=== PATIENT | female | born 1980 | race Caucasian/White ===

== ENCOUNTER 2019-05-26 06:42 | Outpatient (CLI) | payer OTHER, SELFPAY ==
--- NOTE | ~2019-05-26 | CT_ITS ---
EXAMINATION: CT sinus wo con DATE: 05/26/2019 07:20 INDICATION: Chronic sinusitis TECHNIQUE: Computed tomography (CT) of the paranasal sinuses was performed without intravenous contra st. The dose-length product (DLP) was 302.19 mGy-cm. Iterative reconstruction was used. COMPARISON: 02/06/2017 FINDINGS: There is normal development and pneumatization of the paranasal sinuses. The frontal, sphen oid, ethmoid, and maxillary sinuses are clear. The bilateral ostiomeatal complexes are patent. Visual ized soft tissues are unremarkable. Catherine bullosa the left middle turbinate is noted. There are 6 mm of rightward deviation of the nasal septum. IMPRESSION: 1. 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 Reviewed, dictated and finalized at location A. PERSON
== END 2019-05-26 06:43 | disposition home or self-care (01) ==
PROVIDERS: PCP Family Medicine; Visit Provider Otolaryngology
DX: J32.9 Chronic sinusitis, unspecified (principal); J34.2 Deviated nasal septum
CPT/HCPCS: 70486

== ENCOUNTER 2019-10-08 16:51 | Emergency (ER) | payer OTHER, SELFPAY ==
[2019-10-08 17:11] VITALS: BP 115/65; PULSE 62; RESP 18; TEMP 36.5; O2SAT 100
--- NOTE | 2019-10-08 17:20 | ED.URI ---
HPI - URI/Sore Throat General Chief Complaint: Ear Stated Complaint: upper respiratory infection Time Seen by Provider: 10/08/19 17:20 Source: patient Mode of arrival: ambulatory Limitations: no limitations History of Present Illness HPI Narrative: Peggy Serrano is a 39 yo female woth PMH of [facility] who comes with bilateral ear pain and headache. Bilateral ear pain started 3-4 days ago, same with headache. History of recurrent problems with sinuses and has an ENT. Multiple care and was treated with steroids and antibiotics Related Data Home Medications Medication Instructions Recorded Confirmed alprazolam [Xanax] 1 mg PO BID PRN 02/14/19 02/14/19 omeprazole 40 mg PO DAILY 02/14/19 02/14/19 sertraline 50 mg PO DAILY 02/14/19 02/14/19 estradiol mg 03/29/19 Allergies Allergy/AdvReac Type Severity Reaction Status Date / Time hydrocodone Allergy Intermediate SWELLING Verified 03/29/19 11:50 AND VOMITING. cephalexin Allergy Hives Verified 03/29/19 11:50 Review of Systems Review of Systems: Narrative: CONSTITUTIONAL: Denies fever, chills, sweats. EYES: Denies visual changes, redness, discharge. ENT: Denies rhinorrhea, congestion, sore throat, bilateral otalgia. Has frontal headache CARDIOVASCULAR: Denies chest pain, palpitations, edema. RESPIRATORY: Denies dyspnea, wheezing, cough GASTROINTESTINAL: Denies abdominal pain, nausea, vomiting, diarrhea. GENITOURINARY: Denies dysuria, hematuria, abnormal discharge SKIN: Denies rash or itching. NEUROLOGIC: Denies numbness, or focal weakness. PSYCHIATRIC: Denies anxiety or depression. [facility] Past Medical History Medical History Anemia Anxiety Back pain Depression Endometriosis GERD (gastroesophageal reflux disease) IBS (irritable bowel syndrome) Sinus problem Sleep apnea UTI (urinary tract infection) Wears glasses Surgical History Surgical History History of appendectomy History of cholecystectomy History of hysterectomy Hx of breast reduction, elective Hx of laparoscopy x2 Family History Family History Other Alcoholism Dementia Diabetes mellitus Social History Social History Smoking packs per day: 0.5 Smoking cigarettes per day: 10.0 Gender identity (if verbalized by the patient): Female Comments At time of signature, I agree with nursing past medical, surgical, social and family history. There is no relevant family history pertinent to the presenting complaint. Exam Narrative: Exam Narrative: GENERAL: This is a well-nourished, well-developed patient, in mild distress. HEAD: normocephalic, atraumatic. EYES: Sclera clear/white. Vision is grossly intact. EARS: External ears normal,. Hearing grossly intact. Bilateral ears-no erythema, minimal fluid behind TMs, pain is below ears and eustachian tube- frontal sinus tenderness NOSE: External nose normal without nasal discharge, nares with redness, with rhinorrhea. THROAT: Mucous membranes moist, posterior pharynx no erythema NECK: Neck supple, non-tender CARDIOVASCULAR: Regular rate and rhythm without murmurs, gallops, or rubs. RESPIRATORY: Clear to auscultation. Breath sounds equal bilaterally. No wheezes, rales, or rhonchi. GASTROINTESTINAL: Abdomen soft, non-tender, SKIN: warm, intact with no suspicious lesions or rash, good texture and turgor. NEURO: awake, alert, and oriented to person, place and time. There were no obvious focal neurologic abnormalities. Steady gait EXTREMITIES: Normal range of motion. BACK: Nontender without deformity Course Course Emergency Course: Started on prednisone and Zithromax-states she has recurrent sinus issues and her ENT gives her antibiotics; has been using and Sudafed for the last 3 to 4 days with no improvement Ashlyo
== END 2019-10-08 17:33 | disposition home or self-care (01) ==
PROVIDERS: Emergency Provider Nurse Practitioner; PCP Family Medicine
DX: J01.11 Acute recurrent frontal sinusitis (principal); F41.9 Anxiety disorder, unspecified; F32.9 Major depressive disorder, single episode, unspecified; N80.9 Endometriosis, unspecified; K21.9 Gastro-esophageal reflux disease without esophagitis; G47.30 Sleep apnea, unspecified
CPT/HCPCS: 99213; G0463

== ENCOUNTER 2019-11-13 19:20 | Emergency (ER) | payer OTHER, SELFPAY ==
--- NOTE | ~2019-11-13 | CT_ITS ---
EXAMINATION: CT lumbar spine wo con DATE: 11/13/2019 22:40 INDICATION: Low back pain. TECHNIQUE: Computed tomography (CT) of the lumbar spine was performed without intravenous contrast. A utomated exposure control and iterative reconstruction technique were employed. The dose-length produ ct was 880.80 mGy-cm. COMPARISON: Lumbar spine radiographs 02/14/2019 FINDINGS: Bone alignment is normal. Vertebral body heights and intervertebral disc heights are normal . The following disc levels are specifically discussed: L1-L2: The disc does not extend beyond the endplate margin. There is mild bilateral facet joint osteo arthritis. There is no neural foraminal stenosis. There is no central canal stenosis. L2-L3: The disc does not extend beyond the endplate margin. There is mild bilateral facet joint osteo arthritis. There is no neural foraminal stenosis. There is no central canal stenosis. L3-L4: The disc does not extend beyond the endplate margin. There is mild bilateral facet joint osteo arthritis. There is no neural foraminal stenosis. There is no central canal stenosis. L4-L5: The disc is mildly bulging. There is mild bilateral facet joint osteoarthritis. There is mild bilateral neural foraminal stenosis. There is mild central canal stenosis. L5-S1: The disc is mildly bulging. There is mild bilateral facet joint osteoarthritis. There is no ne ural foraminal stenosis. There is no central canal stenosis. IMPRESSION: 1. Mild lumbar spondylosis. Reviewed, dictated and finalized at location A. IMPRESSION: 1. Mild lumbar spondylosis.
[2019-11-13 19:22] VITALS: BP 116/85; PULSE 89; RESP 20; TEMP 36.5; O2SAT 100
[2019-11-13] MEDS: ONDANSETRON INJ 4 MG/2 ML VIAL IV PUSH (21:32)
[2019-11-13] MEDS: MORPHINE SULFATE 4 MG/ML INJ IV PUSH (21:32)
[2019-11-13] MEDS: KETOROLAC 30 MG/ML VIAL (*BKC) IV PUSH (21:32)
[2019-11-13 21:37] VITALS: BP 132/77; PULSE 95; RESP 20; O2SAT 100
--- NOTE | 2019-11-13 21:59 | ED.GENADULT ---
HPI - General Adult General Chief complaint: Back Pain/Injury Stated complaint: lower back pain Time Seen by Provider: 11/13/19 20:54 Source: patient and family History of Present Illness HPI narrative: Nontraumatic lower back pain for the last 2 days worse with certain movement, better with certain position. Radiating to right lower leg. Patient denies any numbness, tingling or weakness. Patient is also denies any fever, chills, nausea, vomiting, urinary symptoms, abdominal pain, chest pain, headache. Related Data Home Medications Medication Instructions Recorded Confirmed alprazolam [Xanax] 1 mg PO BID PRN 02/14/19 02/14/19 omeprazole 40 mg PO DAILY 02/14/19 02/14/19 sertraline 50 mg PO DAILY 02/14/19 02/14/19 estradiol mg 03/29/19 Allergies Allergy/AdvReac Type Severity Reaction Status Date / Time hydrocodone Allergy Intermediate SWELLING Verified 11/13/19 20:10 AND VOMITING. cephalexin Allergy Hives Verified 11/13/19 20:10 Review of Systems Review of Systems: Narrative: CONSTITUTIONAL: Denies fever, chills, or sweats. EYES: Denies visual changes, redness, or discharge. ENT: Denies rhinorrhea, congestion, sore throat, or otalgia. CARDIOVASCULAR: Denies chest pain, palpitations, or edema. RESPIRATORY: Denies cough or dyspnea. GASTROINTESTINAL: Denies abdominal pain, nausea, vomiting, or diarrhea. GENITOURINARY: Denies dysuria or hematuria. SKIN: Denies rash or itching. MUSCULOSKELETAL: Lower back pain NEUROLOGIC: Denies headache, numbness, or weakness. PSYCHIATRIC: Denies anxiety or depression. [facility] Past Medical History Medical History Anemia Anxiety Back pain Depression Endometriosis GERD (gastroesophageal reflux disease) IBS (irritable bowel syndrome) Sinus problem Sleep apnea UTI (urinary tract infection) Wears glasses Surgical History Surgical History History of appendectomy History of cholecystectomy History of hysterectomy Hx of breast reduction, elective Hx of laparoscopy x2 Family History Family History Other Alcoholism Dementia Diabetes mellitus Social History Social History Smoking packs per day: 0.5 Smoking cigarettes per day: 10.0 Gender identity (if verbalized by the patient): Female Exam Narrative: Exam Narrative: General appearance: Well-developed, well-nourished Skin: Normal color Head: Normocephalic, nontraumatic Eyes: Clear conjunctiva ENT: Oropharynx normal, ears normal, nose normal Neck: Supple, nontender Chest and respiratory: Airway patent, no respiratory distress, no accessory muscle use Heart: Regular rate/rhythm Abdomen: Soft, nontender, no organomegaly, quiet bowel sounds Vascular: Normal peripheral pulses, normal capillary refill. Musculoskeletal: Lower back exam showed severe tenderness with light palpation of the lumbar area midline and right buttock. No bruises, no swelling, no rash. Positive straight leg raising test Neurologic: Alert and oriented ?3, [employer] is normal as tested, no gross motor deficit Course Course Emergency Course: Improving Reevaluation(s) Reevaluation #1: Feeling much better compared to on arrival to the emergency room Date: 11/13/19 Time: 23:25 Vital Signs Vital signs: Vital Signs Temperature 36.5 C 11/13/19 19:22 Pulse Rate 89 11/13/19 19:22 Respiratory Rate 20 11/13/19 19:22 Blood Pressure 116/85 11/13/19 19:22 Pulse Oximetry 100 11/13/19 19:22 Temperature 36.5 C 11/13/19 19:22 Pulse Rate 66 0
[2019-11-13 22:08] LABS: Basophils Percent Auto 0.2 % (0.2-1.2); Eosinophils Absolute Auto 0.1 K/mm3 (0-0.3); Eosinophils Percent Auto 1.4 % (0-4.4); Hematocrit 42.2 % (37.0-47.0); Hemoglobin 13.5 g/dL (12.0-15.0); Immature Granulocyte Absolute 0.03 K/mm3 (0.00-0.031); Immature Granulocyte Percent A 0.3 % (0-0.5); Immature Platelet Fraction Pct 39.3 % (0.9-11.2); Lymphocytes Percent Auto 35.3 % (18.3-44.2); Mean Corpuscular Hemoglobin 26.9 pg (26-34); Mean Corpuscular Volume 84.1 fl (80-100); Monocytes Absolute Auto 0.6 K/mm3 (0.1-0.6); Monocytes Percent Auto 6.9 % (2.6-8.5); Neutrophils Absolute Auto 4.9 K/mm3 (1.3-6.7); Neutrophils Percent Auto 55.9 % (45.5-73.1); Platelet Count Result 69 k/mm3 (150-375); Red Blood Count 5.02 M/mm3 (4.2-5.4); Red Cell Distribution Width 13.2 % (11.5-14.5); White Blood Count 8.8 K/mm3 (4.5-10.0)
[2019-11-13 22:10] VITALS: BP 119/72; PULSE 64; RESP 20; O2SAT 97
[2019-11-13 22:44] LABS: Erythrocyte Sedimentation Rate 11 mm/hr (0-20)
[2019-11-13 23:14] VITALS: BP 112/69; PULSE 66; RESP 20; O2SAT 99
[2019-11-13 23:33] VITALS: BP 112/69; PULSE 60; RESP 20; O2SAT 100
== END 2019-11-13 23:35 | disposition home or self-care (01) ==
PROVIDERS: Emergency Provider Emergency Medicine; PCP Family Medicine
DX: M54.41 Lumbago with sciatica, right side (principal); M54.16 Radiculopathy, lumbar region; S39.012A Strain of muscle, fascia and tendon of lower back, initial encounter; F41.9 Anxiety disorder, unspecified; F32.9 Major depressive disorder, single episode, unspecified; K21.9 Gastro-esophageal reflux disease without esophagitis; K58.9 Irritable bowel syndrome, unspecified; G47.30 Sleep apnea, unspecified; Z87.440 Personal history of urinary (tract) infections; F17.210 Nicotine dependence, cigarettes, uncomplicated; X58.XXXA Exposure to other specified factors, initial encounter; Z86.2 Personal history of diseases of the blood and blood-forming organs and certain disorders involving the immune mechanism
CPT/HCPCS: 36415; 72131; 85025; 85055; 85652; 86140; 96374; 96375; 99284; J1100; J1885; J2270; J2405

== ENCOUNTER 2020-01-19 03:39 | Outpatient (CLI) | payer OTHER, SELFPAY ==
[2020-01-19 19:05] LABS: SARS-CoV-2 RNA PCR Negative
== END 2020-01-19 03:40 | disposition home or self-care (01) ==
LOC: ANHCOVIDDT 03:39
PROVIDERS: PCP Family Medicine; Visit Provider Obstetrics & Gynecology
DX: Z01.812 Encounter for preprocedural laboratory examination (principal); Z20.828 Contact with and (suspected) exposure to other viral communicable diseases
CPT/HCPCS: 87635; C9803; U0003

== ENCOUNTER 2020-01-19 08:28 | Outpatient (CLI) | payer OTHER, SELFPAY | END 2020-01-19 08:29 | disposition home or self-care (01) | LOC: ANHSURGERY 08:31 | PROVIDERS: PCP Family Medicine; Visit Provider Obstetrics & Gynecology | DX: R10.2 Pelvic and perineal pain (principal) | CPT/HCPCS: 36415; 86850; 86900; 86901; 87635; C9803; U0003 ==

== ENCOUNTER 2020-01-21 01:02 | Day surgery (SDC) | payer OTHER, SELFPAY ==
[2020-01-14 11:23] VITALS: BMI 34.7
--- NOTE | 2020-01-19 07:37 | PM.IMHP ---
H&P: HPI History of Present Illness Date/Time: 01/19/20 07:37 Chief complaint: pelvic pain Narrative: Peggy Serrano is a 39 year old female 2 para 2 status post hysterectomy who is admitted for diagnostic laparoscopy. She has a history of pelvic adhesions and had a benign cystic lesion removed before in the past. She has had dyspareunia and severe pelvic pain requiring pain medication. Ultrasound the office and showed no abnormalities. Risks and benefits of this procedure reviewed including but not exclusive of , aspiration pneumonia, bleeding, transfusion, perforation injury to bowel, bladder, ureters, or other internal organs with need for open laparotomy. She voiced good understanding. She received the [facility] handout entitled laparoscopy. She asked to proceed Review of Systems Review of Systems: All systems reviewed & are unremarkable except as noted in HPI and below PMFSH Past Medical History Medical History Anemia Anxiety Back pain Depression Endometriosis GERD (gastroesophageal reflux disease) IBS (irritable bowel syndrome) Sinus problem Sleep apnea UTI (urinary tract infection) Wears glasses Surgical History Surgical History History of appendectomy History of cholecystectomy History of hysterectomy Hx of breast reduction, elective Hx of laparoscopy x2 Family History Family History Other Alcoholism Dementia Diabetes mellitus Social History Social History Smoking packs per day: 0.5 Smoking cigarettes per day: 10.0 Smoking status: Never smoker Substance use: current Substance use type: marijuana Last use: 01/10/20 Gender identity (if verbalized by the patient): Female Spiritual care concerns: No Meds Home Medications and Allergies Home Medications Medication Instructions Recorded Confirmed Type alprazolam [Xanax] 1 mg PO BID PRN 02/14/19 01/14/20 History omeprazole 40 mg PO DAILY 02/14/19 01/14/20 History sertraline 50 mg PO QPM 02/14/19 01/14/20 History estradiol 1 mg PO DAILY 03/29/19 01/14/20 History ibuprofen 800 mg PO Q6H PRN 01/14/20 01/14/20 History Allergies Allergy/AdvReac Type Severity Reaction Status Date / Time hydrocodone Allergy Intermediate SWELLING Verified 01/14/20 11:24 AND VOMITING. cephalexin Allergy Hives Verified 01/14/20 11:24 codeine Allergy ITCHING, Verified 01/14/20 11:24 RASH Exam Const: General: no acute distress Eyes: General: appearance normal, both eyes and all related structures Neck: Neck: supple and no JVD Thyroid: thyroid normal Resp: Effort & Inspection: normal respiratory effort Auscultation: clear to auscultation bilaterally Cardio: Rate: regular rate Rhythm: regular rhythm GI: Inspection: non-distended GI Palp: Yes Soft to palpation, No Tenderness to palpation present (GI) and No Guarding due to palpation present (GI) Auscultation: normal bowel sounds : General: Yes bladder normal to inspection External Female Exam: normal external appearance Speculum Exam - Vagina: normal appearance of the vagina Speculum Exam - Cervix: Cervix absent Bimanual exam- vagina & uterus: uterus absent Bimanual Exam- Adnexa, other: tender bilaterally Skin: General skin exam: no rashes or lesions noted Extrem: General: normal to inspection and no edema Psych: Mental Status: mental status grossly normal Affect: normal affect Assessment and Plan Additional Plan impression: Pelvic pain and dyspareunia Plan: Diagnostic laparoscopy
[2020-01-21] VITALS (15 sets, daily range): BP systolic 112–134; BP diastolic 57–84; PULSE 59–78; RESP 10–18; TEMP 36; O2SAT 93–100
--- NOTE | 2020-01-21 06:40 | WPDHPUPDATE1 ---
History and Physical Update Update Date/Time: 01/21/20 06:40 History and Physical has been reviewed, including an updated exam of the patient. There are NO changes in the patient's condition. Risks, benefits, and alternatives have been discussed and questions answered. Patient agrees to proceed with procedure.
[2020-01-21] MEDS: LACTATED RINGERS 1,000 ML 30 ML IV CONT ×2 (09:08→11:02)
[2020-01-21] MEDS: ACETAMINOPHEN 500 MG TABLET 1000 MG PO ×2 (09:09→14:10)
[2020-01-21] MEDS: KETOROLAC 15 MG/ML VIAL (*BKC) IV PUSH ×2 (09:10→14:08)
--- NOTE | 2020-01-21 09:45 | WPDANESEPPF ---
Anes - Initial Pre Proc Eval Procedure: Operation Date: 01/21/20 10:30 Proposed Procedures p Diagnostic Laparoscopy - New Kurtz MD Date/Time: 01/21/20 09:45 Surgeon: New Kurtz MD Pre Op Diagnosis: pelvic pain Patient Data Age: 39 Gender: F Height: 5 ft 1 in Weight: 81.25 kg Last Vital Signs Temp 36.0 C L 01/21/20 09:00 Pulse 66 01/21/20 09:00 Resp 18 01/21/20 09:00 BP 130/70 01/21/20 09:00 Pulse Ox 100 01/21/20 09:00 Allergies Allergy/AdvReac Type Severity Reaction Status Date / Time hydrocodone Allergy Intermediate SWELLING Verified 01/21/20 09:34 AND VOMITING. cephalexin Allergy Hives Verified 01/21/20 09:34 codeine Allergy ITCHING, Verified 01/21/20 09:34 RASH Home Medications Medication Instructions Recorded Confirmed Type alprazolam [Xanax] 1 mg PO BID PRN 02/14/19 01/21/20 History omeprazole 40 mg PO DAILY 02/14/19 01/21/20 History sertraline 50 mg PO QPM 02/14/19 01/21/20 History estradiol 1 mg PO DAILY 03/29/19 01/21/20 History ibuprofen 800 mg PO Q6H PRN 01/14/20 01/21/20 History Patient hx anesthesia problems: none Family hx anesthesia problems: none PMFSH Past Medical History Medical History Anemia Anxiety Back pain Depression Endometriosis GERD (gastroesophageal reflux disease) IBS (irritable bowel syndrome) Sinus problem Sleep apnea UTI (urinary tract infection) Wears glasses Surgical History Surgical History History of appendectomy History of cholecystectomy History of hysterectomy Hx of breast reduction, elective Hx of laparoscopy x2 Family History Family History Other Alcoholism Dementia Diabetes mellitus Social History Social History Smoking packs per day: 0.5 Smoking cigarettes per day: 10.0 Smoking status: Never smoker Substance use: current Substance use type: marijuana Last use: 01/10/20 Gender identity (if verbalized by the patient): Female Spiritual care concerns: No Anes - Eval Final PreProcedure Day of Procedure 01/21/20 09:45 Patient weight: obese Heart: regular rate and rhythm Lungs: clear to auscultation Airway: Mallampati scale class II Neurological: alert and oriented Last oral intake: >/= 8 hours ASA classification: III Emergent: no Anesthetic plan: proceed Anesthesia type and monitoring: general ETT and standard monitoring Informed Consent: The patient's anesthetic plan and its attendant risks and benefits were discussed with the patient/family/POA. Questions were solicited and answers provided to the satisfaction of the patient/family/POA.
[2020-01-21] MEDS: SCOPOLAMINE 1.5 MG PATCH TRANSDERM (09:59)
[2020-01-21] MEDS: FAMOTIDINE 20 MG/2 ML VIAL IV PUSH (09:59)
[2020-01-21] MEDS: ONDANSETRON INJ 4 MG/2 ML VIAL IV PUSH ×2 (10:01→12:38)
[2020-01-21] MEDS: fentaNYL CITRATE INJ (*CRX) 100 MCG/2 ML VIAL 50 MCG IV PUSH (10:02)
--- NOTE | 2020-01-21 10:55 | PM.PROC ---
Procedure Note - Detailed Date of procedure: 01/21/20 Pre-op diagnosis: pelvic pain Surgeon: New Kurtz MD Postop diagnosis: Pelvic pain /adhesions Procedure: Laparoscopy with extensive lysis of adhesions Anesthesia: General endotracheal EBL: 5Cc Complications:none Findings: Absent uterus ovaries and tubes: Bowel attached to the vaginal cuff and left lateral sidewall Description of procedure the patient was prepped draped in the normal sterile fashion placed in the dorsal lithotomy position. Under excellent general endotracheal anesthesia weighted speculum placed posterior fornix vagina. A sponge stick was placed in the vagina the remainder the instruments removed. The bladder was emptied of about 25cc of clear urine. The gloves were changed. An infraumbilical incision made and the Veress needle passed in the abdomen. The abdomen was filled with CO2 gas [id number]. The 5mm trocar advanced under direct visualization assuring no injury the patient placed in Trendelenburg and a suprapubic incision made. The 5mm trocar advanced into the abdomen under direct visualization assuring no injury. Right lower quadrant incision made and the 5mm trocar advanced under direct visualization again assuring no injury. The above findings were seen using sharp dissection the colon was sharply dissected away from the vaginal cuff. The sponge stick was removed back in 4 and a to resemble intercourse she had had painful intercourse. There was freedom of movement. Irrigation was undertaken to clear. Blood loss was estimated at5cc. The instruments removed. The gas removed from the abdomen. The incisions closed with 4 O Monocryl and glue. The patient was awakened. She went to recovery in satisfactory condition. All sponge, needle, instrument counts were correct. There were no complications
[2020-01-21] MEDS: fentaNYL CITRATE INJ (*CRX) 100 MCG/2 ML VIAL 25 MCG IV PUSH ×4 (12:06→12:24)
== END 2020-01-21 15:01 | disposition home or self-care (01) ==
PROVIDERS: PCP Family Medicine; Visit Provider Obstetrics & Gynecology
PROC: (CPT 49320; principal; 2020-01-21 10:30)
DX: R10.2 Pelvic and perineal pain (principal); N73.6 Female pelvic peritoneal adhesions (postinfective); F41.8 Other specified anxiety disorders; K21.9 Gastro-esophageal reflux disease without esophagitis; F12.90 Cannabis use, unspecified, uncomplicated; E66.9 Obesity, unspecified; Z68.33 Body mass index [BMI] 33.0-33.9, adult
CPT/HCPCS: 58660; A9270; J0330; J1100; J1885; J2250; J2405; J2704; J3010; J7030; J7120

== ENCOUNTER 2020-02-07 12:39 | Emergency (ER) | payer OTHER, SELFPAY ==
[2020-02-07 12:52] VITALS: BP 131/72; PULSE 94; RESP 20; TEMP 36.3; O2SAT 100
[2020-02-07] MEDS: LORazepam (*CRX) 1 MG TABLET PO (13:13)
[2020-02-07] MEDS: IBUPROFEN 600 MG TABLET PO (13:13)
--- NOTE | 2020-02-07 13:35 | ED.GENADULT ---
HPI - General Adult General Chief complaint: Skin/Abscess/Foreign Body Stated complaint: Just went to urgent care for a red spot on her Time Seen by Provider: 02/07/20 12:49 Source: patient Mode of arrival: ambulatory Limitations: no limitations History of Present Illness HPI narrative: Patient is a 39-year-old female who presents with 1 week duration of red tender swollen fluctuant lesion to the left abdomen patient was started on Bactrim last week by her drill sharpener operator Dr. Korey Ross has had no improvement continues to have redness and swelling with increasing pain denies fever chills nausea vomiting Related Data Home Medications Medication Instructions Recorded Confirmed alprazolam [Xanax] 1 mg PO BID PRN 02/14/19 01/21/20 omeprazole 40 mg PO DAILY 02/14/19 01/21/20 sertraline 50 mg PO QPM 02/14/19 01/21/20 estradiol 1 mg PO DAILY 03/29/19 01/21/20 ibuprofen 800 mg PO Q6H PRN 01/14/20 01/21/20 Allergies Allergy/AdvReac Type Severity Reaction Status Date / Time hydrocodone Allergy Intermediate SWELLING Verified 02/07/20 12:56 AND VOMITING. cephalexin Allergy Hives Verified 02/07/20 12:56 codeine Allergy ITCHING, Verified 02/07/20 12:56 RASH Review of Systems Review of Systems: All systems reviewed & are unremarkable except as noted in HPI and below PMFSH Past Medical History Medical History (Updated 02/07/20 @ 15:04 by Bernardo Meyers PA-C) Anemia Anxiety Back pain Depression Endometriosis GERD (gastroesophageal reflux disease) IBS (irritable bowel syndrome) Sinus problem Sleep apnea UTI (urinary tract infection) Wears glasses Surgical History Surgical History History of appendectomy History of cholecystectomy History of hysterectomy Hx of breast reduction, elective Hx of laparoscopy x2 Family History Family History Other Alcoholism Dementia Diabetes mellitus Social History Social History Smoking packs per day: 0.5 Smoking cigarettes per day: 10.0 Smoking status: Never smoker Substance use: current Substance use type: marijuana Last use: 01/10/20 Gender identity (if verbalized by the patient): Female Spiritual care concerns: No Exam Narrative: Exam Narrative: GENERAL: Well-appearing, well-nourished, and in no acute distress. HEAD: Normocephalic, atraumatic. EYES: PERRLA and EOMI. ENT: Nares clear, no rhinorrhea or epistaxis. Mucous membranes moist. CHEST: Clear to auscultation. No respiratory distress. No wheezes rales or rhonchi HEART: Regular rate and rhythm. No murmur heard. Normal peripheral pulses. ABDOMEN: Soft, nontender except for abscess, nondistended EXTREMITIES: Normal range of motion. No edema. SKIN: Warm, dry, no rash. 2-1/2 cm tender erythematous lesion left lower abdomen with surrounding erythema no drainage NEURO: No focal deficits. Alert and oriented x3. PSYCH: Normal mood and affect. Course Course Emergency Course: Patient in the room at this time had I&D of the abscess with cultures taken will be discharged with follow-up with her drill sharpener operator in the next 2 days who will manage the wound per patient patient will be switched to doxycycline Vital Signs Vital signs: Vital Signs Temperature 97.4 F L 02/07/20 12:52 Pulse Rate 94 02/07/20 12:52 Respiratory Rate 20 02/07/20 12:52 Blood Pressure 131/72 02/07/20 12:52 Pulse Oximetry 100 02/07/20 12:52 Temperature 97.4 F L 02/07/20 12:52 Pulse Rate 94 02/07/20 12:52 Respiratory Rate 20 02/07/20 12:52 Blood Pressure 131/72 02/07/20 12:52 Pulse Oximetry 100 02/07/20 12:52 Procedures Abscess I/D abdomen: Date of Incision: 02/07/20 Time of Incision: 15:02 Side (if applicable): left Local Anesthetic: lidocaine 1% Technique: needle aspiration and
== END 2020-02-07 15:19 | disposition home or self-care (01) ==
PROVIDERS: Emergency Provider Emergency Medicine; PCP Family Medicine
DX: L02.211 Cutaneous abscess of abdominal wall (principal); F41.9 Anxiety disorder, unspecified; F32.9 Major depressive disorder, single episode, unspecified; N80.9 Endometriosis, unspecified; K21.9 Gastro-esophageal reflux disease without esophagitis; K58.9 Irritable bowel syndrome, unspecified; Z87.440 Personal history of urinary (tract) infections
CPT/HCPCS: 10061; 87070; 87075; 87147; 87186; 87205; 99283; A9270

== ENCOUNTER 2020-04-27 12:37 | Emergency (ER) | payer OTHER, SELFPAY ==
[2020-04-27 12:57] VITALS: BP 126/85; PULSE 67; RESP 20; TEMP 36.5; O2SAT 99
--- NOTE | 2020-04-27 13:58 | ED.HA ---
HPI - Headache General Chief Complaint: Headache Stated Complaint: headache Time Seen by Provider: 04/27/20 13:58 History of Present Illness HPI Narrative: 39 yo female w/ h/o migraines presnets to [facility] ED for a headache. SHe has had a severe continuos headache for the pas three days. The headahce is pounding. bifrontal. Associated with photophobia, nausea, vomiting. This is the same as previous migraines, but worse. Related Data Home Medications Medication Instructions Recorded Confirmed alprazolam [Xanax] 1 mg PO BID PRN 02/14/19 01/21/20 omeprazole 40 mg PO DAILY 02/14/19 01/21/20 sertraline 50 mg PO QPM 02/14/19 01/21/20 estradiol 1 mg PO DAILY 03/29/19 01/21/20 ibuprofen 800 mg PO Q6H PRN 01/14/20 01/21/20 Allergies Allergy/AdvReac Type Severity Reaction Status Date / Time hydrocodone Allergy Intermediate SWELLING Verified 02/07/20 12:56 AND VOMITING. cephalexin Allergy Hives Verified 02/07/20 12:56 codeine Allergy ITCHING, Verified 02/07/20 12:56 RASH Review of Systems Review of Systems: All systems reviewed & are unremarkable except as noted in HPI and below Constitutional: Constitutional: Denies fever(s) and Denies weakness Eyes: Eyes: Reports photophobia ENT: Denies nasal congestion and Denies sore throat Cardiovascular: Cardiovascular: Denies chest pain Respiratory: Respiratory: Denies dyspnea Gastrointestinal: Gastrointestinal: Denies abdominal pain, Reports nausea and Reports vomiting Musculoskeletal: Musculoskeletal: Denies back pain Neurologic: Denies dizziness, Reports headache(s) and Denies weakness PMFSH Past Medical History Medical History Anemia Anxiety Back pain Depression Endometriosis GERD (gastroesophageal reflux disease) IBS (irritable bowel syndrome) Sinus problem Sleep apnea UTI (urinary tract infection) Wears glasses Surgical History Surgical History History of appendectomy History of cholecystectomy History of hysterectomy Hx of breast reduction, elective Hx of laparoscopy x2 Family History Family History Other Alcoholism Dementia Diabetes mellitus Social History Social History Smoking packs per day: 0.5 Smoking cigarettes per day: 10.0 Smoking status: Never smoker Substance use: current Substance use type: marijuana Last use: 01/10/20 Gender identity (if verbalized by the patient): Female Spiritual care concerns: No Exam Const: General: healthy appearing, no acute distress and alert Orientation/consciousness: patient oriented x3 HENMT: Head: normal to inspection Eyes: Pupils: Equal, round and reactive pupils present EOM: EOMs intact bilaterally Neck: Neck: normal visual inspection and no lymphadenopathy Resp: Effort & Inspection: normal respiratory effort Auscultation: clear to auscultation bilaterally, no rales, no rhonchi and no wheezes Cardio: Jugular venous distension: no JVD Rate: regular rate Rhythm: regular rhythm Heart sounds: no murmurs Skin: General skin exam: normal color Neuro: General: patient oriented x3, moves all extremities, no focal motor deficits and CN's II-XI intact bilaterally Cranial nerves: Yes Nystagmus not present Speech: normal speech Gait exam (Neuro): Normal gait present Extrem: General: no edema Psych: Appearance: well kempt Affect: normal affect Course Vital Signs Vital signs: Vital Signs Temperature 36.5 C 04/27/20 12:57 Pulse Rate 67 04/27/20 12:57 Respiratory Rate 04/27/20 12:57 Blood Pressure 126/85 04/27/20 12:57 Pulse Oximetry 99 04/27/20 12:57 Temperature 36.5 C 04/27/20 12:57 Pulse Rate 67 04/27/20 12:57 Respiratory Rate 04/27/20 12:57 Blood Pressure 126/85 04/27/20 12:57 Pulse Oxime
[2020-04-27] MEDS: METOCLOPRAMIDE HCL INJ 10 MG/2 ML VIAL IV PUSH (14:20)
[2020-04-27] MEDS: SODIUM CHLORIDE 0.9% IV 1,000 ML 999 ML IV CONT (14:51)
[2020-04-27] MEDS: diphenhydrAMINE HCl INJ 50 MG/ML VIAL IV PUSH (14:52)
[2020-04-27] MEDS: KETOROLAC 30 MG/ML VIAL (*BKC) IV PUSH (14:53)
== END 2020-04-27 16:40 | disposition home or self-care (01) ==
PROVIDERS: Emergency Provider Emergency Medicine; PCP Family Medicine
DX: G43.909 Migraine, unspecified, not intractable, without status migrainosus (principal); F41.9 Anxiety disorder, unspecified; F32.9 Major depressive disorder, single episode, unspecified; N80.9 Endometriosis, unspecified; K21.9 Gastro-esophageal reflux disease without esophagitis; K58.9 Irritable bowel syndrome, unspecified; G47.30 Sleep apnea, unspecified; Z87.440 Personal history of urinary (tract) infections; F17.210 Nicotine dependence, cigarettes, uncomplicated
CPT/HCPCS: 96365; 96366; 96375; 99284; J0131; J1200; J1885; J2765; J7030

== ENCOUNTER 2020-07-05 10:30 | Outpatient (CLI) | payer OTHER, SELFPAY ==
--- NOTE | ~2020-07-05 | MM_ITS ---
EXAMINATION: MM screening [facility] BI w machelle HISTORY: Screening mammogram TECHNIQUE: Craniocaudal and mediolateral oblique 3-D tomosynthesis images were obtained and synthetic 2-D images were generated. CAD analysis was submitted and interpreted. COMPARISON: No prior mammogram is available for comparison at this institution. BREAST PARENCHYMAL COMPOSITION: There are scattered areas of fibroglandular density. FINDINGS: There are asymmetries on the left. Diagnostic left mammogram and left breast ultrasound exa mination are recommended. There is no evidence of suspicious mass, calcification, or architectural distortion to suggest malign melo in the right breast. IMPRESSION: 1. Left breast mammographic asymmetries 2. Diagnostic left mammogram and left breast ultrasound examination are recommended BI-RADS Category 0: Incomplete: Needs additional imaging evaluation. Reviewed, dictated and finalized at location [facility]. IMPRESSION: 1. Left breast mammographic asymmetries 2. Diagnostic left mammogram and left breast ultrasound examination are recomme nded BI-RADS Category 0: Incomplete: Needs additional imaging evaluation.
== END 2020-07-05 10:31 | disposition home or self-care (01) ==
LOC: ANHIMG 10:33
PROVIDERS: PCP Family Medicine; Visit Provider Student in an Organized Health Care Education/Training Program
DX: Z12.31 Encounter for screening mammogram for malignant neoplasm of breast (principal); R92.8 Other abnormal and inconclusive findings on diagnostic imaging of breast
CPT/HCPCS: 77063; 77067

== ENCOUNTER 2020-08-04 11:38 | Outpatient (CLI) | payer OTHER, SELFPAY ==
--- NOTE | ~2020-08-04 | MMUS_ITS ---
EXAMINATION: MM diagnostic mammo unilat LT, US breast LT limited HISTORY: Follow-up left breast asymmetries TECHNIQUE: Additional 3-D tomosynthesis images of the left breast were performed and synthetic 2-D im ages were generated. CAD analysis was submitted and interpreted. High resolution Limited left breast ultrasound was performed. COMPARISON: 07/05/2020 BREAST PARENCHYMAL COMPOSITION: Breast composed of scattered areas of fibroglandular density. FINDINGS: MAMMOGRAPHIC FINDINGS: There are no suspicious masses, calcifications or architectural distortion with spot compression or m ediolateral views of the left breast. ULTRASOUND: Limited left breast ultrasound: Normal heterogeneous echotexture without focal mass. IMPRESSION: 1. No evidence for malignancy in the left breast. 2. Routine yearly screening mammogram and regular clinical breast examination are recommended. BI-RADS Category 1: Negative Reviewed, dictated and finalized at location [facility]. IMPRESSION: 1. No evidence for malignancy in the left breast. 2. Routine yearly screening mammogram and regular clinical breast examination a re recommended. BI-RADS Category 1: Negative
== END 2020-08-04 11:39 | disposition home or self-care (01) ==
PROVIDERS: PCP Family Medicine; Visit Provider Family Medicine
DX: R92.2 Inconclusive mammogram (principal)
CPT/HCPCS: 76642; 77065

== ENCOUNTER 2020-09-05 10:58 | Outpatient (CLI) | payer OTHER, SELFPAY | END 2020-09-05 10:59 | disposition home or self-care (01) | LOC: ANHAUDIO 11:00 | PROVIDERS: PCP Family Medicine | DX: H69.92 Unspecified Eustachian tube disorder, left ear (principal) | CPT/HCPCS: 92552; 92556; 92567 ==

== ENCOUNTER 2020-10-26 09:00 | Outpatient (CLI) | payer OTHER, SELFPAY ==
--- NOTE | ~2020-10-26 | US_ITS ---
US abdomen complete EXAMINATION: US Abdomen Complete INDICATION: Secondary thrombocytopenia PROCEDURE: Realtime High Resolution abdomen ultrasound. COMPARISON: Ultrasound dated 10/07/2018 FINDINGS: Gallbladder is surgically absent. Common bile duct measures 4 mm. Liver echotexture is increased, consistent with fatty infiltration. Pancreas within normal limits. Pancreatic tail is obscured by bowel gas. Spleen is unremarkeable. Renal echotexture is within harsha l limits bilaterally without hydronephrosis, contour deforming mass or renal stone. Right kidney zoe ures 9.7 cm. Left kidney measures 10 cm. Visualized aspects of the aorta and IVC are within normal limits. Portal vein is patent. No sonograph ic Garrett's sign indicated by the technologist. IMPRESSION: 1: Fatty infiltration of the liver. Reviewed, dictated and finalized at location A.
== END 2020-10-26 09:01 | disposition home or self-care (01) ==
LOC: ANHIMG 09:04
PROVIDERS: PCP Family Medicine; Visit Provider Internal Medicine Hematology & Oncology
DX: D69.59 Other secondary thrombocytopenia (principal); K76.0 Fatty (change of) liver, not elsewhere classified
CPT/HCPCS: 76700

== ENCOUNTER 2020-12-05 09:09 | Emergency (ER) | payer OTHER, SELFPAY ==
[2020-12-05 09:25] VITALS: BP 107/51; PULSE 75; RESP 18; TEMP 36.4; O2SAT 99
--- NOTE | 2020-12-05 10:17 | ED.URI ---
HPI - URI/Sore Throat General Chief Complaint: Upper Respiratory Infection Stated Complaint: chills /sore throat/negro Time Seen by Provider: 12/05/20 10:17 Source: patient and RN notes reviewed Mode of arrival: ambulatory Limitations: no limitations History of Present Illness HPI Narrative: 40-year-old female presents with concern for sore throat, ear pain, headache, chills, diarrhea, nausea, urinary frequency. She has a history of depression, GERD, IBS, history of UTIs. She reports symptoms started 2 days ago. Reports her sister had similar symptoms last week and was negative for Covid. She denies other known sick contacts. Reports she has been taking [id number] cold medicine with little relief. Reports trouble sleeping last night. Denies shortness of breath. MD elicited complaint: sore throat Related Data Home Medications Medication Instructions Recorded Confirmed alprazolam [Xanax] 1 mg PO BID PRN 02/14/19 01/21/20 omeprazole 40 mg PO DAILY 02/14/19 12/05/20 estradiol 1 mg PO DAILY 03/29/19 01/21/20 duloxetine [Cymbalta] 30 mg PO DAILY 12/05/20 12/05/20 Allergies Allergy/AdvReac Type Severity Reaction Status Date / Time hydrocodone Allergy Intermediate SWELLING Verified 12/05/20 09:36 AND VOMITING. cephalexin Allergy Hives Verified 12/05/20 09:36 codeine Allergy ITCHING, Verified 12/05/20 09:36 RASH Review of Systems Review of Systems: CONSTITUTIONAL: Denies malaise, chills, sweats, or fever. EYES: Denies visual changes, redness, or discharge. ENT: Reports rhinorrhea, congestion, otalgia and scratchy throat, sore throat. CARDIOVASCULAR: Denies chest pain, palpitations, or edema. RESPIRATORY: Reports occasional cough. Denies dyspnea. GASTROINTESTINAL: Denies abdominal pain. Reports nausea, vomiting, diarrhea : Reports urine frequency SKIN: Denies rash or itching. MUSCULOSKELETAL: Reports myalgia. NEUROLOGIC: Reports headache. All systems reviewed & are unremarkable except as noted in HPI and below PMFSH Past Medical History Medical History (Updated 12/05/20 @ 10:29 by Argenis Mazariegos NP) Anemia Anxiety Back pain Depression Endometriosis GERD (gastroesophageal reflux disease) IBS (irritable bowel syndrome) Sinus problem Sleep apnea UTI (urinary tract infection) Wears glasses Surgical History Surgical History History of appendectomy History of cholecystectomy History of hysterectomy Hx of breast reduction, elective Hx of laparoscopy x2 Family History Family History Other Alcoholism Dementia Diabetes mellitus Social History Social History Smoking packs per day: 0.5 Smoking cigarettes per day: 10.0 Smoking status: Never smoker Substance use: current Substance use type: marijuana Last use: 01/10/20 Gender identity (if verbalized by the patient): Female Spiritual care concerns: No Comments At time of signature, agree with nursing past medical, surgical, social and family history. There is no relevant family history pertinent to the presenting complaint Exam Narrative: GENERAL: Well-appearing, well-nourished, and in no acute distress. HEAD: Normocephalic EYES: PERRLA, conjunctivae clear ENT: Nares clear, turbinates edematous and erythematous, clear discharge. Mucous membranes moist. TM pearly guardado with sharp light reflex bilaterally; no tragal tenderness. Oropharynx not erythematous without lesions. Tonsils not enlarged and without exudate, no drooling, no hoarseness, no trismus, uvula midline. NECK: Supple. No lymphadenopathy CHEST: Clear to auscultation, breath sounds equal. No wheezing, rhonchi, rales, or stridor. No respiratory distress, speaks in full sentences. HEART: Regular rate and rhythm. No murmur heard. SKIN: Warm, dry, no rash. NEURO: Alert and oriented x3. PSYCH:
[2020-12-06 20:25] LABS: SARS-CoV-2 RNA PCR Negative
== END 2020-12-05 10:57 | disposition home or self-care (01) ==
PROVIDERS: Emergency Provider Nurse Practitioner; PCP Family Medicine
DX: B34.9 Viral infection, unspecified (principal); Z20.822 Contact with and (suspected) exposure to COVID-19; F41.9 Anxiety disorder, unspecified; F32.9 Major depressive disorder, single episode, unspecified; N80.9 Endometriosis, unspecified; K21.9 Gastro-esophageal reflux disease without esophagitis; G47.30 Sleep apnea, unspecified
CPT/HCPCS: 87081; 87426; 87880; 99213; C9803; G0463; U0003; U0005

== ENCOUNTER 2021-01-10 22:06 | Emergency (ER) | payer OTHER, SELFPAY ==
--- NOTE | ~2021-01-10 | XR_ITS ---
EXAMINATION: XR foot RT min 3V DATE: 01/10/2021 22:34 INDICATION: Right foot injury and swelling. TECHNIQUE: 4 views of right foot were obtained. COMPARISON: Right ankle radiographs 03/29/2019 FINDINGS: Bone alignment is normal. No fracture. Joint spaces are normal. There is soft tissue swelli ng of the forefoot. There are numerous punctate densities overlying the soft tissues of the foot. IMPRESSION: 1. No fracture. 2. Numerous punctate densities overlying the soft tissues of the foot that may be embedded foreign ale dies or skin contaminants. Reviewed, dictated and finalized at location A. IMPRESSION: 1. No fracture. 2. Numerous punctate densities overlying the soft tissues of the foot that may be embedded foreign bodies or skin contaminants.
[2021-01-10 22:21] VITALS: BP 117/69; PULSE 78; RESP 16; TEMP 36.7; O2SAT 100
[2021-01-11 01:09] VITALS: BP 126/63; PULSE 71; RESP 16; TEMP 36.8; O2SAT 100
--- NOTE | 2021-01-11 01:21 | ED.LOWEXIN ---
HPI - Extremity Injury (Lower) General Chief Complaint: Extremity Injury, Lower Stated Complaint: R. foot injury Time Seen by Provider: 01/11/21 01:21 Source: patient Mode of arrival: ambulatory Limitations: no limitations History of Present Illness HPI Narrative: Patient is a 40-year-old presenting for evaluation of right foot pain. Patient was changing out an insert in her closet when a wooden piece fell injuring her foot. Patient has been ambulatory, but reports pain. She states that she bruises easily. She reports bruising and swelling. Pain is moderate in nature, worse with movement. She denies ankle or knee pain. No bleeding. Related Data Home Medications Medication Instructions Recorded Confirmed alprazolam [Xanax] 1 mg PO BID PRN 02/14/19 01/21/20 omeprazole 40 mg PO DAILY 02/14/19 12/05/20 estradiol 1 mg PO DAILY 03/29/19 01/21/20 duloxetine [Cymbalta] 30 mg PO DAILY 12/05/20 12/05/20 Allergies Allergy/AdvReac Type Severity Reaction Status Date / Time hydrocodone Allergy Intermediate SWELLING Verified 12/05/20 09:36 AND VOMITING. cephalexin Allergy Hives Verified 12/05/20 09:36 codeine Allergy ITCHING, Verified 12/05/20 09:36 RASH Review of Systems Review of Systems: CONSTITUTIONAL: Denies fever CARDIOVASCULAR: Denies chest pain RESPIRATORY: Denies cough or dyspnea. GASTROINTESTINAL: Denies abdominal pain SKIN: Denies rash, reports bruising, swelling right foot MUSCULOSKELETAL: Denies back pain NEUROLOGIC: Denies headache [facility] Past Medical History Medical History (Updated 01/11/21 @ 01:24 by Areli Saul MD) Anemia Anxiety Back pain Depression Endometriosis GERD (gastroesophageal reflux disease) IBS (irritable bowel syndrome) Sinus problem Sleep apnea UTI (urinary tract infection) Wears glasses Surgical History Surgical History History of appendectomy History of cholecystectomy History of hysterectomy Hx of breast reduction, elective Hx of laparoscopy x2 Family History Family History Other Alcoholism Dementia Diabetes mellitus Social History Social History Smoking packs per day: 0.5 Smoking cigarettes per day: 10.0 Smoking status: Never smoker Substance use: current Substance use type: marijuana Last use: 01/10/20 Gender identity (if verbalized by the patient): Female Spiritual care concerns: No Exam Narrative: GENERAL: Awake, alert, conversant HEAD: Normocephalic, atraumatic. EYES: PERRLA and EOMI. ENT: Nares clear, no rhinorrhea or epistaxis. Mucous membranes moist. NECK: Supple. CHEST: No respiratory distress, breathing even and non labored HEART: Regular rate, sinus rhythm ABDOMEN:Non distended, non tender EXTREMITIES: Normal range of motion. Ecchymoses, mild edema to right foot. DP pulse 2+. No significant deformity. SKIN: Warm, dry, no rash. NEURO:No focal deficits. Alert and oriented x3 Course Vital Signs Vital signs: Vital Signs Temperature 36.7 C 01/10/21 22:21 Pulse Rate 78 01/10/21 22:21 Respiratory Rate 16 01/10/21 22:21 Blood Pressure 117/69 01/10/21 22:21 Pulse Oximetry 100 01/10/21 22:21 Temperature 36.8 C 01/11/21 01:09 Pulse Rate 71 01/11/21 01:09 Respiratory Rate 16 01/11/21 01:09 Blood Pressure 126/63 01/11/21 01:09 Pulse Oximetry 100 01/11/21 01:09 MDM - Extremity Injury (Lower) MDM Narrative Medical decision making narrative: Patient with injury to right foot, x-rays negative. She has a hematoma to the dorsal aspect of the foot which is tender. Capillary refill is normal. Intact distal sensation. Foot compartment is soft. She is neurovascularly intact. Patient advised rest, ice, ambulation. Advised to take anti-inflammatories to help with pain. Advised to have repeat x-rays in 10 to 14 days o
[2021-01-11] MEDS: IBUPROFEN 400 MG TABLET PO (01:46)
[2021-01-11] MEDS: oxyCODONE/ACETAMINOPHEN (*CRX) 5-325 MG TABLET 1 TABLET PO (01:47)
== END 2021-01-11 01:49 | disposition home or self-care (01) ==
LOC: ANHED 01-11 01:38
PROVIDERS: Emergency Provider Emergency Medicine; PCP Family Medicine
DX: S90.31XA Contusion of right foot, initial encounter (principal); K21.9 Gastro-esophageal reflux disease without esophagitis; N80.9 Endometriosis, unspecified; K58.9 Irritable bowel syndrome, unspecified; G47.30 Sleep apnea, unspecified; F41.9 Anxiety disorder, unspecified; F32.A Depression, unspecified; Z87.440 Personal history of urinary (tract) infections; W20.8XXA Other cause of strike by thrown, projected or falling object, initial encounter
CPT/HCPCS: 73630; 99283; A9270

== ENCOUNTER 2021-01-29 16:41 | Emergency (ER) | payer OTHER, SELFPAY ==
[2021-01-29 17:03] VITALS: BP 122/67; PULSE 71; RESP 18; TEMP 36.6; O2SAT 99
--- NOTE | 2021-01-29 18:07 | ED.URI ---
HPI - URI/Sore Throat General Chief Complaint: Upper Respiratory Infection Stated Complaint: Ear Pain,cough History of Present Illness HPI Narrative: This is a 40-year-old female that presents to the urgent care complaining of a cough with a earache patient states that she was positive for Covid approximately 3 weeks ago patient states she was feeling better for 1 day and then her symptoms returned. Related Data Home Medications Medication Instructions Recorded Confirmed alprazolam [Xanax] 1 mg PO BID PRN 02/14/19 01/29/21 omeprazole 40 mg PO DAILY 02/14/19 01/29/21 estradiol 1 mg PO DAILY 03/29/19 01/29/21 duloxetine [Cymbalta] 30 mg PO DAILY 12/05/20 01/29/21 Allergies Allergy/AdvReac Type Severity Reaction Status Date / Time acetaminophen [From Vicodin] Allergy Severe Anaphylactic Verified 01/29/21 17:21 Shock cephalexin Allergy Intermediate Hives Verified 01/29/21 17:21 codeine Allergy Intermediate ITCHING, Verified 01/29/21 17:21 RASH hydrocodone Allergy Intermediate SWELLING Verified 01/29/21 17:21 AND VOMITING. Review of Systems Review of Systems: Cough congestion and earache All systems reviewed & are unremarkable except as noted in HPI and below PMFSH Past Medical History Medical History (Updated 01/29/21 @ 18:09 by Massimo Medellin NP) Anemia Anxiety Back pain Depression Endometriosis GERD (gastroesophageal reflux disease) IBS (irritable bowel syndrome) Sinus problem Sleep apnea UTI (urinary tract infection) Wears glasses Surgical History Surgical History History of appendectomy History of cholecystectomy History of hysterectomy Hx of breast reduction, elective Hx of laparoscopy x2 Family History Family History Other Alcoholism Dementia Diabetes mellitus Social History Social History Smoking packs per day: 0.5 Smoking cigarettes per day: 10.0 Smoking status: Never smoker Substance use: current Substance use type: marijuana Last use: 01/10/20 Gender identity (if verbalized by the patient): Female Spiritual care concerns: No Comments At time as signature, I have reviewed and agree with nursing past medical, social, surgical and family history. Please see nursing chart for further information. There is no relevant family history pertinent to the presenting complaint. Exam Narrative: GENERAL:Well-appearing, well-nourished, and in no acute distress. HEAD:Normocephalic EYES: PERRLA and EOMI. ENT: Nares clear, no rhinorrhea. Mucous membranes moist. CHEST: Clear to auscultation. No respiratory distress. HEART: Regular rate and rhythm. Normal peripheral pulses. ABDOMEN: Soft, nontender, nondistended, normal active bowel sounds. EXTREMITIES: Normal range of motion. No edema. SKIN: Warm, dry, no rash. NEURO: No focal deficits. Alert and oriented x3. Course Vital Signs Vital signs: Vital Signs Temperature 97.8 F 01/29/21 17:03 Pulse Rate 71 01/29/21 17:03 Respiratory Rate 18 01/29/21 17:03 Blood Pressure 122/67 01/29/21 17:03 Pulse Oximetry 99 01/29/21 17:03 Temperature 97.8 F 01/29/21 17:03 Pulse Rate 71 01/29/21 17:03 Respiratory Rate 18 01/29/21 17:03 Blood Pressure 122/67 01/29/21 17:03 Pulse Oximetry 99 01/29/21 17:03 MDM - URI/Sore Throat Differential Diagnosis Differential diagnosis: Likely upper respiratory infection, otitis media, sinusitis, viral infection, bronchitis, influenza and pharyngitis Discharge Plan Discharge Clinical Impression: Upper respiratory infection Qualifiers: URI type: unspecified viral URI Qualified Code(s): J06.9 - Acute upper respiratory infection, unspecified Patient Disposition: Home, Self-Care Condition: Stable Instructions: Antibiotic Form, Upper Respiratory Infection (ED), Cold Symp
== END 2021-01-29 18:15 | disposition home or self-care (01) ==
PROVIDERS: Emergency Provider Nurse Practitioner Family
DX: J06.9 Acute upper respiratory infection, unspecified (principal); N80.9 Endometriosis, unspecified; G47.30 Sleep apnea, unspecified; F41.9 Anxiety disorder, unspecified; F32.A Depression, unspecified; D64.9 Anemia, unspecified; Z86.16 Personal history of COVID-19
CPT/HCPCS: 99213; G0463

== ENCOUNTER 2021-02-01 09:37 | Outpatient (CLI) | payer OTHER, SELFPAY ==
[2021-02-01 09:54] LABS: Hematocrit 40.3 % (37.0-47.0); Hemoglobin 12.8 g/dL (12.0-15.0); Mean Corpuscular HGB Conc 31.8 g/dl (32-36); Mean Corpuscular Hemoglobin 26.9 pg (26-34); Mean Corpuscular Volume 84.8 fl (80-100); Mean Platelet Volume 12.1 fl (7.4-10.4); Platelet Count Result 131 k/mm3 (150-375); Red Blood Count 4.75 M/mm3 (4.2-5.4); Red Cell Distribution Width 13.2 % (11.5-14.5); White Blood Count 5.7 K/mm3 (4.5-10.0)
[2021-02-01 11:03] LABS: Iron 88 ug/dL (37-170)
[2021-02-01 11:15] LABS: Percent Iron Saturation 24 % (20-50)
[2021-02-01 12:12] LABS: Folic Acid 13.6 ng/mL (2.76->20)
== END 2021-02-01 09:38 | disposition home or self-care (01) ==
LOC: ANHLAB 09:39
PROVIDERS: Visit Provider Internal Medicine Hematology & Oncology
DX: D69.59 Other secondary thrombocytopenia (principal)
CPT/HCPCS: 36415; 82607; 82728; 82746; 83540; 83550; 85027

== ENCOUNTER 2021-05-01 09:21 | Outpatient (CLI) | payer OTHER, SELFPAY ==
[2021-05-01 11:14] LABS: Iron 74 ug/dL (37-170)
[2021-05-01 11:28] LABS: Percent Iron Saturation 20 % (20-50)
== END 2021-05-01 09:22 | disposition home or self-care (01) ==
LOC: ANHLAB 09:24
PROVIDERS: PCP Internal Medicine; Visit Provider Internal Medicine Hematology & Oncology
DX: D69.59 Other secondary thrombocytopenia (principal)
CPT/HCPCS: 36415; 82607; 82728; 83540; 83550; 84443

== ENCOUNTER 2021-08-06 15:21 | Outpatient (CLI) | payer OTHER, SELFPAY ==
--- NOTE | ~2021-08-06 | CT_ITS ---
EXAMINATION: CT sinus wo con DATE: 08/06/2021 15:46 INDICATION: Chronic sinusitis for one year TECHNIQUE: Computed tomography (CT) of the paranasal sinuses was performed without contrast. Iterativ e reconstruction technique was employed. Exam dose: 196.55 mGy-cm total exam DLP. COMPARISON: May 26, 2019 CT sinuses FINDINGS: There is rightward bowing of the nasal septum. Intralamellar cell and joe bullosa of left middle nasal turbinate The ostiomeatal units are patent. The paranasal sinuses are normally developed. There is mild mucoperiosteal thickening of the anterola teral aspect of the right sphenoid sinus and mild mucoperiosteal thickening particularly in the poste rior aspect of the ethmoid air cells. Otherwise the paranasal sinuses and included portions of the ma stoid air cells are normally developed and aerated. IMPRESSION: Rightward bowing of nasal septum Intralamellar cell and joe bullosa of left middle nasal turbinate Mild mucoperiosteal thickening of the anterolateral right sphenoid sinus (new since May 26, 2019 ) Mild patchy mucoperiosteal soft tissue thickening of the ethmoid air cells Reviewed, dictated and finalized at [facility]. Reviewed, dictated and finalized at location [facility]. IMPRESSION: Rightward bowing of nasal septum Intralamellar cell and joe bullosa of left middle nasal turbinate Mild mucoperiosteal thickening of the anterolateral right sphenoid sinus (new s ayaka May 26, 2019) Mild patchy mucoperiosteal soft tissue thickening of the ethmoid air cells
== END 2021-08-06 15:22 | disposition home or self-care (01) ==
PROVIDERS: PCP Internal Medicine; Visit Provider Otolaryngology
DX: J32.9 Chronic sinusitis, unspecified (principal); J34.2 Deviated nasal septum
CPT/HCPCS: 70486

== ENCOUNTER 2021-08-08 15:35 | Emergency (ER) | payer OTHER, SELFPAY ==
[2021-08-08 16:21] VITALS: BP 130/67; PULSE 88; RESP 18; TEMP 36.8; O2SAT 100
--- NOTE | 2021-08-08 18:08 | PC.NURSE ---
PT LEFT PRIOR TO SEEING PHYSICIAN.
== END 2021-08-08 18:39 | disposition left against medical advice (07) ==
LOC: ANHED 18:23
PROVIDERS: PCP Internal Medicine
DX: K08.89 Other specified disorders of teeth and supporting structures (principal)
CPT/HCPCS: 99199

== ENCOUNTER 2021-09-18 14:53 | Outpatient (CLI) | payer OTHER, SELFPAY ==
[2021-09-18 15:18] LABS: Basophils Percent Auto 0.3 % (0.2-1.2); Eosinophils Absolute Auto 0.1 K/mm3 (0-0.3); Eosinophils Percent Auto 1.3 % (0-4.4); Hematocrit 38.9 % (37.0-47.0); Hemoglobin 12.3 g/dL (12.0-15.0); Immature Granulocyte Absolute 0.03 K/mm3 (0.00-0.031); Immature Granulocyte Percent A 0.3 % (0-0.5); Immature Platelet Fraction Pct 43.7 % (0.9-11.2); Lymphocytes Absolute Auto 3.56 K/mm3 (0.9-3.2); Lymphocytes Percent Auto 38.8 % (18.3-44.2); Mean Corpuscular HGB Conc 31.6 g/dl (32-36); Mean Corpuscular Hemoglobin 27.2 pg (26-34); Mean Corpuscular Volume 86.1 fl (80-100); Monocytes Absolute Auto 0.5 K/mm3 (0.1-0.6); Monocytes Percent Auto 5.8 % (2.6-8.5); Neutrophils Absolute Auto 4.9 K/mm3 (1.3-6.7); Neutrophils Percent Auto 53.5 % (45.5-73.1); Platelet Count Result 61 k/mm3 (150-375); Red Blood Count 4.52 M/mm3 (4.2-5.4); Red Cell Distribution Width 13.2 % (11.5-14.5); White Blood Count 9.2 K/mm3 (4.5-10.0)
[2021-09-18 16:28] LABS: Iron 76 ug/dL (37-170)
[2021-09-18 16:38] LABS: Percent Iron Saturation 21 % (20-50)
[2021-09-18 17:35] LABS: Folic Acid 15.1 ng/mL (2.76->20)
== END 2021-09-18 14:54 | disposition home or self-care (01) ==
LOC: ANHLAB 14:55
PROVIDERS: PCP Internal Medicine; Visit Provider Internal Medicine Hematology & Oncology
DX: D64.9 Anemia, unspecified (principal)
CPT/HCPCS: 36415; 82607; 82728; 82746; 83540; 83550; 84443; 85025; 85055

== ENCOUNTER 2021-10-12 09:01 | Outpatient (CLI) | payer OTHER, SELFPAY ==
[2021-10-12 09:20] LABS: Hematocrit 40.5 % (37.0-47.0); Immature Platelet Fraction Pct 39.6 % (0.9-11.2); Mean Corpuscular HGB Conc 32.1 g/dl (32-36); Mean Corpuscular Hemoglobin 27.7 pg (26-34); Mean Corpuscular Volume 86.2 fl (80-100); Platelet Count Result 49 k/mm3 (150-375); Red Cell Distribution Width 13.4 % (11.5-14.5); White Blood Count 7.5 K/mm3 (4.5-10.0)
== END 2021-10-12 09:02 | disposition home or self-care (01) ==
PROVIDERS: PCP Internal Medicine; Visit Provider Internal Medicine Hematology & Oncology
DX: D69.59 Other secondary thrombocytopenia (principal)
CPT/HCPCS: 36415; 85027; 85055

== ENCOUNTER 2021-10-26 17:06 | Outpatient (CLI) | payer OTHER, SELFPAY ==
--- NOTE | ~2021-10-26 | XR_ITS ---
XR abdomen/kub 1V 10/26/2021 17:21 INDICATION: Left lower quadrant pain TECHNIQUE: KUB COMPARISON: None FINDINGS: Bowel gas pattern is normal. There are cholecystectomy clips. There is no evidence of free air, mass, organomegaly, ascites or obstruction. No abnormal calculi are seen. The bones appear int act. IMPRESSION: 1: No acute abdominal abnormality identified. Reviewed, dictated and finalized at location A.
== END 2021-10-26 17:07 | disposition home or self-care (01) ==
LOC: ANHIMG 17:08
PROVIDERS: PCP Internal Medicine; Visit Provider Nurse Practitioner
DX: R10.32 Left lower quadrant pain (principal)
CPT/HCPCS: 74018

== ENCOUNTER 2021-11-15 10:28 | Outpatient (CLI) | payer OTHER, SELFPAY | END 2021-11-15 10:29 | disposition home or self-care (01) | LOC: ANHSURGERY 10:32 | PROVIDERS: PCP Internal Medicine; Visit Provider Obstetrics & Gynecology | DX: Z01.812 Encounter for preprocedural laboratory examination (principal); R10.2 Pelvic and perineal pain | CPT/HCPCS: 36415; 86850; 86900; 86901 ==

== ENCOUNTER 2021-11-16 00:38 | Day surgery (SDC) | payer OTHER, SELFPAY ==
--- NOTE | 2021-11-13 07:30 | PM.IMHP ---
H&P: HPI History of Present Illness Date/Time: 11/13/21 07:30 Chief Complaint: pelvic pain Narrative: / 41-year-old female status post hysterectomy and bilateral salpingo-oophorectomy admitted for diagnostic laparoscopy secondary to severe pelvic pain. She has had dyspareunia and has chronic discomfort. She has no bowel or bladder complaints. Ultrasound was but not helpful risks and benefits reviewed [facility], [facility] Past Medical History Medical History Abdominal pain Allergies Anemia Anxiety Arthritis Back pain Chronic headaches Crush injury of right foot Depression Diarrhea Dizziness Ear pain Endometriosis Gallbladder anomaly GERD (gastroesophageal reflux disease) History of anesthesia problem History of dental problems IBS (irritable bowel syndrome) Migraine Numbness SIERRA (obstructive sleep apnea) Painful joint Sinus problem Sleep apnea Snoring Urinary frequency UTI (urinary tract infection) UTI (urinary tract infection) due to Enterococcus Vision changes Wears glasses Weight gain Surgical History Surgical History History of cholecystectomy History of hysterectomy Hx of breast reduction, elective Hx of laparoscopy x2 Family History Family History Father Alcoholism Cancer Diabetes mellitus Mother Depression Sibling Cancer Other Dementia Social History Social History Smoking packs per day: 0.50 Smoking cigarettes per day: 10.0 Years smoked: 5 Smoking pack-years: 2.50 Smoking status: Former smoker Tobacco type: cigarettes Second hand tobacco smoke exposure: Yes Additional smoking assessment comments: patient smokes Marijuana Alcohol intake: current Alcohol use details: rarely Substance use: current Substance use type: marijuana Additional occupation/education comments: employed Gender identity (if verbalized by the patient): Female Spiritual care concerns: No Meds Home Medications and Allergies Home Medications Medication Instructions Recorded Confirmed Type alprazolam 1 mg tablet (Xanax) 1 mg PO BID PRN Anxiety 02/14/19 10/31/21 History valacyclovir 500 mg tablet 500 mg PO DAILY PRN 03/14/21 10/31/21 History (Valtrex) estradiol 1 mg tablet 2 mg PO DAILY 04/24/21 10/31/21 History multivitamin (Daily Multi-Vitamin 1 tablet PO DAILY 04/24/21 10/31/21 History tablet) omeprazole 40 mg capsule,delayed 40 mg PO BID 04/24/21 10/31/21 History release oxymetazoline 0.05 % nasal spray 2 spray intranasal Q12H PRN 04/24/21 10/31/21 History (12 Hour Nasal Relief [place]) eltrombopag 50 mg tablet (Promacta) 50 mg PO DAILY 10/22/21 10/31/21 History sertraline 50 mg tablet (Zoloft) 50 mg PO DAILY 10/22/21 10/31/21 History mirabegron 50 mg tablet,extended 50 mg PO DAILY 10/31/21 10/31/21 History release 24 hr (Myrbetriq) Allergies Allergy/AdvReac Type Severity Reaction Status Date / Time acetaminophen [From Vicodin] Allergy Severe Anaphylactic Verified 10/31/21 11:15 Shock clarithromycin Allergy Severe Flushing Verified 10/31/21 11:15 cephalexin Allergy Intermediate Hives Verified 10/31/21 11:15 codeine Allergy Intermediate ITCHING, Verified 10/31/21 11:15 RASH hydrocodone Allergy Intermediate SWELLING Verified 10/31/21 11:15 AND VOMITING. Exam Const: General: cooperative and healthy appearing Nutritional Appearance: average body habitus Orientation/consciousness: oriented to person, oriented to place and oriented to time Chest: Chest palpation & inspection: normal inspection of the chest Resp: Effort & Inspection: normal respiratory effort Auscultation: clear to auscultation bilaterally Cardio: Rate: regular rate Rhythm: regular rhythm GI: Inspection: normal to inspection
[2021-11-14 13:57] VITALS: BMI 34.7
--- NOTE | 2021-11-14 14:12 | PC.NURSE ---
Report to the Outpatient Waiting Room, entrance under the green pavilion located off [facility], at time 1200 on date 11/16/2021. OR Time: 1400. - You and your visitor will be asked to self-screen and do not enter if you have any COVID symptoms. - Only one visitor and NO children visitors are allowed at this time. - The patient visitor is requested to leave or wait in car when not with patient due to restrictions. - A mask is required within the hospital. Patients may have clear liquids (water, carbonated beverages, clear teas, apple juice) until 3 hours prior to surgery with a maximum of 20 ounces. - No food from midnight until time of surgery. Take the following medications with a SIP of water the morning of surgery: Sertraline and Xanax (if needed). Medications to discontinue per physician: multivitamin Date to take last dose 11/14/21 Please no make-up, nail german, hairspray, perfume, deodorant, or body powder the day of surgery. No jewelry (including any body piercings) or valuables the day of surgery, leave them at home. Please take a shower or bath the night before, or the morning of, surgery with an antibacterial soap. Wear comfortable, loose fitting clothing. - Jewelry must be removed prior to entering the operating room. Rings and piercings that are not removed may be cut off. - The hospital will not accept responsibility for valuables. - Please leave all valuables, including medications, at home the day of surgery. If you are going home after surgery, a licensed xm1 tank driver must drive you home. - NO public transportation without another adult. - We recommend that an adult stay with you for 24 hours following discharge. - We also recommend that you do not drive, make important decision, drink alcoholic beverages, or take any drugs that were not prescribed by your health care provider for at least 24 hours after your discharge time. Follow any additional instructions given to you from your surgeon. If you or anyone in your household have experienced Covid symptoms in the past week, please notify your surgeon or the nurse liaison at the phone number below for possible testing. Telephone instructions given to patient and asked if any additional questions and then verbalized understanding. Patient advised to call surgeon office or pre surgery nurse liaison [phone] if any additional questions.
[2021-11-16] VITALS (10 sets, daily range): BP systolic 125–136; BP diastolic 64–89; PULSE 71–101; RESP 10–18; TEMP 36.3; O2SAT 94–100
--- NOTE | 2021-11-16 06:20 | WPDHPUPDATE1 ---
History and Physical Update Update Date/Time: 11/16/21 06:20 History and Physical has been reviewed, including an updated exam of the patient. There are NO changes in the patient's condition. Risks, benefits, and alternatives have been discussed and questions answered. Patient agrees to proceed with procedure.
[2021-11-16] MEDS: ACETAMINOPHEN 500 MG TABLET 1000 MG PO (12:40)
[2021-11-16] MEDS: KETOROLAC 15 MG/ML VIAL (*BKC) IV PUSH (12:40)
[2021-11-16] MEDS: LACTATED RINGERS 1,000 ML 30 ML IV CONT (12:40)
--- NOTE | 2021-11-16 12:51 | WPDANESEPPF ---
Anes - Initial Pre Proc Eval Procedure: Operation Date: 11/16/21 14:00 Proposed Procedures p Diagnostic Laparoscopy - New Ross MD Date/Time: 11/16/21 12:51 Surgeon: New Ross MD Pre Op Diagnosis: pelvic pain Patient Data Age: 41 Gender: F Height: 1.57 m Weight: 85.9 kg Last Vital Signs Temp 36.3 C L 11/16/21 12:26 Pulse 72 11/16/21 12:26 Resp 18 11/16/21 12:26 BP 133/64 11/16/21 12:26 Pulse Ox 100 11/16/21 12:26 O2 Del Method Room Air 11/16/21 12:26 Allergies Allergy/AdvReac Type Severity Reaction Status Date / Time cephalexin Allergy Severe Hives Verified 11/16/21 12:24 clarithromycin Allergy Severe Swelling Verified 11/16/21 12:24 of face/nausea hydrocodone Allergy Severe Throat Verified 11/16/21 12:24 swelling/facial swelling/vomiting Home Medications Medication Instructions Recorded Confirmed Type alprazolam 1 mg tablet (Xanax) 1 mg PO BID PRN Anxiety 02/14/19 11/16/21 History valacyclovir 500 mg tablet 500 mg PO DAILY PRN shingles 03/14/21 11/16/21 History (Valtrex) estradiol 1 mg tablet 2 mg PO DAILY 04/24/21 11/16/21 History multivitamin (Daily Multi-Vitamin 1 tablet PO DAILY 04/24/21 11/16/21 History tablet) omeprazole 40 mg capsule,delayed 40 mg PO BID 04/24/21 11/16/21 History release oxymetazoline 0.05 % nasal spray 2 spray intranasal Q12H PRN sinus 04/24/21 11/16/21 History (12 Hour Nasal Relief [place]) congestion eltrombopag 50 mg tablet (Promacta) 50 mg PO DAILY 10/22/21 11/16/21 History sertraline 50 mg tablet (Zoloft) 50 mg PO DAILY 10/22/21 11/16/21 History Patient hx anesthesia problems: none Family hx anesthesia problems: none Results Review: All pre-operative results and documents have been reviewed as part of the pre-operative evaluation. [facility] Past Medical History Medical History Abdominal pain Allergies Anemia Anxiety Arthritis Back pain Chronic headaches Crush injury of right foot Depression Diarrhea Dizziness Ear pain Endometriosis Gallbladder anomaly GERD (gastroesophageal reflux disease) History of anesthesia problem History of dental problems IBS (irritable bowel syndrome) Migraine Numbness SIERRA (obstructive sleep apnea) Painful joint Sinus problem Sleep apnea Snoring Urinary frequency UTI (urinary tract infection) UTI (urinary tract infection) due to Enterococcus Vision changes Wears glasses Weight gain Surgical History Surgical History History of cholecystectomy History of hysterectomy Hx of breast reduction, elective Hx of laparoscopy x2 Family History Family History Father Alcoholism Cancer Diabetes mellitus Mother Depression Sibling Cancer Other Dementia Social History Social History Smoking packs per day: 0.50 Smoking cigarettes per day: 10.0 Years smoked: 5 Smoking pack-years: 2.50 Smoking status: Former smoker Tobacco type: cigarettes Second hand tobacco smoke exposure: No Additional smoking assessment comments: social as teenager-not since then Alcohol intake: current Alcohol use details: couple drinks per month Substance use: former Substance use type: marijuana Living arrangements: with family Additional occupation/education comments: employed Gender identity (if verbalized by the patient): Female Spiritual care concerns: No Anes - Eval Final PreProcedure Day of Procedure 11/16/21 12:51 Patient weight: obese Heart: regular rate and rhythm Lungs: clear to auscultation Airway: Mallampati scale class II Neurological: alert and oriented Last oral intake: >/= 8 hours ASA classification: III Emergent: no Anesthetic plan: proceed Anesthesia type and monitoring: general ETT
[2021-11-16] MEDS: MIDAZOLAM HCL (*CRX) 2 MG/2 ML VIAL IV PUSH (13:05)
--- NOTE | 2021-11-16 13:53 | W.PM.PROC2 ---
Procedure Note - Detailed Date of Procedure 11/16/21 Pre-op Diagnosis pelvic pain Post-op Diagnosis Other (adhesions) Procedure Performed Laparoscopic lysis of adhesions Surgeon New Ross MD Anesthesia General Indications this is a 41-year-old status post hysterectomy bilateral salpingo-oophorectomy with severe pelvic pain and negative imaging findings Findings absent uterus ovaries tubes. The colon was stuck to the vagina. The cul-de-sac was scarred in was opened. Description of Procedure Patient was prepped draped in normal sterile fashion placed in dorsal lithotomy position. Under excellent general trach anesthesia weighted speculum placed post worse vagina. Sponge stick was placed. The bladder was drained of clear urine. The weighted speculum removed and the gloves were changed. An infraumbilical incision made the Veress needle passed in the abdomen. Abdomen filled with CO2 gas 15mmmmofmercury. The 5mm trocar advanced under direct visualization with the scope assuring no injury. Patient placed and drilled Trendelenburg and a suprapubic incision made. The 5mm trocar advanced under direct visualization assuring no injury. The uterus ovaries and tubes were surgically absent. Multiple adhesions were seen from the colon to the vaginal cuff using blunt dissection with occasional sharp this was loosened and this freed the cul-de-sac. Irrigation undertaken to clear. No other abnormalities were seen. The lower site removed. The gas removed from the abdomen. The upper site removed and the incisions closed with 4 Monocryl and glue. Patient went recovery in satisfactory condition. All sponge, needle, instrument counts were correct. There were no immediate complications Estimated Blood Loss 5 Drains No Packing No Pathology None sent Complications No immediate complications Condition Stable Disposition PACU
[2021-11-16] MEDS: fentaNYL CITRATE INJ (*CRX) 100 MCG/2 ML VIAL 25 MCG IV PUSH ×4 (14:40→15:11)
[2021-11-16] MEDS: ONDANSETRON INJ 4 MG/2 ML VIAL IV PUSH (14:49)
[2021-11-16] MEDS: oxyCODONE HCL (*CRX) 5 MG TAB IR PO (15:57)
== END 2021-11-16 16:23 | disposition home or self-care (01) ==
PROVIDERS: PCP Internal Medicine; Visit Provider Obstetrics & Gynecology
PROC: (CPT 49320; principal; 2021-11-16 14:00)
DX: K66.0 Peritoneal adhesions (postprocedural) (postinfection) (principal); Z90.710 Acquired absence of both cervix and uterus; N94.10 Unspecified dyspareunia; F41.9 Anxiety disorder, unspecified; F32.A Depression, unspecified; K21.9 Gastro-esophageal reflux disease without esophagitis; G47.33 Obstructive sleep apnea (adult) (pediatric); Z90.49 Acquired absence of other specified parts of digestive tract; Z87.891 Personal history of nicotine dependence; F12.90 Cannabis use, unspecified, uncomplicated; E66.9 Obesity, unspecified; Z68.34 Body mass index [BMI] 34.0-34.9, adult
CPT/HCPCS: 44180; A9270; J0330; J1100; J1885; J2250; J2405; J2704; J3010; J7120

== ENCOUNTER 2022-03-08 10:03 | Emergency (ER) | payer OTHER, SELFPAY ==
--- NOTE | 2022-03-08 10:23 | ED.URI ---
HPI - URI/Sore Throat General Chief Complaint: Upper Respiratory Infection Stated Complaint: sorethroat,cough,congestion Time Seen by Provider: 03/08/22 10:23 Source: patient, RN notes reviewed and old records reviewed Mode of arrival: ambulatory Limitations: no limitations History of Present Illness HPI Narrative: 41-year-old presents to the [facility] with of sore throat, cough and congestion that was sudden onset on Friday. Has felt fevers. Has been taking NyQuil. Reports body aches. Eating and drinking without issue. Related Data Home Medications Medication Instructions Recorded Confirmed alprazolam 1 mg tablet (Xanax) 1 mg PO BID PRN Anxiety 02/14/19 03/08/22 estradiol 1 mg tablet 2 mg PO DAILY 04/24/21 03/08/22 multivitamin (Daily Multi-Vitamin 1 tablet PO DAILY 04/24/21 03/08/22 tablet) omeprazole 40 mg capsule,delayed 40 mg PO BID 04/24/21 03/08/22 release oxymetazoline 0.05 % nasal spray 2 spray intranasal Q12H PRN sinus 04/24/21 03/08/22 (12 Hour Nasal Relief [place]) congestion Allergies Allergy/AdvReac Type Severity Reaction Status Date / Time cephalexin Allergy Severe Hives Verified 03/08/22 10:24 clarithromycin Allergy Severe Swelling Verified 03/08/22 10:24 of face/nausea hydrocodone Allergy Severe Throat Verified 03/08/22 10:24 swelling/facial swelling/vomiting Review of Systems Review of Systems: All systems reviewed & are unremarkable except as noted in HPI and below Constitutional: Constitutional: Reports as per HPI, Reports body ache(s), Reports chills, Reports fatigue and Reports fever(s) Eyes: Eyes: Reports no additional eye complaints ENT: Reports as per HPI, Reports otalgia and Reports sore throat Cardiovascular: Cardiovascular: Reports no additional cardiovascular complaints, Denies chest pain and Denies dyspnea Respiratory: Respiratory: Reports as per HPI, Denies chest congestion, Reports cough and Denies dyspnea Gastrointestinal: Gastrointestinal: Reports no additional gastrointestinal complaints, Denies abdominal pain, Denies nausea and Denies vomiting Musculoskeletal: Musculoskeletal: Reports no additional musculoskeletal complaints Integumentary/Breasts: Skin/Breast: Reports system reviewed and no additional complaints, except as docu Neurologic: Reports system reviewed and no additional complaints, except as documented Psychiatric: Psychiatric: Reports no additional psychiatric complaints Allergic/Immunologic: Allergic/Immunologic: Reports no additional allergic/immunologic complaints PMFSH Past Medical History Medical History Abdominal pain Allergies Anemia Anxiety Arthritis Back pain Chronic headaches Crush injury of right foot Depression Diarrhea Dizziness Ear pain Endometriosis Gallbladder anomaly GERD (gastroesophageal reflux disease) History of anesthesia problem History of dental problems IBS (irritable bowel syndrome) Migraine Numbness SIERRA (obstructive sleep apnea) Painful joint Sinus problem Sleep apnea Snoring Urinary frequency UTI (urinary tract infection) UTI (urinary tract infection) due to Enterococcus Vision changes Wears glasses Weight gain Surgical History Surgical History History of cholecystectomy History of hysterectomy Hx of breast reduction, elective Hx of laparoscopy x2 Family History Family History Father Alcoholism Cancer Diabetes mellitus Mother Depression Sibling Cancer Other Dementia Social History Social History Smoking packs per day: 0.50 Smoking cigarettes per day: 10.0 Years smoked: 5 Smoking pack-years: 2.50 Smoking status: Former smoker Tobacco type: cigarettes Second hand tobacco smoke exposure: No Additional smoking ass
[2022-03-08 10:30] VITALS: BP 122/78; PULSE 80; RESP 18; TEMP 36.9; O2SAT 100
== END 2022-03-08 10:51 | disposition home or self-care (01) ==
PROVIDERS: Emergency Provider Nurse Practitioner; PCP Internal Medicine
DX: J02.9 Acute pharyngitis, unspecified (principal); R05.9 Cough, unspecified; R09.81 Nasal congestion; Z87.891 Personal history of nicotine dependence
CPT/HCPCS: 99211; G0463

== ENCOUNTER 2022-05-16 17:38 | Emergency (ER) | payer OTHER, SELFPAY ==
[2022-05-16 17:45] VITALS: BP 111/57; PULSE 83; RESP 18; TEMP 36.2; O2SAT 98
--- NOTE | 2022-05-16 18:27 | ED.URI ---
HPI - URI/Sore Throat General Chief Complaint: Upper Respiratory Infection Stated Complaint: Sore Throat,Headache,Lt Ear Irritation Time Seen by Provider: 05/16/22 18:27 Source: patient and RN notes reviewed Mode of arrival: ambulatory Limitations: no limitations History of Present Illness HPI Narrative: 42-year-old with c/o sore throat, painful swallow, nasal drainage, myalgias, and sinus tenderness. Symptoms started 0200 today. Recently was around sister who tested positive for strep. She tried to take tylenol on an empty stomach and had a bout of emsis not precipitated by nausea. Has not tried taking anything else. She sees ENT for chronic sinus infections and has a follow up appointment 05/20; was recently prescribed Cefdinir 04/16 and Doxycycline 04/22. She says neither of these helped symptoms. Denies ear pain, fever, abdominal pain, diarrhea, shortness of breath, or wheezing. MD elicited complaint: cough Related Data Home Medications Medication Instructions Recorded Confirmed alprazolam 1 mg tablet (Xanax) 1 mg PO BID PRN Anxiety 02/14/19 05/16/22 estradiol 1 mg tablet 2 mg PO DAILY 04/24/21 05/16/22 multivitamin (Daily Multi-Vitamin 1 tablet PO DAILY 04/24/21 05/16/22 tablet) omeprazole 40 mg capsule,delayed 40 mg PO BID 04/24/21 05/16/22 release oxymetazoline 0.05 % nasal spray 2 spray intranasal Q12H PRN sinus 04/24/21 05/16/22 (12 Hour Nasal Relief [place]) congestion oxybutynin chloride 10 mg 10 mg PO DAILY 05/16/22 05/16/22 tablet,extended release 24 hr Allergies Allergy/AdvReac Type Severity Reaction Status Date / Time clarithromycin AdvReac Severe Swelling Verified 05/16/22 18:00 of face/nausea hydrocodone AdvReac Severe Throat Verified 05/16/22 18:00 swelling/facial swelling/vomiting cephalexin AdvReac Mild Hives Verified 05/16/22 18:00 Review of Systems Review of Systems: CONSTITUTIONAL: Endorses malaise, chills, sweats. Denies fever EYES: Denies visual changes, redness, or discharge ENT: Reports rhinorrhea, congestion, sinus pain, sore throat. Denies otalgia CARDIOVASCULAR: Denies chest pain, palpitations, edema RESPIRATORY: Reports post nasal drainage. Denies dyspnea or cough GASTROINTESTINAL: Denies abdominal pain, nausea, diarrhea. Endorses vomiting SKIN: Denies rash or itching MUSCULOSKELETAL: Endorses myalgia NEUROLOGIC: Denies headache PMFSH Past Medical History Medical History Abdominal pain Allergies Anemia Anxiety Arthritis Back pain Chronic headaches Crush injury of right foot Depression Diarrhea Dizziness Ear pain Endometriosis Gallbladder anomaly GERD (gastroesophageal reflux disease) History of anesthesia problem History of dental problems IBS (irritable bowel syndrome) Migraine Numbness SIERRA (obstructive sleep apnea) Painful joint Sinus problem Sleep apnea Snoring Urinary frequency UTI (urinary tract infection) UTI (urinary tract infection) due to Enterococcus Vision changes Wears glasses Weight gain Surgical History Surgical History History of cholecystectomy History of hysterectomy Hx of breast reduction, elective Hx of laparoscopy x2 Family History Family History Father Alcoholism Cancer Diabetes mellitus Mother Depression Sibling Cancer Other Dementia Social History Social History Smoking packs per day: 0.50 Smoking cigarettes per day: 10.0 Years smoked: 5 Smoking pack-years: 2.50 Smoking status: Former smoker Tobacco type: cigarettes Second hand tobacco smoke exposure: No Additional smoking assessment comments: social as teenager-not since then Alcohol intake: current Alcohol use details: couple drinks per month Substance use: current Substance use type: m
== END 2022-05-16 18:36 | disposition home or self-care (01) ==
PROVIDERS: Emergency Provider Nurse Practitioner Family; PCP Internal Medicine
DX: J02.0 Streptococcal pharyngitis (principal); Z87.891 Personal history of nicotine dependence; F12.90 Cannabis use, unspecified, uncomplicated; M19.90 Unspecified osteoarthritis, unspecified site; N80.9 Endometriosis, unspecified; K21.9 Gastro-esophageal reflux disease without esophagitis; F41.9 Anxiety disorder, unspecified
CPT/HCPCS: 99213; G0463

== ENCOUNTER 2022-06-12 14:16 | Outpatient (CLI) | payer OTHER, SELFPAY ==
--- NOTE | ~2022-06-12 | MM_ITS ---
EXAMINATION: MM screening [place] BI w machelle HISTORY: Screening mammogram TECHNIQUE: Craniocaudal and mediolateral oblique 3-D tomosynthesis images were obtained and synthetic 2-D images were generated. CAD analysis was submitted and interpreted. COMPARISON: 08/04/2020 diagnostic left mammogram and limited left breast ultrasound BREAST PARENCHYMAL COMPOSITION: There are scattered areas of fibroglandular density. FINDINGS: There is no evidence of suspicious mass, calcification, or architectural distortion to sugg est malignancy in either breast. There has been no suspicious interval change. IMPRESSION: 1. No mammographic evidence of malignancy. 2. Recommend routine screening mammography in one year. BI-RADS Category 1: Negative Reviewed, dictated and finalized at location A.
== END 2022-06-12 14:17 | disposition home or self-care (01) ==
LOC: ANHIMG 14:18
PROVIDERS: PCP Internal Medicine; Visit Provider Obstetrics & Gynecology
DX: Z12.31 Encounter for screening mammogram for malignant neoplasm of breast (principal)
CPT/HCPCS: 77063; 77067

== ENCOUNTER 2022-08-12 09:57 | Outpatient (CLI) | payer OTHER, SELFPAY ==
[2022-08-12 12:13] LABS: Hematocrit 39.7 % (37.0-47.0); Hemoglobin 12.7 g/dL (12.0-15.0)
== END 2022-08-12 09:58 | disposition home or self-care (01) ==
PROVIDERS: Anesthesiology; PCP Family Medicine; Visit Provider Obstetrics & Gynecology
DX: D64.9 Anemia, unspecified (principal); R10.2 Pelvic and perineal pain
CPT/HCPCS: 36415; 85014; 85018; 86850; 86900; 86901

== ENCOUNTER 2022-08-16 01:50 | Day surgery (SDC) | payer OTHER, SELFPAY ==
[2022-08-08 11:10] VITALS: BMI 34.9
--- NOTE | 2022-08-08 11:17 | PC.NURSE ---
Report to the Outpatient Waiting Room, entrance under the green pavilion located off [facility], at time 8:15 on date 08/16/22. Planned Procedure Time: 10:15. Time changes happen often and if your time is changed the preop area will call you the afternoon before. - You and your visitor will be asked to self-screen and do not enter if you have any COVID symptoms. - A mask is optional within the hospital at this time. Patients may have clear liquids (water, carbonated beverages, clear teas, apple juice) until 3 hours prior to surgery (7:15) with a maximum of 20 ounces. - No food from midnight until time of surgery Take the following medications with a SIP of water the morning of surgery: SERTRALINE, XANAX IF NEEDED DO NOT STOP ANY OF YOUR OTHER PRESCRIPTION MEDICATIONS PRIOR TO SURGERY?EXCEPT THE FOLLOWING Medications to discontinue per physician: VITAMINS/SUPPLEMENTS Date to take last dose: 08/12/22 Please no make-up, nail upper sorbian, hairspray, perfume, deodorant, or body powder the day of surgery. No jewelry (including any body piercings) or valuables the day of surgery, leave them at home. Please take a shower or bath the night before, or the morning of, surgery with an antibacterial soap. Wear comfortable, loose fitting clothing. - Jewelry must be removed prior to entering the operating room. Rings and piercings that are not removed may be cut off. - The hospital will not accept responsibility for valuables. - Please leave all valuables, including medications, at home the day of surgery. If you are going home after surgery, a licensed stock car driver must drive you home. - NO public transportation without another adult if you receive anesthesia. - We recommend that an adult stay with you for 24 hours following discharge. - We also recommend that you do not drive, make important decision, drink alcoholic beverages, or take any drugs that were not prescribed by your health care provider for at least 24 hours after your discharge time. Follow any additional instructions given to you from your surgeon. If you or anyone in your household have experienced Covid symptoms in the past week, please notify your surgeon or the nurse liaison at the phone number below for possible testing. Telephone instructions given to PT - JONNY CARTER and asked if any additional questions and then verbalized understanding. Patient advised to call surgeon office or pre surgery nurse liaison [phone] if any additional questions.
--- NOTE | 2022-08-14 16:33 | PM.IMHP ---
H&P: HPI History of Present Illness Date/Time: 08/14/22 16:33 Chief Complaint: Pelvic pain Narrative: Is a 42-year-old female status post hysterectomy admitted for laparoscopy with suspected adhesions. Patient has had a long history of severe pelvic pain and dyspareunia. She is status post hysterectomy. Ultrasound was unhelpful she cannot live with this discomfort risks and benefits reviewed in full. She received the [employer] handout entitled laparoscopy. She had all questions answered. She asked to proceed. [facility] Past Medical History Medical History Abdominal pain Allergies Anemia Anxiety Arthritis Back pain Chronic headaches Crush injury of right foot Depression Diarrhea Dizziness Ear pain Endometriosis Gallbladder anomaly GERD (gastroesophageal reflux disease) History of anesthesia problem History of dental problems IBS (irritable bowel syndrome) Migraine Numbness SIERRA (obstructive sleep apnea) Painful joint Sinus problem Sleep apnea Snoring Urinary frequency UTI (urinary tract infection) UTI (urinary tract infection) due to Enterococcus Vision changes Wears glasses Weight gain Surgical History Surgical History History of cholecystectomy History of hysterectomy Hx of breast reduction, elective Hx of laparoscopy x2 Family History Family History Father Alcoholism Cancer Diabetes mellitus Mother Depression Sibling Cancer Other Dementia Social History Social History Smoking packs per day: 0.5 Smoking cigarettes per day: 10.0 Years smoked: 2 Smoking pack-years: 1.00 Smoking status: Former smoker Tobacco type: cigarettes Second hand tobacco smoke exposure: No Smoking end date: 03/31/00 Additional smoking assessment comments: social as teenager-not since then Alcohol intake: current Alcohol use details: 4/MONTH Substance use: never Substance use type: does not use Lack of Transportation: No Lack of Food: Never True Current Housing: I Do Not Have Housing Concerned About Future Housing: YES Difficulty Paying Gas/Electric Bills: Decline to Answer Difficulty Paying for Meds: No Currently Unemployed: No Education: Decline to Answer Difficulty w/ Childcare or Family Care: No Living arrangements: with family Additional living arrangements comments: [facility]ISTERS Occupation/Education: occupation Additional occupation/education comments: employed Gender identity (if verbalized by the patient): Female Spiritual care concerns: No Meds Home Medications and Allergies Home Medications Medication Instructions Recorded Confirmed Type alprazolam 1 mg tablet (Xanax) 1 mg PO BID PRN Anxiety 02/14/19 08/08/22 History estradiol 1 mg tablet 2 mg PO DAILY 04/24/21 08/08/22 History multivitamin (Daily Multi-Vitamin 1 tablet PO DAILY 04/24/21 08/08/22 History tablet) omeprazole 40 mg capsule,delayed 40 mg PO BID 04/24/21 08/08/22 History release oxymetazoline 0.05 % nasal spray 2 spray intranasal Q12H PRN sinus 04/24/21 08/08/22 History (12 Hour Nasal Relief [place]) congestion sertraline 100 mg tablet 100 mg PO DAILY #90 tabs 02/08/22 08/08/22 Rx cyanocobalamin (vitamin B-12) 5,000 mcg PO DAILY 08/08/22 08/08/22 History 5,000 mcg capsule Allergies Allergy/AdvReac Type Severity Reaction Status Date / Time clarithromycin AdvReac Severe Swelling Verified 08/08/22 11:09 of face/nausea hydrocodone AdvReac Severe Throat Verified 08/08/22 11:09 swelling/facial swelling/vomiting cephalexin AdvReac Mild Hives Verified 08/08/22 11:09 Exam Const: General: cooperative, healthy appearing, comfortable and average body habitus Orientation/consciousness: oriented to person, oriented t
--- NOTE | 2022-08-15 10:00 | WPDANESEPPF ---
Anes - Initial Pre Proc Eval Procedure: Operation Date: 08/16/22 10:15 Proposed Procedures p Laparoscopy with Lysis of Pelvic Adhesions - New Ross MD Date/Time: 08/15/22 10:00 Surgeon: New Ross MD Pre Op Diagnosis: pelvic pain and pelvic adhesions Patient Data Age: 42 Gender: F Height: 1.55 m Weight: 83.95 kg Allergies Allergy/AdvReac Type Severity Reaction Status Date / Time clarithromycin AdvReac Severe Swelling Verified 08/16/22 09:22 of face/nausea hydrocodone AdvReac Severe Throat Verified 08/16/22 09:22 swelling/facial swelling/vomiting cephalexin AdvReac Mild Hives Verified 08/16/22 09:22 Home Medications Medication Instructions Recorded Confirmed Type alprazolam 1 mg tablet (Xanax) 1 mg PO BID PRN Anxiety 02/14/19 08/08/22 History estradiol 1 mg tablet 2 mg PO DAILY 04/24/21 08/08/22 History multivitamin (Daily Multi-Vitamin 1 tablet PO DAILY 04/24/21 08/08/22 History tablet) omeprazole 40 mg capsule,delayed 40 mg PO BID 04/24/21 08/08/22 History release oxymetazoline 0.05 % nasal spray 2 spray intranasal Q12H PRN sinus 04/24/21 08/08/22 History (12 Hour Nasal Relief [place]) congestion sertraline 100 mg tablet 100 mg PO DAILY #90 tabs 02/08/22 08/08/22 Rx cyanocobalamin (vitamin B-12) 5,000 mcg PO DAILY 08/08/22 08/08/22 History 5,000 mcg capsule Patient hx anesthesia problems: none Family hx anesthesia problems: none Results Review: All pre-operative results and documents have been reviewed as part of the pre-operative evaluation. [facility] Past Medical History Medical History Abdominal pain Allergies Anemia Anxiety Arthritis Back pain Chronic headaches Crush injury of right foot Depression Diarrhea Dizziness Ear pain Endometriosis Gallbladder anomaly GERD (gastroesophageal reflux disease) History of anesthesia problem History of dental problems IBS (irritable bowel syndrome) Migraine Numbness SIERRA (obstructive sleep apnea) Painful joint Sinus problem Sleep apnea Snoring Urinary frequency UTI (urinary tract infection) UTI (urinary tract infection) due to Enterococcus Vision changes Wears glasses Weight gain Surgical History Surgical History History of cholecystectomy History of hysterectomy Hx of breast reduction, elective Hx of laparoscopy x2 Family History Family History Father Alcoholism Cancer Diabetes mellitus Mother Depression Sibling Cancer Other Dementia Social History Social History Smoking packs per day: 0.5 Smoking cigarettes per day: 10.0 Years smoked: 2 Smoking pack-years: 1.00 Smoking status: Former smoker Tobacco type: cigarettes Second hand tobacco smoke exposure: No Smoking end date: 03/31/00 Additional smoking assessment comments: social as teenager-not since then Alcohol intake: current Alcohol use details: 4/MONTH Substance use: never Substance use type: does not use Lack of Transportation: No Lack of Food: Never True Current Housing: I Do Not Have Housing Concerned About Future Housing: YES Difficulty Paying Gas/Electric Bills: Decline to Answer Difficulty Paying for Meds: No Currently Unemployed: No Education: Decline to Answer Difficulty w/ Childcare or Family Care: No Living arrangements: with family Additional living arrangements comments: SISTERS Occupation/Education: occupation Additional occupation/education comments: employed Gender identity (if verbalized by the patient): Female Spiritual care concerns: No Anes - Eval Final PreProcedure Day of Procedure 08/15/22 10:00 Patient weight: obese Heart: regular rate and rhythm Lungs: clear to auscultation [place]
[2022-08-16] VITALS (8 sets, daily range): BP systolic 111–140; BP diastolic 66–94; PULSE 59–87; RESP 12–16; TEMP 36.2; O2SAT 92–99; BMI 33.7
--- NOTE | 2022-08-16 07:14 | WPDHPUPDATE1 ---
History and Physical Update Update Date/Time: 08/16/22 07:14 History and Physical has been reviewed, including an updated exam of the patient. There are NO changes in the patient's condition. Risks, benefits, and alternatives have been discussed and questions answered. Patient agrees to proceed with procedure.
[2022-08-16] MEDS: ACETAMINOPHEN 500 MG TABLET 1000 MG PO (08:54)
[2022-08-16] MEDS: LACTATED RINGERS 1,000 ML 30 ML IV CONT ×2 (08:55→11:44)
[2022-08-16] MEDS: KETOROLAC 15 MG/ML VIAL (*BKC) IV PUSH ×2 (08:55→13:06)
--- NOTE | 2022-08-16 10:59 | W.PM.PROC2 ---
Procedure Note - Detailed Date of Procedure 08/16/22 Pre-op Diagnosis pelvic pain and pelvic adhesions Post-op Diagnosis Other (Multiple lesions were seen on peritoneal cavity biopsied) Procedure Performed laparoscopy with lysis of adhesions and biopsy of peritoneal lesions Surgeon New Ross MD Anesthesia General Indications this is a 42-year-old female status post hysterectomy salpingo-oophorectomy was pelvic pain Findings absent uterus ovaries and tubes. There were some colonic adhesions left. Multiple areas of peritoneal lesions were seen bladder and cul-de-sac. Were biopsied Description of Procedure patient was prepped draped in normal sterile fashion placed in the dorsal lithotomy position excellent general trach anesthesia weighted speculum placed posterior fornix vagina. Sponge stick was placed in the bladder drained of clear the weighted speculum was removed and gloves were changed. A supraumbilical incision made the Veress needle passed in the abdomen. Abdomen filled with CO2 gas [id number]. 5mm trocar advanced the abdomen. Downside visualized no injury seen. Patient placed in Trendelenburg and a suprapubic incision made. The 5mm trocar advanced under direct visualization assuring no injury. The above findings were seen. Cul-de-sac lesions were biopsied x2 and passed off. There were adhesions from the colon to the left lateral sidewall and these were gently removed and colon was noted to be free. No other abnormalities were seen. Irrigation was undertaken the lower site removed. The gas removed from the abdomen upper site removed. Incisions closed with 4 Monocryl and glue. Instruments removed from the vagina the patient went recovery in satisfactory condition. All sponge, needle, instrument counts were correct. There were no immediate complications Estimated Blood Loss 5 Drains No Packing No Pathology Yes Complications No immediate complications Condition Stable Disposition PACU
[2022-08-16] MEDS: fentaNYL CITRATE INJ (*CRX) 100 MCG/2 ML VIAL 25 MCG IV PUSH ×4 (11:37→11:53)
[2022-08-16] MEDS: ONDANSETRON INJ 4 MG/2 ML VIAL IV PUSH (12:45)
== END 2022-08-16 13:31 | disposition home or self-care (01) ==
PROVIDERS: PCP Family Medicine; Visit Provider Obstetrics & Gynecology
PROC: (CPT 49320; principal; 2022-08-16 10:15)
DX: R10.2 Pelvic and perineal pain (principal); N94.10 Unspecified dyspareunia; K21.9 Gastro-esophageal reflux disease without esophagitis; Z87.891 Personal history of nicotine dependence
CPT/HCPCS: 49321; 88305; A9270; J1100; J1885; J2250; J2405; J2704; J2710; J3010; J7120

== ENCOUNTER 2022-09-09 09:10 | Outpatient (CLI) | payer OTHER, SELFPAY ==
--- NOTE | ~2022-09-09 | US_ITS ---
US abdomen complete EXAMINATION: US Abdomen Complete INDICATION: Abdominal pain PROCEDURE: Realtime High Resolution abdomen ultrasound. COMPARISON: 10/26/2020 FINDINGS: Gallbladder is surgically absent. Common bile duct measures 3.7 mm. Liver echotexture is increased, consistent with fatty infiltration.. Pancreas within normal limits. Pancreatic tail is obscured by bowel gas. Spleen is unremarkeable. Renal echotexture is within norm al limits bilaterally without hydronephrosis, contour deforming mass or renal stone. Right kidney andre sures 10.5 cm. Left kidney measures 10.6 cm. There is a left renal cyst measuring 11 mm. Visualized aspects of the aorta and IVC are within normal limits. Portal vein is patent. No sonograph ic Garrett's sign indicated by the technologist. IMPRESSION: 1: Hepatic steatosis. Reviewed, dictated and finalized at location [] IMPRESSION: 1: Hepatic steatosis.
== END 2022-09-09 09:11 | disposition home or self-care (01) ==
PROVIDERS: PCP Nurse Practitioner Family; Visit Provider Internal Medicine Hematology & Oncology
DX: R10.32 Left lower quadrant pain (principal); K76.0 Fatty (change of) liver, not elsewhere classified
CPT/HCPCS: 76700

== ENCOUNTER 2022-09-19 10:16 | Outpatient (CLI) | payer OTHER, SELFPAY ==
--- NOTE | 2022-10-14 17:51 | WPDSLEEPSTUD ---
Sleep Study Date of Study: 09/19/22 Ordering Provider: Ijeoma Payne APRN Interpreting Physician: Farida Gomez MD Sleep Study Type: Polysomnogram Height: 1.57 m Weight: 81.647 kg Body Mass Index: 32.9 Neck Circumference (inches): 15 [place]: 17 Reason for Sleep Study Hypersomnolence Sleep History Peggy Serrano is a 42-year-old female who was referred for evaluation of daytime hypersomnia and headaches. She occasionally awakens from sleep short of breath. She occasionally awakens at night with heartburn, belching or cough. She frequently snores. She constantly snores loudly enough that others complain. She constantly has trouble sleeping when she has a cold. She occasionally wakes up gasping for breath during the night. She occasionally has breathing problems at night. She frequently sweats excessively at night. She frequently notices her heart pounding or beating irregularly during the night. She constantly falls asleep during the day. She frequently falls asleep involuntarily but never falls asleep while driving. She never experiences loss of muscle tone with strong emotion. She constantly has trouble at work because of sleepiness. She frequently feels paralyzed on waking or falling asleep. She constantly experiences vivid dreams upon waking or falling asleep. She rarely feels afraid of going to sleep. She rarely has nightmares. She rarely recalls her dreams. She never has thoughts racing through her mind. She constantly feels sad or depressed. She reports very bad anxiety or worry about things. She frequently notices parts of her body jerk. She constantly kicks during the night. She constantly feels crawling or aching feelings in her legs. She occasionally feels leg pain at night. She sometimes wakes with morning jaw pain. She does not keep a regular sleep schedule. Her bedtime varies greatly and may anywhere between 10pm to 2am, taking up to 1 hour to fall asleep. She typically gets about 5 to 6 hours of sleep per night. Her wake up time is between 8am to 9am on the weekdays and same on the weekends. She typically wakes up around 3 to 4 times per night, can be awake for an hour. She watches TV before falling asleep. She sometimes takes naps in the afternoon or evening. Habits: Caffeine use is about 2 sodas per day. Occasional alcohol use. Does not use recreational substances. [facility] Past Medical History Medical History (Updated 10/14/22 @ 18:06 by Farida Gomez MD) Abdominal pain Allergies Anemia Anxiety Arthritis Back pain Chronic headaches Crush injury of right foot Depression Diarrhea Dizziness Ear pain Endometriosis Gallbladder anomaly GERD (gastroesophageal reflux disease) History of anesthesia problem History of dental problems IBS (irritable bowel syndrome) Migraine Numbness SIERRA (obstructive sleep apnea) Painful joint Sinus problem Sleep apnea Snoring Urinary frequency UTI (urinary tract infection) UTI (urinary tract infection) due to Enterococcus Vision changes Wears glasses Weight gain Surgical History Surgical History History of cholecystectomy History of hysterectomy Hx of breast reduction, elective Hx of laparoscopy x2 Family History Family History Father Alcoholism Cancer Diabetes mellitus Mother Depression Sibling Cancer Other Dementia Social History Social History Smoking packs per day: 0.5 Smoking cigarettes per day: 10.0 Years smoked: 2 Smoking pack-years: 1.00 Smoking status: Former smoker Tobacco type: cigarettes Second hand tobacco smoke exposure: No Smoking end date: 03/31/00 Additional smoking assessment comments: social as teenager-not since then Alcohol intake: current Alcohol use details: 4/MONTH Substance use: never Substance use type: does not
[2022-10-14 18:10] VITALS: BMI 32.9
== END 2022-09-20 07:43 | disposition home or self-care (01) ==
LOC: ANHCSM 10:17
PROVIDERS: PCP Nurse Practitioner Family; Visit Provider Nurse Practitioner Family
DX: R06.83 Snoring (principal); R06.81 Apnea, not elsewhere classified; Z72.821 Inadequate sleep hygiene
CPT/HCPCS: 95810

== ENCOUNTER 2022-11-01 10:11 | Emergency (ER) | payer OTHER, SELFPAY ==
--- NOTE | 2022-11-01 10:25 | ED.URI ---
HPI - URI/Sore Throat General Chief Complaint: Upper Respiratory Infection Stated Complaint: bilateral ear pain,sorethroat Time Seen by Provider: 11/01/22 10:17 Source: patient Mode of arrival: ambulatory Limitations: no limitations History of Present Illness HPI Narrative: Peggy is a 42-year-old female patient presenting to the clinic today with complaints of bilateral ear pain, congestion, and sore throat x5 days. She reports usually when this happened she has a sinus infection. She denies any fever, chills, cough, nausea, vomiting, diarrhea, chest pain, or shortness of breath. No known exposure to anyone with COVID, flu, or strep. MD elicited complaint: sore throat, nasal congestion and other (Bilateral ear pain) Related Data Home Medications Medication Instructions Recorded Confirmed alprazolam 1 mg tablet (Xanax) 1 mg PO BID PRN Anxiety 02/14/19 11/01/22 estradiol 1 mg tablet 2 mg PO DAILY 04/24/21 11/01/22 multivitamin (Daily Multi-Vitamin 1 tablet PO DAILY 04/24/21 11/01/22 tablet) omeprazole 40 mg capsule,delayed 40 mg PO BID 04/24/21 11/01/22 release cyanocobalamin (vitamin B-12) 5,000 mcg PO DAILY 08/08/22 11/01/22 5,000 mcg capsule Allergies Allergy/AdvReac Type Severity Reaction Status Date / Time clarithromycin AdvReac Severe Swelling Verified 08/27/22 12:50 of face/nausea hydrocodone AdvReac Severe Throat Verified 08/27/22 12:50 swelling/facial swelling/vomiting cephalexin AdvReac Mild Hives Verified 08/27/22 12:50 Review of Systems Review of Systems: Pertinent positives per HPI. Patient denies any fever, chills, rash, headache, visual changes, dizziness, cough, shortness of breath, chest pain, palpitations, nausea, vomiting, diarrhea, constipation, abdominal pain, or any urinary issues. [facility] Past Medical History Medical History Abdominal pain Allergies Anemia Anxiety Arthritis Back pain Chronic headaches Crush injury of right foot Depression Diarrhea Dizziness Ear pain Endometriosis Gallbladder anomaly GERD (gastroesophageal reflux disease) History of anesthesia problem History of dental problems IBS (irritable bowel syndrome) Migraine Numbness SIERRA (obstructive sleep apnea) Painful joint Sinus problem Sleep apnea Snoring Urinary frequency UTI (urinary tract infection) UTI (urinary tract infection) due to Enterococcus Vision changes Wears glasses Weight gain Surgical History Surgical History History of cholecystectomy History of hysterectomy Hx of breast reduction, elective Hx of laparoscopy x2 Family History Family History Father Alcoholism Cancer Diabetes mellitus Mother Depression Sibling Cancer Other Dementia Social History Social History Smoking packs per day: 0.5 Smoking cigarettes per day: 10.0 Years smoked: 2 Smoking pack-years: 1.00 Smoking status: Former smoker Tobacco type: cigarettes Second hand tobacco smoke exposure: No Smoking end date: 03/31/00 Additional smoking assessment comments: social as teenager-not since then Alcohol intake: current Alcohol use details: 4/MONTH Substance use: never Substance use type: does not use Lack of Transportation: No Lack of Food: Never True Current Housing: I Do Not Have Housing Concerned About Future Housing: YES Difficulty Paying Gas/Electric Bills: Decline to Answer Difficulty Paying for Meds: No Currently Unemployed: No Education: Decline to Answer Difficulty w/ Childcare or Family Care: No Living arrangements: with family Additional living arrangements comments: [facility]ISTERS Occupation/Education: occupation Additional occupation/education comments: employed Gender ident
[2022-11-01 10:26] VITALS: BP 123/66; PULSE 72; RESP 18; TEMP 36.3; O2SAT 98
== END 2022-11-01 10:50 | disposition home or self-care (01) ==
PROVIDERS: Emergency Provider Nurse Practitioner Family; PCP Nurse Practitioner Family
DX: J06.9 Acute upper respiratory infection, unspecified (principal); J02.9 Acute pharyngitis, unspecified; H65.03 Acute serous otitis media, bilateral; Z87.891 Personal history of nicotine dependence; N80.9 Endometriosis, unspecified; K21.9 Gastro-esophageal reflux disease without esophagitis; M19.90 Unspecified osteoarthritis, unspecified site; F41.9 Anxiety disorder, unspecified
CPT/HCPCS: 87081; 87880; 99213; G0463

== ENCOUNTER 2022-11-15 13:53 | Emergency (ER) | payer OTHER, SELFPAY ==
--- NOTE | 2022-11-15 13:56 | ED.URI ---
HPI - URI/Sore Throat General Chief Complaint: Upper Respiratory Infection Stated Complaint: head pain, ear pain, cough Time Seen by Provider: 11/15/22 13:57 Source: patient Mode of arrival: ambulatory Limitations: no limitations History of Present Illness HPI Narrative: Peggy is a 42-year-old female patient presenting to the clinic today with complaints of headache, sinus pressure, nasal drainage, ear pain, and cough times 3-4 weeks. No known fever or chills. Was seen on November 01 and diagnosed with URI. MD elicited complaint: sore throat and nasal congestion Related Data Home Medications Medication Instructions Recorded Confirmed alprazolam 1 mg tablet (Xanax) 1 mg PO BID PRN Anxiety 02/14/19 11/15/22 estradiol 1 mg tablet 2 mg PO DAILY 04/24/21 11/15/22 multivitamin (Daily Multi-Vitamin 1 tablet PO DAILY 04/24/21 11/15/22 tablet) omeprazole 40 mg capsule,delayed 40 mg PO BID 04/24/21 11/15/22 release cyanocobalamin (vitamin B-12) 5,000 mcg PO DAILY 08/08/22 11/15/22 5,000 mcg capsule Allergies Allergy/AdvReac Type Severity Reaction Status Date / Time clarithromycin AdvReac Severe Swelling Verified 11/15/22 13:58 of face/nausea hydrocodone AdvReac Severe Throat Verified 11/15/22 13:58 swelling/facial swelling/vomiting cephalexin AdvReac Mild Hives Verified 11/15/22 13:58 Review of Systems Review of Systems: Pertinent positives per HPI. Patient denies any fever, chills, rash,visual changes, dizziness,shortness of breath, chest pain, palpitations, nausea, vomiting, diarrhea, constipation, abdominal pain, or any urinary issues. [facility] Past Medical History Medical History Abdominal pain Allergies Anemia Anxiety Arthritis Back pain Chronic headaches Crush injury of right foot Depression Diarrhea Dizziness Ear pain Endometriosis Gallbladder anomaly GERD (gastroesophageal reflux disease) History of anesthesia problem History of dental problems IBS (irritable bowel syndrome) Migraine Numbness SIERRA (obstructive sleep apnea) Painful joint Sinus problem Sleep apnea Snoring Urinary frequency UTI (urinary tract infection) UTI (urinary tract infection) due to Enterococcus Vision changes Wears glasses Weight gain Surgical History Surgical History History of cholecystectomy History of hysterectomy Hx of breast reduction, elective Hx of laparoscopy x2 Family History Family History Father Alcoholism Cancer Diabetes mellitus Mother Depression Sibling Cancer Other Dementia Social History Social History Smoking packs per day: 0.5 Smoking cigarettes per day: 10.0 Years smoked: 2 Smoking pack-years: 1.00 Smoking status: Former smoker Tobacco type: cigarettes Second hand tobacco smoke exposure: No Smoking end date: 03/31/00 Additional smoking assessment comments: social as teenager-not since then Alcohol intake: current Alcohol use details: 4/MONTH Substance use: never Substance use type: does not use Lack of Transportation: No Lack of Food: Never True Current Housing: I Do Not Have Housing Concerned About Future Housing: YES Difficulty Paying Gas/Electric Bills: Decline to Answer Difficulty Paying for Meds: No Currently Unemployed: No Education: Decline to Answer Difficulty w/ Childcare or Family Care: No Living arrangements: with family Additional living arrangements comments: [facility]ISTERS Occupation/Education: occupation Additional occupation/education comments: employed Gender identity (if verbalized by the patient): Female Spiritual care concerns: No Comments At the time of my signature, I reviewed and agree with the nursing past medical, surgical
[2022-11-15 14:00] VITALS: BP 140/80; PULSE 62; RESP 18; TEMP 36.6; O2SAT 100
== END 2022-11-15 14:05 | disposition home or self-care (01) ==
PROVIDERS: Emergency Provider Nurse Practitioner Family; PCP Nurse Practitioner Family
DX: J01.90 Acute sinusitis, unspecified (principal); Z87.891 Personal history of nicotine dependence; M19.90 Unspecified osteoarthritis, unspecified site; N80.9 Endometriosis, unspecified; K21.9 Gastro-esophageal reflux disease without esophagitis; F41.9 Anxiety disorder, unspecified
CPT/HCPCS: 99213; G0463

== ENCOUNTER 2023-02-10 10:37 | Emergency (ER) | payer OTHER, SELFPAY ==
[2023-02-10 10:41] VITALS: BP 130/77; PULSE 84; RESP 16; TEMP 36.3; O2SAT 98
--- NOTE | 2023-02-10 10:43 | ED.GENADULT ---
HPI - General Adult General Chief complaint: Upper Respiratory Infection Stated complaint: Cough,Congestion,Bilateral Ear Irritation Time Seen by Provider: 02/10/23 10:48 Source: patient, RN notes reviewed and old records reviewed Mode of arrival: ambulatory Limitations: no limitations History of Present Illness HPI narrative: 42-year-old female presents to the [facility] with cough, chest congestion and bilateral ear pain for at least 1 week. Sinus congestion with a history of sinus surgeries. Denies fevers. Denies treatment prior to arrival Onset (ago): week(s) (About 1 week) Related Data Home Medications Medication Instructions Recorded Confirmed alprazolam 1 mg tablet (Xanax) 1 mg PO BID PRN Anxiety 02/14/19 02/10/23 multivitamin (Daily Multi-Vitamin 1 tablet PO DAILY 04/24/21 02/10/23 tablet) omeprazole 40 mg capsule,delayed 40 mg PO BID 04/24/21 02/10/23 release ferrous sulfate 325 mg (65 mg 325 mg PO BID 02/10/23 02/10/23 iron) tablet (FeroSul) sertraline 50 mg tablet 50 mg PO DAILY 02/10/23 02/10/23 Allergies Allergy/AdvReac Type Severity Reaction Status Date / Time clarithromycin AdvReac Severe Swelling Verified 02/10/23 10:41 of face/nausea hydrocodone AdvReac Severe Throat Verified 02/10/23 10:41 swelling/facial swelling/vomiting cephalexin AdvReac Mild Hives Verified 02/10/23 10:41 Review of Systems Review of Systems: All systems reviewed & are unremarkable except as noted in HPI and below Constitutional: Constitutional: Reports no additional constitutional complaints Eyes: Eyes: Reports no additional eye complaints ENT: Reports as per HPI, Reports otalgia, Reports sinus pain and Reports sinus pressure Cardiovascular: Cardiovascular: Reports no additional cardiovascular complaints, Denies chest pain and Denies dyspnea Respiratory: Respiratory: Reports as per HPI, Denies chest congestion, Reports cough and Denies dyspnea Gastrointestinal: Gastrointestinal: Reports no additional gastrointestinal complaints, Denies abdominal pain, Denies nausea and Denies vomiting Musculoskeletal: Musculoskeletal: Reports no additional musculoskeletal complaints Integumentary/Breasts: Skin/Breast: Reports system reviewed and no additional complaints, except as docu Neurologic: Reports system reviewed and no additional complaints, except as documented Psychiatric: Psychiatric: Reports no additional psychiatric complaints Allergic/Immunologic: Allergic/Immunologic: Reports no additional allergic/immunologic complaints PMFSH Past Medical History Medical History Abdominal pain Allergies Anemia Anxiety Arthritis Back pain Chronic headaches Crush injury of right foot Depression Diarrhea Dizziness Ear pain Endometriosis Gallbladder anomaly GERD (gastroesophageal reflux disease) History of anesthesia problem History of dental problems IBS (irritable bowel syndrome) Migraine Numbness SIERRA (obstructive sleep apnea) Painful joint Sinus problem Sleep apnea Snoring Urinary frequency UTI (urinary tract infection) UTI (urinary tract infection) due to Enterococcus Vision changes Wears glasses Weight gain Surgical History Surgical History History of cholecystectomy History of hysterectomy Hx of breast reduction, elective Hx of laparoscopy x2 Family History Family History Father Alcoholism Cancer Diabetes mellitus Mother Depression Sibling Cancer Other Dementia Social History Social History Smoking packs per day: 0.5 Smoking cigarettes per day: 10.0 Years smoked: 2 Smoking pack-years: 1.00 Smoking status: Former smoker Tobacco type: cigarettes Second hand tobacco smoke exposure: No Smoking end date: 03/31/00 Additi
== END 2023-02-10 11:03 | disposition home or self-care (01) ==
PROVIDERS: Emergency Provider Nurse Practitioner; PCP Nurse Practitioner Family
DX: J32.9 Chronic sinusitis, unspecified (principal); J40 Bronchitis, not specified as acute or chronic; Z87.891 Personal history of nicotine dependence; M19.90 Unspecified osteoarthritis, unspecified site; N80.9 Endometriosis, unspecified; K21.9 Gastro-esophageal reflux disease without esophagitis; F41.9 Anxiety disorder, unspecified; F32.A Depression, unspecified
CPT/HCPCS: 99213; G0463

== ENCOUNTER 2023-04-28 09:46 | Emergency (ER) | payer OTHER, SELFPAY ==
--- NOTE | 2023-04-28 09:51 | ED.URI ---
HPI - URI/Sore Throat General Chief Complaint: Upper Respiratory Infection Stated Complaint: sorethroat,bilateral ear pain,uti symptoms Time Seen by Provider: 04/28/23 10:50 Source: patient and RN notes reviewed Mode of arrival: ambulatory Limitations: no limitations History of Present Illness HPI Narrative: 42-year-old female presents with multiple complaints. Reports she started on having urinary frequency, low back pain and house had burning with urination. She also reports over the weekend she started having productive cough, sore throat, ear pain and fullness, chills and sweats. She reports history of UTIs. She reports she has taken Tylenol. She denies fever. Reports nausea, denies vomiting MD elicited complaint: sore throat Related Data Home Medications Medication Instructions Recorded Confirmed alprazolam 1 mg tablet (Xanax) 1 mg PO BID PRN Anxiety 02/14/19 03/17/23 multivitamin (Daily Multi-Vitamin 1 tablet PO DAILY 04/24/21 03/17/23 tablet) omeprazole 40 mg capsule,delayed 40 mg PO BID 04/24/21 03/17/23 release ferrous sulfate 325 mg (65 mg 325 mg PO BID 02/10/23 03/17/23 iron) tablet (FeroSul) estradiol 1 mg tablet mg 04/28/23 Allergies Allergy/AdvReac Type Severity Reaction Status Date / Time clarithromycin AdvReac Severe Swelling Verified 04/28/23 10:22 of face/nausea hydrocodone AdvReac Severe Throat Verified 04/28/23 10:22 swelling/facial swelling/vomiting cephalexin AdvReac Mild Hives Verified 04/28/23 10:22 Review of Systems Review of Systems: CONSTITUTIONAL: Denies malaise or fever. Reports chills and sweats EYES: Denies visual changes, redness, or discharge. ENT: Reports rhinorrhea, congestion, otalgia and sore throat. CARDIOVASCULAR: Denies chest pain, palpitations, or edema. RESPIRATORY: Reports cough. Denies dyspnea. GASTROINTESTINAL: Denies abdominal pain, vomiting, diarrhea. Reports nausea : Reports dysuria, urgency, frequency SKIN: Denies rash or itching. MUSCULOSKELETAL: Reports low back pain and myalgia. NEUROLOGIC: Denies headache. All systems reviewed & are unremarkable except as noted in HPI and below PMFSH Past Medical History Medical History (Updated 04/28/23 @ 11:01 by Argenis Mazariegos NP) Abdominal pain Allergies Anemia Anxiety Arthritis Back pain Chronic headaches Crush injury of right foot Depression Diarrhea Dizziness Ear pain Endometriosis Gallbladder anomaly GERD (gastroesophageal reflux disease) History of anesthesia problem History of dental problems IBS (irritable bowel syndrome) Migraine Numbness SIERRA (obstructive sleep apnea) Painful joint Sinus problem Sleep apnea Snoring Urinary frequency UTI (urinary tract infection) UTI (urinary tract infection) due to Enterococcus Vision changes Wears glasses Weight gain Surgical History Surgical History History of cholecystectomy History of hysterectomy Hx of breast reduction, elective Hx of laparoscopy x2 Family History Family History Father Alcoholism Cancer Diabetes mellitus Mother Depression Sibling Cancer Other Dementia Social History Social History Smoking packs per day: 0.5 Smoking cigarettes per day: 10.0 Years smoked: 2 Smoking pack-years: 1.00 Smoking status: Former smoker Tobacco type: cigarettes Second hand tobacco smoke exposure: No Smoking end date: 03/31/00 Additional smoking assessment comments: social as teenager-not since then Alcohol intake: current Alcohol use details: 4/MONTH Substance use: never Substance use type: does not use Lack of Transportation: No Lack of Food: Never True Current Housing: I Do Not Have Housing Concerned About Future Housing: YES Difficulty Paying Gas/Electric Bills: Decline to Answer
[2023-04-28 10:24] VITALS: BP 123/75; PULSE 73; RESP 16; TEMP 36.3; O2SAT 99
== END 2023-04-28 11:07 | disposition home or self-care (01) ==
PROVIDERS: Emergency Provider Nurse Practitioner; PCP Nurse Practitioner Family
DX: J06.9 Acute upper respiratory infection, unspecified (principal); R35.0 Frequency of micturition; R30.0 Dysuria; M54.50 Low back pain, unspecified; F41.9 Anxiety disorder, unspecified; D64.9 Anemia, unspecified; N80.9 Endometriosis, unspecified; K21.9 Gastro-esophageal reflux disease without esophagitis; Z87.891 Personal history of nicotine dependence
CPT/HCPCS: 81003; 87086; 87426; 87804; 99213; G0463

== ENCOUNTER 2023-05-04 13:45 | Emergency (ER) | payer OTHER, SELFPAY ==
--- NOTE | ~2023-05-04 | XR_ITS ---
EXAM: XR knee RT min 4V DATE: 05/04/2023 13:57 HISTORY: RIGHT KNEE PAIN AFTER FALL LAST WEEK . COMPARISON: None available. FINDINGS: Normal mineralization. No fracture or dislocation. No lytic or blastic lesion. Joint space s are maintained. No erosion or periosteal change. Soft tissues within normal limits. IMPRESSION: No acute osseous finding in the right knee. Reviewed, dictated and finalized at location [facility]. [facility]
[2023-05-04 13:47] VITALS: BP 130/59; PULSE 80; RESP 18; TEMP 36.4; O2SAT 100
--- NOTE | 2023-05-04 15:42 | ED.LOWEXIN ---
HPI - Extremity Injury (Lower) General Chief Complaint: Extremity Injury, Lower Stated Complaint: right knee injury Time Seen by Provider: 05/04/23 15:42 Source: patient Mode of arrival: ambulatory Limitations: no limitations History of Present Illness HPI Narrative: Peggy is a 43-year-old female patient presenting to the ER today with complaints of right knee pain/injury that occurred last night. She reports she fell off (from a sitting position) a bar and smacked her right knee on the metal of the bar stool. Related Data Home Medications Medication Instructions Recorded Confirmed alprazolam 1 mg tablet (Xanax) 1 mg PO BID PRN Anxiety 02/14/19 03/17/23 multivitamin (Daily Multi-Vitamin 1 tablet PO DAILY 04/24/21 03/17/23 tablet) omeprazole 40 mg capsule,delayed 40 mg PO BID 04/24/21 03/17/23 release ferrous sulfate 325 mg (65 mg 325 mg PO BID 02/10/23 03/17/23 iron) tablet (FeroSul) estradiol 1 mg tablet mg 04/28/23 Allergies Allergy/AdvReac Type Severity Reaction Status Date / Time clarithromycin AdvReac Severe Swelling Verified 04/28/23 10:22 of face/nausea hydrocodone AdvReac Severe Throat Verified 04/28/23 10:22 swelling/facial swelling/vomiting cephalexin AdvReac Mild Hives Verified 04/28/23 10:22 Review of Systems Review of Systems: Pertinent positives per HPI. Patient denies any fever, chills, rash, headache, visual changes, dizziness, cough, runny nose, sore throat, shortness of breath, chest pain, palpitations, nausea, vomiting, diarrhea, constipation, abdominal pain, or any urinary issues. [facility] Past Medical History Medical History Abdominal pain Allergies Anemia Anxiety Arthritis Back pain Chronic headaches Crush injury of right foot Depression Diarrhea Dizziness Ear pain Endometriosis Gallbladder anomaly GERD (gastroesophageal reflux disease) History of anesthesia problem History of dental problems IBS (irritable bowel syndrome) Migraine Numbness SIERRA (obstructive sleep apnea) Painful joint Sinus problem Sleep apnea Snoring Urinary frequency UTI (urinary tract infection) UTI (urinary tract infection) due to Enterococcus Vision changes Wears glasses Weight gain Surgical History Surgical History History of cholecystectomy History of hysterectomy Hx of breast reduction, elective Hx of laparoscopy x2 Family History Family History Father Alcoholism Cancer Diabetes mellitus Mother Depression Sibling Cancer Other Dementia Social History Social History Smoking packs per day: 0.5 Smoking cigarettes per day: 10.0 Years smoked: 2 Smoking pack-years: 1.00 Smoking status: Former smoker Tobacco type: cigarettes Second hand tobacco smoke exposure: No Smoking end date: 03/31/00 Additional smoking assessment comments: social as teenager-not since then Alcohol intake: current Alcohol use details: 4/MONTH Substance use: never Substance use type: does not use Lack of Transportation: No Lack of Food: Never True Current Housing: I Do Not Have Housing Concerned About Future Housing: YES Difficulty Paying Gas/Electric Bills: Decline to Answer Difficulty Paying for Meds: No Currently Unemployed: No Education: Decline to Answer Difficulty w/ Childcare or Family Care: No Living arrangements: with family Additional living arrangements comments: [facility] Occupation/Education: occupation Additional occupation/education comments: employed Gender identity (if verbalized by the patient): Female Spiritual care concerns: No Comments At the time of my signature, I reviewed and agree with the nursing past medical, surgical, social, and family history. There is
== END 2023-05-04 16:07 | disposition home or self-care (01) ==
LOC: ANHED 15:59
PROVIDERS: Emergency Provider Nurse Practitioner Family; PCP Nurse Practitioner Family
DX: S80.01XA Contusion of right knee, initial encounter (principal); Z87.891 Personal history of nicotine dependence; W07.XXXA Fall from chair, initial encounter
CPT/HCPCS: 73564; 99283

== ENCOUNTER 2023-07-01 17:32 | Emergency (ER) | payer OTHER, SELFPAY ==
[2023-07-01 17:40] VITALS: BP 112/65; PULSE 71; RESP 16; TEMP 36.5; O2SAT 99
--- NOTE | 2023-07-01 17:40 | ED.GENADULT ---
HPI - General Adult General Chief complaint: Extremity Injury, Upper Stated complaint: Left Hand and Arm Swelling/Pain Source: patient Mode of arrival: ambulatory Limitations: no limitations History of Present Illness HPI narrative: 43-year-old female presented for complaint of left thumb pain for about 10 days. States the pain is getting worse and the thumb will occasionally lock up, and at times the pain shoots up to the forearm. Pain is reported to the base of the thumb with occasional swelling and numbness. Rates pain 8/10. Denies injury, denies bruising or redness. Has not taken anything for pain. Related Data Home Medications Medication Instructions Recorded Confirmed alprazolam 1 mg tablet (Xanax) 1 mg PO BID PRN Anxiety 02/14/19 03/17/23 multivitamin (Daily Multi-Vitamin 1 tablet PO DAILY 04/24/21 03/17/23 tablet) omeprazole 40 mg capsule,delayed 40 mg PO BID 04/24/21 03/17/23 release ferrous sulfate 325 mg (65 mg 325 mg PO BID 02/10/23 03/17/23 iron) tablet (FeroSul) estradiol 1 mg tablet mg 04/28/23 Allergies Allergy/AdvReac Type Severity Reaction Status Date / Time clarithromycin AdvReac Severe Swelling Verified 04/28/23 10:22 of face/nausea hydrocodone AdvReac Severe Throat Verified 04/28/23 10:22 swelling/facial swelling/vomiting cephalexin AdvReac Mild Hives Verified 04/28/23 10:22 Review of Systems Review of Systems: CONSTITUTIONAL: Denies body aches, fever, chills CARDIOVASCULAR: Denies chest pain, palpitations, or edema. RESPIRATORY: Denies cough or dyspnea. SKIN: Denies rash, itching, or wounds. MUSCULOSKELETAL: Reports left thumb pain NEUROLOGIC: Denies headache All systems reviewed & are unremarkable except as noted in HPI and below PMFSH Past Medical History Medical History Abdominal pain Allergies Anemia Anxiety Arthritis Back pain Chronic headaches Crush injury of right foot Depression Diarrhea Dizziness Ear pain Endometriosis Gallbladder anomaly GERD (gastroesophageal reflux disease) History of anesthesia problem History of dental problems IBS (irritable bowel syndrome) Migraine Numbness SIERRA (obstructive sleep apnea) Painful joint Sinus problem Sleep apnea Snoring Urinary frequency UTI (urinary tract infection) UTI (urinary tract infection) due to Enterococcus Vision changes Wears glasses Weight gain Surgical History Surgical History History of cholecystectomy History of hysterectomy Hx of breast reduction, elective Hx of laparoscopy x2 Family History Family History Father Alcoholism Cancer Diabetes mellitus Mother Depression Sibling Cancer Other Dementia Social History Social History Smoking packs per day: 0.5 Smoking cigarettes per day: 10.0 Years smoked: 2 Smoking pack-years: 1.00 Smoking status: Former smoker Tobacco type: cigarettes Second hand tobacco smoke exposure: No Smoking end date: 03/31/00 Additional smoking assessment comments: social as teenager-not since then Alcohol intake: current Alcohol use details: 4/MONTH Substance use: never Substance use type: does not use Lack of Transportation: No Lack of Food: Never True Current Housing: I Do Not Have Housing Concerned About Future Housing: YES Difficulty Paying Gas/Electric Bills: Decline to Answer Difficulty Paying for Meds: No Currently Unemployed: No Education: Decline to Answer Difficulty w/ Childcare or Family Care: No Living arrangements: with family Additional living arrangements comments: [facility] Occupation/Education: occupation Additional occupation/education comments: employed Gender identity (if verbalized by the patient): Female Spiritual care adalid
== END 2023-07-01 17:57 | disposition home or self-care (01) ==
PROVIDERS: Emergency Provider Nurse Practitioner Family; PCP Nurse Practitioner Family
DX: M79.645 Pain in left finger(s) (principal); Z87.891 Personal history of nicotine dependence; M19.90 Unspecified osteoarthritis, unspecified site; N80.9 Endometriosis, unspecified; K21.9 Gastro-esophageal reflux disease without esophagitis
CPT/HCPCS: 99213; G0463

== ENCOUNTER 2023-07-02 15:06 | Outpatient (CLI) | payer OTHER, SELFPAY ==
--- NOTE | ~2023-07-02 | XR_ITS ---
EXAMINATION: XR hand LT min 3V DATE: 07/02/2023 15:33 INDICATION: Left hand pain. TECHNIQUE: 3 views of left hand were obtained. COMPARISON: None. FINDINGS: Bone alignment is normal. No fracture. There is mild osteoarthritis of first carpometacarpa l joint, second-fifth metacarpophalangeal joints, and third distal interphalangeal joint. IMPRESSION: 1. Mild polyarticular osteoarthritis. Reviewed, dictated and finalized at location A.
--- NOTE | ~2023-07-02 | XR_ITS ---
XR_[id number]_CR DATE: 07/02/2023 15:33 INDICATION: Left hand pain radiating to neck for 1.5 weeks. No known injury. TECHNIQUE: AP, open-mouth, lateral views COMPARISON: None FINDINGS: There is straightening of the cervical spinal which may be due to muscle spasm. C1 and C2 are normally aligned and the odontoid process is intact. No fracture or dislocation or lock ed facet. Cervical interspaces are well preserved. No prevertebral soft tissue swelling. IMPRESSION: Straightening of cervical spine; otherwise negative Reviewed, dictated and finalized at Location [facility]. Reviewed, dictated and finalized at location B.
== END 2023-07-02 15:07 | disposition home or self-care (01) ==
LOC: ANHIMG 15:08
PROVIDERS: PCP Nurse Practitioner Family; Visit Provider Nurse Practitioner Family
DX: M79.642 Pain in left hand (principal); M54.10 Radiculopathy, site unspecified; M19.042 Primary osteoarthritis, left hand; M43.8X2 Other specified deforming dorsopathies, cervical region
CPT/HCPCS: 72040; 73130

== ENCOUNTER 2023-12-30 12:28 | Emergency (ER) | payer OTHER, SELFPAY ==
[2023-12-30 12:44] VITALS: BP 137/79; PULSE 62; RESP 17; TEMP 36.3; O2SAT 100
--- NOTE | 2023-12-30 13:07 | ED.URI ---
HPI - URI/Sore Throat General Chief Complaint: Upper Respiratory Infection Stated Complaint: LT Ear Pain Time Seen by Provider: 12/30/23 13:07 Source: patient and RN notes reviewed Mode of arrival: ambulatory Limitations: no limitations History of Present Illness HPI Narrative: 43-year-old female presented for complaint of left ear pain, headache, body aches, sinus pressure/congestion, cough, fever/chills. Onset 2 days. Denies sob, wheezing, n/v/d. States her PCP advised a COVID test. Has been taking Zyrtec and Flonase. MD elicited complaint: cough Related Data Home Medications Medication Instructions Recorded Confirmed alprazolam 1 mg tablet (Xanax) 1 mg PO BID PRN Anxiety 02/14/19 12/30/23 multivitamin (Daily Multi-Vitamin 1 tablet PO DAILY 04/24/21 12/30/23 tablet) estradiol 1 mg tablet 1 mg DIRECTED 04/28/23 12/30/23 Allergies Allergy/AdvReac Type Severity Reaction Status Date / Time clarithromycin AdvReac Severe Swelling Verified 12/16/23 14:05 of face/nausea hydrocodone AdvReac Severe Throat Verified 12/16/23 14:05 swelling/facial swelling/vomiting cephalexin AdvReac Mild Hives Verified 12/16/23 14:05 Review of Systems Review of Systems: CONSTITUTIONAL: Endorses malaise, chills, sweats, fever EYES: Denies visual changes, redness, or discharge ENT: Reports rhinorrhea, congestion, sinus pain, otalgia CARDIOVASCULAR: Denies chest pain, palpitations, edema RESPIRATORY: Reports cough, post nasal drainage. Denies dyspnea GASTROINTESTINAL: Denies abdominal pain, nausea, vomiting, diarrhea SKIN: Denies rash or itching MUSCULOSKELETAL: Endorses myalgia NEUROLOGIC: Endorses headache PMFSH Past Medical History Medical History Abdominal bloating Abdominal pain Allergies Anemia Anxiety Arthritis Back pain Bright red blood per rectum Chronic diarrhea Chronic headaches Crush injury of right foot Depression Diarrhea Dizziness Ear pain Endometriosis Epigastric pain Family history of colon cancer in father Gallbladder anomaly GERD (gastroesophageal reflux disease) History of anesthesia problem History of dental problems IBS (irritable bowel syndrome) Migraine Numbness SIERRA (obstructive sleep apnea) Painful joint Sinus problem Sleep apnea Snoring Urinary frequency UTI (urinary tract infection) UTI (urinary tract infection) due to Enterococcus Vision changes Wears glasses Weight gain Surgical History Surgical History History of cholecystectomy History of hysterectomy Hx of breast reduction, elective Hx of laparoscopy x2 Family History Family History Father Alcoholism Cancer Diabetes mellitus Mother Depression Sibling Cancer Other Dementia Social History Social History Smoking packs per day: 0.5 Smoking cigarettes per day: 10.0 Years smoked: 2 Smoking pack-years: 1.00 Smoking status: Former smoker Tobacco type: cigarettes Second hand tobacco smoke exposure: No Smoking end date: 03/31/00 Additional smoking assessment comments: social as teenager-not since then Alcohol intake: current Alcohol use details: 4/MONTH Substance use: never Substance use type: does not use Do You Feel Safe in your Home?: Yes Lack of Transportation: No Lack of Food: Never True Current Housing: I Do Not Have Housing Concerned About Future Housing: YES Difficulty Paying Gas/Electric Bills: Decline to Answer Difficulty Paying for Meds: No Currently Unemployed: No Education: Grade School Difficulty w/ Childcare or Family Care: No Living arrangements: with family Occupation/Education: occupation Additional occupation/education comments: employed Gender identity (if verbalized by the patient): Femal
[2023-12-30 13:40] LABS: EDCOVIDSCREEN Negative (Negative); EDINFLUASCREEN Negative (Negative); EDINFLUBSCREEN Negative (Negative)
== END 2023-12-30 13:42 | disposition home or self-care (01) ==
PROVIDERS: Emergency Provider Nurse Practitioner Family; PCP Nurse Practitioner Family
DX: J06.9 Acute upper respiratory infection, unspecified (principal); Z20.822 Contact with and (suspected) exposure to COVID-19; Z87.891 Personal history of nicotine dependence; N80.9 Endometriosis, unspecified; K21.9 Gastro-esophageal reflux disease without esophagitis; F41.9 Anxiety disorder, unspecified
CPT/HCPCS: 87426; 87804; 99213; G0463

== ENCOUNTER 2024-01-06 17:25 | Emergency (ER) | payer OTHER, SELFPAY ==
--- NOTE | 2024-01-06 17:32 | ED.URI ---
HPI - URI/Sore Throat General Chief Complaint: Upper Respiratory Infection Stated Complaint: cough/ ear pain Time Seen by Provider: 01/06/24 17:45 Source: patient Mode of arrival: ambulatory Limitations: no limitations History of Present Illness HPI Narrative: Peggy is a 43-year-old female patient presenting to the clinic today with complaints of sinus pressure, productive cough with yellow-green phlegm, sinus congestion with green and yellow phlegm, and left ear pain. Symptoms have been going on for approximately 2 weeks. She reports some slight shortness of breath with coughing however she is not short of breath at rest. Denies any fever or chills. MD elicited complaint: sore throat and nasal congestion Related Data Home Medications Medication Instructions Recorded Confirmed alprazolam 1 mg tablet (Xanax) 1 mg PO BID PRN Anxiety 02/14/19 01/06/24 multivitamin (Daily Multi-Vitamin 1 tablet PO DAILY 04/24/21 01/06/24 tablet) estradiol 1 mg tablet 1 mg DIRECTED 04/28/23 01/06/24 cholestyramine (with sugar) 4 gram See Rx Instructions .Route .COMPLEX 01/06/24 01/06/24 oral powder omeprazole 40 mg capsule,delayed 40 mg PO BID 01/06/24 01/06/24 release Allergies Allergy/AdvReac Type Severity Reaction Status Date / Time clarithromycin AdvReac Severe Swelling Verified 01/06/24 17:39 of face/nausea hydrocodone AdvReac Severe Throat Verified 01/06/24 17:39 swelling/facial swelling/vomiting cephalexin AdvReac Mild Hives Verified 01/06/24 17:39 Review of Systems Review of Systems: Pertinent positives per HPI. Patient denies any fever, chills, rash, visual changes, dizziness, shortness of breath, chest pain, palpitations, nausea, vomiting, diarrhea, constipation, abdominal pain, or any urinary issues. [facility] Past Medical History Medical History Abdominal bloating Abdominal pain Allergies Anemia Anxiety Arthritis Back pain Bright red blood per rectum Chronic diarrhea Chronic headaches Crush injury of right foot Depression Diarrhea Dizziness Ear pain Endometriosis Epigastric pain Family history of colon cancer in father Gallbladder anomaly GERD (gastroesophageal reflux disease) History of anesthesia problem History of dental problems IBS (irritable bowel syndrome) Migraine Numbness SIERRA (obstructive sleep apnea) Painful joint Sinus problem Sleep apnea Snoring Urinary frequency UTI (urinary tract infection) UTI (urinary tract infection) due to Enterococcus Vision changes Wears glasses Weight gain Surgical History Surgical History History of cholecystectomy History of hysterectomy Hx of breast reduction, elective Hx of laparoscopy x2 Family History Family History Father Alcoholism Cancer Diabetes mellitus Mother Depression Sibling Cancer Other Dementia Social History Social History Smoking packs per day: 0.5 Smoking cigarettes per day: 10.0 Years smoked: 2 Smoking pack-years: 1.00 Smoking status: Former smoker Tobacco type: cigarettes Second hand tobacco smoke exposure: No Smoking end date: 03/31/00 Additional smoking assessment comments: social as teenager-not since then Alcohol intake: current Alcohol use details: 4/MONTH Substance use: never Substance use type: does not use Do You Feel Safe in your Home?: Yes Lack of Transportation: No Lack of Food: Never True Current Housing: I Do Not Have Housing Concerned About Future Housing: YES Difficulty Paying Gas/Electric Bills: Decline to Answer Difficulty Paying for Meds: No Currently Unemployed: No Education: Grade School Difficulty w/ Childcare or Family Care: No Living arrangements: with family Occupation/Educatio
[2024-01-06 17:37] VITALS: BP 118/79; PULSE 69; RESP 16; TEMP 36.3; O2SAT 100
== END 2024-01-06 17:53 | disposition home or self-care (01) ==
PROVIDERS: Emergency Provider Nurse Practitioner Family; PCP Nurse Practitioner Family
DX: J01.90 Acute sinusitis, unspecified (principal); Z87.891 Personal history of nicotine dependence; N80.9 Endometriosis, unspecified; K21.9 Gastro-esophageal reflux disease without esophagitis; F41.9 Anxiety disorder, unspecified; M19.90 Unspecified osteoarthritis, unspecified site
CPT/HCPCS: 99213; G0463

== ENCOUNTER 2024-01-15 12:50 | Outpatient (CLI) | payer OTHER, SELFPAY ==
[2024-01-15 14:51] LABS: Hemoglobin 13.1 g/dL (12.0-15.0); Immature Platelet Fraction Pct 46.2 % (0.9-11.2); Mean Corpuscular HGB Conc 32.8 g/dl (32-36); Mean Corpuscular Hemoglobin 27.8 pg (26-34); Mean Corpuscular Volume 84.9 fl (80-100); Platelet Count Result 42 k/mm3 (150-375); Red Blood Count 4.71 M/mm3 (4.2-5.4); White Blood Count 7.5 K/mm3 (4.5-10.0)
== END 2024-01-15 12:51 | disposition home or self-care (01) ==
PROVIDERS: Anesthesiology; PCP Nurse Practitioner Family; Visit Provider Obstetrics & Gynecology
DX: D69.3 Immune thrombocytopenic purpura (principal); N32.81 Overactive bladder
CPT/HCPCS: 36415; 85027; 85055; 86850; 86900; 86901

== ENCOUNTER 2024-01-21 10:59 | Outpatient (CLI) | payer OTHER, SELFPAY ==
[2024-01-21 12:10] LABS: Basophils Percent Auto 0.4 % (0.2-1.2); Eosinophils Absolute Auto 0.1 K/mm3 (0-0.3); Eosinophils Percent Auto 1.7 % (0-4.4); Hematocrit 41.8 % (37.0-47.0); Hemoglobin 13.6 g/dL (12.0-15.0); Immature Granulocyte Absolute 0.02 K/mm3 (0.00-0.031); Immature Granulocyte Percent A 0.2 % (0-0.5); Immature Platelet Fraction Pct 48.4 % (0.9-11.2); Mean Corpuscular HGB Conc 32.5 g/dl (32-36); Mean Corpuscular Hemoglobin 27.4 pg (26-34); Mean Corpuscular Volume 84.1 fl (80-100); Monocytes Absolute Auto 0.4 K/mm3 (0.1-0.6); Monocytes Percent Auto 5.3 % (2.6-8.5); Neutrophils Absolute Auto 3.6 K/mm3 (1.3-6.7); Neutrophils Percent Auto 44.4 % (45.5-73.1); Platelet Count Result 45 k/mm3 (150-375); Red Blood Count 4.97 M/mm3 (4.2-5.4); White Blood Count 8.1 K/mm3 (4.5-10.0)
[2024-01-21 19:30] LABS: Iron 86 ug/dL (37-170)
[2024-01-21 19:40] LABS: Percent Iron Saturation 24 % (20-50)
== END 2024-01-21 11:00 | disposition home or self-care (01) ==
LOC: ANHLAB 11:01
PROVIDERS: PCP Nurse Practitioner Family; Visit Provider Internal Medicine Hematology & Oncology
DX: D64.9 Anemia, unspecified (principal)
CPT/HCPCS: 36415; 82728; 83540; 83550; 85025; 85055

== ENCOUNTER 2024-03-02 09:39 | Outpatient (CLI) | payer OTHER, SELFPAY ==
[2024-03-02 09:59] LABS: Hematocrit 41.8 % (37.0-47.0); Hemoglobin 13.5 g/dL (12.0-15.0); Immature Platelet Fraction Pct 31.1 % (0.9-11.2); Mean Corpuscular HGB Conc 32.3 g/dl (32-36); Mean Corpuscular Hemoglobin 27.2 pg (26-34); Mean Corpuscular Volume 84.3 fl (80-100); Platelet Count Result 43 k/mm3 (150-375); Red Blood Count 4.96 M/mm3 (4.2-5.4); Red Cell Distribution Width 13.2 % (11.5-14.5); White Blood Count 9.4 K/mm3 (4.5-10.0)
[2024-03-02 13:06] LABS: Iron 96 ug/dL (37-170)
[2024-03-02 13:16] LABS: Percent Iron Saturation 26 % (20-50)
[2024-03-02 14:06] LABS: Folic Acid 10.9 ng/mL (2.76->20)
== END 2024-03-02 09:40 | disposition home or self-care (01) ==
LOC: ANHLAB 09:40
PROVIDERS: PCP Nurse Practitioner Family; Visit Provider Internal Medicine Hematology & Oncology
DX: D64.9 Anemia, unspecified (principal)
CPT/HCPCS: 36415; 82607; 82728; 82746; 83540; 83550; 85027; 85055

== ENCOUNTER 2024-03-03 13:00 | Outpatient (RCR) | payer OTHER, SELFPAY ==
[2024-03-03] MEDS: ACETAMINOPHEN 325 MG TABLET PO (13:24)
[2024-03-03] MEDS: SODIUM CHLORIDE 0.9% IV 250 ML 30 ML IV CONT (13:24)
[2024-03-03] MEDS: diphenhydrAMINE HCl CAP 25 MG CAPSULE PO (13:24)
[2024-03-03 13:35] VITALS: BP 134/83; PULSE 83; RESP 14; TEMP 37.1; O2SAT 98
[2024-03-03 13:50] VITALS: BP 128/72; PULSE 87; RESP 15; TEMP 36.7; O2SAT 97
[2024-03-03 14:03] VITALS: BP 128/72; PULSE 87; RESP 15; TEMP 36.7; O2SAT 97
[2024-03-03 14:18] VITALS: BP 128/56; PULSE 85; RESP 16; TEMP 36.6; O2SAT 99
== END 2024-06-01 23:59 | disposition home or self-care (01) ==
LOC: ANHCPCTRAN 13:00
PROVIDERS: PCP Nurse Practitioner Family; Visit Provider Internal Medicine Hematology & Oncology
DX: D64.89 Other specified anemias (principal)
CPT/HCPCS: 36415; 36430; 86900; 86901; A9270; J7050; P9034

== ENCOUNTER 2024-03-04 00:06 | Day surgery (SDC) | payer OTHER, SELFPAY ==
[2024-01-14 14:25] VITALS: BMI 37.0
--- NOTE | 2024-01-14 14:30 | PC.NURSE ---
Report to the Outpatient Waiting Room, entrance under the green pavilion located off [facility], at time _0600_ on date _[id number]_. Planned Procedure Time: _0730_.? Time changes happen often and if your time is changed the preop area will call you the afternoon before. - You and your visitor will be asked to self-screen and do not enter if you have any COVID symptoms. Please call surgeon if you need to reschedule. - A mask is optional within the hospital at this time. Patients may have clear liquids (water, carbonated beverages, clear teas, apple juice) until 3 hours prior to surgery with a maximum of 20 ounces. - No food from midnight until time of surgery and no smoking Take only the following medications with a SIP of water on the morning of surgery____Buspirone, Venlafaxine and if needed Alprazolam DO NOT STOP ANY OF YOUR OTHER PRESCRIPTION MEDICATIONS PRIOR TO SURGERY EXCEPT THE FOLLOWING Medications to discontinue per physician ____None Please no make-up, nail yakut, hairspray, perfume, deodorant, or body powder the day of surgery.? No jewelry (including any body piercings) or valuables the day of surgery, leave them at home.? Please take a shower or bath the night before, or the morning of, surgery with an antibacterial soap.? Wear comfortable, loose fitting clothing.? - Jewelry must be removed prior to entering the operating room.? Rings and piercings that are not removed may be cut off. - The hospital will not accept responsibility for valuables.? - Please leave all valuables, including medications, at home the day of surgery. If you are going home after surgery, a licensed commercial driver must drive you home.? - NO public transportation without another adult if you receive anesthesia. - We recommend that an adult stay with you for 24 hours following discharge. - We also recommend that you do not drive, make important decision, drink alcoholic beverages, or take any drugs that were not prescribed by your health care provider for at least 24 hours after your discharge time. Follow any additional instructions given to you from your surgeon. Telephone instructions given to Lev___and asked if any additional questions and then verbalized understanding. Patient advised to call surgeon office or pre surgery nurse liaison [phone] if any additional questions.
--- NOTE | 2024-02-23 13:59 | PC.NURSE ---
Addendum entered by Abiodun Barksdale RN 02/23/24 14:00: Also needs to take prednisone morning of surgery. Original Note: Spoke with patient about new date and time; 03-04-2024, arrive at 0600 for surgery at 0730. All other instructions the same.
--- NOTE | 2024-03-03 07:53 | PM.IMHP ---
H&P: HPI History of Present Illness Date/Time: 03/03/24 07:53 Chief Complaint: stress incontinence Narrative: 43-year-old female admitted for tension-free vaginal tape secondary to stress urinary incontinence. She loses urine with coughing, laughing, sneezing. Attempts at physical therapy been unsuccessful. Risks and benefits of the procedure reviewed in great detail. The Review of Systems Review of Systems: Pertinent positives per HPI. Patient denies any fever, chills, rash, visual changes, dizziness, shortness of breath, chest pain, palpitations, nausea, vomiting, diarrhea, constipation, abdominal pain, or any urinary issues. [facility] Past Medical History Medical History Abdominal bloating Abdominal pain Allergies Anemia Anxiety Arthritis Back pain Bright red blood per rectum Chronic diarrhea Chronic headaches Crush injury of right foot Depression Diarrhea Dizziness Ear pain Endometriosis Epigastric pain Family history of colon cancer in father Gallbladder anomaly GERD (gastroesophageal reflux disease) History of anesthesia problem History of dental problems IBS (irritable bowel syndrome) Migraine Numbness SIERRA (obstructive sleep apnea) Painful joint Sinus problem Sleep apnea Snoring Urinary frequency UTI (urinary tract infection) UTI (urinary tract infection) due to Enterococcus Vision changes Wears glasses Weight gain Surgical History Surgical History History of cholecystectomy History of hysterectomy Hx of breast reduction, elective Hx of laparoscopy x2 Family History Family History Father Alcoholism Cancer Diabetes mellitus Mother Depression Sibling Cancer Other Dementia Social History Social History Smoking packs per day: 0.5 Smoking cigarettes per day: 10.0 Years smoked: 2 Smoking pack-years: 1.00 Smoking status: Never smoker Tobacco type: cigarettes Second hand tobacco smoke exposure: No Smoking end date: 03/31/00 Additional smoking assessment comments: social as teenager-not since then Alcohol intake: current Alcohol use details: 4/MONTH Substance use: never Substance use type: marijuana Other substance usage details: 2 or more times a day. Do You Feel Safe in your Home?: Yes Lack of Transportation: No Lack of Food: Never True Current Housing: I Do Not Have Housing Concerned About Future Housing: YES Difficulty Paying Gas/Electric Bills: Decline to Answer Difficulty Paying for Meds: No Currently Unemployed: No Education: Grade School Difficulty w/ Childcare or Family Care: No Living arrangements: with family Occupation/Education: occupation Additional occupation/education comments: employed Gender identity (if verbalized by the patient): Female Sexual Orientation (if Verbalized by the Patient): Straight or Heterosexual Spiritual care concerns: No Agree to blood products: Yes Meds Home Medications and Allergies Home Medications Medication Instructions Recorded Confirmed Type alprazolam 1 mg tablet (Xanax) 1 mg PO BID PRN Anxiety 02/14/19 02/23/24 History multivitamin (Daily Multi-Vitamin 1 tablet PO DAILY 04/24/21 02/23/24 History tablet) estradiol 1 mg tablet 1 mg PO DAILY 04/28/23 02/23/24 History ibuprofen 800 mg tablet 800 mg PO TID PRN pain #15 tabs 07/01/23 02/23/24 Rx fluticasone propionate 50 2 spray intranasal DAILY #48 grams 12/08/23 02/23/24 Rx mcg/actuation nasal spray,suspension venlafaxine 37.5 mg 37.5 mg PO DAILY #90 caps 12/08/23 02/23/24 Rx capsule,extended release 24 hr buspirone 5 mg tablet 5 mg PO TID #90 tabs 01/05/24 02/23/24 Rx albuterol sulfate 90 mcg/actuation 2 puff inhalation Q4-6H PRN 01/06/24 02/23/24 Rx aerosol inhaler shortness of breath or wheezing 30 days #8.5 grams cetirizine 5 mg-pseudoephedrine ER 1 tablet PO Q12H PRN allergy 01/08/24 02/23/24 Rx 120 mg tablet,extended symptoms #60 tabs release,12hr (Zyrtec-D) fluconazole 150 mg tablet 150 mg PO ONCE #2 tabs 01/08/24 02/23/24 Rx dicyclomine 10 mg capsule 10 mg PO TID PRN abdominal cramping 01/14/24 02/23/24 History omeprazole 40 mg capsule,delayed See Rx Instructions .Route 02/23/24 02/23/24 Rx release .COMPLEX #90 caps prednisone 10 mg tablet 20 mg PO DAILY 02/23/24 02/23/24 History Allergies Allergy/AdvReac Type Severity Reaction Status Date / Time clarithromycin AdvReac Severe Swelling Verified 02/23/24 13:40 of face/nausea hydrocodone AdvReac Severe Throat Verified 02/23/24 13:40 swelling/facial swelling/vomiting cephalexin AdvReac Mild Hives Verified 02/23/24 13:40 Exam Const: General: cooperative, healthy appearing and comfortable Nutritional Appearance: average body habitus HENMT: Head: normal to inspection Resp: Effort & Inspection: normal respiratory effort Cardio: Rate: regular rate Rhythm: regular rhythm Heart sounds: S1 normal heart sound present and S2 normal heart sound present GI: Inspection: normal to inspection : External Female Exam: normal external appearance Speculum Exam - Vagina: normal appearance of the vagina Speculum Exam - Cervix: Cervix absent Bimanual exam- vagina & uterus: uterus absent Bimanual Exam- Adnexa, other: no masses Assessment and Plan Assessment and plan (1) Overflow stress urinary incontinence in female: Code(s): N39.3 - Stress incontinence (female) (male); N39.490 - Overflow incontinence Status: Acute Assessment and Plan: proceed with tension-free vaginal tape and cystoscopy
--- NOTE | 2024-03-03 16:03 | P.PNAN_ITS ---
Anes - Eval Pre Procedure Procedure: Operation Date: 03/04/24 07:30 Proposed Procedures p Tension Free Vaginal Taping - [place] MD Date/Time: 03/03/24 16:03 Pre Op Diagnosis: BEULAH Patient Data Age: 43 Gender: F Height: 1.55 m Weight: 89 kg Allergies Allergy/AdvReac Type Severity Reaction Status Date / Time clarithromycin AdvReac Severe Swelling Verified 02/23/24 13:40 of face/nausea hydrocodone AdvReac Severe Throat Verified 02/23/24 13:40 swelling/facial swelling/vomiting cephalexin AdvReac Mild Hives Verified 02/23/24 13:40 Home Medications Medication Instructions Recorded Confirmed Type alprazolam 1 mg tablet (Xanax) 1 mg PO BID PRN Anxiety 02/14/19 02/23/24 History multivitamin (Daily Multi-Vitamin 1 tablet PO DAILY 04/24/21 02/23/24 History tablet) estradiol 1 mg tablet 1 mg PO DAILY 04/28/23 02/23/24 History ibuprofen 800 mg tablet 800 mg PO TID PRN pain #15 tabs 07/01/23 02/23/24 Rx fluticasone propionate 50 2 spray intranasal DAILY #48 grams 12/08/23 02/23/24 Rx mcg/actuation nasal spray,suspension venlafaxine 37.5 mg 37.5 mg PO DAILY #90 caps 12/08/23 02/23/24 Rx capsule,extended release 24 hr buspirone 5 mg tablet 5 mg PO TID #90 tabs 01/05/24 02/23/24 Rx albuterol sulfate 90 mcg/actuation 2 puff inhalation Q4-6H PRN 01/06/24 02/23/24 Rx aerosol inhaler shortness of breath or wheezing 30 days #8.5 grams cetirizine 5 mg-pseudoephedrine ER 1 tablet PO Q12H PRN allergy 01/08/24 02/23/24 Rx 120 mg tablet,extended symptoms #60 tabs release,12hr (Zyrtec-D) fluconazole 150 mg tablet 150 mg PO ONCE #2 tabs 01/08/24 02/23/24 Rx dicyclomine 10 mg capsule 10 mg PO TID PRN abdominal cramping 01/14/24 02/23/24 History omeprazole 40 mg capsule,delayed See Rx Instructions .Route 11/25/24 11/25/24 Rx release .COMPLEX #90 caps prednisone 10 mg tablet 20 mg PO DAILY 02/23/24 02/23/24 History Patient hx anesthesia problems: post op nausea/vomiting and other (difficult waking) Family hx anesthesia problems: none Results Review: All pre-operative results and documents have been reviewed as part of the pre- operative evaluation. [facility] Past Medical History Medical History (Updated 03/03/24 @ 16:04 by Victoria Elkins CRNA) Abdominal bloating Abdominal pain Allergies Anemia Anxiety Arthritis Back pain Bright red blood per rectum Chronic diarrhea Chronic headaches Crush injury of right foot Depression Diarrhea Dizziness Ear pain Endometriosis Epigastric pain Family history of colon cancer in father Gallbladder anomaly GERD (gastroesophageal reflux disease) History of anesthesia problem History of dental problems IBS (irritable bowel syndrome) Idiopathic thrombocytopenic purpura (ITP) Migraine Numbness SIERRA (obstructive sleep apnea) Painful joint Sinus problem Sleep apnea Snoring Urinary frequency UTI (urinary tract infection) UTI (urinary tract infection) due to Enterococcus Vision changes Wears glasses Weight gain Surgical History Surgical History History of cholecystectomy History of hysterectomy Hx of breast reduction, elective Hx of laparoscopy x2 Family History Family History Father Alcoholism Cancer Diabetes mellitus Mother Depression Sibling Cancer Other Dementia Social History Social History Smoking packs per day: 0.5 Smoking cigarettes per day: 10.0 Years smoked: 2 Smoking pack-years: 1.00 Smoking status: Never smoker Tobacco type: cigarettes Second hand tobacco smoke exposure: No Smoking end date: 03/31/00 Additional smoking assessment comments: social as teenager-not since then Alcohol intake: current Alcohol use details: 4/MONTH Substance use: never Substance use type: marijuana Other substance usage details: 2 or more times a day. Do You Feel Safe in your Home?: Yes Lack of Transportation: No Lack of Food: Never True Current Housing: I Do Not Have Housing Concerned About Future Housing: YES Difficulty Paying Gas/Electric Bills: Decline to Answer Difficulty Paying for Meds: No Currently Unemployed: No Education: Grade School Difficulty w/ Childcare or Family Care: No Living arrangements: with family Occupation/Education: occupation Additional occupation/education comments: employed Gender identity (if verbalized by the patient): Female Sexual Orientation (if Verbalized by the Patient): Straight or Heterosexual Spiritual care concerns: No Agree to blood products: Yes Exam Day of Procedure 03/03/24 16:03 Patient weight: obese Other findings: cbc ordered for morning of surgery
--- NOTE | 2024-03-04 06:26 | WPDHPUPDATE1 ---
History and Physical Update Update Date/Time: 03/04/24 06:26 History and Physical has been reviewed, including an updated exam of the patient. There are NO changes in the patient's condition. Risks, benefits, and alternatives have been discussed and questions answered. Patient agrees to proceed with procedure.
[2024-03-04 06:30] VITALS: BP 138/62; PULSE 85; RESP 16; TEMP 36.2; O2SAT 99; BMI 37.8
[2024-03-04] MEDS: LACTATED RINGERS 1,000 ML 30 ML IV CONT (06:30)
[2024-03-04 06:40] LABS: Hematocrit 43.7 % (37.0-47.0); Hemoglobin 14.1 g/dL (12.0-15.0); Immature Platelet Fraction Pct 25.2 % (0.9-11.2); Mean Corpuscular HGB Conc 32.3 g/dl (32-36); Mean Corpuscular Hemoglobin 27.8 pg (26-34); Platelet Count Result 63 k/mm3 (150-375); Red Blood Count 5.08 M/mm3 (4.2-5.4); Red Cell Distribution Width 13.2 % (11.5-14.5); White Blood Count 7.4 K/mm3 (4.5-10.0)
[2024-03-04 07:20] LABS: Band Neutrophils Percent 1 % (0-6); Neutrophils Absolute Manual 4.36 K/mm3 (1.7-7.2); Neutrophils Percent Manual 58 % (46-73); Total Cells Counted 100
[2024-03-04 07:21] LABS: Lymphocytes Absolute Manual 2.29 K/mm3 (1.1-4.5); Lymphocytes Percent Manual 31 % (18-44); Monocytes Absolute Manual 0.74 K/mm3 (0.1-0.90); Monocytes Percent Manual 10 % (3-9); Platelet Estimate Decreased (Adequate); Schistocytes None Seen
== END 2024-03-04 07:25 | disposition home or self-care (01) ==
PROVIDERS: Nurse Anesthetist, Certified Registered; PCP Nurse Practitioner Family; Visit Provider Obstetrics & Gynecology
PROC: 0TSD0ZZ Reposition Urethra, Open Approach (ICD-10-PCS; principal; 2024-03-04 07:30)
DX: N39.3 Stress incontinence (female) (male) (principal)
CPT/HCPCS: 36415; 85025; 85055; 86850; 86900; 86901; 99213; G0463; J7120

== ENCOUNTER 2024-04-23 12:10 | Outpatient (CLI) | payer OTHER, SELFPAY ==
--- OUTSIDE RECORDS SUMMARY | 2024-04-23 12:15 | XMS_ITS | Encounter Summary ---
Author Organization [facility] Address [address] [place] [address] Care Team Providers Care Manual Arts Teacher Name Role Phone Mello Kaba MD Primary Care Provider [phone] Encounter Details Date Type Department Care Team (Late st Contact Info) Description 04/21/2024 External Device Data [place] ABSTRACTION Provider, Abstract NO ADDRESS ON FILE Social History Tobacco Use Types Packs/Day Years Used Date Smoking Tobacco: Former Cigarettes 0.5 5 1 - 01/21/2014 Alcohol Use Standard Drinks/Week Comments Yes 0 (1 standard drink = 0.6 oz pur e alcohol) occasionally Comments Unknown Sex and Gender Information Value Date Recorded Sex Assigned at Not on file Legal Sex Female 1:33 PM CDT Gender Identity Not on file Sexual Orientation Not on file documented as of this encounter Plan of Treatment Upcoming Encounters Date Type Department Care Team (Late st Contact Info) Description 05/05/2024 2:30 PM COSMETICS COUNTER MANAGER Office Visit [facility] Oncology and Hematology - Liam [address] [facility] [address] [place] [address] Reyes Chiang MD [address] [facility] [address] [place] [address] documented as of this encounter Visit Diagnoses Not on filedocumented in this encounter Care Teams Manual Arts Teacher Relationship Specialty Start Date End Date Mello Kaba MD PCP - General Family Practice 09/02/22 documented as of this encounter
--- OUTSIDE RECORDS SUMMARY | 2024-04-23 12:15 | XMS_ITS | Clinical Summary ---
Author Organization [facility] Address [address] [place] [address]. [place], [place] [address] [place] [id number] Care Team Providers Care Trade Show Specialist Name Role Phone Miguel Langley Primary Care Provider [phone] Allergies Active Allergy Reactions Criticality Noted Date Comments Hydrocodone GI Upset 08/08/2021 Medications oxyCODONE-acetamino phen (PERCOCET) 5-325 MG tabletIndications:A cute Pain < 3 Day Supply Take 1-2 tablets by mouth every 6 (six) hours as needed for Pain. Indications: Acute Pain < 3 Day Supply 7 tablet 2 Active ibuprofen 600 MG tablet Take 1 tablet (600 mg total) by mouth every 6 (six) hours as needed. 10 tablet 2 Active ondansetron (ZOFRAN-ODT) 4 MG disintegrating tablet Take 1 tablet (4 mg total) by mouth every 8 (eight) hours as needed. 20 tablet 4 Active Social History Tobacco Use Types Packs/Day Years Used Date Smoking Tobacco: Never Smokeless Tobacco: Never Alcohol Use Standard Drinks/Week Comments Never 0 (1 standard drink = 0.6 oz pur e alcohol) Comments No Sex and Gender Information Value Date Recorded Sex Assigned at Not on file Legal Sex Female 5:27 PM CDT Gender Identity Not on file Sexual Orientation Not on file Last Filed Vital Signs Vital Sign Reading Time Taken Comments Blood Pressure 128/74 10/19/2023 1:44 PM CDT Pulse 74 10/19/2023 1:44 PM CDT Temperature 36.5 ??C (97.7 ??F) 10/19/2023 12:56 PM C DT Respiratory Rate 20 10/19/2023 12:56 PM CDT Oxygen Saturation 99% 10/19/2023 1:44 PM CDT Inhaled Oxygen Concentration - - Weight 81.6 kg (180 lb) 10/19/2023 12:56 PM CDT Height 157.5 cm (5' 2 ) 10/19/2023 12:56 PM CDT Body Mass Index 32.92 10/19/2023 12:56 PM CDT Plan of Treatment Health Maintenance Due Date Last Done Comments Colorectal Cancer Screening Colonoscopy (10 Years) 1978 Annual Physical 1981 DTaP, Tdap and Td Vaccines (5 - Tdap) 11/16/1993 11/15/1993, 10/22/1984, 10/22/1984, Additional history exists Hepatitis C 1996 Hepatitis B Vaccines (1 of 3 - 19+ 3-dose series) 1997 Mammogram Screening 2018 COVID-19 Vaccine ( season) 2023 03/04/2021 Influenza Adult (#1) 2023 HPV Vaccines Aged Out No longer eligi ble based on patient's age to complete this topic Meningococcal Vaccine Aged Out No geraldo juan diego eligible based on patient's age to complete this topic Pneumococcal Vaccine: Pediatrics (0 to 5 Years) and At-Risk Patients (6 to 64 Years) Aged Out No longer eligible based on patient's age to complete this topic RSV Immunizations Under 20 Months Aged Out No longer eligible based on patient's age to complete this topic Insurance [place] Care Teams Trade Show Specialist Relationship Specialty Start Date End Date Miguel Langley DO [address] [place] [id number] PCP - General INTERNAL MEDICINE 08/08/21
--- OUTSIDE RECORDS SUMMARY | 2024-04-23 12:15 | XMS_ITS | Encounter Summary ---
Author Organization [facility] Address [address] [place] [address] Care Team Providers Care Radiology Receptionist Name Role Phone Daysi Wetzel MD Primary Care Provider [phone] Chris Madrigal MD Unavailable [phone] Miguel Langley DO Primary Care Provider [phone] Rand Elkins [facility] Unavailable [phone] Encounter Details Date Type Department Care Team (Late st Contact Info) Description 02/12/2019 Telephone [facility] [address] [place] [address] Ashely Baker Social History Tobacco Use Types Packs/Day Years Used Date Smoking Tobacco: Never Smokeless Tobacco: Never Alcohol Use Standard Drinks/Week Comments Yes 0 (1 standard drink = 0.6 oz pur e alcohol) occ Sex and Gender Information Value Date Recorded Sex Assigned at Not on file Gender Identity Not on file Sexual Orientation Not on file documented as of this encounter Plan of Treatment Not on file documented as of this encounter Visit Diagnoses Not on filedocumented in this encounter Care Teams Radiology Receptionist Relationship Specialty Start Date End Date Daysi Wetzel MD [address] [place] [phone] PCP - General Family Medicine 12/24/18 12/11/22 Miguel Langley DO [address] [place] [address] PCP - General Internal Medicine 12/12/22 Chris Madrigal MD [address] [place] [phone] Hematology and Oncology 03/21/20 Rand Elkins LMSW [facility] 12/17/22 documented as of this encounter
--- OUTSIDE RECORDS SUMMARY | 2024-04-23 12:15 | XMS_ITS | Referral Summary ---
Author Organization [facility] Address [address] [place] [address] Care Team Providers Care Wrapper Stemmer Operator Name Role Phone Miguel Langley Primary Care Provider [phone] Encounters Date Type Department Care Team Description 01/26/2024 1:40 PM CDT Office Visit [facility]) - [facility] ENT [address] [facility] 11th [place] [address] [place] [address] Douglas Bustamante MD Allergic rhinitis, unspecified seasonality, unspecified trigger (Primary Dx); Facial pain, atypical from Last 3 Months Allergies Active Allergy Reactions Criticality Noted Date Comments Acetaminophen Swelling Medium Ciprofloxacin Dizziness High 06/23/2023 Clarithromycin Palpitations High 04/07/2019 Hydrocodone Swelling Medium Hydrocodone-Acetaminophen Swelling,Unknown Medium 10/30 Medications omeprazole (PriLOSEC) 40 mg capsule take 1 capsule by oral route every day 30 minutes prior to breakfast 0 0 07/20/19 17 Active estradioL (ESTRACE) 2 mg tablet estradiol 2 mg tablet 07/11/19 20 Active fluticasone propionate (FLONASE) 50 mcg/actuation nasal spray [place] 2 sprays every day by intranasal route. 05/01/19 21 Active ibuprofen (ADVIL,MOTRIN) 800 mg tablet 09/09/19 19 Active ondansetron ODT (ZOFRAN-ODT) 4 mg disintegrating tablet ondansetron 4 mg disintegrating tablet DISSOLVE 1 TABLET ON TONGUE FOUR TIMES DAILY Active pantoprazole DR (PROTONIX) 40 mg EC tablet Take 1 tablet (40 mg total) by mouth daily 07/09/19 Active predniSONE (DELTASONE) 10 mg tablet prednisone 10 mg tablet Active sertraline (ZOLOFT) 100 mg tablet sertraline 100 mg tablet TAKE 1 TABLET BY MOUTH DAILY Active valACYclovir (VALTREX) 500 mg tablet valacyclovir 500 mg tablet TAKE 1 TABLET BY MOUTH TWICE DAILY Active ALPRAZolam (XANAX) 1 mg tablet Take 1 tablet (1 mg total) by mouth 2 (two) times a day as needed 07/02/19 Active amitriptyline (ELAVIL) 10 mg tablet Take 1 tablet (10 mg) at night for a week, then 2 tablet (20 mg) at night for a week; then 3 tablet (30 mg) at night for a week; then 4 tablet (40 mg) at night for a week; then 5 tablet (50 mg) at night 150 tablet 5 09/14/19 23 Active SUMAtriptan (IMITREX) 100 mg tabletIndications: Migraine Take 1 tablet (100 mg total) by mouth once as needed for migraine (headache) May repeat one time after 2 hours if needed. Limit the use to 2 per day and 9 per month 9 tablet 09/14/19 23 Active azithromycin (ZITHROMAX) 250 mg tabletIndications: Upper Respiratory/HEENT Infection Take 1 tablet daily for 3 months. 90 tablet 01/26/20 24 Active Active Problems Problem Noted Date Diagnosed Date Chronic ITP (idiopathic thrombocytopenia) 2023 Facial pain, atypical 07/17/2022 Chronic sinusitis 07/04/2022 Other acute recurrent sinusitis 03/12/2017 Assessment & Plan (03/12/2017 11:57 AM INVESTOR RELATIONS ASSOCIATE): Patient demonstrates history and my physical findings suggest acute sinusitis. Patient will be placed on Biaxin 500 mg b.i.d. times 10 days and Mucinex D 1 p.o. b.i.d. times 10 days. No diagnostic imaging is required at this time. Patient will follow back up as needed. Deviated nasal septum 09/09/2016 Assessment & Plan (09/18/2016 11:33 AM CDT): Patient has done exceptionally well. Patient perceives her nasal airway has dramatically improved since surgery. Patient has been compliant with her saline nasal sprays. Patient is nasal airway was suctioned clear today. Everything appears to be healing well. Patient can follow back up as needed. Assessment & Plan (09/09/2016 8:56 AM CDT): Once the splints were removed patient had noted significant improvement in her nasal airway. Today the patient's nasal septal splints were removed. Preoperative symptoms have resolved. The nasal passages were then suctioned clear. Patient is instructed to perform saline nasal irrigation twice daily. Patient will follow back up in 2 weeks. 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 Social History Tobacco Use Types Packs/Day Years Used Date Smoking Tobacco: Former Smokeless Tobacco: Former Tobacco Cessation:Counseling Given: No Comments:Smoking History Packs/day: 4 Cigarettes Alcohol Use Standard Drinks/Week Comments Yes 0 (1 standard drink = 0.6 oz pur e alcohol) Personal Safety Answer Date Recorded Getting School Help Needed Not on file 03/13 Comments Unknown Sex and Gender Information Value Date Recorded Sex Assigned at Not on file Legal Sex Female 9:03 AM INVESTOR RELATIONS ASSOCIATE Gender Identity Female 01/20/2024 3:06 PM CDT Sexual Orientation Not on file Last Filed Vital Signs Vital Sign Reading Time Taken Comments Blood Pressure 128/84 09/13/2022 9:07 AM CDT Pulse 87 09/13/2022 9:07 AM CDT Temperature 36.4 ??C (97.5 ??F) 09/20/2018 3:06 AM CD T Respiratory Rate - - Oxygen Saturation 99% 05/10/2020 10:32 PM INVESTOR RELATIONS ASSOCIATE Inhaled Oxygen Concentration - - Weight 89.4 kg (197 lb 3.2 oz) 06/23/2023 4:27 P M CDT Height 157.5 cm (5' 2 ) 09/13/2022 9:07 AM CDT Body Mass Index 36.07 09/13/2022 9:07 AM CDT Plan of Treatment Not on file Procedures Procedure Name Priority Date/Time Associated Diagnosis Comments HEPATITIS PANEL, ACUTE Routine 07/09/2016 3:15 PM CDT from Last 3 Months or Most Recently Relevant to Health Maintenance Results * Hepatitis panel, acute (07/09/2016 3:15 PM CDT) Hep A IgM Negative Negative [facility] Hep B core IgM Negative Negative [facility] Hep C Ab Negative Negative [facility] HepBsAg Negative Negative [facility] Blood specimen (specimen) 07/09/2016 3:15 PM CDT 07/09/2016 5:52 PM CDT Steven Iqbal MD LAB MICROBIOLOGY - GEN ERAL ORDERABLES Final Result [facility] [address] [facility] [place] [address] from Last 3 Months or Most Recently Relevant to Health Maintenance [facility] Care Teams Wrapper Stemmer Operator Relationship Specialty Start Date End Date Miguel Langley DO PCP - General Internal Medicine 07/03/22
--- OUTSIDE RECORDS SUMMARY | 2024-04-23 12:15 | XMS_ITS | Clinical Summary ---
Author Organization [facility] Address [address] [place] [address] Care Team Providers Care Gis Administrator Name Role Phone Miguel Langley Primary Care Provider [phone] Allergies Active Allergy Reactions Criticality Noted Date [...] fluticasone propionate (FLONASE) 50 mcg/actuation nasal spray [place] 2 sprays every day by intranasal route. 05/01/19 21 Active ibuprofen (ADVIL,MOTRIN) 800 mg tablet 09/09/19 19 Active ondansetron ODT (ZOFRAN-ODT) 4 mg disintegrating tablet ondansetron 4 mg disintegrating tablet DISSOLVE 1 TABLET ON TONGUE FOUR TIMES DAILY Active pantoprazole DR (PROTONIX) 40 mg EC tablet Take 1 tablet (40 mg total) by mouth daily 07/09/19 20 Active predniSONE (DELTASONE) 10 mg tablet prednisone [...] (two) times a day as needed 07/02/19 23 Active amitriptyline (ELAVIL) 10 mg tablet Take [...] day and 9 per month 9 tablet 5 09/14/19 23 Active azithromycin (ZITHROMAX) 250 mg tabletIndications: Upper Respiratory/HEENT Infection Take 1 tablet daily for 3 months. 90 tablet 01/26/20 24 Active Active Problems Problem Noted Date Diagnosed Date Chronic ITP (idiopathic thrombocytopenia) 2023 Facial pain, atypical 07/17/2022 Chronic sinusitis 07/04/2022 Other acute recurrent sinusitis 03/12/2017 Assessment & Plan (03/12/2017 11:57 AM IT INFRASTRUCTURE MANAGER): Patient demonstrates history and my physical findings [...] CDT): This is being managed by her vest tailor. Encounters Date Type Department Care Team Description 01/26/2024 1:40 PM CDT Office Visit [facility]) - [facility] ENT [address] [facility] 11th [place] [address] [place] [id number] Douglas Bustamante MD Allergic rhinitis, unspecified seasonality, unspecified trigger (Primary Dx); Facial pain, atypical from Last 3 Months Surgical History Surgery Date Site/Laterality Comments PARTIAL HYSTERECTOMY REDUCTION MAMMOPLASTY SALPINGOOPHORECTOMY 12/29/2016 - 01/28/2017 Left CHOLECYSTECTOMY NOSE SURGERY Medical History Medical History Date Comments Depression Gastroesophageal reflux disease Thrombocytopenia (HCC) Anxiety Migraine Fracture of nasal bones Sleep apnea Family History Medical History Relation Name Comments Autoimmune disease Father Diabetes Father Diabetes mellit us; Liver cancer Father Cancer, liver; Dementia Mother Relation Name Status Comments Father Mother Social History Tobacco Use Types Packs/Day Years [...] on file Legal Sex Female 9:03 AM IT INFRASTRUCTURE MANAGER Gender Identity Female 01/20/2024 3:06 PM CDT Sexual Orientation Not on file Obstetrics History Last Filed Vital Signs Vital Sign Reading Time Taken Comments Blood Pressure 128/84 09/13/2022 9:07 AM CDT Pulse 87 09/13/2022 9:07 AM CDT Temperature 36.4 ??C (97.5 ??F) 09/20/2018 3:06 AM CD T Respiratory Rate - - Oxygen Saturation 99% 05/10/2020 10:32 PM IT INFRASTRUCTURE MANAGER Inhaled Oxygen Concentration - - Weight 89.4 kg (197 lb 3.2 oz) 06/23/2023 4:27 P M CDT Height 157.5 cm (5' 2 ) 09/13/2022 9:07 AM CDT Body Mass Index 36.07 09/13/2022 9:07 AM CDT Plan of Treatment Health Maintenance Due Date Last Done Comments Cervical Cancer Screening 1978 Colon Cancer Screening-Colonoscopy 1978 Depression Screening 1978 DTaP/Tdap/Td Vaccine (5 - Tdap) 11/16/1993 11/15/1993, 10/22/1984, 10/22/1984, Additional history exists Hepatitis B Screening 1996 Regular Well Visit/Exam 18-64 1996 Breast Cancer Screening-Mammogram 07/05/2021 07/05/2020 Covid-19 Vaccine ( season) 2023 03/04/2021 Influenza Vaccine (#1) 2023 Hepatitis C Screening Completed 07/09/2016 HPV Vaccines Aged Out No longer eligi ble based on patient's age to complete this topic Pneumococcal vaccine <65 Aged Out No longer eligible based on patient's age to complete this topic Procedures Procedure Name Priority Date/Time Associated Diagnosis [...] MICROBIOLOGY - GEN ERAL ORDERABLES Final Result [facility] [address] [facility] [place] [address] from Last 3 Months or Most Recently Relevant to Health Maintenance Insurance [facility] Care Teams Gis Administrator Relationship Specialty Start Date End Date Miguel Langley DO PCP - General Internal Medicine 07/03/22
--- OUTSIDE RECORDS SUMMARY | 2024-04-23 12:15 | XMS_ITS | Encounter Summary ---
Author Organization [facility] Address [address] [facility] [place] [address] Care Team Providers Care Supervisor Turkey Farm Name Role Phone Daysi Wetzel MD Primary Care Provider [phone] Chris Madrigal MD Unavailable [phone] Miguel Langley DO Primary Care Provider [phone] Rand Elkins [facility] [place] [place] Unavailable [phone] Encounter Details Date Type Department Care Team (Late st Contact Info) Description 08/21/2022 Lab Requisition [facility] - Pathology Lab [address] [place] [address] Srinivasan Marks MD [address] [address] Illness, unspecified Social History Tobacco Use Types Packs/Day Years [...] on file documented as of this encounter Goals Goal Patient Goal Type Associated Problems Recent Progress Patient-Stated? Author Medication Management General On track( 021 11:43 AM CDT) No Sahra Milligan, RN Note: Expected end date: Ongoing Interventions: Take all medications as prescribed Let your doctor know right away about any changes in your medications Make sure to request a refill of your medication at least one week prior to your last dose documented as of this encounter Procedures Procedure Name Priority Date/Time Associated Diagnosis Comments PATHOLOGY TISSUE Routine 08/16/2022 10:5 1 AM CDT Illness, unspecified documented in this encounter Results * PATHOLOGY TISSUE (08/16/2022 10:51 AM CDT) Case Report Surgical Pathology Report ? Case: [id number] ? Authorizing Provider: ??Srinivasan Marks MD ?Collected: ? 08/16/2022 10:51 AM ? Ordering Location: ? [facility] ? Received: ?08/21/2022 12:11 PM ? Pathologist: ? Denise Carroll MD ? Specimens: ?? A) - Soft Tissue, cul-de-sac ? B) - Peritoneal Biopsy ? 08/21/2022 1:[address] [facility] Final Diagnosis Cul-de-sac, biopsy ([id number], A; 08/16/2022): - Scanty low grade serous epithelium without invasion, associated with abundant psammoma bodies (see microscopic description) Peritoneum, biopsy ([id number], B; 08/16/2022): - Psammoma body and hemosiderin - Negative for epithelium 08/21/2022 1:[address] [facility] Microscopic Description and Comment Microscopic examination substantiates the final diagnosis. The cul-de-sac biopsy (A) has abundant psammoma bodies among which are found a few glands or micropapillary structures composed of low grade serous epithelium. No desmoplasia is seen, so there is no invasion. No endometrial-type stroma is seen. The histologic differential diagnosis includes endosalpingiosis, implant of serous borderline tumor, implant of low grade serous carcinoma. There is too little material here to make the distinction. Clinical history and laparoscopic impression may help clarify this differential. 08/21/2022 1:[address] [facility] Clinical History 42 year old woman, status post hysterectomy and bilateral salpingo-oophorectomy (for unspecified reason), with long history of chronic pelvic pain and dyspareunia. She also has a history of endometriosis. Pelvic adhesions were noted on laparoscopy. 08/21/2022 1:[address] [facility] Materials Received Received are ten slide(s) labeled [id number] (A, 5 levels; B, 5 levels) along with a copy of the outside pathology report. [place] [address]. All original materials are returned to the referring institution, along with a copy of our final report. 08/21/2022 1:[address] [facility] Pathologist Location at [facility] 08/21/2022 1:[address] [facility] Disclaimer The performance characteristics of all immunohistochemical and indirect immunofluorescence stains (if any) cited in this report were determined by the Histopathology Laboratory of [facility]. Some of these tests were developed by our own laboratory and have not been cleared or approved by the US Food and Drug Administration. The FDA does not require this test to go through premarket FDA review. These tests are used for clinical purposes. They should not be regarded as investigational or for research. This laboratory is certified under the Clinical Laboratory Improvement Amendments (CLIA) as qualified to perform high complexity clinical laboratory testing. This case has been personally reviewed and interpreted by the attending (teaching) pathologist. 08/21/2022 1:31 PM CDT [facility] Embedded Images 08/21/2022 1:31 PM CDT [facility] Pathology/Cytology PERITONEAL BIOPSY SPECIMEN / Unknown 08/16/2022 10:51 AM CDT 08/21/2022 12:11 PM CDT Miscellaneous samples (specimen) PERITONEAL BIOPSY SPECIMEN / Unknown 08/16/2022 10:51 AM CDT 08/21/2022 12:37 PM CDT Srinivasan Marks MD LAB - PATHOLOGY/CYTO LOGY ORDERABLES Performing Organization Address [facility] Co de Phone Number [facility] [address] [phone] documented in this encounter Visit Diagnoses Diagnosis Illness, unspecified documented in this encounter Care Teams Supervisor Turkey Farm Relationship Specialty Start Date End Date Daysi Wetzel MD [address] [place] [phone] PCP - General Family Medicine 12/24/18 12/11/22 Miguel Langley DO [address] [place] [id number] PCP - General Internal Medicine 12/12/22 Chris Madrigal MD [address] [place] [phone] Hematology and Oncology 03/21/20 Rand Elkins LMSW Outpatient Hairspring Adjuster Care Management 12/17/22 documented as of this encounter
--- OUTSIDE RECORDS SUMMARY | 2024-04-23 12:15 | XMS_ITS | Clinical Summary ---
Author Organization [facility] Address [address] [place] [address] Care Team Providers Care Sustainability Project Coordinator Name Role Phone Chris Madrigal MD Unavailable [phone] Miguel Langley DO Primary Care Provider [phone] Source Comments [facility],non-owned Affiliates and Associated Physician Practices is amultiple site organization consisting of ambulatory clinics and hospital sitesin [place], [place], [place] and [place]. This disclosure is being madepursuant to the Care Everywhere program and may not contain all information available regarding this patient. Last updated 17.[facility] Allergies Active Allergy Reactions Criticality Noted Date Comments Ciprofloxacin Dizziness High 06/23/2023 Clarithromycin Palpitations High 04/07/2019 Hydrocodone-Acetaminophen Swelling 11/24/2016 Not allergic to APAP component Medications * Be aware that medications may not be up to date on this document. Alwaysverify current medications with the patient. Medication Sig Dispensed Refills Start Date End Date Status ALPRAZolam (XANAX) 1 MG tablet Take 1 (one) tablet by mouth once daily as needed 9 Active omeprazole (PRILOSEC) 40 MG capsule Take 1 (one) capsule by mouth daily before breakfast Active Multiple Vitamins-Minerals (ALIVE WOMENS GUMMY PO) Take by mouth once daily Active ferrous sulfate 325 (65 FE) MG tablet Take 1 (one) tablet by mouth 2 times daily with morning and evening meal 100 tablet 1 3 Active naloxone HCl (Narcan) 4 MG/0.1ML nasal spray CALL 911. ADMINISTER A SINGLE SPRAY INTRANASALLY INTO ONE NOSTRIL UPON SIGNS OF OPIOID OVERDOSE. MAY REPEAT AFTER 3 MINUTES IF NO RESPONSE. 3 Active estradiol (Estrace) 1 MG tabletIndications:Hy poestrogenism Take 1 (one) tablet by mouth once daily 90 tablet 4 4 Active azithromycin (Zithromax) 250 MG tablet TAKE 1 TABLET BY MOUTH DAILY FOR 3 MONTHS 4 Active ondansetron (Zofran) 4 MG tablet Take 1 (one) tablet by mouth every 6 hours as needed Active vibegron (Gemtesa) 75 MG tablet Take 1 (one) tablet by mouth once daily Active valACYclovir (Valtrex) 500 MG tablet Take 1 (one) tablet by mouth 2 times daily Active ibuprofen (Motrin) 600 MG tabletIndications:Ps ammocarcinoma of ovary (HCC) Take 1 (one) tablet by mouth every 6 hours as needed 90 tablet 1 4 Active albuterol HFA (Proventil; Ventolin; Proair) 108 (90 Base) MCG/ACT inhaler INHALE 2 PUFFS BY MOUTH EVERY 4 TO 6 HOURS NEEDED FOR SHORTNESS OF BREATH OR WHEEZING 4 Active busPIRone (Buspar) 5 MG tablet Take 1 (one) tablet by mouth 3 times daily Active fluticasone propionate (Flonase) 50 MCG/ACT nasal spray SHAKE LIQUID AND USE 2 SPRAYS IN EACH NOSTRIL DAILY 4 Active venlafaxine XR 24hr (Effexor XR) 37.5 MG capsule Take 1 (one) capsule by mouth once daily Active iron polysaccharides (Niferex 150) 150 MG capsule Take 1 (one) capsule by mouth once daily 3 04/14/19 25 Discontinu ed(List Clean-Up) sertraline (Zoloft) 100 MG tablet Take 1 (one) tablet by mouth once daily 3 04/14/19 25 Discontinu ed(List Clean-Up) estradiol (Estrace) 2 MG tablet Take 1 (one) tablet by mouth once daily 04/14/19 25 Discontinu ed(List Clean-Up) sertraline (Zoloft) 100 MG tablet Take 1 (one) tablet by mouth once daily 04/14/19 25 Discontinu ed(List Clean-Up) Active Problems Problem Noted Date Diagnosed Date Post-operative state 12/12/2022 Chronic sinusitis 07/04/2022 06/25/2023 NAFLD (nonalcoholic fatty liver disease) 020 Overview (06/27/2020): 06/23/20 Fibroscan CAP 291, LSM 4.7 kPa GERD (gastroesophageal reflux disease) 0 Anxiety 07/14/2019 Depression 07/14/2019 IBS (irritable bowel syndrome) 07/14/2019 Chronic ITP (idiopathic thrombocytopenia) 2019 Disorder involving thrombocytopenia 06/22/2015 Overview (06/26/2020): Thrombocytopenia Last Assessment & Plan: This is being managed by her senior compensation analyst. 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 04/14/2024 Travel 04/07/2024 Travel 04/07/2024 Telephone [facility] - IRRIGATIONIST DESIGNER [address] [place] [address] Sulaiman Andrews MD Reschedule Appointment 03/09/2024 Telephone [facility] - IRRIGATIONIST DESIGNER [address] [place] [address] Sulaiman Andrews MD Appointment 03/02/2024 Telephone [facility] - IRRIGATIONIST DESIGNER [address] [place] [address] Daysi Weinstein tech ed teacher Issue from Last 3 Months Immunizations Name Administration Dates Next Due DTP, HISTORIC VACCINE 10/22/1984,12/18/1983,05/02,1978,1978 MEASLES 09/19/1979 MMR VACCINE 11/16/1990 POLIO OPV 10/22/1984,12/18/1983,05/20/1980 ,1978,1978 TD (AGE 5-ADULT) 11/15/1993,10/22/1984 Family History Medical History Relation Name Comments Cancer - Liver Father Cancer - Breast Sister Relation Name Status Comments Father Sister Social History Tobacco Use Types Packs/Day Years Used Date Smoking Tobacco: Never Smokeless Tobacco: Never Alcohol Use Standard Drinks/Week Comments Yes 0 (1 standard drink = 0.6 oz pur e alcohol) occ AUDIT-C Answer Date Recorded Q1: How often do you have a drink containing alcohol? Never 12/12/2022 Q2: How many drinks containi ng alcohol do you have on a typical day when you are drinking? Patient does not drink Q3: How often do you have si x or more drinks on one occasion? Never 12/12/2022 Overall Financial Resource Strain (CARDIA) Answe r Date Recorded How hard is it for you to pa y for the very basics like food, housing, medical care, and heating? Not hard at all 12/13/2022 PHQ-2 Answer Date Recorded Patient Health Questionnaire-2 Score 0 12/17/2022 [facility]at [facility] - Occupational Stress Questionnaire Answer Date Recorded Do you feel stress - tense, restless, nervous, or anxious, or unable to sleep at night because your mind is troubled all the time - these days? Not at all 12/13/2022 Hunger Vital Sign Answer Date Recorded Within the past 12 months, y ou worried that your food would run out before you got the money to buy more. Never true 12/14/19 23 Within the past 12 months, t he food you bought just didn't last and you didn't have money to get more. Never true 12/13/2022 PRAPARE - Transportation Answer Date Re corded In the past 12 months, has l ack of transportation kept you from medical appointments or from getting medications? No 11/29 In the past 12 months, has l ack of transportation kept you from meetings, work, or from getting things needed for daily living? No 12/13/2022 Housing Stability Vital Sign Answer Delfin e Recorded In the last 12 months, was t here a time when you were not able to pay the mortgage or rent on time? No 12/13/2022 In the last 12 months, how many places have you lived? 1 12/13/2022 In the last 12 months, was t here a time when you did not have a steady place to sleep or slept in a assisted (including now)? No 12/13/2022 Sex and Gender Information Value Date Recorded Sex Assigned at Not on file Gender Identity Not on file Sexual Orientation Not on file Last Filed Vital Signs Vital Sign Reading Time Taken Comments Blood Pressure 148/108 04/14/2024 2:53 PM BLADDER CLEANER Pulse 77 12/16/2022 12:00 PM CDT Temperature 36.7 ??C (98.1 ??F) 12/16/2022 1 2:00 PM CDT Respiratory Rate 16 12/16/2022 12:0 0 PM CDT Oxygen Saturation 100% 12/16/2022 12: 00 PM CDT Inhaled Oxygen Concentration - - Weight 90.2 kg (198 lb 12.8 oz) 04/14/2024 2:53 PM BLADDER CLEANER Height 154.9 cm (5' 1 ) 04/14/2024 2:53 PM BLADDER CLEANER Body Mass Index 37.56 04/14/2024 2:53 PM BLADDER CLEANER Plan of Treatment Health Maintenance Due Date Last Done Comments COLOGUARD (AGES 45-75) - COLON CA SCREENING 1978 COLON MONITORING 1978 COLONOSCOPY - COLON CA SCREENING 1978 CT COLONOGRAPHY - COLON CA SCREENING 1978 Colorectal Cancer Screening 1978 FIT - COLON CA SCREENING 1978 FLEX SIG - COLON CA SCREENING 1978 LIPID TESTING 1978 MAMMOGRAM 1978 PAP SMEAR 1978 HIV SCREENING 1993 HEPATITIS C SCREENING 04/28/1996 HEPATITIS B VACCINE (1 of 3 - 19+ 3-dose series) 1997 DTAP/TDAP/TD VACCINES (6 - Td or Tdap) 11/16/2003 11/15/1993, 10/22/1984, 10/22/1984, Additional history exists COVID-19 VACCINE ( season) 2023 03/04/2021 INFLUENZA VACCINE (#1) 2023 DEPRESSION SCREENING 03/31/2024 01/22/2023, 01/22/2023, 12/25/2022, Additional history exists SCREENING FOR DIABETES 12/15/2025 , 12/14/2022, 12/13/2022, Additional history exists ZOSTER VACCINE (1 of 2) 2028 HIB VACCINE Aged Out No longer eligi ble based on patient's age to complete this topic HPV VACCINE Aged Out No longer eligi ble based on patient's age to complete this topic MENINGOCOCCAL (Group B) VACCINE Aged Out No longer eligible based on patient's age to complete this topic MENINGOCOCCAL VACCINE Aged Out No geraldo juan diego eligible based on patient's age to complete this topic PNEUMOCOCCAL VACCINE Aged Out No long er eligible based on patient's age to complete this topic Goals Goal Patient Goal Type Associated Problems Recent Progress Patient-Stated? Author Medication Management General On track( 021 11:43 AM CDT) No Sahra Milligan, STEVE Note: Expected end date: Ongoing Interventions: Take all medications as prescribed Let your doctor know right away about any changes in your medications Make sure to request a refill of your medication at least one week prior to your last dose Procedures Procedure Name Priority Date/Time Associated Diagnosis Comments CANCER ANTIGEN (CA)125 BLOOD Routine 04/14/2024 3:14 PM BLADDER CLEANER Endosalpingosis RENAL FUNCTION PANEL AM Draw 12/15/2022 8:46 AM CDT Post-operative state from Last 3 Months or Most Recently Relevant to Health Maintenance Results * CANCER ANTIGEN (CA)125 BLOOD (04/14/2024 3:14 PM BLADDER CLEANER) CA 125 13 <35 U/mL [facility] Comment: This test was performed using the Siemens Chemiluminescent method. Values obtained from different assay methods cannot be used interchangeably. CA 125 levels, regardless of value, should not be interpreted as absolute evidence of the presence or absence of disease. Test Performed at: [facility] [address] ??[id number] ENRRIQUE RICO MD Blood BLOOD SPECIMEN / Unknown 04/14/2024 3:14 PM BLADDER CLEANER 04/14/2024 3:14 PM BLADDER CLEANER Areli Riveroder MANAGER EXPORT-TC OPERATOR LAB - CHEMISTRY ORDERABLES [facility] [address] [place] [address] * (ABNORMAL) RENAL FUNCTION PANEL (12/15/2022 8:46 AM CDT) Glucose 113(H) 70 - 105 mg/dL 12/15/2022 9:34 AM CDT [facility] Sodium 138 136 - 145 mmol/L 12/15/2022 9:34 AM CDT [facility] Potassium 3.9 3.5 - 5.1 mmol/L 12/15/2022 9:34 AM CDT [facility] Chloride 101 98 - 107 mmol/L 12/15/2022 9:34 AM CDT [facility] CO2 29 22 - 29 mmol/L 12/15/2022 9:34 AM CDT [facility] Calcium 8.5 8.4 - 10.4 mg/dL 12/15/2022 9:34 AM CDT [facility] Anion Gap 8 6 - 16 mmol/L 12/15/2022 9:34 AM CDT [facility] BUN 7 5.3 - 18.7 mg/dL 12/15/2022 9:34 AM CDT [facility] Creatinine 0.77 0.57 - 1.11 mg/dL 12/15/2022 9:34 AM CDT [facility] Albumin 3.0(L) 3.4 - 5.0 gm/dL 12/15/2022 9:34 AM CDT [facility] Phosphorus 2.2(L) 2.3 - 4.7 mg/dL 12/15/2022 9:34 AM CDT [facility] eGFR by CKD-EPI >90 >=90 mL/min/1.7 3 m2 12/15/2022 9:34 AM CDT [facility] Blood BLOOD SPECIMEN / Unknown Lab Venipuncture / Unknown 12/15/2022 8:46 AM CDT 12/15/2022 9:10 AM CDT Sulaiman Andrews MD LAB - CHEMISTRY SUKI Flores Organization Address City/State/ZIP Co de Phone Number [facility] [address] [place] [address] from Last 3 Months or Most Recently Relevant to Health Maintenance Care Teams Sustainability Project Coordinator Relationship Specialty Start Date End Date Miguel Langley DO [address] [place] [address] PCP - General Internal Medicine 12/12/22 Chris Madrigal MD Hematology and Oncology 03/21/20
--- OUTSIDE RECORDS SUMMARY | 2024-04-23 12:15 | XMS_ITS | Encounter Summary ---
Author Organization [facility] Address [address] [place] [address] Phone Care Team Providers Care Varnisher Plasticoater Name Role Phone Daysi Wetzel MD Primary Care Provider [phone] Encounter Details Date Type Department Care Team (Late st Contact Info) Description 08/04/2019 Telephone [facility] [address] [place] [address] Chris Madrigal MD [address] [place] [address] Social History Tobacco Use Types Packs/Day Years Used Date Smoking Tobacco: Some Days Cigarettes 0.3 10.6 Started: 09/28/2013 Smokeless Tobacco: Never Alcohol Use Standard Drinks/Week Comments Yes 2 (1 standard drink = 0.6 oz pur e alcohol) occasionally PHQ-2 Answer Date Recorded PHQ-2 Score 0 12/04/2018 Sexually Active Control Partners Comments Yes Male Comments Unknown Sex and Gender Information Value Date Recorded Sex Assigned at Not on file Legal Sex Female 4:44 PM MANAGER CASH Gender Identity Not on file Sexual Orientation Not on file documented as of this encounter Plan of Treatment Not on file documented as of this encounter Visit Diagnoses Not on filedocumented in this encounter Additional Health Concerns Assessment Noted Time PHQ-9 Depression Total Score: 0 04/07/19 20 8:31 AM MANAGER CASH documented as of this encounter Care Teams Varnisher Plasticoater Relationship Specialty Start Date End Date Daysi Wetzel MD PCP - General Emergency Medicine 09/15/18 01/26/23 documented as of this encounter
--- OUTSIDE RECORDS SUMMARY | 2024-04-23 12:15 | XMS_ITS | Referral Summary ---
Author Organization [facility] Address [address] [place] [address] Care Team Providers Care Fabric Normalizer Name Role Phone Chris Madrigal MD Unavailable [phone] Miguel Langley DO Primary Care Provider [phone] Source Comments [facility],non-owned Affiliates and Associated Physician Practices is amultiple site organization consisting of ambulatory clinics and hospital sitesin [place], [place], [place] and [place]. This disclosure is being madepursuant to the Care Everywhere program and may not contain all information available regarding this patient. 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 - HEAD SWAMPER [address] [place] [address] Sulaiman Andrews MD Reschedule Appointment 03/09/2024 Telephone [facility] - HEAD SWAMPER [address] [place] [address] Sulaiman Andrews MD Appointment 03/02/2024 Telephone [facility] - HEAD SWAMPER [address] [place] [address] Daysi Weinstein special education para professional Issue from Last 3 Months Allergies Active Allergy [...] Plan: This is being managed by her lcac operator. Immunizations Name Administration Dates Next Due DTP, HISTORIC VACCINE 10/22/1984,12/18/1983,05/02,1978,1978 MEASLES 09/19/1979 MMR VACCINE 11/16/1990 POLIO OPV 10/22/1984,12/18/1983,05/20/1980 ,1978,1978 TD (AGE 5-ADULT) 11/15/1993,10/22/1984 Social History Tobacco Use Types Packs/Day Years [...] Recorded Patient Health Questionnaire-2 Score 0 12/17/2022 [facility] - Occupational Stress [...] place to sleep or slept in a senior care (including now)? No 12/13/2022 Sex and Gender Information Value Date Recorded Sex Assigned at Not on file Gender Identity Not on file Sexual Orientation Not on file Last Filed Vital Signs Vital Sign Reading Time Taken Comments Blood Pressure 148/108 04/14/2024 2:53 PM HORTICULTURE TEACHER Pulse 77 12/16/2022 12:00 PM CDT Temperature 36.7 ??C (98.1 ??F) 12/16/2022 1 2:00 PM CDT Respiratory Rate 16 12/16/2022 12:0 0 PM CDT Oxygen Saturation 100% 12/16/2022 12: 00 PM CDT Inhaled Oxygen Concentration - - Weight 90.2 kg (198 lb 12.8 oz) 04/14/2024 2:53 PM HORTICULTURE TEACHER Height 154.9 cm (5' 1 ) 04/14/2024 2:53 PM HORTICULTURE TEACHER Body Mass Index 37.56 04/14/2024 2:53 PM HORTICULTURE TEACHER Functional Status Functional Status Response Date of Assess ment Is person deaf or have serious hearing difficult y? No 12/13/2022 Is person blind or have serious difficulty seein g? No 12/13/2022 Does person have serious dif ficulty walking/climbing stairs? No 12/13/2022 Does person have difficulty dressing/bathing? No 12/13/2022 Does person have difficulty doing errands alone? No 12/13/2022 Cognitive Status Response Date of Assessm ent Does person have difficulty concentrating/remembering/making decisions? No 12/13/2022 Plan of Treatment Not on file Goals Goal Patient Goal Type Associated Problems [...] ANTIGEN (CA)125 BLOOD Routine 04/14/2024 3:14 PM HORTICULTURE TEACHER Endosalpingosis RENAL FUNCTION PANEL AM Draw 12/15/2022 8:46 AM CDT Post-operative state from Last 3 Months or Most Recently Relevant to Health Maintenance Results * CANCER ANTIGEN (CA)125 BLOOD (04/14/2024 3:14 PM HORTICULTURE TEACHER) Pathologist [facility] CA 125 13 <35 U/mL [facility] Comment: This test was performed using the Siemens Chemiluminescent method. Values obtained from different assay methods cannot be used interchangeably. CA 125 levels, regardless of value, should not be interpreted as absolute evidence of the presence or absence of disease. Test Performed at: [facility] [address] [place] [address] ??[id number] ENRRIQUE RICO MD Blood BLOOD SPECIMEN / Unknown 04/14/2024 3:14 PM HORTICULTURE TEACHER 04/14/2024 3:14 PM HORTICULTURE TEACHER Areli De GRADE RECORDER-FEEDER OPERATOR LAB - CHEMISTRY ORDERABLES [facility] [address] [place] [address] * (ABNORMAL) RENAL FUNCTION PANEL (12/15/2022 8:46 AM CDT) Glucose 113(H) 70 - 105 mg/dL 12/15/2022 9:34 AM CDT [facility] Sodium 138 136 - 145 mmol/L 12/15/2022 9:34 AM CDT [facility] Potassium 3.9 3.5 - 5.1 mmol/L 12/15/2022 9:34 AM CDT [facility] Chloride 101 98 - 107 mmol/L 12/15/2022 9:34 AM CDT [facility] CO2 29 22 - 29 mmol/L 12/15/2022 9:34 AM CDT [facility] Calcium 8.5 8.4 - 10.4 mg/dL 12/15/2022 9:34 AM CDT [facility] Anion Gap 8 6 - 16 mmol/L 12/15/2022 9:34 AM CDT [facility] BUN 7 5.3 - 18.7 mg/dL 12/15/2022 9:34 AM CDT [facility] Creatinine 0.77 0.57 - 1.11 mg/dL 12/15/2022 9:34 AM CDT [facility] Albumin 3.0(L) 3.4 - 5.0 gm/dL 12/15/2022 9:34 AM CDT [facility] Phosphorus 2.2(L) 2.3 - 4.7 mg/dL 12/15/2022 9:34 AM CDT [facility] eGFR by CKD-EPI >90 >=90 mL/min/1.7 3 m2 12/15/2022 9:34 AM CDT [facility] Blood BLOOD SPECIMEN / Unknown Lab Venipuncture / Unknown 12/15/2022 8:46 AM CDT 12/15/2022 9:10 AM CDT Sulaiman Andrews MD LAB - CHEMISTRY SUKI MCKEON [facility] Organization Address City/State/[facility] Co de Phone Number [facility] [address] [place] [address] from Last 3 Months or Most Recently Relevant to Health Maintenance Care Teams Fabric Normalizer Relationship Specialty Start Date End Date Miguel Langley DO [address] [address] PCP - General Internal Medicine 12/12/22 Chris Madrigal MD Hematology and Oncology 03/21/20
--- OUTSIDE RECORDS SUMMARY | 2024-04-23 12:15 | XMS_ITS | Clinical Summary ---
[facility] Organization [facility] Address [address] [place] [address] Care Team Providers Care Railroad Watchman Name Role Phone Mello Kaba MD Primary Care Provider [phone] Allergies Active Allergy Reactions Criticality Noted Date Comments Acetaminophen Swelling Low 09/08/2020 Cephalexin Nausea and Vomiting Low 01/22/2024 Ciprofloxacin Dizziness High 06/23/2023 Clarithromycin Palpitations,Other ( See Comments) High 04/07/2019 Doxycycline Nausea and Vomiting Low 01/22/2024 Hydrocodone Swelling Low 09/08/2020 Hydrocodone-Acetaminophen Swelling Low 09/28/2018 Medications omeprazole (PriLOSEC) 40 mg Capsule, Delayed Release(E.C.) Take 40 mg by mouth. 9 Active ALPRAZolam (XANAX) 1 mg tablet Take 1 mg by mouth. 9 Active ibuprofen (MOTRIN) 800 mg tablet Take 800 mg by mouth every 6 hours as needed for Pain, Mild. Active estradioL (ESTRACE) 2 mg tablet Take 2 mg by mouth daily. 0 Active wmeffdil-cno-nq lic acid-abl898 (Alive Women's Gummy Vitamin) 200 mcg- 37.5 mg Tablet, Chewable Take by mouth daily. Active multivit with min-folic acid (Centrum MultiGummies) 150 mcg Tablet, Chewable Centrum MultiGummies take 2 a day Active valACYclovir (VALTREX) 500 mg tablet TAKE 1 TABLET BY MOUTH TWICE DAILY FOR 3 DAYS NEEDED FOR OUTBREAK 2 Active busPIRone (BUSPAR) 5 mg tablet Take 1 Tablet by mouth 3 times daily. 4 Active venlafaxine (EFFEXOR XR) 37.5 mg Extended Release 24 hour capsule Take 37.5 mg by mouth daily. 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 Encounters Date Type Department Care Team Description 04/21/2024 External Device Data [facility] ABSTRACTION Provider, Abstract 04/20/2024 External Device Data [facility]STRACTION Provider, Abstract 03/05/2024 Telephone [facility] Oncology and Hematology - [place] [address] [place] [id number] Reyes Chiang MD Surgery Questions 03/03/2024 Abstract [facility]ology - [place] [address] [place] [address] Reyes Chiang MD 03/03/2024 Abstract [facility] Hematology - [place] [address] [place] [address] Alex Lyman CMA 03/02/2024 External Device Data [facility] ABSTRACTION Provider, Abstract 03/02/2024 Orders Only [facility] and Hematology - [place] [address] [place] [address] Reeys Chiang MD 02/10/2024 Refill [facility] H[facility]ology [facility] [address] [place] [address] Reyes Chiang MD 02/03/2024 External Device Data [facility] ABSTRACTION Provider, Abstract 01/26/2024 Telephone [facility] Oncology [facility] Hematology [facility] [address] [place] [address] Reyes Chiang MD Surgery Date 01/22/2024 2:30 PM CDT Office Visit [facility] On[facility] [address] [place] [address] Reyes Chiang MD Chronic anemia (Primary Dx) 01/22/2024 Orders Only [facility] [address] [place] [address] Reyes Chiang MD from Last 3 Months Family History Medical History Relation Name Comments Cancer Father liver Colon Cancer Father Pancreatic Cancer Father Cancer Sister unknown type Relation Name Status Comments Father Sister Social History Tobacco Use Types Packs/Day Years Used Date Smoking Tobacco: Former Cigarettes 0.5 5 1 - 01/21/2014 Tobacco Cessation:Counseling Given: Not Answered Alcohol Use Standard Drinks/Week Comments Yes 0 (1 standard drink = 0.6 oz pur e alcohol) occasionally Comments Unknown Sex and Gender Information Value Date Recorded Sex Assigned at Not on file Legal Sex Female 1:33 PM CDT Gender Identity Not on file Sexual Orientation Not on file Last Filed Vital Signs Vital Sign Reading Time Taken Comments Blood Pressure 120/69 01/22/2024 2:40 PM CDT Pulse 89 01/22/2024 2:33 PM CDT Temperature 36.6 ??C (97.9 ??F) 01/22/2024 2:33 PM CD T Respiratory Rate 15 01/22/2024 2:33 PM CDT Oxygen Saturation 97% 01/22/2024 2:33 PM CDT Inhaled Oxygen Concentration - - Weight 88.9 kg (196 lb) 01/22/2024 2:33 PM CDT Height 157.5 cm (5' 2 ) 10/12/2021 8:27 AM CDT Body Mass Index 35.85 10/12/2021 8:27 AM CDT Plan of Treatment Upcoming Encounters Date Type Department Care Team (Late st Contact Info) Description 05/05/2024 2:30 PM GROUND MIXER Office Visit [facility] Oncology and Hematology - [place] [address] [facility] [address] [facility] [address] [place] [address] Reyes Chiang MD [address] [facility] [address] [facility] [address] [place] [address] Health Maintenance Due Date Last Done Comments Pre-Diabetes and Diabetes Screening 1978 DTAP/TDAP/TD VACCINES (6 - Tdap) 1989 10/22/1984, 12/18/1983, 05/20/1980, Additional history exists HEPATITIS B VACCINES (1 of 3 - 19+ 3-dose series) 1997 CERVICAL CANCER SCREENING 2008 BREAST CANCER SCREENING 2018 COLORECTAL SCREENING 2023 Colorectal Cancer Screening 2023 FIT-DNA Q 3 years 2023 FIT/FOBT Q 1 year 2023 Flex Sig/CT Colonography Q 5 years 2023 INFLUENZA VACCINE (#1) 2023 HPV VACCINES Aged Out No longer eligi ble based on patient's age to complete this topic Procedures Procedure Name Priority Date/Time Associated Diagnosis Comments IRON LEVEL Routine 03/02/2024 4:10 PM GROUND MIXER CBC WITH DIFFERENTIAL Routine 03/02/2024 3:01 PM GROUND MIXER from Last 3 Months Results * IRON LEVEL (03/02/2024 4:10 PM GROUND MIXER) Blood Reyes Chiang MD CHEMISTRY ORDERABLES Final Resu lt * CBC WITH DIFFERENTIAL (03/02/2024 3:01 PM GROUND MIXER) Blood Reyes Chiang MD HEMATOLOGY ORDERABLES Final Res ult from Last 3 Months Insurance [place] Care Teams Railroad Watchman Relationship Specialty Start Date End Date Mello Kaba MD PCP - General Family Practice 09/02/22
--- OUTSIDE RECORDS SUMMARY | 2024-04-23 12:15 | XMS_ITS | Patient Health Summary ---
Author Organization [facility] Address [address] [place] [address] Care Team Providers Care Landscape Maintenance Internship Name Role Phone Chris Madrigal MD Unavailable [phone] Miguel Langley DO Primary Care Provider [phone] Note from [facility],non-owned Affiliates and Associated Physician Practices is amultiple site organization consisting of ambulatory clinics and hospital sitesin [place], [place], [place] and [place]. This disclosure is being madepursuant to the Care Everywhere program and may not contain all information available regarding this patient. Last updated 17.[facility] Allergies * Ciprofloxacin(Dizziness) -High Criticality * Clarithromycin(Palpitations) -High Criticality * Hydrocodone-Acetaminophen(Swelling) * Hydrocodone(Swelling,GI Discomfort) -Low Criticality,Inactive * Hydrocodone-Acetaminophen(Swelling,Unknown) -Medium Criticality,Inactive Medications * Be aware that medications may not be up to date on this document. Alwaysverify current medications with the patient. * ALPRAZolam (XANAX) 1 MG tablet(Started 08/17/2018) Take 1 (one) tablet by mouth once daily as needed * omeprazole (PRILOSEC) 40 MG capsule Take 1 (one) capsule by mouth daily before breakfast * Multiple Vitamins-Minerals (ALIVE WOMENS GUMMY PO) Take by mouth once daily * ferrous sulfate 325 (65 FE) MG tablet(Started 12/16/2022) Take 1 (one) tablet by mouth 2 times daily with morning and evening meal 1 refill by 12/16/2023 * naloxone HCl (Narcan) 4 MG/0.1ML nasal spray(Started 01/22/2023) CALL 911. ADMINISTER A SINGLE SPRAY INTRANASALLY INTO ONE NOSTRIL UPON SIGNS OF OPIOID OVERDOSE. MAY REPEAT AFTER 3 MINUTES IF NO RESPONSE. * estradiol (Estrace) 1 MG tablet(Started 04/02/2023) Take 1 (one) tablet by mouth once daily 4 refills by 04/01/2024 * azithromycin (Zithromax) 250 MG tablet(Started 06/23/2023) TAKE 1 TABLET BY MOUTH DAILY FOR 3 MONTHS * ondansetron (Zofran) 4 MG tablet Take 1 (one) tablet by mouth every 6 hours as needed * vibegron (Gemtesa) 75 MG tablet Take 1 (one) tablet by mouth once daily * valACYclovir (Valtrex) 500 MG tablet Take 1 (one) tablet by mouth 2 times daily * ibuprofen (Motrin) 600 MG tablet(Started 10/07/2023) Take 1 (one) tablet by mouth every 6 hours as needed 1 refill by 10/06/2024 * albuterol HFA (Proventil; Ventolin; Proair) 108 (90 Base) MCG/ACT inhaler (Started 01/06/2024) INHALE 2 PUFFS BY MOUTH EVERY 4 TO 6 HOURS NEEDED FOR SHORTNESS OF BREATH OR WHEEZING * busPIRone (Buspar) 5 MG tablet Take 1 (one) tablet by mouth 3 times daily * fluticasone propionate (Flonase) 50 MCG/ACT nasal spray(Started 09/12/2023) SHAKE LIQUID AND USE 2 SPRAYS IN EACH NOSTRIL DAILY * venlafaxine XR 24hr (Effexor XR) 37.5 MG capsule Take 1 (one) capsule by mouth once daily Ended Medications* iron polysaccharides (Niferex 150) 150 MG capsule(Started 12/16/2022)(Discontinued) Take 1 (one) capsule by mouth once daily * sertraline (Zoloft) 100 MG tablet(Started 03/18/2023)(Discontinued) Take 1 (one) tablet by mouth once daily * estradiol (Estrace) 2 MG tablet(Discontinued) Take 1 (one) tablet by mouth once daily * sertraline (Zoloft) 100 MG tablet(Discontinued) Take 1 (one) tablet by mouth once daily Active Problems Problem Noted Date Diagnosed Date Post-operative state 12/12/2022 Chronic sinusitis 07/04/2022 06/25/2023 NAFLD (nonalcoholic fatty liver disease) 020 GERD (gastroesophageal reflux disease) 0 Anxiety 07/14/2019 Depression 07/14/2019 IBS (irritable bowel syndrome) 07/14/2019 Chronic ITP (idiopathic thrombocytopenia) 2019 Disorder involving thrombocytopenia 06/22/2015 Immunizations * DTP, HISTORIC VACCINE(Given 10/22/1984, 12/18/1983, 05/20/1980, 1978, 1978) * MEASLES(Given 09/19/1979) * MMR VACCINE(Given 11/16/1990) * POLIO OPV(Given 10/22/1984, 12/18/1983, 05/20/1980, 1978, 1978) * TD (AGE 5-ADULT)(Given 11/15/1993, 10/22/1984) Social History Tobacco Use Types Packs/Day Years [...] Recorded Patient Health Questionnaire-2 Score 0 12/17/2022 [facility] - Occupational Stress [...] place to sleep or slept in a penitentiary (including now)? No 12/13/2022 Sex and Gender Information Value Date Recorded Sex Assigned at Not on file Gender Identity Not on file Sexual Orientation Not on file Last Filed Vital Signs Vital Sign Reading Time Taken Comments Blood Pressure 148/108 04/14/2024 2:53 PM FILTER HELPER Pulse 77 12/16/2022 12:00 PM CDT Temperature 36.7 ??C (98.1 ??F) 12/16/2022 1 2:00 PM CDT Respiratory Rate 16 12/16/2022 12:0 0 PM CDT Oxygen Saturation 100% 12/16/2022 12: 00 PM CDT Inhaled Oxygen Concentration - - Weight 90.2 kg (198 lb 12.8 oz) 04/14/2024 2:53 PM FILTER HELPER Height 154.9 cm (5' 1 ) 04/14/2024 2:53 PM FILTER HELPER Body Mass Index 37.56 04/14/2024 2:53 PM FILTER HELPER Procedures * CANCER ANTIGEN (CA)125 BLOOD(Performed 04/14/2024) Performed for Endosalpingosis * CANCER ANTIGEN (CA)125 BLOOD(Performed 06/25/2023) Performed for Psammocarcinoma of ovary (HCC) * CANCER ANTIGEN (CA)125 BLOOD(Performed 04/02/2023) Performed for Psammoma * CBC W AUTO DIFFERENTIAL(Performed 12/25/2022) Performed for Psammocarcinoma of ovary (HCC) * CARDIAC RHYTHM STRIP ORDER(Performed 12/17/2022) * CBC W AUTO DIFFERENTIAL(Performed 12/16/2022) Performed for Post-operative state * PREPARE RBC LEUKOREDUCED UNIT(Performed 12/16/2022) * RENAL FUNCTION PANEL(Performed 12/15/2022) Performed for Post-operative state * CBC W AUTO DIFFERENTIAL(Performed 12/15/2022) Performed for Post-operative state * MAGNESIUM BLOOD(Performed 12/15/2022) Performed for Post-operative state * OT EVAL AND TREAT(Performed 12/14/2022) * RENAL FUNCTION PANEL(Performed 12/14/2022) Performed for Post-operative state * CBC W AUTO DIFFERENTIAL(Performed 12/14/2022) Performed for Post-operative state * MAGNESIUM BLOOD(Performed 12/14/2022) Performed for Post-operative state * CBC W/O DIFFERENTIAL(Performed 12/13/2022) * TRANSFUSE RED BLOOD CELL LEUKOREDUCED UNIT(S)(Performed 12/13/2022) * TRANSFUSE RED BLOOD CELL LEUKOREDUCED UNIT(S)(Performed 12/13/2022) * PREPARE RBC LEUKOREDUCED UNIT(Performed 12/13/2022) * COMPREHENSIVE METABOLIC PANEL(Performed 12/13/2022) Performed for Post-operative state, Chronic ITP (idiopathic thrombocytopenia) (HCC) * CBC W AUTO DIFFERENTIAL(Performed 12/13/2022) Performed for Post-operative state, Chronic ITP (idiopathic thrombocytopenia) (HCC) * MAGNESIUM BLOOD(Performed 12/13/2022) Performed for Post-operative state * RENAL FUNCTION PANEL(Performed 12/13/2022) Performed for Post-operative state * CBC W AUTO DIFFERENTIAL(Performed 12/13/2022) Performed for Post-operative state * COMPREHENSIVE METABOLIC PANEL(Performed 12/13/2022) * CBC W AUTO DIFFERENTIAL(Performed 12/13/2022) * COAGULATION PANEL W D-DIMER(Performed 12/13/2022) * CBC W AUTO DIFFERENTIAL(Performed 12/13/2022) * MAGNESIUM BLOOD(Performed 12/13/2022) Performed for Post-operative state * RENAL FUNCTION PANEL(Performed 12/13/2022) Performed for Post-operative state * CBC W AUTO DIFFERENTIAL(Performed 12/12/2022) Performed for Post-operative state * PATHOLOGY TISSUE EXAM (STL)(Performed 12/12/2022) Performed for Diagnosis unknown * CYTOLOGY NON-LEGAL BILLING SPECIALIST PANEL (STL)(Performed 12/12/2022) Performed for Diagnosis unknown * ENDOTRACHEAL TUBE NOTE(Performed 12/12/2022) * PERIPHERAL BLOCK(Performed 12/12/2022) * BLOOD TYPE VERIFICATION(Performed 12/12/2022) * NH EXPLORATORY OF ABDOMEN(Performed 12/12/2022) Performed for Diagnosis unknown * TYPE + SCREEN PANEL(Performed 12/12/2022) Performed for Psammocarcinoma of ovary (HCC) * SLIDE SCAN HEMATOLOGY(Performed 12/12/2022) * CBC W/O DIFFERENTIAL(Performed 12/12/2022) * CANCER ANTIGEN (CA)125 BLOOD(Performed 12/10/2022) Performed for Pre-op testing * COMPREHENSIVE METABOLIC PANEL(Performed 12/10/2022) Performed for Pre-op testing * CBC W AUTO DIFFERENTIAL(Performed 12/10/2022) Performed for Pre-op testing * CT ABDOMEN PELVIS W CONTRAST(Performed 11/08/2022) Performed for Psammoma * CANCER ANTIGEN (CA)125 BLOOD(Performed 10/30/2022) Performed for Psammoma * PATHOLOGY TISSUE(Performed 08/16/2022) Performed for Illness, unspecified * NH LIVER ELASTOGRAPHY(Performed 06/23/2020) Performed for NAFLD (nonalcoholic fatty liver disease) * US ABDOMEN LIMITED(Performed 06/23/2020) Performed for NAFLD (nonalcoholic fatty liver disease), Elevated liver enzymes * GGT(Performed 04/04/2020) Performed for NAFLD (nonalcoholic fatty liver disease), Elevated liver enzymes * PT-INR(Performed 04/04/2020) Performed for NAFLD (nonalcoholic fatty liver disease), Elevated liver enzymes * ADINA BLOOD SCREEN W/REFLEX TITER(Performed 04/04/2020) Performed for NAFLD (nonalcoholic fatty liver disease), Elevated liver enzymes * ALPHA FETOPROTEIN BLOOD TUMOR MARKER(Performed 04/04/2020) Performed for NAFLD (nonalcoholic fatty liver disease), Elevated liver enzymes * COMPREHENSIVE METABOLIC PANEL(Performed 04/04/2020) Performed for NAFLD (nonalcoholic fatty liver disease), Elevated liver enzymes * CBC W AUTO DIFFERENTIAL(Performed 04/04/2020) Performed for NAFLD (nonalcoholic fatty liver disease), Elevated liver enzymes * CULTURE STREP GROUP A(Performed 08/19/2013) Results * CANCER ANTIGEN (CA)125 BLOOD (04/14/2024 3:14 PM FILTER HELPER) Only the most recent of5 resultswithin the time period is included. Pathologist [facility] [place] CA 125 13 <35 U/mL [facility] Comment: This test was performed using the Siemens Chemiluminescent method. Values obtained from different assay methods cannot be used interchangeably. CA 125 levels, regardless of value, should not be interpreted as absolute evidence of the presence or absence of disease. Test Performed at: [facility] [address] [facility], [place] ??[phone] ENRRIQUE RICO MD Blood BLOOD SPECIMEN / Unknown 04/14/2024 3:14 PM FILTER HELPER 04/14/2024 3:14 PM FILTER HELPER Areli De ASSISTANT TODDLER TEACHER-SOLAR HOT WATER INSTALLER LAB - CHEMISTRY ORDERABLES Performing Organization Address City/State/[facility] Co de Phone Number [facility] [address] [place] [address] * (ABNORMAL) CBC WITH DIFFERENTIAL (12/25/2022) Only the most recent of11 resultswithin the time period is included. Pathologist [facility] [place] White Blood Cell Count 12.6(H) 3.8 - 10.8 Thousand/u L [facility] RBC 3.73(L) 3.80 - 5.10 Million/uL [facility] Hemoglobin 10.4(L) 11.7 - 15.5 g/dL [facility] Hematocrit 33.1(L) 35.0 - 45.0 % [facility] MCV 88.7 80.0 - 100.0 fL [facility] MCH 27.9 27.0 - 33.0 pg [facility] MCHC 31.4(L) 32.0 - 36.0 g/dL [facility] RDW 14.5 11.0 - 15.0 % [facility] Platelet Count 105(L) 140 - 400 Thousand/u L [facility] MPV 15.4(H) 7.5 - 12.5 fL [facility] Neutrophil Absolute 8631(H) 1500 - 7800 cells/uL [facility] Lymphocytes Absolute 2999 850 - 3900 cells/uL [facility] Absolute Monocytes 617 200 - 950 cells/uL [facility] Eosinophils Absolute 290 15 - 500 cells/uL [facility] Basophils Absolute 63 0 - 200 cells/uL [facility] Granulocytes % 68.5 % [facility] Lymphocytes % 23.8 % [facility] Monocytes % 4.9 % [facility] Eosinophils % 2.3 % [facility] Basophils % 0.5 % [facility] Comment: REPORT COMMENT: FASTING:NO Test Performed at: [facility] [address] [place], [place] ??[phone] ENRRIQUE RICO MD Blood BLOOD SPECIMEN / Unknown 12/25/2022 12/25/2022 9:23 AM CDT Sulaiman Andrews MD LAB - HEMATOLOGY ORD ERABLES [facility] [address] [place] [address] * CARDIAC RHYTHM STRIP ORDER (12/17/2022 5:28 PM CDT) Narrative 12/17/2022 5:28 PM CDT Ordered by an unspecified provider. Scanned Document CARDIAC SERVICES ORD ERABLES * PREPARE (CROSSMATCH) RBC UNIT(S), 2 Units (12/16/2022 1:41 AM CDT) Only the most recent of2 resultswithin the time period is included. Unit Description AS1 LR PRBC [facility] Unit ABO O [facility] Unit Rh POS [facility] Product Number R02 [facility] Unit Donor # [id number] [facility] Unit Status released [facility] Product Code [id number] [facility] Blood Type Barcode 5100 [facility] Expiration Date S [facility] Unit Description AS1 LR PRBC [facility] Unit ABO O [facility] Unit Rh POS [facility] Product Number R02 [facility] Unit Donor # [id number] [facility] Unit Status transfused [facility] Product Code [id number] [facility] Blood Type Barcode 5100 [facility] Expiration Date S [facility] Blood Bank BLOOD SPECIMEN / Unknown 12/12/2022 12:49 PM CDT Sulaiman Andrews MD LAB - BLOOD BANK ORD ERABLES [facility] [address] [phone] * (ABNORMAL) RENAL FUNCTION PANEL (12/15/2022 8:46 AM CDT) Only the most recent of4 resultswithin the time period is included. Glucose 113(H) 70 - 105 mg/dL 12/15/2022 9:34 AM CDT [facility] Sodium 138 136 - 145 mmol/L 12/15/2022 9:34 AM CDT [facility] Potassium 3.9 3.5 - 5.1 mmol/L 12/15/2022 9:34 AM CDT [facility] Chloride 101 98 - 107 mmol/L 12/15/2022 9:34 AM CDT [facility] CO2 29 22 - 29 mmol/L 12/15/2022 9:34 AM CDT [facility] Calcium 8.5 8.4 - 10.4 mg/dL 12/15/2022 9:34 AM CDT [facility] Anion Gap 8 6 - 16 mmol/L 12/15/2022 9:34 AM CDT [facility] BUN 7 5.3 - 18.7 mg/dL 12/15/2022 9:34 AM CDT [facility] Creatinine 0.77 0.57 - 1.11 mg/dL 12/15/2022 9:34 AM CDT [facility] Albumin 3.0(L) 3.4 - 5.0 gm/dL 12/15/2022 9:34 AM T [facility] Phosphorus 2.2(L) 2.3 - 4.7 mg/dL 12/15/2022 9:34 AM T [facility] eGFR by CKD-EPI >90 >=90 mL/min/1.7 3 m2 12/15/2022 9:34 AM T [facility] Blood BLOOD SPECIMEN / Unknown Lab Venipuncture / Unknown 12/15/2022 8:46 AM CDT 12/15/2022 9:10 AM CDT Sulaiman Andrews MD LAB - CHEMISTRY ORDAnand CHAIDEZHELLEN Performing Organization Address City/[facility] [address]/ZIP Co de Phone Number [facility] [address] [place] [address] * MAGNESIUM BLOOD (12/15/2022 8:46 AM CDT) Only the most recent of4 resultswithin the time period is included. Pathologist [facility] [place] Magnesium 2.0 1.6 - 2.6 mg/dL 12/15/2022 9:34 AM CDT [facility] Blood BLOOD SPECIMEN / Unknown Lab Venipuncture / Unknown 12/15/2022 8:46 AM CDT 12/15/2022 9:10 AM CDT Sulaiman Andrews MD LAB - CHEMISTRY SUKI MCKEON Performing Organization Address [facility] [address]/[facility] Co de Phone Number [facility] [address] [place] [address] * (ABNORMAL) CBC W/O DIFFERENTIAL (12/13/2022 11:12 PM CDT) Only the most recent of2 resultswithin the time period is included. Pathologist [facility] [place] WBC 14.3(H) 4.4 - 10.7 x10E9/L 12/13/2022 11:58 PM CDT [facility] RBC 3.37(L) 3.80 - 5.20 x10E12/L 12/13/2022 11:58 PM CDT [facility] Hemoglobin 9.5(L) 12.0 - 15.6 gm/dL 12/13/2022 11:58 PM CDT [facility] Hematocrit 30.2(L) 35.9 - 45.5 % 12/13/2022 11:58 PM CDT [facility] MCV 89.6 80.7 - 98.3 fl 12/13/2022 11:58 PM CDT [facility] MCH 28.2 26.7 - 34.0 pg 12/13/2022 11:58 PM CDT [facility] MCHC 31.5 30.8 - 35.9 gm/dL 12/13/2022 11:58 PM CDT [facility] Platelet Count 75(L) 153 - 416 x10E9/L 12/13/2022 11:58 PM CDT [facility] RDW-CV 13.9 12.1 - 14.9 % 12/13/2022 11:58 PM CDT [facility] Blood BLOOD SPECIMEN / Unknown Lab Venipuncture / Unknown 12/13/2022 11:12 PM CDT 12/13/2022 11:39 PM CDT Sulaiman Andrews MD LAB - HEMATOLOGY ORD ERABLES [facility] [address] [place] [address] * TRANSFUSE RED BLOOD CELL LEUKOREDUCED UNIT(S) (12/13/2022 6:51 PM CDT) Sulaiman Andrews MD NURSING - BLOOD PROD TRANSFUSION * TRANSFUSE RED BLOOD CELL LEUKOREDUCED UNIT(S) (12/13/2022 2:56 PM CDT) Sulaiman Andrews MD NURSING - BLOOD PROD TRANSFUSION * (ABNORMAL) COMPREHENSIVE METABOLIC PANEL (12/13/2022 11:43 AM CDT) Only the most recent of4 resultswithin the time period is included. [facility] Glucose 152(H) 70 - 105 mg/dL 12/13/2022 12:36 PM CDT [facility] Sodium 135(L) 136 - 145 mmol/L 12/13/2022 12:36 PM CDT [facility] Potassium 5.1 3.5 - 5.1 mmol/L 12/13/2022 12:36 PM CDT [facility] Chloride 105 98 - 107 mmol/L 12/13/2022 12:36 PM CDT [facility] CO2 18(L) 22 - 29 mmol/L 12/13/2022 12:36 PM CDT [facility] Calcium 7.7(L) 8.4 - 10.4 mg/dL 12/13/2022 12:36 PM CDT [facility] Anion Gap 12 6 - 16 mmol/L 12/13/2022 12:36 PM CDT [facility] BUN 15 5.3 - 18.7 mg/dL 12/13/2022 12:36 PM CDT [facility] Creatinine 1.11 0.57 - 1.11 mg/dL 12/13/2022 12:36 PM CDT [facility] Alkaline Phosphatase 37(L) 40 - 150 U/L 12/13/2022 12:36 PM CDT [facility] ALT 52 0 - 55 U/L 12/13/2022 12:36 PM CDT [facility] AST 54(H) 5 - 34 U/L 12/13/2022 12:36 PM CDT [facility] Protein Total 5.1(L) 6.4 - 8.3 gm/dL 12/13/2022 12:36 PM CDT [facility] Albumin 2.7(L) 3.4 - 5.0 gm/dL 12/13/2022 12:36 PM CDT [facility] Bilirubin Total 0.2 0.2 - 1.2 mg/dL 12/13/2022 12:36 PM T [facility] eGFR by CKD-EPI 63(L) >=90 mL/min/1.7 3 m2 12/13/2022 12:36 PM T [facility] Blood BLOOD SPECIMEN / Unknown Lab Venipuncture / Unknown 12/13/2022 11:43 AM CDT 12/13/2022 11:55 AM CDT Sulaiman Andrews MD LAB - CHEMISTRY ORDE [facility] Organization Address City/State/ZIP Co de Phone Number [facility] [address] [place] [address] * (ABNORMAL) COAGULATION PANEL W D-DIMER (12/13/2022 12:56 AM CDT) PT 15.2(H) 12.1 - 14.8 sec 12/13/2022 1:19 AM CDT [facility] INR 1.2(H) 0.9 - 1.1 12/13/2022 1:19 AM CDT [facility] PTT 26.8 23.0 - 38.4 sec 12/13/2022 1:19 AM CDT [facility] Fibrinogen 264 200 - 400 mg/dL 12/13/2022 1:19 AM CDT [facility] D-Dimer 0.69(H) 0.27 - 0.50 ug/mL FEU 12/13/2022 1:19 AM T [facility] Platelet Count 105(L) 153 - 416 x10E9/L 12/13/2022 1:19 AM [facility] Blood BLOOD SPECIMEN / Unknown Venipuncture / Unknown 12/13/2022 12:56 AM CDT 12/13/2022 1:03 AM CDT Narrative [facility] - 12/13/2022 1:19 AM CDT Conventional Warfarin Anticoagulant Therapy INR Reference Range: ??2.0-3.0 Intensive Warfarin Anticoagulant Therapy INR Reference Range: ? 2.5-3.5 Heparin Therapeutic Range for PTT: ??69.0 - 110.0 seconds. In the absence of clinical symptoms, a value less than or equal to 0.5 mcg/mL FEU significantly decreases the probability of PE/DVT (negative predictive value >95%). 1 mcg/ml FEU = 1 Fibrinogen Equivalent Unit (approximates 0.5 mcg/mL of D- dimer). ?ISTH DIAGNOSTIC SCORING SYSTEM FOR DIC ---- Score ?0 ? 1 ? 2 ? 3 ?? Platelet Count (x10^3/uL) ?> 100 ? <100 ? < 50 ?N/A PT Prolongation above ? Upper limit of normal ?0-3 ? 3-6 ? > 6 ?N/A Range (seconds) ? Fibrinogen (mg/dL) ? >100 ?< 100 ? N/A ?N/A ?? D-Dimer (mcg/mL FEU) ?< 0.50 ? N/A ?0.50-5.0 ?> 5 ?? Calculate Cumulative Score: > or = 5: compatible with overt DIC ? < 5: suggestive for non-overt DIC N/A = Non applicable Reference: Br. J. Haematol. ??145:24-33,2008. Sulaiman Andrews MD LAB - COAGULATION OR DERABLES Performing Organization Address City/State/[facility] Co de Phone Number [facility] [address] [place] [phone] * PATHOLOGY TISSUE EXAM (STL) (12/12/2022 2:06 PM CDT) Case Report Surgical Pathology Report ? Case: [id number] ? Authorizing Provider: ??Sulaiman Andrews MD ?Collected: ? 12/12/2022 02:06 PM ? Ordering Location: ? [facility] ? Received: ?12/13/2022 07:30 AM ? Pathologist: ? Joanne Don MD ? Specimens: ?? A) - Tissue, Right IP Ligamanet and Right Pelvic Peritoneum ? B) - Tissue, Retroperitoneal Debride Left Heni-Pelvis ? C) - Tissue, left IP remnant, Round Ligmament, Pelvic Peritineum and subcutaneous ? tissue ? D) - Omentum ? 01/02/2023 2:57 PM CDT [facility] Final Diagnosis Peritoneum, right IP ligament and right pelvic peritoneum, biopsy (A) - No significant histologic abnormality Retroperitoneal debride [sic] left hemipelvis, biopsy (B) - Acellular debris Peritoneum, left IP remnant, round ligament, pelvic peritoneum and subcutaneous tissue, biopsy (C) - Involved by at least atypical endosalpingiosis (SEE COMMENT) - Focal benign endosalpingiosis and endometriosis Omentum, omentectomy (D) - Involved by at least atypical endosalpingiosis (SEE COMMENT) 01/02/2023 2:57 PM [facility] Addendum 1 The patient's prior materials from [place], [place] ([id number], [id number], [id number], [id number], [id number]) were reviewed. These cases were previously reported by [facility] pathologists at [facility], and as such this addendum does not represent a formal consultation report. [facility] case [id number] has not yet been received for review. Focal areas of psammomatous calcifications with associated serous-type epithelium demonstrating very focal epithelial multilayering and/or tufting are seen in the serosa of the uterus ([id number], collected 10/30/12), on the surface of the right ovary ([id number], collected 01/12/18), and on the surface of the left ovary ([id number], collected 07/09/18). Additionally, few detached intraluminal psammoma bodies lined by bland epithelium are seen in the right Fallopian tube ([id number]). None of these foci are sufficient in quantity/quality to warrant outright classification as a serous neoplasm. The findings and differential diagnosis in the current case ([facility] case [id number], collected 12/12/22) and the peritoneal biopsy recently reviewed at [facility] ([facility] case [id number], [place] case [id number], collected 08/16/22) are unchanged. Continued clinical follow-up is recommended. Review of [facility] case [id number] will be documented upon receipt and review of the slides at [facility], if they become available. 01/02/2023 2:57 PM [facility] Addendum electronically signed by Joanne Don MD on 01/02/2023 at 2:57 PM Clinical History The patient is 42-year-old woman. Per Epic, she has a history of hysterectomy in 2013, right oophorectomy in 2015 and left oophorectomy in 2018 (indications and findings not specified). She also reportedly has endometriosis. Intraoperatively, extensive fibrosis was noted. Also per the operative note, On the left-hand side, there was significant scarring and fibrosis from her prior surgery as well as what appeared to be endometriosis that was active. We opened up the pelvic sidewall by incising the peritoneum. Upon doing so, there was a pocket of what appeared to be almost old Surgicel against the pelvic sidewall and pelvic brim near the IP ligament and the rectosigmoid colon. This material was removed and sent to pathology to confirm possible source of material. Operative procedure: resection of bilateral IP remnants, resection of pelvic endometriosis, omentectomy. 01/02/2023 2:57 PM T [facility] Gross Description The requisition and specimen(s) are identified with the patient's name, Peggy Serrano. Received in formalin, specimen A, right IP ligament a+ right , is a 6 x 3 x 0.6 cm yellow-solano adipose tissue surfaced with with 3 cm guardado-solano to dark solano fibrocollagenous tissue. Multiple foci of dark solano areas are identified. Dishwashing Machine Repairer sections shows yellow-solano to guardado-solano cut surface. The specimen is submitted entirely in cassettes A1-A5. Received in formalin, specimen B, retroperitoneal debris left , are multiple fragments of dark solano tissue measuring 1 x 0.8 x 0.2 cm in aggregate. The specimen is wrapped in bio-wraps and submitted entirely in cassette B1. Received in formalin, specimen C, left IP remnant, round ligament , is a a 6.5 x 5.3 x 1.5 cm yellow-solano soft tissue with guardado-solano fibroelastic tissue. Sectioning shows light solano to yellow-solano cut surface. No distinct mass is identified. Dishwashing Machine Repairer sections are submitted in cassette C1-C5. Received in formalin, specimen D, omentum is a 8 x 4.5 x 1.8 cm yellow-solano omentum with focal area of cauterization and adhesion. Sectioning shows yellow-solano lobulated cut surface with no distinct lesion. Dishwashing Machine Repairer sections are submitted as follows: D1-D2-area of adhesion R3-S6-mlyrsaplbzetiy sections /ME 01/02/2023 2:57 PM CDT [facility] Microscopic Description Microscopic examination substantiates the above diagnosis. Histologic sections of the left peritoneum (part C) and omentum (part D) show clusters and heidy of mildly atypical serous epithelium, frequently associated with psammomatous calcifications. In a few areas, epithelial heidy are detached from the epithelial-lined calcifications, and focal epithelial multilayering is seen (particularly in the detached epithelium). No areas show marked atypia or significant proliferative activity. Destructive stromal invasion is not seen. Scattered psammomatous calcifications without associated epithelium and focal areas of benign endosalpingiosis and endometriosis are present in the background. PAX8 and calretinin immunostains (controls adequate) were performed on parts C and D; in both parts, the serous epithelium is reactive for PAX8 and negative for calretinin, excluding a mesothelial process. Some authors have proposed that lesions with this type of morphology, which is intermediate between usual endosalpingiosis and usual serous borderline tumors, be classified as atypical endosalpingiosis. However, atypical endosalpingiosis is not a recognized entity in the current World Health Organisation classification of gynecologic tumors and rigorous diagnostic criteria for this entity have not been established. Indeed, Tonia and Jaja argued that proliferations with detached papillae (as seen focally in this case) should be categorized as serous borderline tumors. Overall, the atypical serous proliferation in this case falls short of a outright diagnosis of serous borderline tumor. The patient's intraoperatively observed adhesive/fibrotic disease and history of bilateral oophorectomy (diagnosis/indication s not evident from Epic chart review) is noted. Importantly, minimal endometriosis is represented in the specimens submitted to pathology in this case. The differential diagnosis includes so-called atypical endosalpingiosis versus involvement by serous borderline tumor (possibly of peritoneal primary, though correlation with the previous pathology findings from the resected ovaries is essential). Close clinical follow-up is recommended. References: Lola VELÁSQUEZ, Anil L, Damari Wilkinson, Shaneka OQUENDO. A clinicopathologic study and descriptive analysis of atypical endosalpingiosis. Int J Gynecol Pathol (2019) PMID: [id number] Tonia TIWARI, Jaja BRASHER. Serous borderline tumors of the peritoneum. Am J Surg Pathol (1989) PMID: [id number] 01/02/2023 2:57 PM [facility] Pathologist Location at [facility] 01/02/2023 2:57 PM [facility] Disclaimer All histochemical and/or immunohistochemical results are interpreted with controls that demonstrate appropriate staining reactions before reporting results. Note on use of immunocytochemistry reagents: This test was developed and its performance characteristic determined by [facility], Department of Laboratory Medicine. It has not been cleared or approved by the U.S. Food and Drug Administration (FDA). The FDA has determined that such clearance or approval is not necessary. The test is used for clinical purpose. It should not be regarded as investigational or for research. This laboratory is certified to perform high complexity testing. The performance characteristics of the IHC/LESLI assays have been validated on formalin-fixed paraffin embedded tissues only. The assays have not been validated on decalcified tissues. Results should be interpreted with caution. 01/02/2023 2:57 PM T [facility] Embedded Images 01/02/2023 2:57 PM [facility] Pathology/Cytology TISSUE SPECIMEN / Unknown 12/12/2022 2:06 PM CDT 12/13/2022 7:30 AM CDT Comment:Pre-op diagnosis: Diagnosis unknown [R69] Miscellaneous samples (specimen) TISSUE SPECIMEN / Unknown 12/12/2022 2:13 PM CDT 12/13/2022 7:30 AM CDT Comment:Pre-op diagnosis: Diagnosis unknown [R69] Miscellaneous samples (specimen) TISSUE SPECIMEN / Unknown 12/12/2022 2:42 PM CDT 12/13/2022 7:30 AM CDT Comment:Pre-op diagnosis: Diagnosis unknown [R69] Miscellaneous samples (specimen) ENTIRE OMENTUM / Unknown 12/12/2022 3:21 PM CDT 12/13/2022 7:30 AM CDT Comment:Pre-op diagnosis: Diagnosis unknown [R69] Sulaiman Andrews MD LAB - PATHOLOGY/CYTO LOGY ORDERABLES Performing Organization Address [facility]/State/[facility] Co de Phone Number [facility] [address] [phone] * CYTOLOGY NON-LEGAL BILLING SPECIALIST PANEL (STL) (12/12/2022 1:59 PM CDT) Case Report Cytology Non Paster Operator Report ? Case: [id number] ? Authorizing Provider: ??Sulaiman Andrews MD ?Collected: ? 12/12/2022 01:59 PM ? Ordering Location: ? [facility] ? Received: ?12/13/2022 09:35 AM ? Pathologist: ? Anthony Bates, ? MD ? Specimen: ?Pelvic Washings ? 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 12/16/2022 9:14 AM [facility] Gross Description 50 mL of red fluid is received. A Pap-stained ThinPrep slide and H&E-stained cell block sections are produced. GRW 12/16/2022 9:14 AM [facility] Microscopic Description In a Pap-stained ThinPrep slide as well as H&E-stained cell block sections, there are scattered mesothelial cells, present both individually and in sheets. No large cohesive aggregates of malignant-appearing epithelium are identified. 12/16/2022 9:14 AM [facility] Pathologist Location at [facility] 12/16/2022 9:14 AM [facility] Disclaimer All histochemical and/or immunohistochemical results are interpreted with controls that demonstrate appropriate staining reactions before reporting results. Note on use of immunocytochemistry reagents: This test was developed and its performance characteristic determined by [facility], Department of Laboratory Medicine. It has not been cleared or approved by the U.S. Food and Drug Administration (FDA). The FDA has determined that such clearance or approval is not necessary. The test is used for clinical purpose. It should not be regarded as investigational or for research. This laboratory is certified to perform high complexity testing. The performance characteristics of the IHC/LESLI assays have been validated on formalin-fixed paraffin embedded tissues only. The assays have not been validated on decalcified tissues. Results should be interpreted with caution. 12/16/2022 9:14 AM CDT [facility] Embedded Images 12/16/2022 9:14 AM CDT [facility] Pathology/Cytolo gy SPECIMEN OBTAINED BY PERITONEAL LAVAGE / Unknown 12/12/2022 1:59 PM CDT 12/13/2022 9:35 AM CDT Comment:Pre-op diagnosis: Diagnosis unknown [R69] Sulaiman Andrews MD LAB - PATHOLOGY/CYTO LOGY ORDERABLES Performing Organization Address [facility] [address] [facility] de Phone Number [facility] [address] [place], [place] [phone] * ETT LINE PERFORMABLE (12/12/2022 1:41 PM CDT) Narrative Elia Douglas APRN-CRNA - 12/12/2022 1:41 PM CDT Elia Douglas APRN-CRNA ? 12/12/2022 ??1:41 PM Endotracheal Tube Placement: ? Patient Location: OR. Intubation Event Date/Time: ??12/12/2022 1:34 PM Procedure: intubation (69574). Procedure Section: ?? Sedation: IV sedation. Indications for Airway Management: ??airway protection Induction: standard IV and cricoid pressure Patient Position: ??sniffing and supine Mask Ventilation: easy. Blade Type: Eldon Blade Size: 4 Laryngoscopy View: grade 2 (partial cords) Intubation Adjuncts: stylet Tube: endotracheal tube Placement: oral Tube type: cuff - inflated Tube Size (MM): 7 Depth of Insertion (CM): 21 Measured From: gums Cuff volume (mL): ??6 Cuff Inflated With: air Number of Attempts: 1. Placement Verified By: direct visualization, bilateral breath sounds, chest auscultation, CO2 monitor and CO2 detector Tube secured with: ??adhesive tape. Difficult Airway? ??No. Procedure Start Time: 12/12/2022 1:34 PM. Staff Section ? Anesthesia Provider: Elia Douglas APRN-ALISSA, Performed the procedure Additional Comments: Teeth, oral tissue and gums in same condition as prior to intubation. . Mohit Santoro MD GENERAL ANESTHESIA ORDERABLES * Peripheral Nerve Block (12/12/2022 1:22 PM CDT) Narrative Adenike Purvis - 12/12/2022 1:22 PM CDT Adenike Purvis ? 12/13/2022 12:21 PM Peripheral ??Nerve Block ?? Procedure: Peripheral Nerve Block Patient Location: ??Pre-op Preprocedure Section: ?? Indications: at surgeon's request and postop pain management. Pre-anesthetic Checklist: Patient identified, IV Checked, Site examined and clear, Risks and benefits discussed, Surgical consent verified, Monitors and equipment, Time-out performed, Informed consent obtained, Pre-op evaluation done, Questions answered/anesthesia questions answered, Allergies reviewed and Removal hand/wrist jewelry Monitors: BP, Pulse Ox, EKG and ETCO2. Patient Condition: ??sedated, meaningful contact maintained throughout procedure Patient Position: supine Patient Sedated? ??Yes ? Sedation Type: ??mild ? Sedation Agents: ??fentaNYL (PF) (SUBLIMAZE) injection - Intravenous 100 mcg - 12/12/2022 1:22:00 PM midazolam (VERSED) injection - Intravenous 2 mg - 12/12/2022 1:22:00 PM Procedure Section ?? Laterality: bilateral Block Performed: ??rectus sheath Prep: ??Chloraprep Strerile Field: gloves, mask and hat/cap Skin localized with: lidocaine (XYLOCAINE) 1 % injection - Infiltration 1 mL - 12/12/2022 1:22:00 PM Needle Type: ??Echogenic insultaed Needle Gauge: ??21 Needle Length: ??80 mm Needle Depth: ??7 cm Catheter?No Ultrasound Guided? ?? Yes ? Technique: ??in plane ? Visualization: ??Preliminary scan performed, Important anatomical structures identified, Needle tip visualized throughout the procedure, Target identified, No intraneural or intravascular puncture occurred, Ultrasound image in chart, Local visualized surrounding nerve on ultrasound and Hydrodissection utilized Injection was made incrementally with constant monitoring and aspirations every 5 mL's Block Agents or Additives used? Yes Block agents used: bupivacaine 0.75% - EPINEPHrine 1:200,000 (PF) injection - Infiltration 20 mL - 12/12/2022 1:23:00 PM bupivacaine liposome (EXPAREL) 1.3 % injection - Infiltration 20 mL - 12/12/2022 1:23:00 PM sodium chloride 0.9 % SOLN - Infiltration 20 mL - 12/12/2022 1:23:00 PM Staff Section ? Anesthesia Provider: Mohit Santoro MD, Performed the procedure Mohit Santoro MD GENERAL ANESTHESIA ORDERABLES * BLOOD TYPE VERIFICATION (12/12/2022 12:48 PM CDT) ABO Rh O POS 12/12/2022 1:3 0 PM CDT [facility] Blood Bank BLOOD SPECIMEN / Unknown Venipuncture / Unknown 12/12/2022 12:48 PM CDT 12/12/2022 12:51 PM CDT Sulaiman Andrews MD LAB - BLOOD BANK ORD ERABLES [facility] [address] [phone] * TYPE + SCREEN PANEL (12/12/2022 12:31 PM CDT) ABO Rh O POS 12/12/2022 1:30 PM CDT [facility] Comment:History checked. Antibody Screen NEG 1:30 PM CDT [facility] Blood Bank BLOOD SPECIMEN / Unknown Venipuncture / Unknown 12/12/2022 12:31 PM CDT 12/12/2022 12:49 PM CDT Sulaiman Andrews MD LAB - BLOOD BANK ORD ERABLES [facility] [address] [place], [place] [address] [phone] * (ABNORMAL) SLIDE SCAN HEMATOLOGY (12/12/2022 12:31 PM CDT) Platelet Estimation Decreased (A) Normal, Adequate platelets 12/12/2022 1:24 PM CDT [facility] Blood BLOOD SPECIMEN / Unknown Venipuncture / Unknown 12/12/2022 12:31 PM CDT 12/12/2022 12:47 PM CDT Sulaiman Andrews MD LAB - HEMATOLOGY ORD AnesivaBLES Performing Organization Address City/[facility] [address]/ZIP Co de Phone Number [facility] [address] [place] [phone] * CT ABDOMEN PELVIS W CONTRAST (11/08/2022 1:07 PM CDT) Anatomical Region Laterality Modality Abdomen, Pelvis Computed Tomogra phy 11/08/2022 2:22 PM CDT Impressions 11/08/2022 2:48 PM CDT IMPRESSION: 1. Fatty infiltration of the liver. 2. Bowel gas pattern within normal limits. 3. Findings of previous cholecystectomy. Edited by Holly Evans on 11/08/2022 2:30 PM > Interpreting Provider: Omer Marquez MD on 11/08/2022 2:48 PM Narrative 11/08/2022 2:48 PM CDT PROCEDURE: ??CT ABDOMEN PELVIS W CONTRAST DATE/TIME OF EXAM: ??11/08/2022 1:07 PM, LOCATION ??[facility] INDICATION: D49.9: Neoplasm of unspecified behavior of unspecified site. HISTORY: ??Psammoma bodies. Reflux. Headaches. Previous hysterectomy. COMPARISON: None. TECHNIQUE: 5mm axial images were obtained with 80 mL Isovue-370 IV contrast. Sagittal and coronal reformats were obtained. ?? FINDINGS: Examination of the inferior chest shows no lung consolidation. ABDOMEN AND PELVIS: LIVER: ??There is decreased density of the liver relative to the spleen representing fatty infiltration. The patient is status post cholecystectomy. ADRENAL GLANDS: ??Normal. PANCREAS: ??Normal. SPLEEN: Normal. KIDNEYS: ??Normal. BLADDER: Normal. ASCITES: None. ADENOPATHY: ??No enlarged nodes. ADDITIONAL FINDINGS: ?? There is contrast seen within loops of small bowel. There is gas and stool seen within the colon. The bowel gas pattern is normal. BONES: ??No destructive lesion identified Procedure Note Omer Marquez MD - 11/08/2022 PROCEDURE: CT ABDOMEN PELVIS W CONTRAST DATE/TIME OF EXAM: 11/08/2022 1:07 PM, LOCATION [facility] INDICATION: D49.9: Neoplasm of unspecified behavior of unspecified site. HISTORY: Psammoma bodies. Reflux. Headaches. Previous hysterectomy. COMPARISON: None. TECHNIQUE: 5mm axial images were obtained with 80 mL Isovue-370 IV contrast. Sagittal and coronal reformats were obtained. FINDINGS: Examination of the inferior chest shows no lung consolidation. ABDOMEN AND PELVIS: LIVER: There is decreased density of the liver relative to the spleen representing fatty infiltration. The patient is status post cholecystectomy. ADRENAL GLANDS: Normal. PANCREAS: Normal. SPLEEN: Normal. KIDNEYS: Normal. BLADDER: Normal. ASCITES: None. ADENOPATHY: No enlarged nodes. ADDITIONAL FINDINGS: There is contrast seen within loops of small bowel. There is gas andstool seen within the colon. The bowel gas pattern is normal. BONES: No destructive lesion identified IMPRESSION: 1. Fatty infiltration of the liver. 2. Bowel gas pattern within normal limits. 3. Findings of previous cholecystectomy. Edited by Holly Evans on 11/08/2022 2:30 PM > Interpreting Provider: Omer Marquez MD on 11/08/2022 2:48 PM Sulaiman Andrews MD CT ORDERABLES * PATHOLOGY TISSUE (08/16/2022 10:51 AM CDT) Case Report Surgical Pathology Report ? Case: [id number] ? Authorizing Provider: ??Srinivasan Marks MD ?Collected: ? 08/16/2022 10:51 AM ? Ordering Location: ? [facility] ? Received: ?08/21/2022 12:11 PM ? Pathologist: ? Denise Carroll MD ? Specimens: ?? A) - Soft Tissue, cul-de-sac ? B) - Peritoneal Biopsy ? 08/21/2022 1:31 PM T [facility] Final Diagnosis Cul-de-sac, biopsy ([id number], A; 08/16/2022): - Scanty low grade serous epithelium without invasion, associated with abundant psammoma bodies (see microscopic description) Peritoneum, biopsy ([id number], B; 08/16/2022): - Psammoma body and hemosiderin - Negative for epithelium 08/21/2022 1:31 PM [facility] Microscopic Description and Comment [...] help clarify this differential. 08/21/2022 1:31 PM [facility] Clinical History 42 year old woman, status post hysterectomy and bilateral salpingo-oophorectomy (for unspecified reason), with long history of chronic pelvic pain and dyspareunia. She also has a history of endometriosis. Pelvic adhesions were noted on laparoscopy. 08/21/2022 1:31 PM [facility] Materials Received Received are ten slide(s) labeled [id number] (A, 5 levels; B, 5 levels) along with a copy of the outside pathology report. [place] [address]. All original materials are returned to the referring institution, along with a copy of our final report. 08/21/2022 1:31 PM [facility] Pathologist Location at [facility] 08/21/2022 1:31 PM [facility] Disclaimer The performance characteristics of all immunohistochemical and indirect immunofluorescence stains (if any) cited in this report were determined by the Histopathology Laboratory of [facility]. Some of these tests were developed by [...] the attending (teaching) pathologist. 08/21/2022 1:31 PM [facility] Embedded Images 08/21/2022 1:31 PM [facility] Pathology/Cytology PERITONEAL BIOPSY SPECIMEN / Unknown 08/16/2022 10:51 AM CDT 08/21/2022 12:11 PM CDT Miscellaneous samples (specimen) PERITONEAL BIOPSY SPECIMEN / Unknown 08/16/2022 10:51 AM CDT 08/21/2022 12:37 PM CDT Srinivasan Marks MD LAB - PATHOLOGY/CYTO LOGY ORDERABLES [facility] [address] [phone] * PROC FIBROSCAN (06/23/2020 11:13 AM CDT) Narrative Talat Ennis MD - 06/23/2020 11:13 AM CDT Talat Ennis MD ? 06/27/2020 ??5:46 PM Diagnosis: nafld RN verified patient not , no implanted devices and NPO for prior 3 hours. procedure explained and consent signed. Date of Exam: 06/23/2020 Liver Stiffness: (LSM, kPa) median: 4.7 IQR (interquartile range): ?? 0.5 IQR/Median% (ideally < 30%): ??11 CAP (controlled attenuation parameter): ??291 Technical Difficulty: None Ordering Provider: Radha Mckeon COLLECTION CORRESPONDENT Phone Fax Fibroscan interpretation: I have personally reviewed the Fibroscan report and associated tracings. The calculated Liver Stiffness Measurement (LSM, kPa) indicates that: The probability of advanced liver fibrosis is: low. The loss of ultrasound signal, (controlled attenuation parameter, CAP [dB/m]), indicates that the probability of hepatic steatosis is: high. Talat Ennis MD The following criteria are used to indicate the probability of advanced (stage 3-4) fibrosis: < 7.0 kPa: low 7.0-8.9 kPa: low to moderate 9.0-14.9 kPa: moderate 15-20 kPa: high > 20 kPa: very high Liver stiffness > 20 kPa is also associated with a high probability of complications of portal hypertension including varices and ascites. Liver stiffness > 50 kPa is associated with a high risk of variceal bleeding. These interpretations are based on the following published data: Maykel MORRISON, Esther M, Heide M, et al. Accuracy of FibroScan controlled attenuation parameter and liver stiffness measurement in assessing steatosis and fibrosis in patients with nonalcoholic fatty liver disease. Gastroenterology 2019;156:2131-1062. Ramos WATSON, Jeri R, Vikas Aquino ML, et al. Vibration-controlled transient elastography to assess fibrosis and steatosis in patients with nonalcoholic fatty liver disease. Clin Gastroenterol Hepatol 2019;17:156-163. Note: 1. Fibroscan cannot reliably identify earlier stages of fibrosis (ie distinguish F0 from F1 and F2) and thus a histologic stage cannot be predicted from the Fibroscan reading. 2. Assessing the likelihood of advanced fibrosis in patients with indeterminate liver stiffness measurement (LSM) by Fibroscan (e.g., 8-15 kPa) can be improved by also calculating the FIB4 score (Anil et al. Hepatology Communications 2019;3:8315-5427) or NAFLD Fibrosis score (Georges et al. Clinical Gastroenterology and Hepatology 2019;17:2963-2670. from routine clinical data. 3. Liver stiffness can be increased by factors other than fibrosis including passive congestion, infiltrative processes, active alcoholism, biliary obstruction and marked inflammation. The interpretation of the Fibroscan result provided above may not have taken such clinical factors into account. Disease etiology also influences Fibroscan cutoff values for fibrosis stages and the following cutoffs have been proposed (Josesito et al, Clin Gastro Hepatol 2015; 13:27-36): Cutoffs for Stage 3 and Stage 4 fibrosis respectively: Hepatitis B: >9 and >11.7 kPa Hepatitis C: >9.5 and >12.5 kPa HCV-HIV: >11 and >14 kPa Cholestatic liver diseases: >10 and >17.9 kPa NAFLD/DE [place]: >10 and >14 kPa CAP estimates of steatosis: normal <200 dB/m mild 200 to 250 dB/m moderate 250-290 dB/m substantial > 290 dB/m (Note that Fibroscan is not a quantitative measure of liver fat.) These criteria are estimates and may change as additional supporting data becomes available. [email or web address] Radha Mckeon ASSISTANT TODDLER TEACHER-SOLAR HOT WATER INSTALLER PROCEDURE/M INOR SURGICAL ORDERABLES * US ABDOMEN LIMITED (06/23/2020 10:49 AM CDT) Anatomical Region Laterality Modality Abdomen Ultrasound 06/23/2020 11:4 8 AM CDT Impressions 06/23/2020 12:19 PM CDT IMPRESSION: Diffusely coarse hepatic echotexture consistent with hepatic steatosis. There is mild heterogeneity in the right hepatic lobe adjacent to the hepatic hilum, image [id number]. Consider obtaining elective four-phase liver protocol CT or MRI No obvious intrahepatic biliary dilatation. Report drafted by Aayush Roman (resident) IDr. ESTEFANI M.D. have personally reviewed and interpreted this examination/study. This report was electronically signed by ESTEFANI PARKINSON M.D. ??on 06/23/2020 12:19 PM . Narrative 06/23/2020 12:19 PM CDT EXAM: Limited abdominal ultrasound HISTORY: K76.0: NAFLD (nonalcoholic fatty liver disease) R74.8: Elevated liver enzymes COMPARISON: No comparison images are available in the PACS system at the time of this dictation. FINDINGS: Liver demonstrates diffusely coarse echotexture with increased echogenicity. The liver has smooth surface contour. There is minimal heterogeneity at the hepatic hilum in the right lobe series image 6144 No intrahepatic biliary dilatation is seen. Color Doppler evaluation demonstrates patency of the hepatic and portal veins. The gallbladder is absent. Sonographic Garrett's sign is negative. The common bile duct ??measures 5 mm. The right kidney measures 9.6 x 4.7 x 4.0 cm. Limited views of the right kidney show no hydronephrosis, nephrolithiasis, or solid renal mass. The visible pancreas is normal in echogenicity. The spleen measures 11.7 cm. No ascites is present. Procedure Note Estefani Parkinson MD - 06/23/2020 EXAM: Limited abdominal ultrasound HISTORY: K76.0: NAFLD (nonalcoholic fatty liver disease) R74.8: Elevated liver enzymes COMPARISON: No comparison images are available in the PACS system at the time of this dictation. FINDINGS: Liver demonstrates diffusely coarse echotexture with increased echogenicity. The liver has smooth surface contour. There is minimal heterogeneity at the hepatic hilum in the right lobe series image 6144 No intrahepatic biliary dilatation is seen. Color Doppler evaluation demonstrates patency of the hepatic and portal veins. The gallbladder is absent. Sonographic Garrett's sign is negative. The common bile duct measures 5 mm. The right kidney measures 9.6 x 4.7 x 4.0 cm. Limited views of the right kidney show no hydronephrosis, nephrolithiasis, or solid renal mass. The visible pancreas is normal in echogenicity. The spleen measures 11.7 cm. No ascites is present. IMPRESSION: Diffusely coarse hepatic echotexture consistent with hepatic steatosis. There is mild heterogeneity in the right hepatic lobe adjacent to the hepatic hilum, image 6144. Consider obtaining elective four-phase liver protocol CT or MRI No obvious intrahepatic biliary dilatation. Report drafted by Aayush Roman (resident) I, Dr. ESTEFANI PARKINSON M.D. have personally reviewed and interpreted this examination/study. This report was electronically signed by ESTEFANI PARKINSON M.D. on 06/23/2020 12:19 PM . Radha Mckeon APRN-SOLAR HOT WATER INSTALLER US ORDERABL ES * ADINA BLOOD SCREEN W/REFLEX TITER (04/04/2020 1:26 PM FILTER HELPER) ADINA Screen NEGATIVE NEGATIVE [facility] Comment: ADINA IFA is a first line screen for detecting the presence of up to approximately 150 autoantibodies in various autoimmune diseases. A negative ADINA IFA result suggests an ADINA-associated autoimmune disease is not present at this time, but is not definitive. If there is high clinical suspicion for Sjogren's syndrome, testing for anti-SS-A/Ro antibody should be considered. Anti-Margo-1 antibody should be considered for clinically suspected inflammatory myopathies. AC-0: Negative International Consensus on ADINA Patterns (https://doi.org/10.1515/eqkx-3959-0868) For additional information, please refer to http://education.Balihoo.CoinEx.pw/faq/ALM499 (This link is being provided for informational/ educational purposes only.) ?? Test Performed at: [facility] [address] [place], [place] ??[phone] [address] MOLINA DO,MPH Blood BLOOD SPECIMEN / Unknown 04/04/2020 1:26 PM FILTER HELPER 04/04/2020 1:27 PM FILTER HELPER Radha Mckeon APRN-SOLAR HOT WATER INSTALLER LAB - CHEMI STRY ORDERABLES [facility] [address] [place] [address] * ALPHA FETOPROTEIN BLOOD TUMOR MARKER (04/04/2020 1:26 PM FILTER HELPER) [facility] Alpha-Fetoprotei n Tumor Marker 3.0 ng/mL [facility] Comment: Reference Range: ?? <6.1 The use of AFP as a tumor marker in females is not recommended. This test was performed using the Dari Serge chemiluminescent method. Values obtained from different assay methods cannot be used interchangeably. AFP levels, regardless of value, should not be interpreted as absolute evidence of the presence or absence of disease. Test Performed at: [facility] [address] [place], [place] ??[address] [address] MOLINA DO,MPH Blood BLOOD SPECIMEN / Unknown 04/04/2020 1:26 PM FILTER HELPER 04/04/2020 1:27 PM FILTER HELPER Radha Mckeon APRN-SOLAR HOT WATER INSTALLER LAB - CHEMI STRY ORDERABLES Performing Organization Address City/State/[facility] Co de Phone Number [facility] [address] [place] [address] * PT-INR (04/04/2020 1:26 PM FILTER HELPER) [facility] INR 1.0 [facility] Comment: Reference Range ? 0.9-1.1 Moderate-intensity Warfarin Therapy 2.0-3.0 Higher-intensity Warfarin Therapy ?? 3.0-4.0 PT 10.2 9.0 - 11.5 sec [facility] Comment: For additional information, please refer to http://education.Wugly/faq/QIK157 (This link is being provided for informational/ educational purposes only.) Test Performed at: [facility] [address] [place], [place] ??[address] [address] MOLINA DO,MPH Blood BLOOD SPECIMEN / Unknown 04/04/2020 1:26 PM FILTER HELPER 04/04/2020 1:27 PM FILTER HELPER Radha Mckeon APRN-SOLAR HOT WATER INSTALLER LAB - COAGU LATION ORDERABLES [facility] [address] [place] [address] * GGT (04/04/2020 1:26 PM FILTER HELPER) GGT 23 3 - 55 U/L [facility] Comment: Test Performed at: [facility] [address] [place], [place] ??[address] [address] MOLINA DO,MPH Blood BLOOD SPECIMEN / Unknown 04/04/2020 1:26 PM FILTER HELPER 04/04/2020 1:27 PM FILTER HELPER Radha Mckeon ASSISTANT TODDLER TEACHER-SOLAR HOT WATER INSTALLER LAB - CHEMI STRY ORDERABLES Performing Organization Address [facility] [address]/[facility] Co de Phone Number [facility] [address] [place] [address] * CULTURE STREP GROUP A (08/19/2013 10:21 AM CDT) Pathologist [facility] Culture Beta Strep No Growth of Groups A, C or G Beta Streptococc us. [facility] Throat swab (specimen) ENTIRE THROAT (SURFACE REGION OF NECK) / Unknown 08/19/2013 10:21 AM CDT 08/19/2013 9:40 PM CDT Narrative [facility] - 08/21/2013 2:38 PM CDT AndersonSpecimen#[id number] Liam Loc/Rm/Bed: EXPCARE C// Historical Provider LAB - MICROBIOLOG Y ORDERABLES Performing Organization Address City/[facility] [address]/ZIP Co de Phone Number [facility] [address] [place] [address] Care Teams Landscape Maintenance Internship Relationship Specialty Start Date End Date Miguel Langley DO [address] [place] [address] PCP - General Internal Medicine 12/12/22 Chris Madrigal MD Hematology and Oncology 03/21/20
--- OUTSIDE RECORDS SUMMARY | 2024-04-23 12:15 | XMS_ITS | Clinical Summary ---
Author Organization [facility] Address [address] [place] [address] Phone Care Team Providers Care Film Editor Name Role Phone Unavailable Primary Care Provider Unavailabl e Allergies Active Allergy Reactions Criticality Noted Date Comments Clarithromycin Palpitations High 04/07/2019 Hydrocodone-Acetaminophen Swelling 09/28/2018 Medications Multiple Vitamins-Minera ls (CENTRUM MULTIGUMMIES) Chewable Tablet Take 2 Tabs by mouth daily. Active ALPRAZolam (XANAX) 1 MG Tablet Take 1 mg by mouth daily as needed. 08/18/19 19 Active estradiol (ESTRACE) 1 MG Tablet Take 2 mg by mouth daily. Active ibuprofen (MOTRIN) 800 MG Tablet Take 800 mg by mouth daily as needed. pain 09/09/19 19 Active omeprazole (PRILOSEC) 40 MG CAPSULE DELAYED RELEASE Take 40 mg by mouth daily. 09/03/19 19 Active sertraline (ZOLOFT) 50 MG Tablet Take 50 mg by mouth nightly. Active cyclobenzaprine (FLEXERIL) 10 MG Tablet TK 1 T PO TID PRF MUSCLE SPASM 02/15/20 19 Active ondansetron (ZOFRAN-ODT) 4 MG TABLET DISPERSIBLE ondansetron 4 mg disintegrating tablet Take 1 tablet 4 times a day by oral route as needed. Active nitrofurantoin, macrocrystal-mo nohydrate, (MACROBID) 100 MG Capsule Macrobid 100 mg capsule Take 1 capsule every 12 hours by oral route as directed for 14 days. RTO one month. Active Active Problems Problem Noted Date Diagnosed Date Chronic ITP (idiopathic thrombocytopenia) 2019 Thrombocytopenia 12/14/2018 Family History Medical History Relation Name Comments Diabetes Father Liver Cancer Father Prostate Cancer Father Relation Name Status Comments Father Mother Alive Social History Tobacco Use Types Packs/Day Years Used Date Smoking Tobacco: Some Days Cigarettes 0.3 10.6 Started: 09/28/2013 Smokeless Tobacco: Never Tobacco Cessation:Ready to Q uit: Yes; Counseling Given: Yes Alcohol Use Standard Drinks/Week Comments Yes 2 (1 standard drink = 0.6 oz pur e alcohol) occasionally PHQ-2 Answer Date Recorded PHQ-2 Score 0 12/04/2018 Sexually Active Control Partners Comments Yes Male Comments Unknown Sex and Gender Information Value Date Recorded Sex Assigned at Not on file Legal Sex Female 4:44 PM WOODEN FENCE ERECTOR Gender Identity Not on file Sexual Orientation Not on file Last Filed Vital Signs Vital Sign Reading Time Taken Comments Blood Pressure 110/80 05/12/2019 11:12 AM WOODEN FENCE ERECTOR Pulse 64 05/12/2019 11:12 AM WOODEN FENCE ERECTOR Temperature 36.4 ??C (97.5 ??F) 05/12/2019 11:[address] Respiratory Rate 18 05/12/2019 11:12 AM WOODEN FENCE ERECTOR Oxygen Saturation 98% 05/12/2019 11:12 AM WOODEN FENCE ERECTOR Inhaled Oxygen Concentration - - Weight 83 kg (183 lb) 05/12/2019 11:12 AM WOODEN FENCE ERECTOR Height 157.5 cm (5' 2 ) 05/12/2019 11:12 AM WOODEN FENCE ERECTOR Body Mass Index 33.47 05/12/2019 11:12 AM WOODEN FENCE ERECTOR Plan of Treatment Health Maintenance Due Date Last Done Comments TdaP Immunization 1978 Hepatitis B Immunization (1 of 3 - 19+ 3-dose series) 1997 Discussion re Starting/Frequency of Mammograms 2018 Colonoscopy 2023 Colorectal Cancer Screening 2023 Influenza Immunization (#1) 2023 SARS-COV-2 Immunization ( season) 2023 03/04/2021 Respiratory Syncytial Virus (RSV) Immunization (Adult) (1 - 1-dose 75+ series) 2053 DTaP/Tdap/Td Immunization Discontinued 1993, 10/22/1984, 10/22/1984, Additional history exists Hepatitis C Virus (HCV) Screening Completed 09/28/2018 Meningococcal Immunization (ACWY) Aged Out No longer eligible based on patient's age to complete this topic Pneumococcal Immunization Combined Aged Out No longer eligible based on patient's age to complete this topic Rotavirus Immunization Aged Out No lo nger eligible based on patient's age to complete this topic Procedures Procedure Name Priority Date/Time Associated Diagnosis Comments HEPATITIS C ANTIBODY Routine 09/28/2018 1:06 PM CDT Thrombocytopenia (HCC) from Last 3 Months or Most Recently Relevant to Health Maintenance Results * HEPATITIS C ANTIBODY (09/28/2018 1:06 PM CDT) HCV AB <0.1 0.0 - 0.9 S/CO RATIO [facility] COMMENT: COMMENT [facility] Comment: NON REACTIVE HCV ANTIBODY SCREEN IS CONSISTENT WITH NO HCV INFECTION, UNLESS RECENT INFECTION IS SUSPECTED OR OTHER EVIDENCE EXISTS TO INDICATE HCV INFECTION. Blood specimen (specimen) 09/28/2018 1:06 PM CDT Narrative [facility] - 09/29/2018 5:08 AM CDT TESTING PERFORMED AT: [] [facility], [address], PHONE: [phone], METAL RIVET MACHINE OPERATOR: CELESTINA BUCIO, PHD Chris Madrigal MD CHEMISTRY ORDERABLES Final Result Performing Organization Address City/State/[facility] Co de Phone Number [facility] from Last 3 Months or Most Recently Relevant to Health Maintenance Insurance [place]
--- OUTSIDE RECORDS SUMMARY | 2024-04-23 12:15 | XMS_ITS | Encounter Summary ---
Author Organization [facility] Address [address] [place] [address] Care Team Providers Care Building Construction Foreman Name Role Phone Daysi Wetzel MD Primary Care Provider [phone] Chris Madrigal MD Unavailable [phone] Miguel Langley DO Primary Care Provider [phone] Rand Elkins [facility] Unavailable [phone] Reason for Visit * Reason Onset Date Comments Nurse Only 11/26/2022 Surgery Scheduling 11/26/2022 Encounter Details Date Type Department Care Team (Late st Contact Info) Description 11/26/2022 Telephone [facility] - Centralized Scheduling [address] [place] [address] Sulaiman Andrews MD [address] [address] Nurse Only; Surgery Scheduling Social History Tobacco Use Types Packs/Day Years Used Date Smoking Tobacco: Never Smokeless Tobacco: Never Alcohol Use Standard Drinks/Week Comments Yes 0 (1 standard drink = 0.6 oz pur e alcohol) occ Sex and Gender Information Value Date Recorded Sex Assigned at Not on file Gender Identity Not on file Sexual Orientation Not on file documented as of this encounter Miscellaneous Notes * Telephone Encounter - Daysi Weinstein RN - 11/27/2022 11:25 AM CDT Spoke with pt to get clarification on her earlier call today. She reports that she kept her annual exam with Dr. Duran and her pelvic pain is back and would like to discuss surgery with Dr. Andrews. Told her I would let Dr. Andrews know. * Telephone Encounter - Haylee Madrid - 11/26/2022 3:13 PM CDT Pt seen her other TRANSPORTATION SECURITY SCREENER Dr.James Duran in [place], Dr. Andrews told her to call office after she sees him, pt is having surgery with Dr Andrews, not sure when documented in this encounter Plan of Treatment Not on file documented as of this encounter Goals Goal Patient Goal Type Associated Problems Recent Progress Patient-Stated? Author Medication Management General On track( 021 11:43 AM CDT) No Sahra Milligan RN Note: Expected end date: Ongoing Interventions: Take all medications as prescribed Let your doctor know right away about any changes in your medications Make sure to request a refill of your medication at least one week prior to your last dose documented as of this encounter Visit Diagnoses Not on filedocumented in this encounter Care Teams Building Construction Foreman Relationship Specialty Start Date End Date Daysi Wetzel MD [address] [place] [address] PCP - General Family Medicine 12/24/18 12/11/22 Miguel Langley DO [address] [place] [address] PCP - General Internal Medicine 12/12/22 Chris Madrigal MD [address] [place] [address] Hematology and Oncology 03/21/20 Rand Elkins LMSW Outpatient Veneer Sander Care Management 12/17/22 documented as of this encounter
--- OUTSIDE RECORDS SUMMARY | 2024-04-23 12:15 | XMS_ITS | Encounter Summary ---
Author Organization [facility] Address [address] [facility] [place] [address] Care Team Providers Care Accounting Practice Manager Name Role Phone Chris Madrigal MD Unavailable [phone] Miguel Langley DO Primary Care Provider [phone] Rand Elkins [facility] Unavailable [phone] Reason for Visit * Reason Onset Date Comments Question 12/27/2022 Returned Call 12/27/2022 Encounter Details Date Type Department Care Team (Late st Contact Info) Description 12/27/2022 Telephone [facility] - SAFETY GLASS INSTALLER [address] [facility] [address] [place] [address] Sulaiman Andrews MD [address] [facility] [address] [place] [address] Question; Returned Call Social History Tobacco Use Types Packs/Day Years [...] Recorded Patient Health Questionnaire-2 Score 0 12/17/2022 [facility] of Occupat ional [facility] - Occupational Stress Questionnaire Answer Date Recorded [...] place to sleep or slept in a halfway (including now)? No 12/13/2022 Sex and Gender Information Value Date Recorded Sex Assigned at Not on file Gender Identity Not on file Sexual Orientation Not on file documented as of this encounter Functional Status Functional Status Response Date of [...] person have difficulty concentrating/remembering/making decisions? No 12/13/2022 documented as of this encounter Miscellaneous Notes * Telephone Encounter - Daysi Weinstein RN - 12/27/2022 11:57 AM CDT Spoke with Cynthia from [facility] pathology department returning her call. She reports that all six sets of slides have already been reviewed by [facility] Pathology and they cannot send the slides to be reviewed by them again since Dr. Joanne Don is a part of [facility] Pathology. Told her we only had one report from [facility] of the 6 requested and she says she will fax the other five today. * Telephone Encounter - Sujey Hannah - 12/27/2022 9:30 AM CDT Cynthia form [facility] wanst to know Will slides be forwarded to the pathology dept ? (this can not happen) Please contact # [phone] documented in this encounter Plan of Treatment [...] on filedocumented in this encounter Care Teams Accounting Practice Manager Relationship Specialty Start Date End Date Miguel Langley DO [address] [place] [address] PCP - General Internal Medicine 12/12/22 Chris Madrigal MD Hematology and Oncology 03/21/20 Rand Elkins LMSW Outpatient Driver Service Technician Care Management 12/17/22 documented as of this encounter
--- OUTSIDE RECORDS SUMMARY | 2024-04-23 12:15 | XMS_ITS | Encounter Summary ---
Author Organization [facility] Address [address] [facility] [place] [address] Care Team Providers Care Expressive Therapist Name Role Phone Chris Madrigal MD Unavailable [phone] Miguel Langley DO Primary Care Provider [phone] Rand Elkins [facility] Unavailable [phone] Reason for Visit * Reason Onset Date Comments Question 12/18/2022 Follow-up 12/18/2022 Encounter Details Date Type Department Care Team (Late st Contact Info) Description 12/18/2022 Telephone [facility] - TEST DRILLER [address] [facility] [address] [place] [address] Sulaiman Andrews MD [address] [facility] [address] [place] [address] Question; Follow-up Social History Tobacco Use Types Packs/Day Years [...] Recorded Patient Health Questionnaire-2 Score 0 12/17/2022 [facility] Occupat ional Health - Occupational Stress [...] money to buy more. Never true 12/14/19 Within the past 12 months, t he [...] place to sleep or slept in a detention (including now)? No 12/13/2022 Sex and Gender [...] Telephone Encounter - Daysi Weinstein RN - 12/18/2022 3:04 PM CDT Spoke with pt following up on her request for Dr. Andrews to increase her pain medicine. Pt reports abdominal pain at 6/10 with the Roxicodone 5 mg and 2/10 with 10 mg (taking two at a time). Asked pt if she is alternating tylenol 1000mg Q 6 hours with ibuprofen up to 800 mg Q 8 hours. Pt reports thatshe is. Told pt I would consult dr Andrews and get back to her. * Telephone Encounter - Sujey Hannah - 12/18/2022 1:51 PM CDT Pt calling to get her pain medication increased . (she has 5 mg tablets and is taking 2) Please contact CB# [phone] documented in this encounter Plan of Treatment [...] on filedocumented in this encounter Care Teams Expressive Therapist Relationship Specialty Start Date End Date Miguel Langley DO [address] [place] [address] PCP - General Internal Medicine 12/12/22 Chris Madrigal MD Hematology and Oncology 03/21/20 Rand Elkins LMSW Outpatient Sprigger Care Management 12/17/22 documented as of this encounter
--- NOTE | 2024-04-30 12:35 | WPDHOLTEREM ---
Holter/Event Monitor Holter/Event Monitor Date of procedure: 04/23/24 Holter/Event Procedure: 3-7 Day Holter Monitor Indications: Palpitations Conclusion: 1. 3 days holter monitor on 04/23/24. 2. Predominant rhythm is sinus rhythm. HR range 52-135 bpm; average HR 73 bpm. 3. There are rare premature supraventricular complexes, rare supraventricular couplets, rare supraventricular triplets. There is 1 episode of supraventricular tachycardia at 135 bpm lasting 6 beats. 4. There are rare premature ventricular complexes. No ventricular tachycardia. 5. No significant pauses greater than 3 seconds. 6. Patient reports 10 episodes of symptoms of lightheadedness, fluttering/racing, chest pain, irregular beats, shortness of breath which demonstrate sinus rhythm, HR range 60-89 bpm.
== END 2024-04-23 12:11 | disposition home or self-care (01) ==
LOC: ANHCARD 12:12
PROVIDERS: PCP Nurse Practitioner Family; Visit Provider Nurse Practitioner Family
DX: R00.2 Palpitations (principal)
CPT/HCPCS: 93242

== ENCOUNTER 2024-05-03 08:21 | Outpatient (CLI) | payer OTHER, SELFPAY ==
--- NOTE | ~2024-05-03 | MM_ITS ---
EXAMINATION: MM screening kaleigh BI w machelle HISTORY: Screening mammogram, family history of breast cancer in her sister. TECHNIQUE: Craniocaudal and mediolateral oblique 3-D tomosynthesis images were obtained and synthetic 2-D images were generated. CAD analysis was submitted and interpreted. COMPARISON: 06/12/2022, 07/05/2020 BREAST PARENCHYMAL COMPOSITION:Not Dense. The breasts are almost entirely fatty FINDINGS: No suspicious mass, calcification, or architectural distortion are identified in either shira ast to suggest malignancy. There has been no suspicious interval change. IMPRESSION: No mammographic evidence of malignancy. Recommend routine screening mammography in one year. BI-RADS Category 1: Negative Reviewed, dictated and finalized at location . TECHNOLOGIST
--- OUTSIDE RECORDS SUMMARY | 2024-05-03 08:31 | XMS_ITS | Clinical Summary ---
[facility] Address [address] [place] [address] Care Team Providers Care Sugar Cane Planter Name Role Phone Mello Kaba MD Primary Care Provider [phone] Allergies Active Allergy Reactions Criticality Noted Date [...] 2 mg by mouth daily. 0 Active nlkheltn-yyp-nm lic [id number] (Alive Women's Gummy Vitamin) 200 mcg- 37.5 [...] Encounters Date Type Department Care Team Description 04/27/2024 External Device Data ST[facility] ABSTRACTION Provider, Abstract 04/27/2024 External Device Data [facility] ABSTRACTION Provider, Abstract 04/21/2024 External Device Data [facility] ABSTRACTION Provider, Abstract 04/20/2024 External Device Data [facility] ABSTRACTION Provider, Abstract 03/05/2024 Telephone [facility] Oncology and Hematology [facility] [address] [place] [phone] Reyes Chiang MD Surgery Questions 03/03/2024 Abstract [facility] Oncology and Hematology Liam [address] [place] [address] Reyes Chiang MD 03/03/2024 Abstract [facility] Oncology and Hematology Liam [address] [place] [address] Alex Lyman CMA 03/02/2024 External Device Data [facility] ABSTRACTION Provider, Abstract 03/02/2024 Orders Only [facility] Oncology and Hematology - Liam [address] [place] [address] Reyes Chiang MD 02/10/2024 Refill [facility] Oncology and Hematology [facility] [address] [place] [address] Reyes Chiang MD 02/03/2024 External Device Data ST[facility] ABSTRACTION Provider, Abstract from Last 3 Months Family History Medical [...] st Contact Info) Description 05/05/2024 2:30 PM ALMOND BLANCHER OPERATOR Office Visit [facility] Oncology and Hematology [facility] [address] [place] [address] Reyes Chiang MD [address] [place] [address] Health Maintenance Due Date Last [...] Comments IRON LEVEL Routine 03/02/2024 4:10 PM ALMOND BLANCHER OPERATOR CBC WITH DIFFERENTIAL Routine 03/02/2024 3:01 PM ALMOND BLANCHER OPERATOR from Last 3 Months Results * IRON LEVEL (03/02/2024 4:10 PM ALMOND BLANCHER OPERATOR) Blood Reyes Chiang MD CHEMISTRY ORDERABLES Final Resu lt * CBC WITH DIFFERENTIAL (03/02/2024 3:01 PM ALMOND BLANCHER OPERATOR) Blood us Reyes Chiang MD HEMATOLOGY ORDERABLES Final Res ult from Last 3 Months Insurance [place] MED[place] MED[place]ID [place] Care Teams Sugar Cane Planter Relationship Specialty Start Date End Date Mello Kaba MD PCP - General Family Practice 09/02/22
--- OUTSIDE RECORDS SUMMARY | 2024-05-03 08:31 | XMS_ITS | Referral Summary ---
Author Organization [facility] Address [address] [place] [address] Care Team Providers Care Plastic Bubble Packer Name Role Phone Miguel Langley Primary Care Provider [phone] Allergies Active Allergy Reactions Criticality Noted Date [...] fluticasone propionate (FLONASE) 50 mcg/actuation nasal spray Gary 2 sprays every day by intranasal route. [...] 03/12/2017 Assessment & Plan (03/12/2017 11:57 AM SKATING RINK ICE MAKER): Patient demonstrates history and my physical findings [...] CDT): This is being managed by her container shop welder. Social History Tobacco Use Types Packs/Day Years [...] on file Legal Sex Female 9:03 AM SKATING RINK ICE MAKER Gender Identity Female 01/20/2024 3:06 PM CDT Sexual Orientation Not on file Last Filed Vital Signs Vital Sign Reading Time Taken Comments Blood Pressure 128/84 09/13/2022 9:07 AM CDT Pulse 87 09/13/2022 9:07 AM CDT Temperature 36.4 ??C (97.5 ??F) 09/20/2018 3:06 AM CD T Respiratory Rate - - Oxygen Saturation 99% 05/10/2020 10:32 PM SKATING RINK ICE MAKER Inhaled Oxygen Concentration - - Weight 89.4 [...] ORDERABLES Final Result [facility] ([facility]) 1 [facility] [place] [address] from Last 3 Months or Most Recently Relevant to Health Maintenance Insurance [id number] [place] [id number] [place] [address] [facility] Care Teams Plastic Bubble Packer Relationship Specialty Start Date End Date Miguel Langley DO PCP - General Internal Medicine 07/03/22
--- OUTSIDE RECORDS SUMMARY | 2024-05-03 08:31 | XMS_ITS | Encounter Summary ---
Author Organization [facility] Address [address] [place] [address] Phone Care Team Providers Care Flamer After Lasting Name Role Phone Daysi Wetzel MD Primary Care Provider [phone] Encounter Details Date Type Department Care Team (Late st Contact Info) Description 08/04/2019 Telephone [facility] [address] [place] [address] Chris Madrigal MD [address] [place] [address] Social History Tobacco Use Types [...] on file Legal Sex Female 4:44 PM SUPERVISOR SHELLFISH FARMING Gender Identity Not on file Sexual Orientation Not on file documented as of this encounter Plan of Treatment Not on file documented as of this encounter Visit Diagnoses Not on filedocumented in this encounter Additional Health Concerns Assessment Noted Time PHQ-9 Depression Total Score: 0 04/07/19 20 8:31 AM SUPERVISOR [employer]LLFISH FARMING documented as of this encounter Care Teams Flamer After Lasting Relationship Specialty Start Date End Date Daysi Wetzel MD PCP - General Emergency Medicine 09/15/18 01/26/23 documented as of this encounter
--- OUTSIDE RECORDS SUMMARY | 2024-05-03 08:31 | XMS_ITS | Clinical Summary ---
Author Organization [facility] Address [address] [place] [address] Phone Care Team Providers Care Museum Director Name Role Phone Unavailable Primary Care Provider [...] on file Legal Sex Female 4:44 PM TACK DRILLER Gender Identity Not on file Sexual Orientation Not on file Last Filed Vital Signs Vital Sign Reading Time Taken Comments Blood Pressure 110/80 05/12/2019 11:12 AM TACK DRILLER Pulse 64 05/12/2019 11:12 AM TACK DRILLER Temperature 36.4 ??C (97.5 ??F) 05/12/2019 11:[address] Respiratory Rate 18 05/12/2019 11:12 AM TACK DRILLER Oxygen Saturation 98% 05/12/2019 11:12 AM TACK DRILLER Inhaled Oxygen Concentration - - Weight 83 kg (183 lb) 05/12/2019 11:12 AM TACK DRILLER Height 157.5 cm (5' 2 ) 05/12/2019 11:12 AM TACK DRILLER Body Mass Index 33.47 05/12/2019 11:12 AM TACK DRILLER Plan of Treatment Health Maintenance Due Date [...] AB <0.1 0.0 - 0.9 S/CO RATIO [facility] COMMENT: COMMENT [facility] Comment: NON REACTIVE HCV ANTIBODY SCREEN IS CONSISTENT WITH NO HCV INFECTION, UNLESS RECENT INFECTION IS SUSPECTED OR OTHER EVIDENCE EXISTS TO INDICATE HCV INFECTION. Blood specimen (specimen) 09/28/2018 1:06 PM CDT Narrative [facility] - 09/29/2018 5:08 AM CDT TESTING PERFORMED AT: [] [facility], [address], PHONE: [phone], LAND SURVEYING MANAGER: CELESTINA BUCIO, PHD Chris Madrigal MD CHEMISTRY ORDERABLES Final Result Performing Organization Address City/State/[facility] Co de Phone Number [facility] from Last 3 Months or Most Recently Relevant to Health Maintenance Insurance [place]ICAID [place]
--- OUTSIDE RECORDS SUMMARY | 2024-05-03 08:32 | XMS_ITS | Encounter Summary ---
Author Organization [facility] Address [address] [place] [address] Care Team Providers Care Editorial Manager Name Role Phone Daysi Wetzel MD Primary Care Provider Chris Madrigal MD Unavailable [phone] Miguel Langley DO Primary Care Provider [phone] Rand Elkins [facility] Unavailable [phone] Encounter Details Date Type Department Care Team (Late st Contact Info) Description 02/12/2019 Telephone [facility] [address] [place] [address] Ashely Baker Social History Tobacco [...] on filedocumented in this encounter Care Teams Editorial Manager Relationship Specialty Start Date End Date Daysi Wetzel MD [address] [place] [address] PCP - General Family Medicine 12/24/18 12/11/22 Miguel Langley DO [address] [place] [address] PCP - General Internal Medicine 12/12/22 Chris Madrigal MD [address] [place] [phone] Hematology and Oncology 03/21/20 Rand Elkins LMSW Outpatient Line Construction Supervisor Care Management 12/17/22 documented as of this encounter
--- OUTSIDE RECORDS SUMMARY | 2024-05-03 08:32 | XMS_ITS | Clinical Summary ---
Author Organization [facility] Address [address] [place] [address]. [place], [place] [address] [place] [address] Care Team Providers Care Food Order Expediter Name Role Phone Miguel Langley Primary Care Provider [phone] Allergies Active Allergy Reactions Criticality Noted Date [...] patient's age to complete this topic Meningococcal B Vaccine Aged Out No l onger eligible based on patient's age to complete [...] patient's age to complete this topic Insurance [employer] MEDICAID Care Teams Food Order Expediter Relationship Specialty Start Date End Date Miguel Langley DO [address] [place] [address] PCP - General INTERNAL MEDICINE 08/08/21
--- OUTSIDE RECORDS SUMMARY | 2024-05-03 08:32 | XMS_ITS | Encounter Summary ---
Author Organization [facility] Address [address] [place] [address] Care Team Providers Care Corporate Tax Preparer Name Role Phone Chris Madrigal MD Unavailable [phone] Miguel Langley DO Primary Care Provider [phone] Rand Elkins [facility] Unavailable [phone] Reason for Visit * Reason Onset Date Comments Question 12/18/2022 Follow-up 12/18/2022 Encounter Details Date Type Department Care Team (Late st Contact Info) Description 12/18/2022 Telephone [facility] - JIVE DEVELOPER [address] [facility] [address] [place] [address] Sulaiman Andrews MD [address] [facility] [address] [place] [address] Question; Follow-up Social History Tobacco Use Types [...] Recorded Patient Health Questionnaire-2 Score 0 12/17/2022 [facility] of Occupat ional Health - Occupational Stress [...] place to sleep or slept in a nursing home (including now)? No 12/13/2022 Sex and Gender [...] and is taking 2) Please contact CB# [phone] documented in this encounter Plan of Treatment [...] on filedocumented in this encounter Care Teams Corporate Tax Preparer Relationship Specialty Start Date End Date Miguel Langley DO [address] [place] [address] PCP - General Internal Medicine 12/12/22 Chris Madrigal MD Hematology and Oncology 03/21/20 Rand Elkins LMSW Outpatient Valve Grinder Care Management 12/17/22 documented as of this encounter
--- OUTSIDE RECORDS SUMMARY | 2024-05-03 08:32 | XMS_ITS | Encounter Summary ---
Author Organization [facility] Address [address] [facility] [place] [address] Care Team Providers Care Lead Producer Name Role Phone Chris Madrigal MD Unavailable [phone] Miguel Langley DO Primary Care Provider [phone] Rand Elkins [facility] Unavailable [phone] Reason for Visit * Reason Onset Date Comments Question 12/27/2022 Returned Call 12/27/2022 Encounter Details Date Type Department Care Team (Late st Contact Info) Description 12/27/2022 Telephone [facility] - MORNING NEWS PRODUCER [address] [facility] [address] [place] [address] Sulaiman Andrews MD [address] [facility] [address] [place] [address] Question; Returned Call Social History [...] Recorded Patient Health Questionnaire-2 Score 0 12/17/2022 [facility] of Occupat ional [facility] - Occupational Stress Questionnaire Answer Date Recorded [...] place to sleep or slept in a residential (including now)? No 12/13/2022 Sex and Gender [...] 11:57 AM CDT Spoke with Cynthia from [facility] pathology department returning her call. She reports that all six sets of slides have already been reviewed by [facility] Pathology and they cannot send the slides to be reviewed by them again since Dr. Joanne Don is a part of [facility] Pathology. Told her we only had one report from [facility] of the 6 requested and she says she will fax the other five today. * Telephone Encounter - Sujey Hannah - 12/27/2022 9:30 AM CDT Cynthia form [facility] wanst to know Will slides be forwarded to the pathology dept ? (this can not happen) Please contact # [phone] documented in this encounter Plan of Treatment [...] on filedocumented in this encounter Care Teams Lead Producer Relationship Specialty Start Date End Date Miguel Langley DO [address] [place] [address] PCP - General Internal Medicine 12/12/22 Chris Madrigal MD Hematology and Oncology 03/21/20 Rand Elkins LMSW Outpatient Computer Programming Manager Care Management 12/17/22 documented as of this encounter
--- OUTSIDE RECORDS SUMMARY | 2024-05-03 08:32 | XMS_ITS | Encounter Summary ---
Author Organization [facility] Address [address] [facility] [place] [address] Care Team Providers Care Guest Relations Executive Name Role Phone Daysi Wetzel MD Primary Care Provider [phone] Chris Madrigal MD Unavailable [phone] Miguel Langley DO Primary Care Provider [phone] Rand Elkins [facility] Unavailable [phone] Encounter Details Date Type Department Care Team (Late st Contact Info) Description 08/21/[address] [facility] - Pathology Lab [address] [place] [address] Srinivasan Marks MD [address] [address] Illness, unspecified Social History Tobacco [...] Case Report Surgical Pathology Report ? Case: [id number] ? Authorizing Provider: ??Srinivasan Marks MD ?Collected: ? 08/16/2022 10:51 AM ? Ordering Location: ? [facility] ? Received: ?08/21/2022 12:11 PM ? Pathologist: ? Denise Carroll MD ? Specimens: ?? A) - Soft Tissue, cul-de-sac ? B) - Peritoneal Biopsy ? 08/21/2022 1:31 PM [facility] Final Diagnosis Cul-de-sac, biopsy ([id number], A; 08/16/2022): - Scanty low grade serous epithelium without invasion, associated with abundant psammoma bodies (see microscopic description) Peritoneum, biopsy ([id number], B; 08/16/2022): - Psammoma body and hemosiderin - Negative for epithelium 08/21/2022 1:31 PM [facility] Microscopic Description and Comment Microscopic [...] help clarify this differential. 08/21/2022 1:31 PM [facility] Clinical History 42 year old woman, status post hysterectomy and bilateral salpingo-oophorectomy (for unspecified reason), with long history of chronic pelvic pain and dyspareunia. She also has a history of endometriosis. Pelvic adhesions were noted on laparoscopy. 08/21/2022 1:31 PM [facility] Materials Received Received are ten slide(s) labeled [id number] (A, 5 levels; B, 5 levels) along with a copy of the outside pathology report. [place] [address]. All original materials are returned to the referring institution, along with a copy of our final report. 08/21/2022 1:31 PM [facility] Pathologist Location at [facility] 08/21/2022 1:31 PM [facility] Disclaimer The performance characteristics of all immunohistochemical and indirect immunofluorescence stains (if any) cited in this report were determined by the Histopathology Laboratory of [facility]. Some of these tests were developed by [...] attending (teaching) pathologist. 08/21/2022 1:31 PM CDT [facility] Embedded Images 08/21/2022 1:31 PM CDT [facility] Pathology/Cytology PERITONEAL BIOPSY SPECIMEN / Unknown 08/16/2022 10:51 AM CDT 08/21/2022 12:11 PM CDT Miscellaneous samples (specimen) PERITONEAL BIOPSY SPECIMEN / Unknown 08/16/2022 10:51 AM CDT 08/21/2022 12:37 PM CDT Srinivasan Marks MD LAB - PATHOLOGY/CYTO LOGY ORDERABLES Performing Organization Address [facility] Co de Phone Number [facility] [address] [phone] documented in this encounter Visit Diagnoses Diagnosis Illness, unspecified documented in this encounter Care Teams Guest Relations Executive Relationship Specialty Start Date End Date Daysi Wetzel MD [address] [place] [address] PCP - General Family Medicine 12/24/18 12/11/22 Miguel Langley DO [address] [place] [address] PCP - General Internal Medicine 12/12/22 Chris Madrigal MD [address] [place] [address] Hematology and Oncology 03/21/20 Rand Elkins LMSW Outpatient Paid Search Manager Care Management 12/17/22 documented as of this encounter
--- OUTSIDE RECORDS SUMMARY | 2024-05-03 08:32 | XMS_ITS | Referral Summary ---
Author Organization [facility] Address [address] [place] [address] Care Team Providers Care Back Panel Padder Name Role Phone Chris Madrigal MD Unavailable [phone] Miguel Langley DO Primary Care Provider [phone] Source Comments [facility],non-owned Affiliates and Associated Physician Practices is amultiple site organization consisting of ambulatory clinics and hospital sitesin [place], [place], [place] and [place]. This disclosure is being madepursuant to the Care Everywhere program and may not contain all information available regarding this patient. 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 04/07/2024 Travel 04/07/2024 Telephone [facility] - DATABASE DESIGN ANALYST [address] [place] [address] Sulaiman Andrews MD Reschedule Appointment 03/09/2024 Telephone [facility] - DATABASE DESIGN ANALYST [address] [place] [address] Sulaiman Andrews MD Appointment 03/02/2024 Telephone [facility] - DATABASE DESIGN ANALYST [address] [place] [address] Daysi Weinstein insurance representative Issue from Last 3 Months Allergies Active [...] Plan: This is being managed by her microfiche duplicator. Immunizations Name Administration Dates Next Due DTP, [...] Recorded Patient Health Questionnaire-2 Score 0 12/17/2022 [facility] of Occupat ional Health - Occupational [...] place to sleep or slept in a chcf (including now)? No 12/13/2022 Sex and Gender Information Value Date Recorded Sex Assigned at Not on file Gender Identity Not on file Sexual Orientation Not on file Last Filed Vital Signs Vital Sign Reading Time Taken Comments Blood Pressure 148/108 04/14/2024 2:53 PM NURSE ADVISOR Pulse 77 12/16/2022 12:00 PM CDT Temperature 36.7 ??C (98.1 ??F) 12/16/2022 1 2:00 PM CDT Respiratory Rate 16 12/16/2022 12:0 0 PM CDT Oxygen Saturation 100% 12/16/2022 12: 00 PM CDT Inhaled Oxygen Concentration - - Weight 90.2 kg (198 lb 12.8 oz) 04/14/2024 2:53 PM NURSE ADVISOR Height 154.9 cm (5' 1 ) 04/14/2024 2:53 PM NURSE ADVISOR Body Mass Index 37.56 04/14/2024 2:53 PM NURSE ADVISOR Functional Status Functional Status Response Date of [...] ANTIGEN (CA)125 BLOOD Routine 04/14/2024 3:14 PM NURSE ADVISOR Endosalpingosis RENAL FUNCTION PANEL AM Draw 12/15/2022 8:46 AM CDT Post-operative state from Last 3 Months or Most Recently Relevant to Health Maintenance Results * CANCER ANTIGEN (CA)125 BLOOD (04/14/2024 3:14 PM NURSE ADVISOR) Pathologist [facility] CA 125 13 <35 U/mL [facility] Comment: This test was performed using the Siemens Chemiluminescent method. Values obtained from different assay methods cannot be used interchangeably. CA 125 levels, regardless of value, should not be interpreted as absolute evidence of the presence or absence of disease. Test Performed at: [facility] [address] [place] [address] ??[id number] ENRRIQUE RICO MD Blood BLOOD SPECIMEN / Unknown 04/14/2024 3:14 PM NURSE ADVISOR 04/14/2024 3:14 PM NURSE ADVISOR [address] MAINTENANCE CREW WORKER-SHOE REPAIRER APPRENTICE LAB - CHEMISTRY ORDERABLES [facility] [address] [place] [address] * (ABNORMAL) RENAL FUNCTION PANEL (12/15/2022 8:46 [...] 18.7 mg/dL 12/15/2022 9:34 AM CDT [facility] Creatinine 0.77 0.57 - 1.11 mg/dL 12/15/2022 9:34 AM CDT [facility] Albumin 3.0(L) 3.4 - 5.0 gm/dL 12/15/2022 9:34 AM CDT [facility] Phosphorus 2.2(L) 2.3 - 4.7 mg/dL 12/15/2022 9:34 AM CDT [facility] eGFR by CKD-EPI >90 >=90 mL/min/1.7 3 m2 12/15/2022 9:34 AM CDT [facility] Blood BLOOD SPECIMEN / Unknown Lab Venipuncture / Unknown 12/15/2022 8:46 AM CDT 12/15/2022 9:10 AM CDT Sulaiman Andrews MD LAB - CHEMISTRY [facility] Organization Address City/State/[facility] Co de Phone Number [facility] [address] [place] [address] from Last 3 Months or Most Recently Relevant to Health Maintenance Care Teams Back Panel Padder Relationship Specialty Start Date End Date Miguel Lanlgey DO [address] [address] PCP - General Internal Medicine 12/12/22 Chris Madrigal MD Hematology and Oncology 03/21/20
--- OUTSIDE RECORDS SUMMARY | 2024-05-03 08:32 | XMS_ITS | Clinical Summary ---
Author Organization [facility] Address [address] [place] [address] Care Team Providers Care Global Logistics Analyst Name Role Phone Chris Madrigal MD Unavailable [phone] Miguel Langley DO Primary Care Provider [phone] Source Comments [facility],non-owned Affiliates and Associated Physician Practices is amultiple site organization consisting of ambulatory clinics and hospital sitesin [place], [place], [place] and [place]. This disclosure is being madepursuant to the Care Everywhere program and may not contain all information available regarding this patient. Last updated 17.[facility] Allergies Active Allergy Reactions Criticality Noted [...] Plan: This is being managed by her commercial account executive. 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 04/14/2024 Travel 04/07/2024 Travel 04/07/2024 Telephone [facility] - DEPUTY CHIEF EXECUTIVE [address] [place] [address] Sulaiman Andrews MD Reschedule Appointment 03/09/2024 Telephone [facility] - DEPUTY CHIEF EXECUTIVE [address] [place] [address] Sulaiman Andrews MD Appointment 03/02/2024 Telephone [facility] - DEPUTY CHIEF EXECUTIVE [address] [place] [address] Daysi Weinstein karate black belt Issue from Last 3 Months Immunizations Name [...] Recorded Patient Health Questionnaire-2 Score 0 12/17/2022 [facility] [place] of Occupat ional Health - Occupational Stress [...] Comments Blood Pressure 148/108 04/14/2024 2:53 PM SECTION SUPERVISOR Pulse 77 12/16/2022 12:00 PM CDT Temperature 36.7 ??C (98.1 ??F) 12/16/2022 1 2:00 PM CDT Respiratory Rate 16 12/16/2022 12:0 0 PM CDT Oxygen Saturation 100% 12/16/2022 12: 00 PM CDT Inhaled Oxygen Concentration - - Weight 90.2 kg (198 lb 12.8 oz) 04/14/2024 2:53 PM SECTION SUPERVISOR Height 154.9 cm (5' 1 ) 04/14/2024 2:53 PM SECTION SUPERVISOR Body Mass Index 37.56 04/14/2024 2:53 PM SECTION SUPERVISOR Plan of Treatment Health Maintenance Due Date [...] ANTIGEN (CA)125 BLOOD Routine 04/14/2024 3:14 PM SECTION SUPERVISOR Endosalpingosis RENAL FUNCTION PANEL AM Draw 12/15/2022 8:46 AM CDT Post-operative state from Last 3 Months or Most Recently Relevant to Health Maintenance Results * CANCER ANTIGEN (CA)125 BLOOD (04/14/2024 3:14 PM SECTION SUPERVISOR) CA 125 13 <35 U/mL [facility] Comment: This test was performed using the Siemens Chemiluminescent method. Values obtained from different assay methods cannot be used interchangeably. CA 125 levels, regardless of value, should not be interpreted as absolute evidence of the presence or absence of disease. Test Performed at: [facility] [address] ??[id number] ENRRIQUE RICO MD Blood BLOOD SPECIMEN / Unknown 04/14/2024 3:14 PM SECTION SUPERVISOR 04/14/2024 3:14 PM SECTION SUPERVISOR Areli [employer] ORNAMENT MAKER HAND-CONDUCTOR/BRAKEMAN LAB - CHEMISTRY ORDERABLES [facility] [address] [place] [address] * (ABNORMAL) RENAL FUNCTION PANEL (12/15/2022 8:46 [...] Organization Address City/State/ZIP Co de Phone Number [facility] [address] [place] [address] from Last 3 Months or Most Recently Relevant to Health Maintenance Care Teams Global Logistics Analyst Relationship Specialty Start Date End Date Miguel Langley DO [address] [place] [address] PCP - General Internal Medicine 12/12/22 Chris Madrigal MD Hematology and Oncology 03/21/20
--- OUTSIDE RECORDS SUMMARY | 2024-05-03 08:32 | XMS_ITS | Clinical Summary ---
Author Organization [facility] Address [address] [place] [address] Care Team Providers Care Boat Garnisher Name Role Phone Miguel Langley Primary Care Provider [phone] Allergies Active Allergy Reactions Criticality Noted Date [...] fluticasone propionate (FLONASE) 50 mcg/actuation nasal spray [place] 2 sprays every day by intranasal route. [...] 03/12/2017 Assessment & Plan (03/12/2017 11:57 AM HEALTH INFORMATION SPECIALIST): Patient demonstrates history and my physical findings [...] CDT): This is being managed by her bullet swaging machine operator. Surgical History Surgery Date Site/Laterality Comments PARTIAL [...] on file Legal Sex Female 9:03 AM HEALTH INFORMATION SPECIALIST Gender Identity Female 01/20/2024 3:06 PM CDT Sexual Orientation Not on file Obstetrics History Last Filed Vital Signs Vital Sign Reading Time Taken Comments Blood Pressure 128/84 09/13/2022 9:07 AM CDT Pulse 87 09/13/2022 9:07 AM CDT Temperature 36.4 ??C (97.5 ??F) 09/20/2018 3:06 AM CD T Respiratory Rate - - Oxygen Saturation 99% 05/10/2020 10:32 PM HEALTH INFORMATION SPECIALIST Inhaled Oxygen Concentration - - Weight 89.4 [...] ORDERABLES Final Result [facility] [place] [address] from Last 3 Months or Most Recently Relevant to Health Maintenance Insurance [facility] [id number] [place] [id number] [place] [address] Care Teams Boat Garnisher Relationship Specialty Start Date End Date Miguel Langley DO PCP - General Internal Medicine 07/03/22
--- OUTSIDE RECORDS SUMMARY | 2024-05-03 08:32 | XMS_ITS | Patient Health Summary ---
Author Organization [facility] Address [address] [place] [address] Care Team Providers Care Pull Tab Dealer Name Role Phone Chris Madrigal MD Unavailable [phone] Miguel Langley DO Primary Care Provider [phone] Note from [facility],non-owned Affiliates and Associated Physician Practices is amultiple site organization consisting of ambulatory clinics and hospital sitesin [place], [place], [place] and [place]. This disclosure is being madepursuant to the Care Everywhere program and may not contain all information available regarding this patient. Last updated 17.[facility] Allergies * Ciprofloxacin(Dizziness) -High Criticality * Clarithromycin(Palpitations) [...] Recorded Patient Health Questionnaire-2 Score 0 12/17/2022 [facility] [place] [facility] - Occupational Stress [...] place to sleep or slept in a usp (including now)? No 12/13/2022 Sex and Gender Information Value Date Recorded Sex Assigned at Not on file Gender Identity Not on file Sexual Orientation Not on file Last Filed Vital Signs Vital Sign Reading Time Taken Comments Blood Pressure 148/108 04/14/2024 2:53 PM LOAD BLOCKER Pulse 77 12/16/2022 12:00 PM CDT Temperature 36.7 ??C (98.1 ??F) 12/16/2022 1 2:00 PM CDT Respiratory Rate 16 12/16/2022 12:0 0 PM CDT Oxygen Saturation 100% 12/16/2022 12: 00 PM CDT Inhaled Oxygen Concentration - - Weight 90.2 kg (198 lb 12.8 oz) 04/14/2024 2:53 PM LOAD BLOCKER Height 154.9 cm (5' 1 ) 04/14/2024 2:53 PM LOAD BLOCKER Body Mass Index 37.56 04/14/2024 2:53 PM LOAD BLOCKER Procedures * CANCER ANTIGEN (CA)125 BLOOD(Performed 04/14/2024) [...] 12/12/2022) Performed for Diagnosis unknown * CYTOLOGY NON-PEARL CUTTER PANEL (STL)(Performed 12/12/2022) Performed for Diagnosis unknown * ENDOTRACHEAL TUBE NOTE(Performed 12/12/2022) * PERIPHERAL BLOCK(Performed 12/12/2022) * BLOOD TYPE VERIFICATION(Performed 12/12/2022) * CA EXPLORATORY OF ABDOMEN(Performed 12/12/2022) Performed for Diagnosis [...] TISSUE(Performed 08/16/2022) Performed for Illness, unspecified * CA LIVER ELASTOGRAPHY(Performed 06/23/2020) Performed for NAFLD (nonalcoholic [...] CANCER ANTIGEN (CA)125 BLOOD (04/14/2024 3:14 PM LOAD BLOCKER) Only the most recent of5 resultswithin the time period is included. Pathologist [facility] CA 125 13 <35 U/mL [facility] Comment: This test was performed using the Siemens Chemiluminescent method. Values obtained from different assay methods cannot be used interchangeably. CA 125 levels, regardless of value, should not be interpreted as absolute evidence of the presence or absence of disease. Test Performed at: [facility] [address] [facility], [place] ??[phone] ENRRIQUE RICO MD Blood BLOOD SPECIMEN / Unknown 04/14/2024 3:14 PM LOAD BLOCKER 04/14/2024 3:14 PM LOAD BLOCKER Areli De STILL OPERATOR WHISKEY-SUPERVISOR INDUSTRIAL GARMENT LAB - CHEMISTRY ORDERABLES Performing Organization Address City/State/[facility] Co de Phone Number [facility] [address] [place] [address] * (ABNORMAL) CBC WITH DIFFERENTIAL (12/25/2022) Only the most recent of11 resultswithin the time period is included. Pathologist [facility] White Blood Cell Count 12.6(H) 3.8 - [...] Comment: REPORT COMMENT: FASTING:NO Test Performed at: [facility] [place] [address] [place], [place] ??[phone] ENRRIQUE RICO MD Blood BLOOD SPECIMEN / Unknown 12/25/2022 12/25/2022 9:23 AM CDT Sulaiman Andrews MD LAB - HEMATOLOGY ORD ERABLES [facility] [address] [place] [address] * CARDIAC RHYTHM STRIP ORDER (12/17/2022 5:28 PM CDT) Narrative 12/17/2022 5:28 PM CDT Ordered by an unspecified provider. Scanned Document CARDIAC SERVICES ORD ERABLES * PREPARE (CROSSMATCH) RBC UNIT(S), 2 Units (12/16/2022 1:41 AM CDT) Only the most recent of2 resultswithin the time period is included. Unit Description AS1 LR PRBC [facility] Unit ABO O [facility] Unit Rh POS [facility] Product Number R02 [facility] Unit Donor # [id number] [facility] Unit Status released [facility] Product Code [id number] [facility] Blood Type Barcode 5100 [facility] Expiration Date S [facility] Unit Description AS1 LR PRBC [facility] Unit ABO O [facility] Unit Rh POS [facility] Product Number R02 [facility] Unit Donor # [id number] [facility] Unit Status transfused [facility] Product Code [id number] [facility] Blood Type Barcode 5100 [facility] Expiration Date S [facility] Blood Bank BLOOD SPECIMEN / Unknown 12/12/2022 12:49 PM CDT Sulaiman Andrews MD LAB - BLOOD BANK ORD ERABLES [facility] [address] [phone] * (ABNORMAL) RENAL FUNCTION PANEL (12/15/2022 8:46 AM CDT) Only the most recent of4 resultswithin the time period is included. Glucose 113(H) 70 - 105 mg/dL 12/15/2022 9:34 AM CDT [facility] Sodium 138 136 - 145 mmol/L 12/15/2022 9:34 AM CDT [facility] Potassium 3.9 3.5 - 5.1 mmol/L 12/15/2022 9:34 AM CDT [facility] Chloride 101 98 - 107 mmol/L 12/15/2022 9:34 AM CDT [facility] CO2 29 22 - 29 mmol/L 12/15/2022 9:34 AM CDT [facility] Calcium 8.5 8.4 - 10.4 mg/dL 12/15/2022 9:34 AM CDT [facility] Anion Gap 8 6 - 16 mmol/L 12/15/2022 9:34 AM CDT [facility] BUN 7 5.3 - 18.7 mg/dL 12/15/2022 9:34 AM CDT [facility] Creatinine 0.77 0.57 - 1.11 mg/dL 12/15/2022 9:34 AM CDT [facility] Albumin 3.0(L) 3.4 - 5.0 gm/dL 12/15/2022 9:34 AM T [facility] Phosphorus 2.2(L) 2.3 - 4.7 mg/dL 12/15/2022 9:34 AM T [facility] eGFR by CKD-EPI >90 >=90 mL/min/1.7 3 m2 12/15/2022 9:34 AM T [facility] Blood BLOOD SPECIMEN / Unknown Lab Venipuncture / Unknown 12/15/2022 8:46 AM CDT 12/15/2022 9:10 AM CDT Sulaiman Andrews MD LAB - CHEMISTRY ORDAnand CHAIDEZHELLEN Performing Organization Address City/[facility]/ZIP Co de Phone Number [facility] [address] [place] [address] * MAGNESIUM BLOOD (12/15/2022 8:46 AM CDT) Only the most recent of4 resultswithin the time period is included. Pathologist [facility] Magnesium 2.0 1.6 - 2.6 mg/dL 12/15/2022 9:34 AM CDT [facility] Blood BLOOD SPECIMEN / Unknown Lab Venipuncture / Unknown 12/15/2022 8:46 AM CDT 12/15/2022 9:10 AM CDT Sulaiman Andrews MD LAB - CHEMISTRY SUKI MCKEON Performing Organization Address [facility] Co de Phone Number [facility] [address] [place] [address] * (ABNORMAL) CBC W/O DIFFERENTIAL (12/13/2022 11:12 PM CDT) Only the most recent of2 resultswithin the time period is included. Pathologist [facility] WBC 14.3(H) 4.4 - 10.7 x10E9/L 12/13/2022 11:58 PM CDT [facility] RBC 3.37(L) 3.80 - 5.20 x10E12/L 12/13/2022 11:58 PM CDT [facility] Hemoglobin 9.5(L) 12.0 - 15.6 gm/dL 12/13/2022 11:58 PM CDT [facility] Hematocrit 30.2(L) 35.9 - 45.5 % 12/13/2022 11:58 PM CDT [facility] MCV 89.6 80.7 - 98.3 fl 12/13/2022 11:58 PM CDT [facility] MCH 28.2 26.7 - 34.0 pg 12/13/2022 11:58 PM CDT [facility] MCHC 31.5 30.8 - 35.9 gm/dL 12/13/2022 11:58 PM CDT [facility] Platelet Count 75(L) 153 - 416 x10E9/L 12/13/2022 11:58 PM CDT [facility] RDW-CV 13.9 12.1 - 14.9 % 12/13/2022 11:58 PM CDT [facility] Blood BLOOD SPECIMEN / Unknown Lab Venipuncture / Unknown 12/13/2022 11:12 PM CDT 12/13/2022 11:39 PM CDT Sulaiman Andrews MD LAB - HEMATOLOGY ORD ERABLES [facility] [address] [place] [address] * TRANSFUSE RED BLOOD CELL LEUKOREDUCED UNIT(S) (12/13/2022 6:51 PM CDT) Sulaiman Andrews MD NURSING - BLOOD PROD TRANSFUSION * TRANSFUSE RED BLOOD CELL LEUKOREDUCED UNIT(S) (12/13/2022 2:56 PM CDT) Sulaiman Andrews MD NURSING - BLOOD PROD TRANSFUSION * (ABNORMAL) COMPREHENSIVE METABOLIC PANEL (12/13/2022 11:43 AM CDT) Only the most recent of4 resultswithin the time period is included. [facility] Glucose 152(H) 70 - 105 mg/dL 12/13/2022 12:36 PM CDT [facility] Sodium 135(L) 136 - 145 mmol/L 12/13/2022 12:36 PM CDT [facility] Potassium 5.1 3.5 - 5.1 mmol/L 12/13/2022 12:36 PM CDT [facility] Chloride 105 98 - 107 mmol/L 12/13/2022 12:36 PM CDT [facility] CO2 18(L) 22 - 29 mmol/L 12/13/2022 12:36 PM CDT [facility] Calcium 7.7(L) 8.4 - 10.4 mg/dL 12/13/2022 12:36 PM CDT [facility] Anion Gap 12 6 - 16 mmol/L 12/13/2022 12:36 PM CDT [facility] BUN 15 5.3 - 18.7 mg/dL 12/13/2022 12:36 PM CDT [facility] Creatinine 1.11 0.57 - 1.11 mg/dL 12/13/2022 12:36 PM CDT [facility] Alkaline Phosphatase 37(L) 40 - 150 U/L 12/13/2022 12:36 PM CDT [facility] ALT 52 0 - 55 U/L 12/13/2022 12:36 PM CDT [facility] AST 54(H) 5 - 34 U/L 12/13/2022 12:36 PM CDT [facility] Protein Total 5.1(L) 6.4 - 8.3 gm/dL 12/13/2022 12:36 PM CDT [facility] Albumin 2.7(L) 3.4 - 5.0 gm/dL 12/13/2022 12:36 PM CDT [facility] Bilirubin Total 0.2 0.2 - 1.2 mg/dL 12/13/2022 12:36 PM T [facility] eGFR by CKD-EPI 63(L) >=90 mL/min/1.7 3 m2 12/13/2022 12:36 PM T [facility] Blood BLOOD SPECIMEN / Unknown Lab Venipuncture / Unknown 12/13/2022 11:43 AM CDT 12/13/2022 11:55 AM CDT Sulaiman Andrews MD LAB - CHEMISTRY ORDE [facility] Organization Address City/State/ZIP Co de Phone Number [facility] [address] [place] [address] * (ABNORMAL) COAGULATION PANEL W D-DIMER (12/13/2022 12:56 AM CDT) PT 15.2(H) 12.1 - 14.8 sec 12/13/2022 1:19 AM CDT [facility] INR 1.2(H) 0.9 - 1.1 12/13/2022 1:19 AM CDT [facility] PTT 26.8 23.0 - 38.4 sec 12/13/2022 1:19 AM CDT [facility] Fibrinogen 264 200 - 400 mg/dL 12/13/2022 1:19 AM CDT [facility] D-Dimer 0.69(H) 0.27 - 0.50 ug/mL FEU 12/13/2022 1:19 AM T [facility] Platelet Count 105(L) 153 - 416 x10E9/L 12/13/2022 1:19 AM [facility] Blood BLOOD SPECIMEN / Unknown Venipuncture / Unknown 12/13/2022 12:56 AM CDT 12/13/2022 1:03 AM CDT Narrative [facility] - 12/13/2022 1:19 AM CDT Conventional [...] - COAGULATION OR DERABLES Performing Organization Address City/State/[facility] Co de Phone Number [facility] [address] [phone] * PATHOLOGY TISSUE EXAM (STL) (12/12/2022 2:06 PM CDT) Case Report Surgical Pathology Report ? Case: [id number] ? Authorizing Provider: ??Sulaiman Andrews MD ?Collected: ? 12/12/2022 02:06 PM ? Ordering Location: ? [facility] ? Received: ?12/13/2022 07:30 AM ? Pathologist: ? Joanne Don MD ? Specimens: ?? A) - Tissue, Right IP Ligamanet and Right Pelvic Peritoneum ? B) - Tissue, Retroperitoneal Debride Left Heni-Pelvis ? C) - Tissue, left IP remnant, Round Ligmament, Pelvic Peritineum and subcutaneous ? tissue ? D) - Omentum ? 01/02/2023 2:57 PM CDT [facility] Final Diagnosis Peritoneum, right IP ligament [...] atypical endosalpingiosis (SEE COMMENT) 01/02/2023 2:57 PM [facility] Addendum 1 The patient's prior materials from [place], [place] ([id number], [id number], [id number], [id number], [id number]) were reviewed. These cases were previously reported by [facility] pathologists at [facility], and as such this addendum does not represent a formal consultation report. [facility] case [id number] has not yet been received for review. Focal areas of psammomatous calcifications with associated serous-type epithelium demonstrating very focal epithelial multilayering and/or tufting are seen in the serosa of the uterus ([id number], collected 10/30/12), on the surface of the right ovary ([id number], collected 01/12/18), and on the surface of the left ovary ([id number], collected 07/09/18). Additionally, few detached intraluminal psammoma bodies lined by bland epithelium are seen in the right Fallopian tube ([id number]). None of these foci are sufficient in quantity/quality to warrant outright classification as a serous neoplasm. The findings and differential diagnosis in the current case ([facility] case [id number], collected 12/12/22) and the peritoneal biopsy recently reviewed at [facility] ([facility] case [id number], [place] case [id number], collected 08/16/22) are unchanged. Continued clinical follow-up is recommended. Review of [facility] case [id number] will be documented upon receipt and review of the slides at [place], if they become available. 01/02/2023 2:57 PM [facility] Addendum electronically signed by Joanne Don [...] pelvic endometriosis, omentectomy. 01/02/2023 2:57 PM T [facility] Gross Description The requisition and specimen(s) are identified with the patient's name, Peggy Serrano. Received in formalin, specimen A, right IP ligament a+ right , is a 6 x 3 x 0.6 cm yellow-solano adipose tissue surfaced with with 3 cm guardado-solano to dark solano fibrocollagenous tissue. Multiple foci of dark solano areas are identified. Staff Internist Office Based Only sections shows yellow-solano to guardado-solano cut surface. [...] cut surface. No distinct mass is identified. Staff Internist Office Based Only sections are submitted in cassette C1-C5. Received in formalin, specimen D, omentum is a 8 x 4.5 x 1.8 cm yellow-solano omentum with focal area of cauterization and adhesion. Sectioning shows yellow-solano lobulated cut surface with no distinct lesion. Staff Internist Office Based Only sections are submitted as follows: D1-D2-area of adhesion L0-M9-wmmytbbkpqadsc sections /ME 01/02/2023 2:57 PM CDT [facility] [...] endosalpingiosis. Int J Gynecol Pathol (2019) PMID: [id number] Tonia TIWARI, Jaja BRASHER. Serous borderline tumors of the peritoneum. Am J Surg Pathol (1989) PMID: [id number] 01/02/2023 2:57 PM [facility] Pathologist Location at [facility] 01/02/2023 2:57 PM [facility] Disclaimer All histochemical and/or immunohistochemical results are interpreted with controls that demonstrate appropriate staining reactions before reporting results. Note on use of immunocytochemistry reagents: This test was developed and its performance characteristic determined by [facility], Department of Laboratory Medicine. It has not [...] interpreted with caution. 01/02/2023 2:57 PM T [facility] Embedded Images 01/02/2023 2:57 PM [facility] Pathology/Cytology TISSUE SPECIMEN / Unknown 12/12/2022 [...] - PATHOLOGY/CYTO LOGY ORDERABLES Performing Organization Address [facility]/State/[facility] Co de Phone Number [facility] [address] [phone] * CYTOLOGY NON-PEARL CUTTER PANEL (STL) (12/12/2022 1:59 PM CDT) Case Report Cytology Non Truck Headlight Assembler Report ? Case: [id number] ? Authorizing Provider: ??Sulaiman Andrews MD ?Collected: ? 12/12/2022 01:59 PM ? Ordering Location: ? [facility] ? Received: ?12/13/2022 09:35 AM ? Pathologist: ? Anthony Bates, ? MD ? Specimen: ?Pelvic Washings ? 12/16/2022 9:14 AM [facility] Final Diagnosis Pelvic washing: - Satisfactory for evaluation - Hemodilute - [place] mesothelium - No carcinoma identified 12/16/2022 9:14 AM [facility] Clinical History 42-year-old female with history of endometriosis, recurrent left lower quadrant pain, and psammoma body change in the posterior cul-de-sac, concerning for possible cancer. 12/16/2022 9:14 AM [facility] Gross Description 50 mL of red fluid is received. A Pap-stained ThinPrep slide and H&E-stained cell block sections are produced. GRW 12/16/2022 9:14 AM [facility] Microscopic Description In a Pap-stained ThinPrep slide as well as H&E-stained cell block sections, there are scattered mesothelial cells, present both individually and in sheets. No large cohesive aggregates of malignant-appearing epithelium are identified. 12/16/2022 9:14 AM [facility] Pathologist Location at [facility] 12/16/2022 9:14 AM [facility] Disclaimer All histochemical and/or immunohistochemical results are interpreted with controls that demonstrate appropriate staining reactions before reporting results. Note on use of immunocytochemistry reagents: This test was developed and its performance characteristic determined by [facility], Department of Laboratory Medicine. It has not [...] interpreted with caution. 12/16/2022 9:14 AM CDT [facility] Embedded Images 12/16/2022 9:14 AM CDT [facility] Pathology/Cytolo gy SPECIMEN OBTAINED BY PERITONEAL LAVAGE / Unknown 12/12/2022 1:59 PM CDT 12/13/2022 9:35 AM CDT Comment:Pre-op diagnosis: Diagnosis unknown [R69] Sulaiman Andrews MD LAB - PATHOLOGY/CYTO LOGY ORDERABLES Performing Organization Address [facility] de Phone Number [facility] [address] [place], [place] [id number] * ETT LINE PERFORMABLE (12/12/2022 1:41 PM CDT) Narrative Elia Douglas APRN-CRNA - 12/12/2022 1:41 PM CDT Elia Douglas APRN-CRNA ? 12/12/2022 ??1:41 PM Endotracheal Tube Placement: ? Patient Location: OR. Intubation Event Date/Time: ??12/12/2022 1:34 PM Procedure: intubation (35181). Procedure Section: ?? Sedation: IV sedation. Indications [...] O POS 12/12/2022 1:3 0 PM CDT [facility] Blood Bank BLOOD SPECIMEN / Unknown Venipuncture / Unknown 12/12/2022 12:48 PM CDT 12/12/2022 12:51 PM CDT Sulaiman Andrews MD LAB - BLOOD BANK ORD ERABLES [facility] [address] [phone] * TYPE + SCREEN PANEL (12/12/2022 12:31 PM CDT) ABO Rh O POS 12/12/2022 1:30 PM CDT [facility] Comment:History checked. Antibody Screen NEG 1:30 PM CDT [facility] Blood Bank BLOOD SPECIMEN / Unknown Venipuncture / Unknown 12/12/2022 12:31 PM CDT 12/12/2022 12:49 PM CDT Sulaiman Andrews MD LAB - BLOOD BANK ORD ERABLES [facility] [address] [place], [place] [address] [phone] * (ABNORMAL) SLIDE SCAN HEMATOLOGY (12/12/2022 12:31 PM CDT) Platelet Estimation Decreased (A) Normal, Adequate platelets 12/12/2022 1:24 PM CDT [facility] Blood BLOOD SPECIMEN / Unknown Venipuncture / Unknown 12/12/2022 12:31 PM CDT 12/12/2022 12:47 PM CDT Sulaiman Andrews MD LAB - HEMATOLOGY ORD SemasioBLES Performing Organization Address City/[facility]/ZIP Co de Phone Number [facility] [address] [place] [phone] * CT ABDOMEN PELVIS W CONTRAST (11/08/2022 [...] DATE/TIME OF EXAM: ??11/08/2022 1:07 PM, LOCATION ??[facility] INDICATION: D49.9: Neoplasm of unspecified behavior of [...] BONES: ??No destructive lesion identified Procedure Note mOer Marquez MD - 11/08/2022 PROCEDURE: CT ABDOMEN PELVIS W CONTRAST DATE/TIME OF EXAM: 11/08/2022 1:07 PM, LOCATION [facility] INDICATION: D49.9: Neoplasm of unspecified behavior of [...] Case Report Surgical Pathology Report ? Case: [id number] ? Authorizing Provider: ??Srinivasan Marks MD ?Collected: ? 08/16/2022 10:51 AM ? Ordering Location: ? [facility] ? Received: ?08/21/2022 12:11 PM ? Pathologist: ? Denise Carroll MD ? Specimens: ?? A) - Soft Tissue, cul-de-sac ? B) - Peritoneal Biopsy ? 08/21/2022 1:31 PM T [facility] Final Diagnosis Cul-de-sac, biopsy ([id number], A; 08/16/2022): - Scanty low grade serous epithelium without invasion, associated with abundant psammoma bodies (see microscopic description) Peritoneum, biopsy ([id number], B; 08/16/2022): - Psammoma body and hemosiderin - Negative for epithelium 08/21/2022 1:31 PM [facility] Microscopic Description and Comment [...] help clarify this differential. 08/21/2022 1:31 PM [facility] Clinical History 42 year old woman, status post hysterectomy and bilateral salpingo-oophorectomy (for unspecified reason), with long history of chronic pelvic pain and dyspareunia. She also has a history of endometriosis. Pelvic adhesions were noted on laparoscopy. 08/21/2022 1:31 PM [facility] Materials Received Received are ten slide(s) labeled [id number] (A, 5 levels; B, 5 levels) along with a copy of the outside pathology report. [place] [address]. All original materials are returned to the referring institution, along with a copy of our final report. 08/21/2022 1:31 PM [facility] Pathologist Location at [facility] 08/21/2022 1:31 PM [facility] Disclaimer The performance characteristics of all immunohistochemical and indirect immunofluorescence stains (if any) cited in this report were determined by the Histopathology Laboratory of [facility]. Some of these tests were developed by [...] the attending (teaching) pathologist. 08/21/2022 1:31 PM [facility] Embedded Images 08/21/2022 1:31 PM [facility] Pathology/Cytology PERITONEAL BIOPSY SPECIMEN / Unknown 08/16/2022 10:51 AM CDT 08/21/2022 12:11 PM CDT Miscellaneous samples (specimen) PERITONEAL BIOPSY SPECIMEN / Unknown 08/16/2022 10:51 AM CDT 08/21/2022 12:37 PM CDT Srinivasan Marks MD LAB - PATHOLOGY/CYTO LOGY ORDERABLES [facility] [address] [phone] * PROC FIBROSCAN (06/23/2020 11:13 AM CDT) [...] Technical Difficulty: None Ordering Provider: Radha Mckeon X RAY OPERATOR Phone Fax Fibroscan interpretation: I have personally [...] patients with nonalcoholic fatty liver disease. Gastroenterology 2019;156:2947-5466. Ramos WATSON, Jeri R, Vikas Aquino ML, [...] FIB4 score (Anil et al. Hep[employer] 2019;3:8310-9222) or NAFLD Fibrosis score (Georges et al. Clinical Gastroenterology and Hepatology 2019;17:0224-8833. from routine clinical data. 3. Liver stiffness [...] change as additional supporting data becomes available. [email or web address] Radha Mckeon STILL OPERATOR WHISKEY-SUPERVISOR INDUSTRIAL GARMENT PROCEDURE/M INOR SURGICAL ORDERABLES * US ABDOMEN [...] on 06/23/2020 12:19 PM . Radha Mckeon APRN-SUPERVISOR INDUSTRIAL GARMENT US ORDERABL ES * ADINA BLOOD SCREEN W/REFLEX TITER (04/04/2020 1:26 PM LOAD BLOCKER) ADINA Screen NEGATIVE NEGATIVE [facility] Comment: ADINA [...] AC-0: Negative International Consensus on ADINA Patterns (https://doi.org/10.1515/mkjk-2013-2142) For additional information, please refer to http://education.Global CIO.MessageBunker/faq/GJG938 (This link is being provided for informational/ educational purposes only.) ?? Test Performed at: [facility] [address] [place], [place] ??[address] [address] MOLINA DO,MPH Blood BLOOD SPECIMEN / Unknown 04/04/2020 1:26 PM LOAD BLOCKER 04/04/2020 1:27 PM LOAD BLOCKER Radha Mckeon APRN-SUPERVISOR INDUSTRIAL GARMENT LAB - CHEMI STRY ORDERABLES [facility] [address] [place] [address] * ALPHA FETOPROTEIN BLOOD TUMOR MARKER (04/04/2020 1:26 PM LOAD BLOCKER) [facility] Alpha-Fetoprotei n Tumor Marker 3.0 ng/mL [facility] [...] or absence of disease. Test Performed at: [facility] [address] [place], [place] ??[address] [address] MOLINA DO,MPH Blood BLOOD SPECIMEN / Unknown 04/04/2020 1:26 PM LOAD BLOCKER 04/04/2020 1:27 PM LOAD BLOCKER Radha Mckeon APRN-SUPERVISOR INDUSTRIAL GARMENT LAB - CHEMI STRY ORDERABLES Performing Organization Address City/State/[facility] Co de Phone Number [facility] [address] [place] [address] * PT-INR (04/04/2020 1:26 PM LOAD BLOCKER) [facility] INR 1.0 [facility] Comment: Reference Range ? 0.9-1.1 Moderate-intensity Warfarin Therapy 2.0-3.0 Higher-intensity Warfarin Therapy ?? 3.0-4.0 PT 10.2 9.0 - 11.5 sec [facility] Comment: For additional information, please refer to http://education.[employer]/faq/JWV244 (This link is being provided for informational/ educational purposes only.) Test Performed at: [facility] [address] [place], [place] ??[address] [address] MOLINA DO,MPH Blood BLOOD SPECIMEN / Unknown 04/04/2020 1:26 PM LOAD BLOCKER 04/04/2020 1:27 PM LOAD BLOCKER Radha Mckeon APRN-SUPERVISOR INDUSTRIAL GARMENT LAB - COAGU LATION ORDERABLES [facility] [address] [place] [address] * GGT (04/04/2020 1:26 PM LOAD BLOCKER) GGT 23 3 - 55 U/L [facility] Comment: Test Performed at: [facility] [place] [address] [place], [place] ??[address] [address] MOLINA DO,MPH Blood BLOOD SPECIMEN / Unknown 04/04/2020 1:26 PM LOAD BLOCKER 04/04/2020 1:27 PM LOAD BLOCKER Radha Mckeon STILL OPERATOR WHISKEY-SUPERVISOR INDUSTRIAL GARMENT LAB - CHEMI STRY ORDERABLES Performing Organization Address [facility] Co de Phone Number [facility] [address] [place] [address] * CULTURE STREP GROUP A (08/19/2013 10:21 AM CDT) Pathologist [facility] Culture Beta Strep No Growth of Groups A, C or G Beta Streptococc us. [facility] Throat swab (specimen) ENTIRE THROAT (SURFACE REGION OF NECK) / Unknown 08/19/2013 10:21 AM CDT 08/19/2013 9:40 PM CDT Narrative [facility] - 08/21/2013 2:38 PM CDT AndersonSpecimen#[id number] Liam Loc/Rm/Bed: EXPCARE C// Historical Provider LAB - MICROBIOLOG Y ORDERABLES Performing Organization Address City/[facility]/ZIP Co de Phone Number [facility] [address] [place] [address] Care Teams Pull Tab Dealer Relationship Specialty Start Date End Date Miguel Langley DO [address] [place] [address] PCP - General Internal Medicine 12/12/22 Chris Madrigal MD Hematology and Oncology 03/21/20
--- OUTSIDE RECORDS SUMMARY | 2024-05-03 08:32 | XMS_ITS | Encounter Summary ---
Author Organization [facility] Address [address] [place] [address] Care Team Providers Care Assembler Name Role Phone Daysi Wetzel MD Primary Care Provider [phone] Chris Madrigal MD Unavailable [phone] Miguel Langley DO Primary Care Provider [phone] Rand Elkins [facility] Unavailable [phone] Reason for Visit * Reason Onset Date Comments Nurse Only 11/26/2022 Surgery Scheduling 11/26/2022 Encounter Details Date Type Department Care Team (Late st Contact Info) Description 11/26/2022 Telephone [facility] - Centralized Scheduling [address] [place] [address] Sulaiman Andrews MD [address] [address] Nurse Only; Surgery Scheduling Social History Tobacco [...] 3:13 PM CDT Pt seen her other DIRECTOR [employer]UR[employer] Dr.James Duran in [place], Dr. Andrews told her to call office [...] on filedocumented in this encounter Care Teams Assembler Relationship Specialty Start Date End Date Daysi Wetzel MD [address] [place] [address] PCP - General Family Medicine 12/24/18 12/11/22 Miguel Langley DO [address] [place] [address] PCP - General Internal Medicine 12/12/22 Chris Madrigal MD [address] [place] [phone] Hematology and Oncology 03/21/20 Rand Elkins LMSW Outpatient Molding Line Assistant Care Management 12/17/22 documented as of this encounter
== END 2024-05-03 08:22 | disposition home or self-care (01) ==
LOC: ANHIMG 08:24
PROVIDERS: PCP Nurse Practitioner Family; Visit Provider Obstetrics & Gynecology
DX: Z12.31 Encounter for screening mammogram for malignant neoplasm of breast (principal)
CPT/HCPCS: 77063; 77067

== ENCOUNTER 2024-06-02 13:23 | Outpatient (CLI) | payer OTHER, SELFPAY ==
[2024-06-02 13:53] LABS: Immature Platelet Fraction Pct 48.3 % (0.9-11.2); Platelet Count Result 45 k/mm3 (150-375)
--- OUTSIDE RECORDS SUMMARY | 2024-06-02 14:50 | XMS_ITS | Clinical Summary ---
Author Organization [facility] Address [facility]ly [facility] [place] [address] Care Team Providers Care Utilization Review Nurse Name Role Phone Miguel Langley Primary Care Provider [phone] Allergies Active Allergy Reactions Criticality Noted Date [...] 74 10/19/2023 1:44 PM CDT Temperature 36.5 C (97.7 F) 10/19/2023 12:56 PM CDT Respiratory Rate 20 10/19/2023 12:56 PM CDT [...] patient's age to complete this topic Insurance [place] [employer] Care Teams Utilization Review Nurse Relationship Specialty Start Date End Date Miguel Langley DO [address] [place] [address] PCP - General INTERNAL MEDICINE 08/08/21
--- OUTSIDE RECORDS SUMMARY | 2024-06-02 14:50 | XMS_ITS | Clinical Summary ---
Author Organization [facility] Address [address] [facility] [place] [address] Care Team Providers Care Reel Operator Name Role Phone Chris Madrigal MD Unavailable [phone] Miguel Langley DO Primary Care Provider [phone] Source Comments [facility],non-owned Affiliates and Associated Physician Practices is amultiple site organization consisting of ambulatory clinics and hospital sitesin [place], [place], [place] and [place]. This disclosure is being madepursuant to the Care Everywhere program and may not contain all information available regarding this patient. Last updated 17.[facility] Allergies Active Allergy Reactions Criticality Noted Date [...] tablet by mouth once daily as needed 08/17/2018 Active omeprazole (PRILOSEC) 40 MG capsule Take 1 (one) capsule by mouth daily before breakfast Active Multiple Vitamins-Minerals (ALIVE WOMENS GUMMY PO) Take by mouth once daily Active ferrous sulfate 325 (65 FE) MG tablet Take 1 (one) tablet by mouth 2 times daily with morning and evening meal 100 tablet 1 12/16/2022 Active naloxone HCl (Narcan) 4 MG/0.1ML nasal spray CALL 911. ADMINISTER A SINGLE SPRAY INTRANASALLY INTO ONE NOSTRIL UPON SIGNS OF OPIOID OVERDOSE. MAY REPEAT AFTER 3 MINUTES IF NO RESPONSE. 01/22/2023 Active estradiol (Estrace) 1 MG tabletIndications: Hypoestrogenism Take 1 (one) tablet by mouth once daily 90 tablet 4 04/02/2023 Active azithromycin (Zithromax) 250 MG tablet TAKE 1 TABLET BY MOUTH DAILY FOR 3 MONTHS 06/23/2023 Active ondansetron (Zofran) 4 MG tablet Take 1 (one) tablet by mouth every 6 hours as needed Active vibegron (Gemtesa) 75 MG tablet Take 1 (one) tablet by mouth once daily Active valACYclovir (Valtrex) 500 MG tablet Take 1 (one) tablet by mouth 2 times daily Active ibuprofen (Motrin) 600 MG tabletIndications: Psammocarcinoma of ovary (HCC) Take 1 (one) tablet by mouth every 6 hours as needed 90 tablet 1 10/07/2023 Active albuterol HFA (Proventil; Ventolin; Proair) 108 (90 Base) MCG/ACT inhaler INHALE 2 PUFFS BY MOUTH EVERY 4 TO 6 HOURS NEEDED FOR SHORTNESS OF BREATH OR WHEEZING 01/06/2024 Active busPIRone (Buspar) 5 MG tablet Take 1 (one) tablet by mouth 3 times daily Active fluticasone propionate (Flonase) 50 MCG/ACT nasal spray SHAKE LIQUID AND USE 2 SPRAYS IN EACH NOSTRIL DAILY 09/12/2023 Active venlafaxine XR 24hr (Effexor XR) 37.5 MG capsule Take 1 (one) capsule by mouth once daily Active Active Problems Problem Noted Date Diagnosed [...] Plan: This is being managed by her transportation clerk. 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 04/14/2024 Travel 04/07/2024 Travel 04/07/2024 Telephone [facility] - SYSTEM DEVELOPER ASSOCIATE MANAGER [address] [place] [phone] Sulaiman Andrews MD Reschedule Appointment 03/09/2024 Telephone [facility] - SYSTEM DEVELOPER ASSOCIATE MANAGER [address] [place] [phone] Sulaiman Andrews MD Appointment from Last 3 Months Immunizations Name Administration [...] Recorded Patient Health Questionnaire-2 Score 0 12/17/2022 [facility] - Occupational [...] to sleep or slept in a senior living (including now)? No 12/13/2022 Sex and Gender Information Value Date Recorded Sex Assigned at Not on file Gender Identity Not on file Sexual Orientation Not on file Last Filed Vital Signs Vital Sign Reading Time Taken Comments Blood Pressure 148/108 04/14/2024 2:53 PM CHILDCARE CENTER ADMINISTRATOR Pulse 77 12/16/2022 12:00 PM CDT Temperature 36.7 C (98.1 F) 12/16/2022 12:00 PM CDT Respiratory Rate 16 12/16/2022 12:0 0 PM CDT Oxygen Saturation 100% 12/16/2022 12: 00 PM CDT Inhaled Oxygen Concentration - - Weight 90.2 kg (198 lb 12.8 oz) 04/14/2024 2:53 PM CHILDCARE CENTER ADMINISTRATOR Height 154.9 cm (5' 1 ) 04/14/2024 2:53 PM CHILDCARE CENTER ADMINISTRATOR Body Mass Index 37.56 04/14/2024 2:53 PM CHILDCARE CENTER ADMINISTRATOR Plan of Treatment Health Maintenance Due Date [...] 10/22/1984, 10/22/1984, Additional history exists COVID-19 VACCINE (2 - season) 2023 03/04/2021 INFLUENZA VACCINE (#1) 2023 DEPRESSION SCREENING 03/31/2024 01/22/2023, 01/22/2023, 12/25/2022, Additional history exists SCREENING FOR DIABETES 12/15/2025 3, 12/14/2022, 12/13/2022, Additional history exists ZOSTER VACCINE [...] General On track( 021 11:43 AM CDT) Sahra Herrera, RN Note: Expected end date: Ongoing Interventions: Take all medications as prescribed Let your doctor know right away about any changes in your medications Make sure to request a refill of your medication at least one week prior to your last dose Procedures Procedure Name Priority Date/Time Associated Diagnosis Comments CANCER ANTIGEN (CA)125 BLOOD Routine 04/14/2024 3:14 PM CHILDCARE CENTER ADMINISTRATOR Endosalpingosis RENAL FUNCTION PANEL AM Draw 12/15/2022 8:46 AM CDT Post-operative state from Last 3 Months or Most Recently Relevant to Health Maintenance Results * CANCER ANTIGEN (CA)125 BLOOD (04/14/2024 3:14 PM CHILDCARE CENTER ADMINISTRATOR) Pathologist [facility] CA 125 13 <35 U/mL [facility] Comment: This test was performed using the Siemens Chemiluminescent method. Values obtained from different assay methods cannot be used interchangeably. CA 125 levels, regardless of value, should not be interpreted as absolute evidence of the presence or absence of disease. Test Performed at: [facility] [address] [place] [address] ENRRIQUE RICO MD Blood BLOOD SPECIMEN / Unknown 04/14/2024 3:14 PM CHILDCARE CENTER ADMINISTRATOR 04/14/2024 3:14 PM CHILDCARE CENTER ADMINISTRATOR Areli De SHAREPOINT SPECIALIST-SALES APPOINTMENT COORDINATOR LAB - CHEMISTRY ORDERABLES [facility] [address] [place] [address] * (ABNORMAL) RENAL FUNCTION PANEL (12/15/2022 8:46 AM CDT) Pathologist [facility] Glucose 113(H) 70 - 105 mg/dL 12/15/2022 9:34 AM CDT [facility] Sodium 138 136 - 145 mmol/L 12/15/2022 9:34 AM CDT [facility] Potassium 3.9 3.5 - 5.1 mmol/L 12/15/2022 9:34 AM CDT [facility] Chloride 101 98 - 107 mmol/L 12/15/2022 9:34 AM CDT [facility] CO2 29 22 - 29 mmol/L 12/15/2022 9:34 AM CDT [facility] Calcium 8.5 8.4 - 10.4 mg/dL 12/15/2022 9:34 AM CDT [facility] Anion Gap 8 6 - 16 mmol/L 12/15/2022 9:34 AM CDT [facility] BUN 7 5.3 - 18.7 mg/dL 12/15/2022 9:34 AM CDT [facility] Creatinine 0.77 0.57 - 1.11 mg/dL 12/15/2022 9:34 AM CDT [facility] Albumin 3.0(L) 3.4 - 5.0 gm/dL 12/15/2022 9:34 AM CDT [facility] Phosphorus 2.2(L) 2.3 - 4.7 mg/dL 12/15/2022 9:34 AM CDT [facility] eGFR by CKD-EPI >90 >=90 mL/min/1.7 3 m2 12/15/2022 9:34 AM CDT [facility] Blood BLOOD SPECIMEN / Unknown Lab Venipuncture / Unknown 12/15/2022 8:46 AM CDT 12/15/2022 9:10 AM CDT Sulaiman Andrews MD LAB - CHEMISTRY [facility] Organization Address City/State/[facility] Co de Phone Number [facility] [address] [place] [address] from Last 3 Months or Most Recently Relevant to Health Maintenance Care Teams Reel Operator Relationship Specialty Start Date End Date Miguel Langley DO [address] [address] PCP - General Internal Medicine 12/12/22 Chris Madrigal MD Hematology and Oncology 03/21/20
--- OUTSIDE RECORDS SUMMARY | 2024-06-02 14:50 | XMS_ITS | Encounter Summary ---
Author Organization [facility] Address [address] [place] [address] Phone Care Team Providers Care Ambulance Attendant Name Role Phone Daysi Wetzel MD Primary Care Provider [phone] Encounter Details Date Type Department Care Team (Late st Contact Info) Description 08/04/2019 Telephone [facility] [address] [place] [address] Chris Madrigal MD [address] [place] [address] Social History Tobacco Use Types Packs/Day Years Used Date Smoking Tobacco: Some Days Cigarettes 0.3 10.7 Started: 09/28/2013 Smokeless Tobacco: Never Alcohol Use Standard Drinks/Week Comments Yes 2 (1 standard drink = 0.6 oz pur e alcohol) occasionally PHQ-2 Answer Date Recorded PHQ-2 Score 0 12/04/2018 Sexually Active Control Partners Comments Yes Male Comments Unknown Sex and Gender Information Value Date Recorded Sex Assigned at Not on file Legal Sex Female 4:44 PM FINISHED HARDWARE ERECTOR Gender Identity Not on file Sexual Orientation Not on file documented as of this encounter Plan of Treatment Not on file documented as of this encounter Visit Diagnoses Not on filedocumented in this encounter Additional Health Concerns Assessment Noted Time PHQ-9 Depression Total Score: 0 04/07/19 20 8:31 AM FINISHED HARDWARE ERECTOR documented as of this encounter Care Teams Ambulance Attendant Relationship Specialty Start Date End Date Daysi Wetzel MD PCP - General Emergency Medicine 09/15/18 01/26/23 documented as of this encounter
--- OUTSIDE RECORDS SUMMARY | 2024-06-02 14:50 | XMS_ITS | Encounter Summary ---
Author Organization [facility] Address [address] [place] [address] Care Team Providers Care Manager Spring Name Role Phone Mello Kaba MD Primary Care Provider [phone] Encounter Details Date Type Department Care Team (Late st Contact Info) Description 06/01/2024 External Device Data STL ABSTRACTION Provider, Abstract [...] Care Team (Late st Contact Info) Description 09/07/2024 3:30 PM CDT Office Visit [facility] Oncology and Hematology - Liam [address] [facility] [address] [place] [address] Reyes Chiang MD [address] [facility] [address] [place] [address] documented as of this encounter Visit Diagnoses Not on filedocumented in this encounter Care Teams Manager Spring Relationship Specialty Start Date End Date Mello Kaba MD PCP - General Family Practice 09/02/22 documented as of this encounter
--- OUTSIDE RECORDS SUMMARY | 2024-06-02 14:50 | XMS_ITS | Clinical Summary ---
Author Organization [facility] Address [address] [place] [address] Phone Care Team Providers Care Boiling Tub Operator Name Role Phone Unavailable Primary Care Provider [...] 0.3 10.7 Started: 09/28/2013 Smokeless Tobacco: Never Tobacco Cessation:Ready [...] on file Legal Sex Female 4:44 PM INFORMATION SYSTEMS TECHNICIAN Gender Identity Not on file Sexual Orientation Not on file Last Filed Vital Signs Vital Sign Reading Time Taken Comments Blood Pressure 110/80 05/12/2019 11:12 AM INFORMATION SYSTEMS TECHNICIAN Pulse 64 05/12/2019 11:12 AM INFORMATION SYSTEMS TECHNICIAN Temperature 36.4 C (97.5 F) 05/12/2019 11:12 AM INFORMATION SYSTEMS TECHNICIAN Respiratory Rate 18 05/12/2019 11:12 AM INFORMATION SYSTEMS TECHNICIAN Oxygen Saturation 98% 05/12/2019 11:12 AM INFORMATION SYSTEMS TECHNICIAN Inhaled Oxygen Concentration - - Weight 83 kg (183 lb) 05/12/2019 11:12 AM INFORMATION SYSTEMS TECHNICIAN Height 157.5 cm (5' 2 ) 05/12/2019 11:12 AM INFORMATION SYSTEMS TECHNICIAN Body Mass Index 33.47 05/12/2019 11:12 AM INFORMATION SYSTEMS TECHNICIAN Plan of Treatment Health Maintenance Due Date [...] AB <0.1 0.0 - 0.9 S/CO RATIO [facility] COMMENT: COMMENT [facility] Comment: NON REACTIVE HCV ANTIBODY SCREEN IS CONSISTENT WITH NO HCV INFECTION, UNLESS RECENT INFECTION IS SUSPECTED OR OTHER EVIDENCE EXISTS TO INDICATE HCV INFECTION. Blood specimen (specimen) 09/28/2018 1:06 PM CDT Narrative [facility] - 09/29/2018 5:08 AM CDT TESTING PERFORMED AT: [] [address], [address], PHONE: [phone], RIBBING MACHINE OPERATOR: CELESTINA BUCIO, PHD Chris Madrigal MD CHEMISTRY ORDERABLES Final Result Performing Organization Address City/State/[facility] Co de Phone Number [facility] from Last 3 Months or Most Recently Relevant to Health Maintenance Insurance MEDICAID [place]
--- OUTSIDE RECORDS SUMMARY | 2024-06-02 14:50 | XMS_ITS | Encounter Summary ---
Author Organization [facility] Address [address] [place] [address] Care Team Providers Care Machine Tool Technology Instructor Name Role Phone Chris Madrigal MD Unavailable [phone] Miguel Langley DO Primary Care Provider [phone] Rand Elkins [facility] Unavailable [phone] Reason for Visit * Reason Onset Date Comments Question 12/27/2022 Returned Call 12/27/2022 Encounter Details Date Type Department Care Team (Late st Contact Info) Description 12/27/2022 Telephone [facility] - HELICOPTER UTILITY AIRCREWMAN [address] [facility] [address] [place] [address] Sulaiman Andrews MD [address] [facility] [address] [place] [address] Question; Returned Call Social History [...] Recorded Patient Health Questionnaire-2 Score 0 12/17/2022 [facility] Occupat ional [facility] - Occupational Stress Questionnaire Answer Date [...] place to sleep or slept in a long term (including now)? No 12/13/2022 Sex and Gender [...] 11:57 AM CDT Spoke with Cynthia from [facility] pathology department returning her call. She reports that all six sets of slides have already been reviewed by [facility] Pathology and they cannot send the slides to be reviewed by them again since Dr. Joanne Don is a part of [facility] Pathology. Told her we only had one report from [facility] of the 6 requested and she says she will fax the other five today. * Telephone Encounter - Sujey Hannah - 12/27/2022 9:30 AM CDT Cynthia form [facility] wanst to know Will slides be forwarded to the pathology dept ? (this can not happen) Please contact # [phone] documented in this encounter Plan of Treatment [...] on filedocumented in this encounter Care Teams Machine Tool Technology Instructor Relationship Specialty Start Date End Date Miguel Langley DO [address] [place] [address] PCP - General Internal Medicine 12/12/22 Chris Madrigal MD Hematology and Oncology 03/21/20 Rand Elkins LMSW Outpatient Tester Compressed Gases Care Management 12/17/22 documented as of this encounter
--- OUTSIDE RECORDS SUMMARY | 2024-06-02 14:50 | XMS_ITS | Encounter Summary ---
Author Organization [facility] Address [address] [facility] [place] [address] Care Team Providers Care Soccer Coach Name Role Phone Daysi Wetzel MD Primary Care Provider Chris Madrigal MD Unavailable [phone] Miguel Langley DO Primary Care Provider [phone] Rand Elkins [facility] Unavailable [phone] Encounter Details Date Type Department Care Team (Late st Contact Info) Description 02/12/2019 Telephone [facility] [address] [place] [address] Ashely Baker Social History Tobacco [...] on filedocumented in this encounter Care Teams Soccer Coach Relationship Specialty Start Date End Date Daysi Wetzel MD [address] [place] [address] PCP - General Family Medicine 12/24/18 12/11/22 Miguel Langley DO [address] [place] [address] PCP - General Internal Medicine 12/12/22 Chris Madrigal MD [address] [place] [phone] Hematology and Oncology 03/21/20 Rand Elkins LMSW Outpatient Rehabilitation Counselor Care Management 12/17/22 documented as of this encounter
--- OUTSIDE RECORDS SUMMARY | 2024-06-02 14:50 | XMS_ITS | Clinical Summary ---
Author Organization [facility] Dimitris Bejarano Address [address] [place] [address] Care Team Providers Care Geothermal Installer Name Role Phone Mello Kaba MD Primary Care Provider [phone] Allergies Active Allergy Reactions Criticality Noted Date [...] 2 mg by mouth daily. 0 Active [id number] lic [id number] (Alive Women's Gummy Vitamin) 200 mcg- 37.5 [...] Encounters Date Type Department Care Team Description 06/01/2024 External Device Data STL ABSTRACTION Provider, Abstract 05/18/2024 External Device Data STL ABSTRACTION Provider, Abstract 05/05/2024 2:30 PM COMPACTOR DRIVER Office Visit [facility] Oncology and Hematology [facility] [address] [place] [phone] Reyes Chiang MD Chronic anemia (Primary Dx) 05/05/2024 Telephone [facility] Oncology and Hematology [facility] [address] [place] [address] Reyes Chiang MD Appointment Correction (LVM w/ updated patient about Follow Up appt w/ Dr. Chiang) 04/27/2024 External Device Data STL ABSTRACTION Provider, Abstract 04/27/2024 External Device Data STL ABSTRACTION Provider, Abstract 04/21/2024 External Device Data STL ABSTRACTION Provider, Abstract 04/20/2024 External Device Data STL ABSTRACTION Provider, Abstract 03/05/2024 Telephone [facility] Oncology and Hematology [facility] [address] [place] [address] Reyes Chiang MD Surgery Questions from Last 3 Months Family History Medical [...] Sign Reading Time Taken Comments Blood Pressure 117/79 05/05/2024 2:37 PM COMPACTOR DRIVER Pulse 70 05/05/2024 2:37 PM COMPACTOR DRIVER Temperature 36.1 C (97 F) 05/05/2024 2:37 PM COMPACTOR DRIVER Respiratory Rate 18 05/05/2024 2:37 PM COMPACTOR DRIVER Oxygen Saturation 98% 05/05/2024 2:37 PM COMPACTOR DRIVER Inhaled Oxygen Concentration - - Weight 91.2 kg (201 lb) 05/05/2024 2:37 PM COMPACTOR DRIVER Height 157.5 cm (5' 2 ) 10/12/2021 8:27 AM CDT Body Mass Index 36.76 10/12/2021 8:27 AM CDT Plan of Treatment Upcoming Encounters Date Type Department Care Team (Late st Contact Info) Description 09/07/2024 3:30 PM CDT Office Visit [facility] Oncology and Hematology - [place] [address] [place] [phone] Reyes Chiang MD [address] [place] [address] Health Maintenance Due Date Last Done Comments Pre-Diabetes and Diabetes Screening 1978 DTAP/TDAP/TD VACCINES (6 - Tdap) 1989 10/22/1984, 12/18/1983, 05/20/1980, Additional history exists HEPATITIS B VACCINES (1 of 3 - 19+ 3-dose series) 1997 Preventative Visit-Managed Medicaid 1997 CERVICAL CANCER SCREENING 2008 BREAST CANCER SCREENING 2018 COLORECTAL SCREENING 2023 Colorectal Cancer Screening 2023 FIT-DNA Q 3 years 2023 FIT/FOBT Q 1 year 2023 Flex Sig/CT Colonography Q 5 years 2023 INFLUENZA VACCINE (#1) 2023 HPV VACCINES Aged Out No longer eligi ble based on patient's age to complete this topic Insurance [place] Care Teams Geothermal Installer Relationship Specialty Start Date End Date Mello Kaba MD PCP - General Family Practice 09/02/22
--- OUTSIDE RECORDS SUMMARY | 2024-06-02 14:50 | XMS_ITS | Referral Summary ---
Author Organization [facility] Address [address] [place] [address] Care Team Providers Care Veterinarian Helper Name Role Phone Chris Madrigal MD Unavailable [phone] Miguel Langley DO Primary Care Provider [phone] Source Comments [facility],non-owned Affiliates and Associated Physician Practices is amultiple site organization consisting of ambulatory clinics and hospital sitesin [place], [place], [place] and [place]. This disclosure is being madepursuant to the Care Everywhere program and may not contain all information available regarding this patient. 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 Immunizations Name Administration Dates Next Due DTP, [...] Recorded Patient Health Questionnaire-2 Score 0 12/17/2022 [facility] - [...] place to sleep or slept in a custodial (including now)? No 12/13/2022 Sex and Gender Information Value Date Recorded Sex Assigned at Not on file Gender Identity Not on file Sexual Orientation Not on file Last Filed Vital Signs Vital Sign Reading Time Taken Comments Blood Pressure 148/108 04/14/2024 2:53 PM HUMAN RESOURCES TRAINING MANAGER Pulse 77 12/16/2022 12:00 PM CDT Temperature 36.7 C (98.1 F) 12/16/2022 12:00 PM CDT Respiratory Rate 16 12/16/2022 12:0 0 PM CDT Oxygen Saturation 100% 12/16/2022 12: 00 PM CDT Inhaled Oxygen Concentration - - Weight 90.2 kg (198 lb 12.8 oz) 04/14/2024 2:53 PM HUMAN RESOURCES TRAINING MANAGER Height 154.9 cm (5' 1 ) 04/14/2024 2:53 PM HUMAN RESOURCES TRAINING MANAGER Body Mass Index 37.56 04/14/2024 2:53 PM HUMAN RESOURCES TRAINING MANAGER Functional Status Functional Status Response Date of [...] ANTIGEN (CA)125 BLOOD Routine 04/14/2024 3:14 PM HUMAN RESOURCES TRAINING MANAGER Endosalpingosis RENAL FUNCTION PANEL AM Draw 12/15/2022 8:46 AM CDT Post-operative state from Last 3 Months or Most Recently Relevant to Health Maintenance Results * CANCER ANTIGEN (CA)125 BLOOD (04/14/2024 3:14 PM HUMAN RESOURCES TRAINING MANAGER) CA 125 13 <35 U/mL [facility] Comment: This test was performed using the Siemens Chemiluminescent method. Values obtained from different assay methods cannot be used interchangeably. CA 125 levels, regardless of value, should not be interpreted as absolute evidence of the presence or absence of disease. Test Performed at: [facility] [address] [facility] [place] [address] ENRRIQUE RICO MD Blood BLOOD SPECIMEN / Unknown 04/14/2024 3:14 PM HUMAN RESOURCES TRAINING MANAGER 04/14/2024 3:14 PM HUMAN RESOURCES TRAINING MANAGER Areli Riveroder FITNESS TECHNICIAN-FARM REPORTER LAB - CHEMISTRY ORDERABLES [facility] [address] [place] [address] * (ABNORMAL) RENAL FUNCTION PANEL (12/15/2022 8:46 [...] Andrews MD LAB - CHEMISTRY [facility] Organization Address City/State/ZIP Co de Phone Number [facility] [address] [place] [address] from Last 3 Months or Most Recently Relevant to Health Maintenance Care Teams Veterinarian Helper Relationship Specialty Start Date End Date Miguel Langley DO [address] [place] [address] PCP - General Internal Medicine 12/12/22 Chris Madrigal MD Hematology and Oncology 03/21/20
--- OUTSIDE RECORDS SUMMARY | 2024-06-02 14:50 | XMS_ITS | Referral Summary ---
Author Organization [facility] Address [address] [place] [address] Care Team Providers Care Ground Operations Crew Member Name Role Phone Miguel Langley Primary Care Provider Allergies Active Allergy Reactions Criticality Noted Date [...] fluticasone propionate (FLONASE) 50 mcg/actuation nasal spray [place] 2 sprays every day by intranasal route. [...] 03/12/2017 Assessment & Plan (03/12/2017 11:57 AM SONG PLUGGER): Patient demonstrates history and my physical findings [...] both inferior nasal turbinates Disorder involving thrombocytopenia 06/22/2015 Overview (07/04/2016): Thrombocytopenia Assessment & Plan (09/09/2016 8:57 AM CDT): This is being managed by her cath lab. Social History Tobacco Use Types Packs/Day Years [...] on file Legal Sex Female 9:03 AM SONG PLUGGER Gender Identity Female 01/20/2024 3:06 PM CDT Sexual Orientation Not on file Last Filed Vital Signs Vital Sign Reading Time Taken Comments Blood Pressure 128/84 09/13/2022 9:07 AM CDT Pulse 87 09/13/2022 9:07 AM CDT Temperature 36.4 C (97.5 F) 09/20/2018 3:06 AM CDT Respiratory Rate - - Oxygen Saturation 99% 05/10/2020 10:32 PM SONG PLUGGER Inhaled Oxygen Concentration - - Weight 89.4 [...] ORDERABLES Final Result [facility] ([facility] [address] [facility] Department [place] [address] from Last 3 Months or Most Recently Relevant to Health Maintenance Insurance [id number] [place] [address] [facility] [place] [facility] Care Teams Ground Operations Crew Member Relationship Specialty Start Date End Date Miguel Langley DO PCP - General Internal Medicine 07/03/22
--- OUTSIDE RECORDS SUMMARY | 2024-06-02 14:50 | XMS_ITS | Clinical Summary ---
Author Organization [facility] Address [address] [place] [address] Care Team Providers Care Retail Loan Originator Name Role Phone Miguel Langley Primary Care Provider [phone] Allergies Active Allergy Reactions Criticality Noted Date [...] fluticasone propionate (FLONASE) 50 mcg/actuation nasal spray [place] 2 sprays every day by intranasal route. [...] 03/12/2017 Assessment & Plan (03/12/2017 11:57 AM ZIPPER SETTER): Patient demonstrates history and my physical findings [...] This is being managed by her maintenance associate. Surgical History Surgery Date Site/Laterality Comments PARTIAL HYSTERECTOMY REDUCTION MAMMOPLASTY SALPINGOOPHORECTOMY 12/29/2016 - 01/28/2017 Left CHOLECYSTECTOMY NOSE SURGERY Medical History Medical History Date Comments Depression Gastroesophageal reflux disease Thrombocytopenia Anxiety Migraine Fracture of nasal bones Sleep [...] on file Legal Sex Female 9:03 AM ZIPPER SETTER Gender Identity Female 01/20/2024 3:06 PM CDT Sexual Orientation Not on file Obstetrics History Last Filed Vital Signs Vital Sign Reading Time Taken Comments Blood Pressure 128/84 09/13/2022 9:07 AM CDT Pulse 87 09/13/2022 9:07 AM CDT Temperature 36.4 C (97.5 F) 09/20/2018 3:06 AM CDT Respiratory Rate - - Oxygen Saturation 99% 05/10/2020 10:32 PM ZIPPER SETTER Inhaled Oxygen Concentration - - Weight 89.4 [...] MICROBIOLOGY - GEN ERAL ORDERABLES Final Result [facility] [address] [facility] [place] [address] from Last 3 Months or Most Recently Relevant to Health Maintenance Insurance [facility] [id number] [place] [id number] [place] [address] Care Teams Retail Loan Originator Relationship Specialty Start Date End Date Miguel Langley DO PCP - General Internal Medicine 07/03/22
--- OUTSIDE RECORDS SUMMARY | 2024-06-02 14:50 | XMS_ITS | Encounter Summary ---
Author Organization [facility] Address [address] [place] [address] Care Team Providers Care Wire Basket Maker Name Role Phone Daysi Wetzel MD Primary Care Provider [phone] Chris Madrigal MD Unavailable [phone] Miguel Langley DO Primary Care Provider [phone] Rand Elkins [facility] Unavailable [phone] Reason for Visit * Reason Onset Date Comments Nurse Only 11/26/2022 Surgery Scheduling 11/26/2022 Encounter Details Date Type Department Care Team (Late st Contact Info) Description 11/26/2022 Telephone [facility] - Centralized Scheduling [address] [place] [address] Sulaiman Andrews MD [address] [address] Nurse Only; Surgery Scheduling Social History Tobacco [...] 3:13 PM CDT Pt seen her other DRILLING MACHINE RUNNER Dr.James Duran in [place], Dr. Andrews told [...] on filedocumented in this encounter Care Teams Wire Basket Maker Relationship Specialty Start Date End Date Daysi Wetzel MD [address] [place] [phone] PCP - General Family Medicine 12/24/18 12/11/22 Miguel Langley DO [address] [place] [address] PCP - General Internal Medicine 12/12/22 Chris Madrigal MD [address] [place] [phone] Hematology and Oncology 03/21/20 Rand Elkins LMSW Outpatient Heel Cutter Care Management 12/17/22 documented as of this encounter
--- OUTSIDE RECORDS SUMMARY | 2024-06-02 14:50 | XMS_ITS | Encounter Summary ---
Author Organization [facility] Address [address] [facility] [place] [address] Care Team Providers Care Survey Manager Name Role Phone Chris Madrigal MD Unavailable [phone] Miguel Langley DO Primary Care Provider [phone] Rand Elkins [facility] Unavailable [phone] Reason for Visit * Reason Onset Date Comments Question 12/18/2022 Follow-up 12/18/2022 Encounter Details Date Type Department Care Team (Late st Contact Info) Description 12/18/2022 Telephone [facility] - MOTOR AND GENERATOR BRUSH MAKER [address] [facility] [address] [place] [address] Sulaiman Andrews MD [address] [facility] [address] [place] [address] Question; Follow-up Social History Tobacco Use Types [...] Recorded Patient Health Questionnaire-2 Score 0 12/17/2022 [facility] - [...] place to sleep or slept in a group home (including now)? No 12/13/2022 Sex and [...] and is taking 2) Please contact CB# [phone] documented in this encounter Plan of Treatment [...] on filedocumented in this encounter Care Teams Survey Manager Relationship Specialty Start Date End Date Miguel Langley DO [address] [place] [address] PCP - General Internal Medicine 12/12/22 Chris Madrigal MD Hematology and Oncology 03/21/20 Rand Elkins LMSW Outpatient Waistband Setter Lockstitch Care Management 12/17/22 documented as of this encounter
--- OUTSIDE RECORDS SUMMARY | 2024-06-02 14:50 | XMS_ITS | Patient Health Summary ---
Author Organization [facility] Address [address] [place] [address] Care Team Providers Care Brine Room Laborer Name Role Phone Chris Madrigal MD Unavailable [phone] Miguel Langley DO Primary Care Provider Note from [facility],non-owned Affiliates and Associated Physician Practices is amultiple site organization consisting of ambulatory clinics and hospital sitesin [place], [place], [place] and [place]. This disclosure is being madepursuant to the Care Everywhere program and may not contain all information available regarding this patient. Last updated 17.[facility] Allergies * Ciprofloxacin(Dizziness) -High Criticality * Clarithromycin(Palpitations) [...] (one) capsule by mouth once daily Active Problems Problem [...] Recorded Patient Health Questionnaire-2 Score 0 12/17/2022 [facility] - Occupational [...] Comments Blood Pressure 148/108 04/14/2024 2:53 PM SHIPPER AND RECEIVING Pulse 77 12/16/2022 12:00 PM CDT Temperature 36.7 C (98.1 F) 12/16/2022 12:00 PM CDT Respiratory Rate 16 12/16/2022 12:0 0 PM CDT Oxygen Saturation 100% 12/16/2022 12: 00 PM CDT Inhaled Oxygen Concentration - - Weight 90.2 kg (198 lb 12.8 oz) 04/14/2024 2:53 PM SHIPPER AND RECEIVING Height 154.9 cm (5' 1 ) 04/14/2024 2:53 PM SHIPPER AND RECEIVING Body Mass Index 37.56 04/14/2024 2:53 PM SHIPPER AND RECEIVING Procedures * CANCER ANTIGEN (CA)125 BLOOD(Performed 04/14/2024) [...] 12/12/2022) Performed for Diagnosis unknown * CYTOLOGY NON-HOMOEOPATH PANEL (STL)(Performed 12/12/2022) Performed for Diagnosis unknown * ENDOTRACHEAL TUBE NOTE(Performed 12/12/2022) * PERIPHERAL BLOCK(Performed 12/12/2022) * BLOOD TYPE VERIFICATION(Performed 12/12/2022) * NE EXPLORATORY OF ABDOMEN(Performed 12/12/2022) Performed for Diagnosis [...] TISSUE(Performed 08/16/2022) Performed for Illness, unspecified * NE LIVER ELASTOGRAPHY(Performed 06/23/2020) Performed for NAFLD (nonalcoholic [...] CANCER ANTIGEN (CA)125 BLOOD (04/14/2024 3:14 PM SHIPPER AND RECEIVING) Only the most recent of5 resultswithin the time period is included. CA 125 13 <35 U/mL [facility] Comment: This test was performed using the Siemens Chemiluminescent method. Values obtained from different assay methods cannot be used interchangeably. CA 125 levels, regardless of value, should not be interpreted as absolute evidence of the presence or absence of disease. Test Performed at: [facility] [place] [address] ENRRIQUE RICO MD Blood BLOOD SPECIMEN / Unknown 04/14/2024 3:14 PM SHIPPER AND RECEIVING 04/14/2024 3:14 PM SHIPPER AND RECEIVING Areli De SEWER PIPE PRESS OPERATOR-LANDSCAPE PHOTOGRAPHER LAB - CHEMISTRY ORDERABLES [facility] [address] [place] [address] * (ABNORMAL) CBC WITH DIFFERENTIAL (12/25/2022) Only the most recent of11 resultswithin the time period is included. White Blood Cell Count 12.6(H) 3.8 - [...] Comment: REPORT COMMENT: FASTING:NO Test Performed at: [facility] [address] [place] [address] ENRRIQUE RICO MD Blood BLOOD SPECIMEN / Unknown 12/25/2022 12/25/2022 9:23 AM CDT Sulaiman Andrews MD LAB - HEMATOLOGY ORD ERABLES [facility] [address] [place] [address] * CARDIAC RHYTHM STRIP ORDER (12/17/2022 5:28 PM CDT) Narrative 12/17/2022 5:28 PM CDT Ordered by an unspecified provider. Scanned Document CARDIAC SERVICES ORD ERABLES * PREPARE (CROSSMATCH) RBC UNIT(S), 2 Units (12/16/2022 1:41 AM CDT) Only the most recent of2 resultswithin the time period is included. Unit Description AS1 LR PRBC [facility] Unit ABO O [facility] Unit Rh POS [facility] Product Number R02 [facility] Unit Donor # [id number] [facility] Unit Status released [facility] Product Code [id number] [facility] Blood Type Barcode 5100 [facility] Expiration Date [facility] Unit Description AS1 LR PRBC [facility] Unit ABO O [facility] Unit Rh POS [facility] Product Number R02 [facility] Unit Donor # [id number] [facility] Unit Status transfused [facility] Product Code [id number] [facility] Blood Type Barcode 5100 [facility] Expiration Date [facility] Blood Bank BLOOD SPECIMEN / Unknown 12/12/2022 12:49 PM CDT Sulaiman Andrews MD LAB - BLOOD BANK ORD ERABLES [facility] [address], [place] [address] [phone] * (ABNORMAL) RENAL FUNCTION PANEL (12/15/2022 8:46 AM CDT) Only the most recent of4 resultswithin the time period is included. Glucose 113(H) 70 - 105 mg/dL 12/15/2022 9:34 AM CDT [facility] Sodium 138 136 - 145 mmol/L 12/15/2022 9:34 AM CDT [facility] Potassium 3.9 3.5 - 5.1 mmol/L 12/15/2022 9:34 AM CDT [facility] Chloride 101 98 - 107 mmol/L 12/15/2022 9:34 AM CDT [facility] CO2 29 22 - 29 mmol/L 12/15/2022 9:34 AM CDT [facility] Calcium 8.5 8.4 - 10.4 mg/dL 12/15/2022 9:34 AM CDT [facility] Anion Gap 8 6 - 16 mmol/L 12/15/2022 9:34 AM CDT [facility] BUN 7 5.3 - 18.7 mg/dL 12/15/2022 9:34 AM CDT [facility] Creatinine 0.77 0.57 - 1.11 mg/dL 12/15/2022 9:34 AM CDT [facility] Albumin 3.0(L) 3.4 - 5.0 gm/dL 12/15/2022 9:34 AM CDT [facility] Phosphorus 2.2(L) 2.3 - 4.7 mg/dL 12/15/2022 9:34 AM T [facility] eGFR by CKD-EPI >90 >=90 mL/min/1.7 3 m2 12/15/2022 9:34 AM CDT [facility] Blood BLOOD SPECIMEN / Unknown Lab Venipuncture / Unknown 12/15/2022 8:46 AM CDT 12/15/2022 9:10 AM CDT Sulaiman Andrews MD LAB - CHEMISTRY [place] [facility] Organization Address City/State/ZIP Co de Phone Number [facility] [address] [place] [address] * MAGNESIUM BLOOD (12/15/2022 8:46 AM CDT) Only the most recent of4 resultswithin the time period is included. [facility] Signature Magnesium 2.0 1.6 - 2.6 mg/dL 12/15/2022 9:34 AM CDT [facility] Blood BLOOD SPECIMEN / Unknown Lab Venipuncture / Unknown 12/15/2022 8:46 AM CDT 12/15/2022 9:10 AM CDT Sulaiman Andrews MD LAB - CHEMISTRY [place] Performing Organization Address [facility]/State/ZIP Co de Phone Number [facility] [address] [place] [address] * (ABNORMAL) CBC W/O DIFFERENTIAL (12/13/2022 11:12 PM CDT) Only the most recent of2 resultswithin the time period is included. WBC 14.3(H) 4.4 - 10.7 x10E9/L 12/13/2022 11:58 PM CDT [facility] RBC 3.37(L) 3.80 - 5.20 x10E12/L 12/13/2022 11:58 PM CDT [facility] Hemoglobin 9.5(L) 12.0 - 15.6 gm/dL 12/13/2022 11:58 PM CDT [facility] Hematocrit 30.2(L) 35.9 - 45.5 % 12/13/2022 11:58 PM CDT [facility] MCV 89.6 80.7 - 98.3 fl 12/13/2022 11:58 PM CDT [facility] MCH 28.2 26.7 - 34.0 pg 12/13/2022 11:58 PM CDT [facility] MCHC 31.5 30.8 - 35.9 gm/dL 12/13/2022 11:58 PM CDT [facility] Platelet Count 75(L) 153 - 416 x10E9/L 12/13/2022 11:58 PM CDT [facility] RDW-CV 13.9 12.1 - 14.9 % 12/13/2022 11:58 PM CDT [facility] Blood BLOOD SPECIMEN / Unknown Lab Venipuncture / Unknown 12/13/2022 11:12 PM CDT 12/13/2022 11:39 PM CDT Sulaiman Andrews MD LAB - HEMATOLOGY ORD ERABLES [facility] [address] [place] [address] * TRANSFUSE RED BLOOD CELL LEUKOREDUCED UNIT(S) (12/13/2022 6:51 PM CDT) Sulaiman Andrews MD NURSING - BLOOD PROD TRANSFUSION * TRANSFUSE RED BLOOD CELL LEUKOREDUCED UNIT(S) (12/13/2022 2:56 PM CDT) Sulaiman Andrews MD NURSING - BLOOD PROD TRANSFUSION * (ABNORMAL) COMPREHENSIVE METABOLIC PANEL (12/13/2022 11:43 AM CDT) Only the most recent of4 resultswithin the time period is included. Glucose 152(H) 70 - 105 mg/dL 12/13/2022 12:36 PM CDT [facility] Sodium 135(L) 136 - 145 mmol/L 12/13/2022 12:36 PM CDT [facility] Potassium 5.1 3.5 - 5.1 mmol/L 12/13/2022 12:36 PM CDT [facility] Chloride 105 98 - 107 mmol/L 12/13/2022 12:36 PM CDT [facility] CO2 18(L) 22 - 29 mmol/L 12/13/2022 12:36 PM CDT [facility] Calcium 7.7(L) 8.4 - 10.4 mg/dL 12/13/2022 12:36 PM CDT [facility] Anion Gap 12 6 - 16 mmol/L 12/13/2022 12:36 PM CDT [facility] BUN 15 5.3 - 18.7 mg/dL 12/13/2022 12:36 PM CDT [facility] Creatinine 1.11 0.57 - 1.11 mg/dL 12/13/2022 12:36 PM CDT [facility] Alkaline Phosphatase 37(L) 40 - 150 U/L 12/13/2022 12:36 PM CDT [facility] ALT 52 0 - 55 U/L 12/13/2022 12:36 PM CDT [facility] AST 54(H) 5 - 34 U/L 12/13/2022 12:36 PM CDT [facility] Protein Total 5.1(L) 6.4 - 8.3 gm/dL 12/13/2022 12:36 PM CDT [facility] Albumin 2.7(L) 3.4 - 5.0 gm/dL 12/13/2022 12:36 PM CDT [facility] Bilirubin Total 0.2 0.2 - 1.2 mg/dL 12/13/2022 12:36 PM CDT [facility] eGFR by CKD-EPI 63(L) >=90 mL/min/1.7 3 m2 12/13/2022 12:36 PM CDT [facility] Blood BLOOD SPECIMEN / Unknown Lab Venipuncture / Unknown 12/13/2022 11:43 AM CDT 12/13/2022 11:55 AM CDT Sulaiman Andrews MD LAB - CHEMISTRY [place] [facility] Organization Address City/State/ZIP Co de Phone Number [facility] [address] [place] [address] * (ABNORMAL) COAGULATION PANEL W D-DIMER (12/13/2022 12:56 AM CDT) PT 15.2(H) 12.1 - 14.8 sec 12/13/2022 1:19 AM CDT [facility] INR 1.2(H) 0.9 - 1.1 12/13/2022 1:19 AM CDT [facility] PTT 26.8 23.0 - 38.4 sec 12/13/2022 1:19 AM CDT [facility] Fibrinogen 264 200 - 400 mg/dL 12/13/2022 1:19 AM CDT [facility] D-Dimer 0.69(H) 0.27 - 0.50 ug/mL FEU 12/13/2022 1:19 AM CDT [facility] Platelet Count 105(L) 153 - 416 x10E9/L 12/13/2022 1:19 AM CDT [facility] Blood BLOOD SPECIMEN / Unknown Venipuncture / Unknown 12/13/2022 12:56 AM CDT 12/13/2022 1:03 AM CDT Narrative [facility] - 12/13/2022 1:19 AM CDT Conventional Warfarin Anticoagulant Therapy INR Reference Range: 2.0-3.0 Intensive Warfarin Anticoagulant Therapy INR Reference Range: 2.5-3.5 Heparin Therapeutic Range for PTT: 69.0 - 110.0 seconds. In the absence of clinical symptoms, a value less than or equal to 0.5 mcg/mL FEU significantly decreases the probability of PE/DVT (negative predictive value >95%). 1 mcg/ml FEU = 1 Fibrinogen Equivalent Unit (approximates 0.5 mcg/mL of D- dimer). ISTH DIAGNOSTIC SCORING SYSTEM FOR DIC ---- Score 0 1 2 3 Platelet Count (x10^3/uL) > 100 <100 < 50 N/A PT Prolongation above Upper limit of normal 0-3 3-6 > 6 N/A Range (seconds) Fibrinogen (mg/dL) >100 < 100 N/A N/A D-Dimer (mcg/mL FEU) < 0.50 N/A 0.50-5.0 > 5 Calculate Cumulative Score: > or = 5: compatible with overt DIC < 5: suggestive for non-overt DIC N/A = Non applicable Reference: Br. J. Haematol. 145:24-33,2009. Sulaiman Adnrews MD LAB - COAGULATION OR DERABLES [facility] [address] [place] [address] * PATHOLOGY TISSUE EXAM (STL) (12/12/2022 2:06 PM CDT) Case Report Surgical Pathology Report Case: [id number] Authorizing Provider: Sulaiman Andrews MD Collected: 12/12/2022 02:06 PM Ordering Location: [facility] Received: 12/13/2022 07:30 AM Pathologist: Joanne Don MD Specimens: A) - Tissue, Right IP Ligamanet and Right Pelvic Peritoneum B) - Tissue, Retroperitoneal Debride Left Heni-Pelvis C) - Tissue, left IP remnant, Round Ligmament, Pelvic Peritineum and subcutaneous tissue D) - Omentum 01/02/2023 2:57 PM CDT [facility] Final Diagnosis Peritoneum, right IP [...] atypical endosalpingiosis (SEE COMMENT) 01/02/2023 2:57 PM [facility] Addendum 1 The patient's prior materials from [place], [place] ([id number], [id number], [id number], [id number], [id number]) were reviewed. These cases were previously reported by [facility] pathologists at [facility], and as such this addendum does not represent a formal consultation report. [facility] case [id number] has not yet been received for review. Focal areas of psammomatous calcifications with associated serous-type epithelium demonstrating very focal epithelial multilayering and/or tufting are seen in the serosa of the uterus ([id number], collected 10/30/12), on the surface of the right ovary ([id number], collected 01/12/18), and on the surface of the left ovary ([id number], collected 07/09/18). Additionally, few detached intraluminal psammoma bodies lined by bland epithelium are seen in the right Fallopian tube ([id number]). None of these foci are sufficient in quantity/quality to warrant outright classification as a serous neoplasm. The findings and differential diagnosis in the current case ([facility] case [id number], collected 12/12/22) and the peritoneal biopsy recently reviewed at [facility] ([facility] case [id number], [facility] case [id number], collected 08/16/22) are unchanged. Continued clinical follow-up is recommended. Review of [facility] case [id number] will be documented upon receipt and review of the slides at [place], if they become available. 01/02/2023 2:57 PM [facility] Addendum electronically signed by Joanne [...] of pelvic endometriosis, omentectomy. 01/02/2023 2:57 PM [facility] Gross Description The requisition and specimen(s) are identified with the patient's name, Peggy Serrano. Received in formalin, specimen A, right IP ligament a+ right , is a 6 x 3 x 0.6 cm yellow-solano adipose tissue surfaced with with 3 cm guardado-solano to dark solano fibrocollagenous tissue. Multiple foci of dark solano areas are identified. System Support Administrator sections shows yellow-solano to guardado-solano cut surface. [...] cut surface. No distinct mass is identified. System Support Administrator sections are submitted in cassette C1-C5. Received in formalin, specimen D, omentum is a 8 x 4.5 x 1.8 cm yellow-solano omentum with focal area of cauterization and adhesion. Sectioning shows yellow-solano lobulated cut surface with no distinct lesion. System Support Administrator sections are submitted as follows: D1-D2-area of adhesion T0-P8-yexonsbionuvpd sections /ME 01/02/2023 2:57 PM [facility] Microscopic Description Microscopic examination substantiates the [...] recommended. References: Lola VELÁSQUEZ, Anil L, Damari J, Shaneka OQUENDO. A clinicopathologic study and descriptive analysis of atypical endosalpingiosis. Int J Gynecol Pathol (2019) PMID: [id number] Jaja Araiza. Serous borderline tumors of the peritoneum. Am J Surg Pathol (1989) PMID: [id number] 01/02/2023 2:57 PM T [facility] Pathologist Location at [facility] 01/02/2023 2:57 PM [facility] Disclaimer All histochemical and/or immunohistochemical [...] be interpreted with caution. 01/02/2023 2:57 PM CDT [facility] Embedded Images 01/02/2023 2:57 PM CDT [facility] Pathology/Cytology TISSUE SPECIMEN [...] Andrews MD LAB - PATHOLOGY/CYTO LOGY ORDERABLES [facility] [address] [place] [address] * CYTOLOGY NON-HOMOEOPATH PANEL (STL) (12/12/2022 1:59 PM CDT) Case Report Cytology Non Pmo Project Manager Report Case: [id number] Authorizing Provider: Sulaiman Andrews MD Collected: 12/12/2022 01:59 PM Ordering Location: [facility] Received: 12/13/2022 09:35 AM Pathologist: Anthony Bates MD Specimen: Pelvic Washings 12/16/2022 9:14 AM CDT [facility] Final Diagnosis Pelvic washing: - Satisfactory for evaluation - Hemodilute - [place] mesothelium - No carcinoma identified 12/16/2022 9:14 AM [facility] Clinical History 42-year-old female with history of endometriosis, recurrent left lower quadrant pain, and psammoma body change in the posterior cul-de-sac, concerning for possible cancer. 12/16/2022 9:14 AM [facility] Gross Description 50 mL of red fluid is received. A Pap-stained ThinPrep slide and H&E-stained cell block sections are produced. GRW 12/16/2022 9:14 AM [facility] Microscopic Description In a Pap-stained ThinPrep slide as well as H&E-stained cell block sections, there are scattered mesothelial cells, present both individually and in sheets. No large cohesive aggregates of malignant-appearing epithelium are identified. 12/16/2022 9:14 AM [facility] Pathologist Location at [facility] 12/16/2022 9:14 AM [facility] Disclaimer All histochemical and/or immunohistochemical [...] be interpreted with caution. 12/16/2022 9:14 AM [facility] Embedded Images 12/16/2022 9:14 AM [facility] Pathology/Cytolo gy SPECIMEN OBTAINED BY PERITONEAL LAVAGE / Unknown 12/12/2022 1:59 PM CDT 12/13/2022 9:35 AM CDT Comment:Pre-op diagnosis: Diagnosis unknown [R69] Sulaiman Andrews MD LAB - PATHOLOGY/CYTO LOGY ORDERABLES [facility] [address] [place] [address] * ETT LINE PERFORMABLE (12/12/2022 1:41 PM CDT) Narrative Elia Douglas APRN-CRNA - 12/12/2022 1:41 PM CDT Elia Douglas APRN-CRNA 12/12/2022 1:41 PM Endotracheal Tube Placement: Patient Location: OR. Intubation Event Date/Time: 12/12/2022 1:34 PM Procedure: intubation (63258). Procedure Section: Sedation: IV sedation. Indications for Airway Management: airway protection Induction: standard IV and cricoid pressure Patient Position: sniffing and supine Mask Ventilation: easy. Blade Type: Eldon Blade Size: 4 Laryngoscopy View: grade 2 (partial cords) Intubation Adjuncts: stylet Tube: endotracheal tube Placement: oral Tube type: cuff - inflated Tube Size (MM): 7 Depth of Insertion (CM): 21 Measured From: gums Cuff volume (mL): 6 Cuff Inflated With: air Number of Attempts: 1. Placement Verified By: direct visualization, bilateral breath sounds, chest auscultation, CO2 monitor and CO2 detector Tube secured with: adhesive tape. Difficult Airway? No. Procedure Start Time: 12/12/2022 1:34 PM. Staff Section Anesthesia Provider: Elia Douglas APRN-CRNA, Performed the procedure Additional Comments: Teeth, oral tissue and gums in same condition as prior to intubation. . Mohit Santoro MD GENERAL ANESTHESIA ORDERABLES * Peripheral Nerve Block (12/12/2022 1:22 PM CDT) Narrative Adenike Purvis - 12/12/2022 1:22 PM CDT Adenike Purvis 12/13/2022 12:21 PM Peripheral Nerve Block Procedure: Peripheral Nerve Block Patient Location: Pre-op Preprocedure Section: Indications: at surgeon's request and postop pain management. Pre-anesthetic Checklist: Patient identified, IV Checked, Site examined and clear, Risks and benefits discussed, Surgical consent verified, Monitors and equipment, Time-out performed, Informed consent obtained, Pre-op evaluation done, Questions answered/anesthesia questions answered, Allergies reviewed and Removal hand/wrist jewelry Monitors: BP, Pulse Ox, EKG and ETCO2. Patient Condition: sedated, meaningful contact maintained throughout procedure Patient Position: supine Patient Sedated? Yes Sedation Type: mild Sedation Agents: fentaNYL (PF) (SUBLIMAZE) injection - Intravenous 100 mcg - 12/12/2022 1:22:00 PM midazolam (VERSED) injection - Intravenous 2 mg - 12/12/2022 1:22:00 PM Procedure Section Laterality: bilateral Block Performed: rectus sheath Prep: Chloraprep Strerile Field: gloves, mask and hat/cap Skin localized with: lidocaine (XYLOCAINE) 1 % injection - Infiltration 1 mL - 12/12/2022 1:22:00 PM Needle Type: Echogenic insultaed Needle Gauge: 21 Needle Length: 80 mm Needle Depth: 7 cm Catheter? No Ultrasound Guided? Yes Technique: in plane Visualization: Preliminary scan performed, Important anatomical structures identified, Needle [...] mL - 12/12/2022 1:23:00 PM Staff Section Anesthesia Provider: Mohit Santoro MD, Performed the procedure Mohit Santoro MD GENERAL ANESTHESIA ORDERABLES * BLOOD TYPE VERIFICATION (12/12/2022 12:48 PM CDT) ABO Rh O POS 12/12/2022 1:3 0 PM CDT [facility] Blood Bank BLOOD SPECIMEN / Unknown Venipuncture / Unknown 12/12/2022 12:48 PM CDT 12/12/2022 12:51 PM CDT Sulaiman Andrews MD LAB - BLOOD BANK ORD ERABLES Performing Organization Address [facility] Co de Phone Number [facility] [address] [place] [address] * TYPE + SCREEN PANEL (12/12/2022 12:31 PM CDT) Pathologist [facility] ABO Rh O POS 12/12/2022 1:30 PM CDT [facility] Comment:History checked. Antibody Screen NEG 1:30 PM CDT [facility] Blood Bank BLOOD SPECIMEN / Unknown Venipuncture / Unknown 12/12/2022 12:31 PM CDT 12/12/2022 12:49 PM CDT Sulaiman Andrews MD LAB - BLOOD BANK ORD ERABLES Performing Organization Address [facility] Co de Phone Number [facility] [address] [place] [address] * (ABNORMAL) SLIDE SCAN HEMATOLOGY (12/12/2022 12:31 PM CDT) Pathologist [facility] Platelet Estimation Decreased (A) Normal, Adequate platelets 12/12/2022 1:24 PM CDT [facility] Blood BLOOD SPECIMEN / Unknown Venipuncture / Unknown 12/12/2022 12:31 PM CDT 12/12/2022 12:47 PM CDT Sulaiman Andrews MD LAB - HEMATOLOGY ORD ERABLES Performing Organization Address City/[facility]/ZIP Co de Phone Number [facility] [address] [place] [address] * CT ABDOMEN PELVIS W CONTRAST (11/08/2022 [...] PM Narrative 11/08/2022 2:48 PM CDT PROCEDURE: CT ABDOMEN PELVIS W CONTRAST DATE/TIME OF EXAM: 11/08/2022 1:07 PM, LOCATION [facility] INDICATION: D49.9: Neoplasm of unspecified behavior of [...] is normal. BONES: No destructive lesion identified Procedure Note Omer Marquez MD - 11/08/2022 PROCEDURE: CT ABDOMEN PELVIS W CONTRAST DATE/TIME OF EXAM: 11/08/2022 1:07 PM, LOCATION [facility] INDICATION: D49.9: Neoplasm of unspecified behavior of [...] AM CDT) Case Report Surgical Pathology Report Case: [id number] Authorizing Provider: Srinivasan Marks MD Collected: 08/16/2022 10:51 AM Ordering Location: [facility] Received: 08/21/2022 12:11 PM Pathologist: Denise Carroll MD Specimens: A) - Soft Tissue, cul-de-sac B) - Peritoneal Biopsy 08/21/2022 1:31 PM CDT [facility] Final Diagnosis Cul-de-sac, biopsy ([id number], A; 08/16/2022): - Scanty low grade serous epithelium without invasion, associated with abundant psammoma bodies (see microscopic description) Peritoneum, biopsy ([id number], B; 08/16/2022): - Psammoma body and hemosiderin - Negative for epithelium 08/21/2022 1:31 PM CDT [facility] Microscopic Description and Comment Microscopic [...] help clarify this differential. 08/21/2022 1:31 PM CDT [facility] Clinical History 42 year old woman, status post hysterectomy and bilateral salpingo-oophorectomy (for unspecified reason), with long history of chronic pelvic pain and dyspareunia. She also has a history of endometriosis. Pelvic adhesions were noted on laparoscopy. 08/21/2022 1:31 PM CDT [facility] Materials Received Received are ten slide(s) labeled [id number] (A, 5 levels; B, 5 levels) along with a copy of the outside pathology report. [place] [address]. All original materials are returned to the referring institution, along with a copy of our final report. 08/21/2022 1:31 PM CDT [facility] Pathologist Location at [facility] 08/21/2022 1:31 PM CDT [facility] Disclaimer The performance characteristics of all immunohistochemical and indirect immunofluorescence stains (if any) cited in this report were determined by the Histopathology Laboratory of [facility]. Some of these tests were developed by [...] attending (teaching) pathologist. 08/21/2022 1:31 PM CDT [facility] Embedded Images 08/21/2022 1:31 PM CDT [facility] Pathology/Cytology PERITONEAL BIOPSY SPECIMEN / Unknown 08/16/2022 10:51 AM CDT 08/21/2022 12:11 PM CDT Miscellaneous samples (specimen) PERITONEAL BIOPSY SPECIMEN / Unknown 08/16/2022 10:51 AM CDT 08/21/2022 12:37 PM CDT Srinivasan Marks MD LAB - PATHOLOGY/CYTO LOGY ORDERABLES [facility] [address] [place], [place] [id number] [place] [address] * PROC FIBROSCAN (06/23/2020 11:13 AM CDT) Narrative Talat Ennis MD - 06/23/2020 11:13 AM CDT Talat Ennis MD 06/27/2020 5:46 PM Diagnosis: nafld RN verified patient not , no implanted devices and NPO for prior 3 hours. procedure explained and consent signed. Date of Exam: 06/23/2020 Liver Stiffness: (LSM, kPa) median: 4.7 IQR (interquartile range): 0.5 IQR/Median% (ideally < 30%): 11 CAP (controlled attenuation parameter): 291 Technical Difficulty: None Ordering Provider: Radha Mckeon BLUEPRINT CLERK Phone Fax Fibroscan interpretation: I have personally [...] based on the following published data: Maykel PJ, Esther M, Heide M, et al. Accuracy of FibroScan controlled attenuation parameter and liver stiffness measurement in assessing steatosis and fibrosis in patients with nonalcoholic fatty liver disease. Gastroenterology 2019;156:2476-9797. Ramos MS, Jeri R, Van Miles ML, et al. Vibration-controlled transient elastography to [...] FIB4 score (Anil et al. Hepat[employer] Communications 2019;3:5321-5432) or NAFLD Fibrosis score (Georges et al. Clinical Gastroenterology and Hepatology 2019;17:2112-7527. from routine clinical data. 3. Liver stiffness [...] change as additional supporting data becomes available. [email or web address] Radha Mckeon SEWER PIPE PRESS OPERATOR-LANDSCAPE PHOTOGRAPHER PROCEDURE/M INOR SURGICAL ORDERABLES * US ABDOMEN [...] PARKINSON M.D. on 06/23/2020 12:19 PM . Narrative 06/23/2020 12:19 [...] dilatation. Report drafted by Aayush Roman (resident) Vivienne, Dr. ESTEFANI PARKINSON M.D. have personally reviewed and interpreted this examination/study. This report was electronically signed by ESTEFANI PARKINSON M.D. on 06/23/2020 12:19 PM . Radha BAHENA US ORDERABL ES * ADINA BLOOD SCREEN W/REFLEX TITER (04/04/2020 1:26 PM SHIPPER AND RECEIVING) Pathologist [facility] ADINA Screen NEGATIVE NEGATIVE [facility] Comment: ADINA [...] AC-0: Negative International Consensus on ADINA Patterns (https://doi.org/10.1515/wdpl-7191-7989) For additional information, please refer to http://education.[employer]faq/TNF737 (This link is being provided for informational/ educational purposes only.) Test Performed at: [place] [address] [address] MOLINA DO,MPH Blood BLOOD SPECIMEN / Unknown 04/04/2020 1:26 PM SHIPPER AND RECEIVING 04/04/2020 1:27 PM SHIPPER AND RECEIVING Radha BAHENA LAB - CHEMI STRY ORDERABLES [facility] [address] [place] [address] * ALPHA FETOPROTEIN BLOOD TUMOR MARKER (04/04/2020 1:26 PM SHIPPER AND RECEIVING) Pathologist [facility] Alpha-Fetoprotei n Tumor Marker 3.0 ng/mL [facility] Comment: Reference Range: <6.1 The use of AFP as a tumor marker in females is not recommended. This test was performed using the Dari Serge chemiluminescent method. Values obtained from different assay methods cannot be used interchangeably. AFP levels, regardless of value, should not be interpreted as absolute evidence of the presence or absence of disease. Test Performed at: [place] [address] [address] MOLINA DO,MPH Blood BLOOD SPECIMEN / Unknown 04/04/2020 1:26 PM SHIPPER AND RECEIVING 04/04/2020 1:27 PM SHIPPER AND RECEIVING Radha Mckeon APRN-LANDSCAPE PHOTOGRAPHER LAB - CHEMI STRY ORDERABLES Performing Organization Address [facility] de Phone Number [place] [phone] * PT-INR (04/04/2020 1:26 PM SHIPPER AND RECEIVING) INR 1.0 [facility] Comment: Reference Range 0.9-1.1 Moderate-intensity Warfarin Therapy 2.0-3.0 Higher-intensity Warfarin Therapy 3.0-4.0 PT 10.2 9.0 - 11.5 sec [facility] Comment: For additional information, please refer to http://education.Innobits/faq/SEN805 (This link is being provided for informational/ educational purposes only.) Test Performed at: [facility] [address] [address] MOLINA DO,MPH Blood BLOOD SPECIMEN / Unknown 04/04/2020 1:26 PM SHIPPER AND RECEIVING 04/04/2020 1:27 PM SHIPPER AND RECEIVING Radha Mckeon APRN-LANDSCAPE PHOTOGRAPHER LAB - COAGU LATION ORDERABLES Performing Organization Address [facility] de Phone Number [facility] [phone] [place] [address] * GGT (04/04/2020 1:26 PM SHIPPER AND RECEIVING) GGT 23 3 - 55 U/L [facility] Comment: Test Performed at: [facility] [address] [facility] [address] [address] MOLINA DO,MPH Blood BLOOD SPECIMEN / Unknown 04/04/2020 1:26 PM SHIPPER AND RECEIVING 04/04/2020 1:27 PM SHIPPER AND RECEIVING Radha Mckeon APRNFLOATING HOSPITAL FOR CHILDREN LAB - CHEMI STRY ORDERABLES [facility] [address] [place] [address] * CULTURE STREP GROUP A (08/19/2013 10:21 AM CDT) Culture Beta Strep No Growth of Groups A, C or G Beta Streptococc us. [facility] Throat swab (specimen) ENTIRE THROAT (SURFACE REGION OF NECK) / Unknown 08/19/2013 10:21 AM CDT 08/19/2013 9:[address] [facility] - 08/21/2013 2:38 PM CDT AndersonSpecimen#[id number] Oto Loc/Rm/Bed: EXPCARE C// Historical Provider MD LAB - MICROBIOLOG Y ORDERABLES [facility] [address] [phone] Care Teams Brine Room Laborer Relationship Specialty Start Date End Date Miguel Langley DO [address] [place] [address] PCP - General Internal Medicine 12/12/22 Chris Madrigal MD Hematology and Oncology 03/21/20
--- OUTSIDE RECORDS SUMMARY | 2024-06-02 14:50 | XMS_ITS | Encounter Summary ---
Author Organization [facility] Address [address] [place] [address] Care Team Providers Care Tin Tie Machine Operator Automatic Name Role Phone Daysi Wetzel MD Primary Care Provider [phone] Chris Madrigal MD Unavailable [phone] Miguel Langley DO Primary Care Provider [phone] Rand Elkins [facility] Unavailable [phone] Encounter Details Date Type Department Care Team (Late st Contact Info) Description 08/21/2022 Lab Requisition [facility] - Pathology Lab [address] [place] [address] Srinivasan Marks MD [address] [address] Illness, unspecified Social History Tobacco [...] CDT) Case Report Surgical Pathology Report Case: [id number] Authorizing Provider: Srinivasan Marks MD Collected: 08/16/2022 10:51 AM Ordering Location: [facility] Pathology Lab Received: 08/21/2022 12:11 PM Pathologist: Denise Carroll MD Specimens: A) - Soft Tissue, cul-de-sac B) - Peritoneal Biopsy 08/21/2022 1:31 PM CDT [facility] Final Diagnosis Cul-de-sac, biopsy ([id number], A; 08/16/2022): - Scanty low grade serous epithelium without invasion, associated with abundant psammoma bodies (see microscopic description) Peritoneum, biopsy ([id number], B; 08/16/2022): - Psammoma body and hemosiderin - Negative for epithelium 08/21/2022 1:31 PM CDT [facility] Microscopic Description and Comment Microscopic [...] clarify this differential. 08/21/2022 1:31 PM CDT [facility] Clinical History 42 year old woman, status post hysterectomy and bilateral salpingo-oophorectomy (for unspecified reason), with long history of chronic pelvic pain and dyspareunia. She also has a history of endometriosis. Pelvic adhesions were noted on laparoscopy. 08/21/2022 1:31 PM T [facility] Materials Received Received are ten slide(s) labeled [id number] (A, 5 levels; B, 5 levels) along with a copy of the outside pathology report. [place] [address]. All original materials are returned to the referring institution, along with a copy of our final report. 08/21/2022 1:31 PM CDT [facility] Pathologist Location at [facility] 08/21/2022 1:31 PM CDT [facility] Disclaimer The performance characteristics of all immunohistochemical and indirect immunofluorescence stains (if any) cited in this report were determined by the Histopathology Laboratory of [facility]. Some of these tests were developed by [...] the attending (teaching) pathologist. 08/21/2022 1:31 PM T [facility] Embedded Images 08/21/2022 1:31 PM CDT [facility] Pathology/Cytology PERITONEAL BIOPSY SPECIMEN / Unknown 08/16/2022 10:51 AM CDT 08/21/2022 12:11 PM CDT Miscellaneous samples (specimen) PERITONEAL BIOPSY SPECIMEN / Unknown 08/16/2022 10:51 AM CDT 08/21/2022 12:37 PM CDT Srinivasan Marks MD LAB - PATHOLOGY/CYTO LOGY ORDERABLES [facility] [address] [place] [address], [facility] [phone] documented in this encounter Visit Diagnoses Diagnosis Illness, unspecified documented in this encounter Care Teams Tin Tie Machine Operator Automatic Relationship Specialty Start Date End Date Daysi Wetzel MD [address] [place] [phone] PCP - General Family Medicine 12/24/18 12/11/22 Miguel Langley DO [address] [place], [place] [id number] PCP - General Internal Medicine 12/12/22 Chris Madrigal MD [address] [place] [address] Hematology and Oncology 03/21/20 Rand Elkins LMSW Outpatient Truss Assembler Care Management 12/17/22 documented as of this encounter
== END 2024-06-02 13:24 | disposition home or self-care (01) ==
LOC: ANHSURGERY 13:25
PROVIDERS: Anesthesiology; PCP Nurse Practitioner Family; Visit Provider Obstetrics & Gynecology
DX: D69.3 Immune thrombocytopenic purpura (principal); N39.3 Stress incontinence (female) (male)
CPT/HCPCS: 36415; 85049; 85055; 86850; 86900; 86901

== ENCOUNTER 2024-07-23 14:02 | Outpatient (CLI) | payer OTHER, SELFPAY ==
--- NOTE | ~2024-07-23 | XR_ITS ---
CHEST RADIOGRAPH, PA AND LATERAL CLINICAL HISTORY: R05.9 - Cough, unspecified. COUGH X 8 DYS . COMPARISON: 07/07/2018 TECHNIQUE: PA and lateral views of the chest. FINDINGS The cardiomediastinal silhouette is unremarkable. The lungs are clear. Visualized osseous structures and soft tissues are unremarkable. IMPRESSION: No focal infiltrate or effusion. Reviewed, dictated and finalized at location A.
--- OUTSIDE RECORDS SUMMARY | 2024-07-23 14:07 | XMS_ITS | Clinical Summary ---
[facility] Organization [facility] Address [address] [address] Care Team Providers Care Retail Helper Name Role Phone Mello Kaba MD Primary Care Provider [phone] Allergies Active Allergy Reactions Criticality Noted Date [...] 2 mg by mouth daily. 0 Active [id number] lic [id number] (Alive Women's Gummy Vitamin) 200 mcg- 37.5 [...] Encounters Date Type Department Care Team Description 07/13/2024 External Device Data STL ABSTRACTION Provider, Abstract 06/16/2024 External Device Data ST[facility] ABSTRACTION Provider, Abstract 06/08/2024 External Device Data [facility] ABSTRACTION Provider, Abstract 06/08/2024 External Device Data [facility] ABSTRACTION Provider, Abstract 06/05/2024 External Device Data [facility] ABSTRACTION Provider, Abstract 06/04/2024 External Device Data ST[facility] ABSTRACTION Provider, Abstract 06/01/2024 External Device Data ST[facility] ABSTRACTION Provider, Abstract 05/18/2024 External Device Data STL ABSTRACTION Provider, Abstract 05/05/2024 2:30 PM BREAKER OILER Office Visit [facility] Oncology and Hematology [facility] [address] [place] [address] Reyes Chiang MD Chronic anemia (Primary Dx) 05/05/2024 Telephone [facility] Oncology and Hematology [facility] [address] [place] [phone] Reyes Chiang MD Appointment Correction (LVM w/ [...] Comments Blood Pressure 117/79 05/05/2024 2:37 PM BREAKER OILER Pulse 70 05/05/2024 2:37 PM BREAKER OILER Temperature 36.1 C (97 F) 05/05/2024 2:37 PM BREAKER OILER Respiratory Rate 18 05/05/2024 2:37 PM BREAKER OILER Oxygen Saturation 98% 05/05/2024 2:37 PM BREAKER OILER Inhaled Oxygen Concentration - - Weight 91.2 kg (201 lb) 05/05/2024 2:37 PM BREAKER OILER Height 157.5 cm (5' 2 ) 10/12/2021 8:27 AM CDT Body Mass Index 36.76 10/12/2021 8:27 AM CDT Plan of Treatment Upcoming Encounters Date Type Department Care Team (Late st Contact Info) Description 09/07/2024 3:30 PM CDT Office Visit [facility] Oncology and Hematology - [place] [address] [facility] [address] [place] [address] Reyes Chiang MD [address] [facility] [address] [place] [address] Health Maintenance Due Date Last Done Comments Pre-Diabetes and Diabetes Screening 1978 DTAP/TDAP/TD VACCINES (6 - Tdap) 1989 10/22/1984, 12/18/1983, 05/20/1980, Additional history exists HEPATITIS B VACCINES (1 of 3 - 19+ 3-dose series) 1997 BREAST CANCER SCREENING 2018 COLORECTAL SCREENING 2023 Colorectal Cancer Screening 2023 FIT-DNA Q 3 years 2023 FIT/FOBT Q 1 year 2023 Flex Sig/CT Colonography Q 5 years 2023 INFLUENZA VACCINE (#1) 2023 HPV VACCINES Aged Out No longer eligi ble based on patient's age to complete this topic Insurance [place] Care Teams Retail Helper Relationship Specialty Start Date End Date Mello Kaba MD PCP - General Family Practice 09/02/22
--- OUTSIDE RECORDS SUMMARY | 2024-07-23 14:08 | XMS_ITS | Clinical Summary ---
Author Organization [facility] Address [address] [facility] [place] [address] Care Team Providers Care Cryptanalyst Name Role Phone Chris Madrigal MD Unavailable [phone] Miguel Langley DO Primary Care Provider [phone] Source Comments [facility],non-owned Affiliates and Associated Physician Practices is amultiple site organization consisting of ambulatory clinics and hospital sitesin [place], [place], [place] and [place]. This disclosure is being madepursuant to the Care Everywhere program and may not contain all information available regarding this patient. Last updated 17.[facility] Allergies Active Allergy Reactions Criticality Noted Date Comments Ciprofloxacin Dizziness High 06/23/2023 Clarithromycin Palpitations High 04/07/2019 Hydrocodone-Acetaminophen Swelling 11/24/2016 Not allergic to APAP component Medications * Be aware that medications may not be up to date on this document. Alwaysverify current medications with the patient. ALPRAZolam (XANAX) 1 MG tablet Take 1 (one) tablet by mouth once daily as needed 9 Active omeprazole (PRILOSEC) 40 MG capsule Take 1 (one) capsule by mouth daily before breakfast Active Multiple Vitamins-Minera ls (ALIVE WOMENS GUMMY PO) Take by mouth [...] RESPONSE. 3 Active estradiol (Estrace) 1 MG tabletIndicatio ns:Hypoestrogen ism Take 1 (one) tablet by mouth once [...] times daily Active ibuprofen (Motrin) 600 MG tabletIndicatio ns:Psammocarcin brunilda of ovary (HCC) Take 1 (one) tablet [...] Plan: This is being managed by her sand drier. Encounters Date Type Department Care Team Description 07/19/2024 Travel from Last 3 Months Immunizations Immunization Administration Dates Next Due DTP, HISTORIC VACCINE [...] Recorded Patient Health Questionnaire-2 Score 0 12/17/2022 [facility] [place] [facility] - Occupational Stress [...] in a detention (including now)? No 12/13/2022 Comments No Sex and Gender Information Value Date Recorded Sex Assigned at Not on file Legal Sex Female 8:37 PM CDT Gender Identity Not on file Sexual Orientation Not on file Last Filed Vital Signs Vital Sign Reading Time Taken Comments Blood Pressure 148/108 04/14/2024 2:53 PM COAL CHEMIST Pulse 77 12/16/2022 12:00 PM CDT Temperature 36.7 C (98.1 F) 12/16/2022 12:00 PM CDT Respiratory Rate 16 12/16/2022 12:0 0 PM CDT Oxygen Saturation 100% 12/16/2022 12: 00 PM CDT Inhaled Oxygen Concentration - - Weight 90.2 kg (198 lb 12.8 oz) 04/14/2024 2:53 PM COAL CHEMIST Height 154.9 cm (5' 1 ) 04/14/2024 2:53 PM COAL CHEMIST Body Mass Index 37.56 04/14/2024 2:53 PM COAL CHEMIST Plan of Treatment Upcoming Encounters Date Type Department Care Team (Late st Contact Info) Description 09/02/2024 2:20 PM CDT Office Visit [facility] - Hematology/Oncology [address] [place] [address] Douglas Llanes MD [address] [facility] [place] [address] Health Maintenance Due Date Last Done Comments [...] - 19+ 3-dose series) 1997 DTAP/TDAP/TD VACCINES (7 - Td or Tdap) 11/16/2003 11/15/1993, 10/22/1984, 10/22/1984, Additional history exists COVID-19 VACCINE ( - season) 2023 03/04/2021 DEPRESSION SCREENING 03/31/2024 01/22/2023, 01/22/2023, 12/25/2022, Additional history exists INFLUENZA VACCINE (Season Ended) 2024 SCREENING FOR DIABETES 12/15/2025 , 12/14/2022, 12/13/2022, Additional history exists ZOSTER VACCINE (1 of 2) 2028 HIB VACCINE Aged Out No longer eligi ble based on patient's age to complete this topic HPV VACCINE Aged Out No longer eligi ble based on patient's age to complete this topic MENINGOCOCCAL (Group B) VACCINE SHARED DECISION-MAKING Aged Out No longer eligible based on patient's age to complete this topic MENINGOCOCCAL GROUPS A/C/Y/W VACCINE Aged Out No longer eligible based [...] Procedure Name Priority Date/Time Associated Diagnosis Comments RENAL FUNCTION PANEL AM Draw 12/15/2022 8:46 AM CDT Post-operative state from Last 3 Months or Most Recently Relevant to Health Maintenance Results * (ABNORMAL) RENAL FUNCTION PANEL (12/15/2022 8:46 AM CDT) Pathologist [facility] Glucose 113(H) 70 - 105 mg/dL 12/15/2022 9:34 AM CDT [facility] Sodium 138 136 - 145 mmol/L 12/15/2022 9:34 AM CDT [facility] Potassium 3.9 3.5 - 5.1 mmol/L 12/15/2022 9:34 AM CDT [facility] Chloride 101 98 - 107 mmol/L 12/15/2022 9:34 AM CDT [facility] CO2 29 22 - 29 mmol/L 12/15/2022 9:34 AM CDT [facility] Calcium 8.5 8.4 - 10.4 mg/dL 12/15/2022 9:34 AM CDT [facility] Anion Gap 8 6 - 16 mmol/L 12/15/2022 9:34 AM CDT [facility] BUN 7 5.3 - 18.7 mg/dL 12/15/2022 9:34 AM CDT [facility] Creatinine 0.77 0.57 - 1.11 mg/dL 12/15/2022 9:34 AM CDT [facility] Albumin 3.0(L) 3.4 - 5.0 gm/dL 12/15/2022 9:34 AM CDT [facility] Phosphorus 2.2(L) 2.3 - 4.7 mg/dL 12/15/2022 9:34 AM CDT [facility] eGFR by CKD-EPI >90 >=90 mL/min/1.7 3 m2 12/15/2022 9:34 AM CDT [facility] Blood BLOOD SPECIMEN / Unknown Lab Venipuncture / Unknown 12/15/2022 8:46 AM CDT 12/15/2022 9:10 AM CDT Sulaiman Andrews MD LAB - CHEMISTRY ORDERABLES Fin al Result Performing Organization Address City/State/[facility] Co de Phone Number [facility] [address] [place] [address] from Last 3 Months or Most Recently Relevant to Health Maintenance [place] [address] [place] [address] [facility] Care Teams Cryptanalyst Relationship Specialty Start Date End Date Miguel Langley DO [address] [place] [address] PCP - General Internal Medicine 12/12/22 Chris Madrigal MD Hematology and Oncology 03/21/20
--- OUTSIDE RECORDS SUMMARY | 2024-07-23 14:08 | XMS_ITS | Clinical Summary ---
Author Organization [facility] Address [address] [place] [address] Care Team Providers Care Rivet Driver Name Role Phone Miguel Langley DO Primary Care Provider [phone] Allergies Active Allergy Reactions Criticality Noted Date Comments Cephalexin Nausea And Vomiting Low 03/31/2018 On 2nd day, while taking for unknown infection, she started vomiting within 30 minutes. Doesn't recall itchy, swelling, presyncope. Tolerated amoxicillin, cefuroxime without issue. Ciprofloxacin Dizziness,Flushing (skin) High 06/23/2023 Clarithromycin Palpitations High 03/31/2018 No itching. Tolerates azithromycin. Last took clarithromycin in 2019. Doxycycline Itching,Nausea And Vomiting,Flushing (skin) Low 03/31/2022 She recalls taking for unknown infection. She recalls warm, flushing, itchy skin without rash, nausea, unsure if vomiting. Hydrocodone Itching Medium 03/31/2005 Post breast reduction, while taking other medications. Symptoms: felt flushed, nausea, itchy face Medications omeprazole (PriLOSEC) 40 mg capsule take 1 capsule by oral route every day 30 minutes prior to breakfast 0 0 07/20/19 17 Active fluticasone propionate (FLONASE) 50 mcg/actuation nasal spray [place] 2 sprays every day by intranasal route. 05/01/19 21 Active ondansetron ODT (ZOFRAN-ODT) 4 mg disintegrating tablet ondansetron 4 mg disintegrating tablet DISSOLVE 1 TABLET ON TONGUE FOUR TIMES DAILY Active pantoprazole DR (PROTONIX) 40 mg EC tablet Take 1 tablet (40 mg total) by mouth daily 07/09/19 Active valACYclovir (VALTREX) 500 mg tablet valacyclovir [...] tablet (50 mg) at night 150 tablet 09/14/19 23 Active SUMAtriptan (IMITREX) 100 mg tabletIndications :Migraine Take 1 tablet (100 mg total) by mouth once as needed for migraine (headache) May repeat one time after 2 hours if needed. Limit the use to 2 per day and 9 per month 9 tablet 09/14/19 23 Active albuterol HFA (PROVENTIL HFA,VENTOLIN HFA,PROAIR HFA) 90 mcg/actuation inhaler Inhale 1 puff every 4 (four) hours as needed 01/06/20 24 Active ferrous sulfate 325 mg (65 mg of elemental iron) tablet Take 1 tablet (325 mg total) by mouth 12/17/19 23 Active cunbbdeu-zqu-vmbg c acid-bui338 (Alive Women's Gummy Vitamin) 120 mcg- 37.5 mg tablet,chewable Take by mouth daily Active nitrofurantoin monohydrate (MACROBID) 100 mg capsule Take 1 capsule (100 mg total) by mouth 2 (two) times a day 06/23/19 25 Active estradioL (ESTRACE) 1 mg tablet Take 1 tablet (1 mg total) by mouth daily 06/26/19 25 Active azelastine (ASTELIN) 137 mcg (0.1 %) nasal sprayIndications: Allergic rhinitis, unspecified seasonality, unspecified trigger Administer 2 sprays into each nostril 2 (two) times a day Use in each nostril as directed 30 mL 5 06/29/19 25 026 Active estradioL (ESTRACE) 2 mg tablet estradiol 2 mg tablet 07/11/19 20 025 Disconti nued(Dup licate order) ibuprofen (ADVIL,MOTRIN) 800 mg tablet 09/09/19 19 025 Disconti nued(The rapy complete d) predniSONE (DELTASONE) 10 mg tablet prednisone 10 mg tablet 025 Disconti nued(The rapy complete d) sertraline (ZOLOFT) 100 mg tablet sertraline 100 mg tablet TAKE 1 TABLET BY MOUTH DAILY 025 Disconti nued(The rapy complete d) azithromycin (ZITHROMAX) 250 mg tabletIndications :Upper Respiratory/HEENT Infection Take 1 tablet daily for 3 months. 90 tablet 01/26/20 24 025 Disconti nued(The rapy complete d) Active Problems Problem Noted Date Diagnosed Date Chronic ITP (idiopathic thrombocytopenia) 2023 Facial pain, atypical 07/17/2022 Chronic sinusitis 07/04/2022 Other acute recurrent sinusitis 03/12/2017 Assessment & Plan (03/12/2017 11:57 AM CHEF DE PARTIE): Patient demonstrates history and my physical findings [...] CDT): This is being managed by her arabic linguist. Encounters Date Type Department Care Team Description 07/07/2024 Results Follow-Up [facility] All[facility] and Immunology [address] [place] [address] Jessica Cross MD 06/28/2024 11:10 AM CDT Lab [facility] [address] [place] [address] Allergic rhinitis, unspecified seasonality, unspecified trigger 06/28/2024 10:00 AM CDT Office Visit [facility]ology [address] [place] [address] Jessica Cross MD Adverse effect of drug, initial encounter (Primary Dx); Allergic rhinitis, unspecified seasonality, unspecified trigger from Last 3 Months Surgical History Surgery [...] Packs/Day Years Used Date Smoking Tobacco: Former Passive Smoke Exposure: Current Smokeless Tobacco: Former Tobacco Cessation:Counseling Given: Not Answered Comments:Smoking History Packs/day: 4 Cigarettes Alcohol Use Standard Drinks/Week Comments Yes 0 (1 standard drink = 0.6 oz pur e alcohol) Comments Unknown Sex and Gender Information Value Date Recorded Sex Assigned at Not on file Legal Sex Female 9:03 AM CHEF DE PARTIE Gender Identity Female 01/20/2024 3:06 PM CDT Sexual Orientation Not on file Obstetrics History Last Filed Vital Signs Vital Sign Reading Time Taken Comments Blood Pressure 129/82 06/28/2024 9:56 AM CDT Pulse 75 06/28/2024 9:56 AM CDT Temperature 36.4 C (97.6 F) 06/28/2024 9:56 AM CDT Respiratory Rate - - Oxygen Saturation 99% 06/28/2024 9:56 AM CDT Inhaled Oxygen Concentration - - Weight 91.6 kg (202 lb) 06/28/2024 9:56 AM CDT Height 157.5 cm (5' 2 ) 06/28/2024 9:56 AM CDT Body Mass Index 36.95 06/28/2024 9:56 AM CDT Plan of Treatment Health Maintenance Due Date Last Done Comments Cervical Cancer Screening 1978 Colon Cancer Screening-Colonoscopy 1978 Depression Screening 1978 DTaP/Tdap/Td Vaccine (5 - Tdap) 11/16/1993 11/15/1993, 10/22/1984, 10/22/1984, Additional history exists Hepatitis B Screening 1996 Regular Well Visit/Exam 18-64 1996 Breast Cancer Screening-Mammogram 07/05/2021 07/05/2020 Covid-19 Vaccine ( season) 2023 03/04/2021 Influenza Vaccine (Season Ended) 2024 Hepatitis C Screening Completed 07/09/2016 HPV Vaccines Aged Out No longer eligi ble based on patient's age to complete this topic Pneumococcal vaccine <65 Aged Out No longer eligible based on patient's age to complete this topic Procedures Procedure Name Priority Date/Time Associated Diagnosis Comments IMMATURE PLATELET FRACTION Routine 06/28/2024 11:50 AM CDT Allergic rhinitis, unspecified seasonality, unspecified trigger DIFFERENTIAL AUTO Routine 06/28/2024 11: 50 AM CDT Allergic rhinitis, unspecified seasonality, unspecified trigger ALLERGEN PIGWEED ROUGH (WEED) IGE Routine 06/28/2024 11:50 AM CDT Allergic rhinitis, unspecified seasonality, unspecified trigger ALLERGEN PLANTAIN [place] (WEED) IGE Routine 06/28/2024 11:50 AM CDT Allergic rhinitis, unspecified seasonality, unspecified trigger IGE Routine 06/28/2024 11:50 AM CDT Allergic rhinitis, unspecified seasonality, unspecified trigger CBC WITH AUTO DIFFERENTIAL Routine 06/28/2024 11:50 AM CDT Allergic rhinitis, unspecified seasonality, unspecified trigger ALLERGEN RAT MIX (ANIMAL) IGE Routine 06/28/2024 11:50 AM CDT Allergic rhinitis, unspecified seasonality, unspecified trigger ALLERGEN MOUSE MIX (ANIMAL) IGE Routine 06/28/2024 11:50 AM CDT Allergic rhinitis, unspecified seasonality, unspecified trigger ALLERGEN EPITHELIA/DANDER DOG (ANIMAL) IGE Routine 06/28/2024 11:50 AM CDT Allergic rhinitis, unspecified seasonality, unspecified trigger ALLERGEN DERMATOPHAGOIDES PTERONYSSINUS (INSECT) IGE Routine 06/28/2024 11:50 AM CDT Allergic rhinitis, unspecified seasonality, unspecified trigger ALLERGEN DERMATOPHAGOIDES FARINAE (INSECT) IGE Routine 06/28/2024 11:50 AM CDT Allergic rhinitis, unspecified seasonality, unspecified trigger ALLERGEN COCKROACH SOUTH KOREAN (INSECT) IGE Routine 06/28/2024 11:50 AM CDT Allergic rhinitis, unspecified seasonality, unspecified trigger ALLERGEN EPITHELIA/DANDER CAT (ANIMAL) IGE Routine 06/28/2024 11:50 AM CDT Allergic rhinitis, unspecified seasonality, unspecified trigger ALLERGEN PENICILLIUM CHRYSOGENUM (MOLD) IGE Routine 06/28/2024 11:50 AM CDT Allergic rhinitis, unspecified seasonality, unspecified trigger ALLERGEN CLADOSPORIUM HERBARUM (MOLD) IGE Routine 06/28/2024 11:50 AM CDT Allergic rhinitis, unspecified seasonality, unspecified trigger ALLERGEN ASPERGILLUS FUMIGATUS (MOLD) IGE Routine 06/28/2024 11:50 AM CDT Allergic rhinitis, unspecified seasonality, unspecified trigger ALLERGEN ALTERNARIA TENUIS (MOLD) IGE Routine 06/28/2024 11:50 AM CDT Allergic rhinitis, unspecified seasonality, unspecified trigger ALLERGEN NETTLE (WEED) IGE Routine 06/28/2024 11:50 AM CDT Allergic rhinitis, unspecified seasonality, unspecified trigger ALLERGEN RAGWEED SHORT/COMMON (WEED) IGE Routine 06/28/2024 11:50 AM CDT Allergic rhinitis, unspecified seasonality, unspecified trigger ALLERGEN ROJAS'S QUARTER (WEED) IGE Routine 06/28/2024 11:50 AM CDT Allergic rhinitis, unspecified seasonality, unspecified trigger ALLERGEN ALEXANDRU GRASS (GRASS) IGE Routine 06/28/2024 11:50 AM CDT Allergic rhinitis, unspecified seasonality, unspecified trigger ALLERGEN RAUL GRASS (GRASS) IGE Routine 06/28/2024 11:50 AM CDT Allergic rhinitis, unspecified seasonality, unspecified trigger ALLERGEN BERMUDA GRASS (GRASS) IGE Routine 06/28/2024 11:50 AM CDT Allergic rhinitis, unspecified seasonality, unspecified trigger ALLERGEN WALNUT (TREE) IGE Routine 06/28/2024 11:50 AM CDT Allergic rhinitis, unspecified seasonality, unspecified trigger ALLERGEN SYCAMORE SOUTH KOREAN (TREE) IGE Routine 06/28/2024 11:50 AM CDT Allergic rhinitis, unspecified seasonality, unspecified trigger ALLERGEN MAPLE/BOX ELDER (TREE) IGE Routine 06/28/2024 11:50 AM CDT Allergic rhinitis, unspecified seasonality, unspecified trigger ALLERGEN MOUNTAIN JUNIPER (TREE) IGE Routine 06/28/2024 11:50 AM CDT Allergic rhinitis, unspecified seasonality, unspecified trigger ALLERGEN MULBERRY (TREE) IGE Routine 06/28/2024 11:50 AM CDT Allergic rhinitis, unspecified seasonality, unspecified trigger ALLERGEN OAK RED (TREE) IGE Routine 06/28/2024 11:50 AM CDT Allergic rhinitis, unspecified seasonality, unspecified trigger ALLERGEN ELM (TREE) IGE Routine 06/29/19 25 11:50 AM CDT Allergic rhinitis, unspecified seasonality, unspecified trigger ALLERGEN BIRCH COMMON SILVER (TREE) IGE Routine 06/28/2024 11:50 AM CDT Allergic rhinitis, unspecified seasonality, unspecified trigger HEPATITIS PANEL, ACUTE Routine 7 3:15 PM CDT from Last 3 Months or Most Recently Relevant to Health Maintenance Results * (ABNORMAL) Immature platelet fraction (06/28/2024 11:50 AM CDT) Pathologist [facility] IPF 49.4(H) 1.6 - 10.1 % Blood 06/28/2024 11:5 0 AM CDT 06/28/2024 2:04 PM CDT Jessica Cross MD LAB BLOOD ORDERABLES Fin al Result Performing Organization Address [facility] Co de Phone Number [facility] Department [place] [address] * Allergen Rat mix (animal) IgE (06/28/2024 11:50 AM CDT) [facility] Rat mix IgE <0.10 0.00 - 0.34 kUnits/L Blood 06/28/2024 11:5 0 AM CDT 06/28/2024 1:52 PM CDT Jessica Cross MD LAB BLOOD ORDERABLES Fin al Result Performing Organization Address [facility] Co de Phone Number [facility] [place] [address] * Allergen Mouse mix (animal) IgE (06/28/2024 11:50 AM CDT) [facility] Mouse mix IgE <0.10 0.00 - 0.34 kUnits/L Blood 06/28/2024 11:5 0 AM CDT 06/28/2024 1:52 PM CDT us Jessica Cross MD LAB BLOOD ORDERABLES Fin al Result [facility] [place] [address] * (ABNORMAL) Differential, auto (06/28/2024 11:50 AM CDT) [facility] Neutrophil abs 3.9 1.5 - 6.5 K/cumm Imm gran abs 0.0 0.0 - 0.1 K/cumm [facility] Lymphocyte abs 3.7(H) 0.8 - 3.3 K/cumm [facility] Monocyte abs 0.4 0.2 - 0.8 K/cumm [facility] Eosinophil abs 0.2 0.0 - 0.5 K/cumm [facility] Basophil abs 0.0 0.0 - 0.1 K/cumm [facility] Neutrophil pct 48.1 % [facility] Comment: Interpretive Data Percent cell count reference ranges are not reported, since discordance with absolute values may lead to misinterpretation of CBC data. Current Interpretive Data was last revised on 2017. Imm gran pct 0.2 % [facility] Comment: Interpretive Data Percent cell count reference ranges are not reported, since discordance with absolute values may lead to misinterpretation of CBC data. Current Interpretive Data was last revised on 2017. Lymphocyte pct 44.9 % [facility] Comment: Interpretive Data Percent cell count reference ranges are not reported, since discordance with absolute values may lead to misinterpretation of CBC data. Current Interpretive Data was last revised on 2017. Monocyte pct 4.3 % [facility] Comment: Interpretive Data Percent cell count reference ranges are not reported, since discordance with absolute values may lead to misinterpretation of CBC data. Current Interpretive Data was last revised on 2017. Eosinophil pct 2.0 % [facility] Comment: Interpretive Data Percent cell count reference ranges are not reported, since discordance with absolute values may lead to misinterpretation of CBC data. Current Interpretive Data was last revised on 2017. Basophil pct 0.5 % [facility] Comment: Interpretive Data Percent cell count reference ranges are not reported, since discordance with absolute values may lead to misinterpretation of CBC data. Current Interpretive Data was last revised on 2017. Blood 06/28/2024 11:5 0 AM CDT 06/28/2024 1:51 PM CDT Jessica Cross MD LAB BLOOD ORDERABLES Fin al Result Performing Organization Address [facility] Co de Phone Number [facility] Department [place] [address] * Allergen Penicillium chrysogenum (mold) IgE (06/28/2024 11:50 AM CDT) Penicillium chrysogenum IgE <0.10 0.00 - 0.34 kUnits/L Blood 06/28/2024 11:5 0 AM CDT 06/28/2024 1:52 PM CDT Jessica Cross MD LAB BLOOD ORDERABLES Fin al Result Performing Organization Address [facility] Co de Phone Number [facility] [place] [address] * Allergen Dallas (tree) IgE (06/28/2024 11:50 AM CDT) Dallas IgE <0.10 0.00 - 0.34 kUnits/L Blood 06/28/2024 11:5 0 AM CDT 06/28/2024 1:52 PM CDT Jessica Cross MD LAB BLOOD ORDERABLES Fin al Result Performing Organization Address [facility]/ZIP Co de Phone Number [facility] [place] [address] * Allergen [facility] (tree) IgE (06/28/2024 11:50 AM CDT) [facility] IgE <0.10 0.00 - 0.34 kUnits/L Blood 06/28/2024 11:5 0 AM CDT 06/28/2024 1:52 PM CDT Jessica Cross MD LAB BLOOD ORDERABLES Fin al Result Performing Organization Address [facility] de Phone Number [facility] Department [place] [address] * (ABNORMAL) CBC with auto differential (06/28/2024 11:50 AM CDT) [facility] WBC 8.1 3.8 - 9.9 K/cumm Hgb 13.8 11.9 - 15.5 g/dL [facility] Hct 42.4 35.6 - 45.5 % [facility] Plt 45(L) 150 - 400 K/cumm [facility] Comment:No clot detected in sample.. Critical result called to and read back by WNIDY GLYNN RN on 06 28 2024 at 1425 to Zeny Collier. MPV Not Measured 9.1 - 12.3 fL [facility] RBC 5.08 3.90 - 5.20 M/cumm [facility] MCV 83.5 81.3 - 96.4 fL [facility] MCH 27.2 27.1 - 33.3 pg [facility] MCHC 32.5 32.3 - 35.7 g/dL [facility] RDW CV 13.0 11.1 - 14.9 % [facility] RDW SD 39.8 35.7 - 48.1 fL [facility] NRBC abs 0.00 0.00 - 0.01 K/cumm [facility] Blood 06/28/2024 11:5 0 AM CDT 06/28/2024 1:51 PM CDT Jessica Cross MD LAB BLOOD ORDERABLES Fin al Result Performing Organization Address [facility] Co de Phone Number [facility] Department [place] [address] * Allergen Bermuda grass (grass) IgE (06/28/2024 11:50 AM CDT) Pathologist [facility] Bermuda grass IgE <0.10 0.00 - 0.34 kUnits/L Blood 06/28/2024 11:5 0 AM CDT 06/28/2024 1:52 PM CDT Jessica Cross MD LAB BLOOD ORDERABLES Fin al Result Performing Organization Address [facility] Co de Phone Number [facility] [address] * Allergen Plantain welsh (weed) IgE (06/28/2024 11:50 AM CDT) Pathologist [facility] Plantain welsh IgE <0.10 0.00 - 0.34 kUnits/L Blood 06/28/2024 11:5 0 AM CDT 06/28/2024 1:52 PM CDT Jessica Cross MD LAB BLOOD ORDERABLES Fin al Result Performing Organization Address [facility] Co de Phone Number [facility] [address] * Allergen Elm (tree) IgE (06/28/2024 11:50 AM CDT) Elm IgE <0.10 0.00 - 0.34 kUnits/L Blood 06/28/2024 11:5 0 AM CDT 06/28/2024 1:52 PM CDT Jessica Cross MD LAB BLOOD ORDERABLES Fin al Result Performing Organization Address [facility] Co de Phone Number [facility] [place] [address] * Allergen Cladosporium herbarum (mold) IgE (06/28/2024 11:50 AM CDT) Cladosporium herbarum IgE <0.10 0.00 - 0.34 kUnits/L Blood 06/28/2024 11:5 0 AM CDT 06/28/2024 1:52 PM CDT Jessica Cross MD LAB BLOOD ORDERABLES Fin al Result Performing Organization Address [facility] Co de Phone Number [facility] [place] [address] * Allergen Birch common silver (tree) IgE (06/28/2024 11:50 AM CDT) Birch common silver IgE <0.10 0.00 - 0.34 kUnits/L Blood 06/28/2024 11:5 0 AM CDT 06/28/2024 1:52 PM CDT Jessica Cross MD LAB BLOOD ORDERABLES Fin al Result Performing Organization Address [facility] Co de Phone Number [facility] [employer] [place], [place] [id number] * Allergen Alternaria tenuis (mold) IgE (06/28/2024 11:50 AM CDT) Alternaria tenius IgE <0.10 0.00 - 0.34 kUnits/L Blood 06/28/2024 11:5 0 AM CDT 06/28/2024 1:52 PM CDT Jessica Cross MD LAB BLOOD ORDERABLES Fin al Result Performing Organization Address [facility] Co de Phone Number [facility] [place] [address] * Allergen Aspergillus fumigatus (mold) IgE (06/28/2024 11:50 AM CDT) Aspergillus fumigatus IgE <0.10 0.00 - 0.34 kUnits/L Blood 06/28/2024 11:5 0 AM CDT 06/28/2024 1:52 PM CDT Jessica Cross MD LAB BLOOD ORDERABLES Fin al Result Performing Organization Address [facility] de Phone Number [facility] [place] [address] * Allergen Dermatophagoides pteronyssinus (insect) IgE (06/28/2024 11:50 AM CDT) Dermatophyton pteronyssinus IgE <0.10 0.00 - 0.34 kUnits/L Blood 06/28/2024 11:5 0 AM CDT 06/28/2024 1:52 PM CDT Jessica Cross MD LAB BLOOD ORDERABLES Fin al Result Performing Organization Address [facility] de Phone Number [facility] [place] [address] * Allergen Dermatophagoides farniae (insect) IgE (06/28/2024 11:50 AM CDT) Dermatophyton farinae IgE <0.10 0.00 - 0.34 kUnits/L Blood 06/28/2024 11:5 0 AM CDT 06/28/2024 1:52 PM CDT Jessica Cross MD LAB BLOOD ORDERABLES Fin al Result Performing Organization Address [facility] Co de Phone Number [facility] [place] [address] * Allergen Epithelia/dander dog (animal) IgE (06/28/2024 11:50 AM CDT) Dog dander IgE <0.10 0.00 - 0.34 kUnits/L Blood 06/28/2024 11:5 0 AM CDT 06/28/2024 1:52 PM CDT Jessica Cross MD LAB BLOOD ORDERABLES Fin al Result Performing Organization Address [facility] Co de Phone Number [facility] [place] [address] * Allergen Cockroach burkinan (insect) IgE (06/28/2024 11:50 AM CDT) Cockroach IgE <0.10 0.00 - 0.34 kUnits/L Blood 06/28/2024 11:5 0 AM CDT 06/28/2024 1:52 PM CDT Jessica Cross MD LAB BLOOD ORDERABLES Fin al Result Performing Organization Address [facility] Co de Phone Number [facility] [place] [address] * Allergen Epithelia/dander cat (animal) IgE (06/28/2024 11:50 AM CDT) Cat dander IgE <0.10 0.00 - 0.34 kUnits/L Blood 06/28/2024 11:5 0 AM CDT 06/28/2024 1:52 PM CDT Jessica Cross MD LAB BLOOD ORDERABLES Fin al Result Performing Organization Address [facility] Co de Phone Number [facility] [place] [address] * Allergen Ragweed short/common (weed) IgE (06/28/2024 11:50 AM CDT) Ragweed common IgE <0.10 0.00 - 0.34 kUnits/L Blood 06/28/2024 11:5 0 AM CDT 06/28/2024 1:52 PM CDT Jessica Cross MD LAB BLOOD ORDERABLES Fin al Result Performing Organization Address [facility] Co de Phone Number [facility] [place] [address] * Allergen Pigweed, rough (weed) IgE (06/28/2024 11:50 AM CDT) Pigweed rough IgE <0.10 0.00 - 0.34 kUnits/L Blood 06/28/2024 11:5 0 AM CDT 06/28/2024 1:52 PM CDT Jessica Cross MD LAB BLOOD ORDERABLES Fin al Result Performing Organization Address [facility] de Phone Number [facility] [employer] [place], [place] [id number] * Allergen Nettle (weed) IgE (06/28/2024 11:50 AM CDT) Nettle IgE <0.10 0.00 - 0.34 kUnits/L Blood 06/28/2024 11:5 0 AM CDT 06/28/2024 1:52 PM CDT Jessica Cross MD LAB BLOOD ORDERABLES Fin al Result Performing Organization Address [facility] Co de Phone Number [facility] [place] [address] * Allergen Rojas's quarter (weed) IgE (06/28/2024 11:50 AM CDT) Rojas's quarters IgE <0.10 0.00 - 0.34 kUnits/L Blood 06/28/2024 11:5 0 AM CDT 06/28/2024 1:52 PM CDT Result [facility] Jessica Cross MD LAB BLOOD ORDERABLES Fin al Result Performing Organization Address [facility] de Phone Number [facility] [place] [address] * Allergen Alexandru grass (grass) IgE (06/28/2024 11:50 AM CDT) Alexandru grass IgE <0.10 0.00 - 0.34 kUnits/L Blood 06/28/2024 11:5 0 AM CDT 06/28/2024 1:52 PM CDT Result [facility] Jessica Cross MD LAB BLOOD ORDERABLES Fin al Result Performing Organization Address [facility] de Phone Number [facility] [place] [address] * Allergen Raul grass (grass) IgE (06/28/2024 11:50 AM CDT) Raul grass IgE <0.10 0.00 - 0.34 kUnits/L Blood 06/28/2024 11:5 0 AM CDT 06/28/2024 1:52 PM CDT Jessica Cross MD LAB BLOOD ORDERABLES Fin al Result Performing Organization Address [facility] Co de Phone Number [facility] [place] [address] * Allergen Cavendish (tree) IgE (06/28/2024 11:50 AM CDT) Cavendish (tree) IgE <0.10 0.00 - 0.34 kUnits/L Blood 06/28/2024 11:5 0 AM CDT 06/28/2024 1:52 PM CDT Jessica Cross MD LAB BLOOD ORDERABLES Fin al Result Performing Organization Address [facility] Co de Phone Number [facility] Department [place] [address] * Allergen Nokomis burkinan (tree) IgE (06/28/2024 11:50 AM CDT) Nokomis IgE <0.10 0.00 - 0.34 kUnits/L Blood 06/28/2024 11:5 0 AM CDT 06/28/2024 1:52 PM CDT Jessica Cross MD LAB BLOOD ORDERABLES Fin al Result Performing Organization Address [facility] Co de Phone Number [facility] [place] [address] * Allergen Maple/Box elder (tree) IgE (06/28/2024 11:50 AM CDT) Maple/box elder IgE <0.10 0.00 - 0.34 kUnits/L Blood 06/28/2024 11:5 0 AM CDT 06/28/2024 1:52 PM CDT Jessica Cross MD LAB BLOOD ORDERABLES Fin al Result Performing Organization Address [facility] de Phone Number [facility] [place] [address] * Allergen [place]walk red (tree) IgE (06/28/2024 11:50 AM CDT) Pathologist [facility] [place] IgE <0.10 0.00 - 0.34 kUnits/L Blood 06/28/2024 11:5 0 AM CDT 06/28/2024 1:52 PM CDT Jessica Cross MD LAB BLOOD ORDERABLES Fin al Result Performing Organization Address [facility] Phone Number [facility] [place] [address] * IgE (06/28/2024 11:50 AM CDT) Pathologist [facility] IgE 4 <=100 IUnits/mL Blood 06/28/2024 11:5 0 AM CDT 06/28/2024 1:52 PM CDT Jessica Cross MD LAB BLOOD ORDERABLES Fin al Result Performing Organization Address [facility] de Phone Number [facility] [place] [address] * Hepatitis panel, acute (07/09/2016 3:15 PM CDT) Pathologist [facility] Hep A IgM Negative Negative [facility] Hep B core IgM Negative Negative [facility] Hep C Ab Negative Negative [facility] HepBsAg Negative Negative [facility] Blood specimen (specimen) 07/09/2016 3:15 PM CDT 07/09/2016 5:52 PM CDT Steven Iqbal MD LAB MICROBIOLOGY - GEN ERAL ORDERABLES Final Result [facility]) [facility] Department [place] [address] from Last 3 Months or Most Recently Relevant to Health Maintenance Insurance [facility] [id number] [place] [id number] [place] [address] Care Teams Rivet Driver Relationship Specialty Start Date End Date Miguel Langley DO PCP - General Internal Medicine 07/03/22
--- OUTSIDE RECORDS SUMMARY | 2024-07-23 14:08 | XMS_ITS | Encounter Summary ---
Author Organization [facility] Address [address] [place] [address] Care Team Providers Care Temperature Logging Operator Name Role Phone Daysi Wetzel MD Primary Care Provider [phone] Chris Madrigal MD Unavailable [phone] Miguel Langley DO Primary Care Provider [phone] Rand Elkins [facility] Unavailable [phone] Encounter Details Date Type Department Care Team (Late Contact Info) Description 02/12/2019 Telephone [facility] [address] [place] [address] Ashely Baker Social History Tobacco Use Types Packs/Day Years Used Date Smoking Tobacco: Never Smokeless Tobacco: Never Alcohol Use Standard Drinks/Week Comments Yes 0 (1 standard drink = 0.6 oz pur e alcohol) occ Comments Unknown Sex and Gender Information Value Date Recorded Sex Assigned at Not on file Legal Sex Female 8:37 PM CDT Gender Identity Not on file Sexual Orientation Not on file documented as of this encounter Plan of Treatment Upcoming Encounters Date Type Department Care Team (Late Contact Info) Description 09/02/2024 2:20 PM CDT Office Visit [facility] - Hematology/Oncology [address] [place] [phone] Douglas Llanes MD [address] [facility] [place] [address] documented as of this encounter Visit Diagnoses Not on filedocumented in this encounter Care Teams Temperature Logging Operator Relationship Specialty Start Date End Date Daysi Wetzel MD [address] [place] [address] PCP - General Family Medicine 12/24/18 12/11/22 Miguel Langley DO [address] [address] PCP - General Internal Medicine 12/12/22 Chris Madrigal MD [address] [place] [address] Hematology and Oncology 03/21/20 Rand Elkins LMSW Outpatient Corporate Quality Manager Care Management 12/17/22 documented as of this encounter
--- OUTSIDE RECORDS SUMMARY | 2024-07-23 14:08 | XMS_ITS | Encounter Summary ---
Author Organization [facility] Address [address] [place] [address] Phone Care Team Providers Care Wheel Of Fortune Dealer Name Role Phone Miguel Langley DO Primary Care Provider [phone] Encounter Details Date Type Department Care Team (Late st Contact Info) Description 07/07/2024 Results Follow-Up [facility] Allergy and Immunology [address] [facility] [address] [place] [phone] Jessica Cross MD [address] [place] [address] Social History Tobacco Use Types Packs/Day Years Used Date Smoking Tobacco: Former Passive Smoke Exposure: Current Smokeless Tobacco: Former Comments:Smoking History Pac ks/day: 4 Cigarettes Alcohol Use Standard Drinks/Week Comments Yes 0 (1 standard drink = 0.6 oz pur e alcohol) Comments Unknown Sex and Gender Information Value Date Recorded Sex Assigned at Not on file Legal Sex Female 9:03 AM ROLLER TURNER Gender Identity Female 01/20/2024 3:06 PM CDT Sexual Orientation Not on file documented as of this encounter Plan of Treatment Not on file documented as of this encounter Visit Diagnoses Not on filedocumented in this encounter Care Teams Wheel Of Fortune Dealer Relationship Specialty Start Date End Date Miguel Langley DO PCP - General Internal Medicine 07/03/22 documented as of this encounter
--- OUTSIDE RECORDS SUMMARY | 2024-07-23 14:08 | XMS_ITS | Encounter Summary ---
Author Organization [facility] Address [address] [place] [address] Care Team Providers Care Senior Informatica Developer Name Role Phone Daysi Wetzel MD Primary Care Provider [phone] Chris Madrigal MD Unavailable Miguel Langley DO Primary Care Provider [phone] Rand Elkins [facility] Unavailable [phone] Reason for Visit * Reason Onset Date Comments Nurse Only 11/26/2022 Surgery Scheduling 11/26/2022 Encounter Details Date Type Department Care Team (Late st Contact Info) Description 11/26/2022 Telephone [facility] - Centralized Scheduling [address] [place] [address] Sulaiman Andrews MD [address] [address] Nurse Only; Surgery Scheduling Social History Tobacco Use Types Packs/Day Years Used Date Smoking Tobacco: Never Smokeless Tobacco: Never Alcohol Use Standard Drinks/Week Comments Yes 0 (1 standard drink = 0.6 oz pur e alcohol) occ Comments No Sex and Gender Information Value [...] 3:13 PM CDT Pt seen her other RAILWAY SIGNALLING ENGINEER Dr.James Duran in [place], Dr. Andrews told her to call office after she sees him, pt is having surgery with Dr Andrews, not sure when documented in this encounter Plan of Treatment Upcoming Encounters Date Type Department Care Team (Late st Contact Info) Description 09/02/2024 2:20 PM CDT Office Visit [facility] - Hematology/Oncology [address] [place] [phone] Douglas Llanes MD [address] [facility] [place] [address] documented as of this encounter Goals Goal [...] on filedocumented in this encounter Care Teams Senior Informatica Developer Relationship Specialty Start Date End Date Daysi Wetzel MD [address] [place] [phone] PCP - General Family Medicine 12/24/18 12/11/22 Miguel Langley DO [address] [place] [address] PCP - General Internal Medicine 12/12/22 Chris Madrigal MD [address] [place] [address] Hematology and Oncology 03/21/20 Rand Elkins LMSW Outpatient Health Safety Specialist Care Management 12/17/22 documented as of this encounter
--- OUTSIDE RECORDS SUMMARY | 2024-07-23 14:08 | XMS_ITS | Encounter Summary ---
Author Organization [facility] Address [address] [place] [address] Care Team Providers Care Grocery Checker Name Role Phone Chris Madrigal MD Unavailable [phone] Miguel Langley DO Primary Care Provider [phone] Rand Elkins LMSW Unavailable [phone] Reason for Visit * Reason Onset Date Comments Question 12/18/2022 Follow-up 12/18/2022 Encounter Details Date Type Department Care Team (Late st Contact Info) Description 12/18/2022 Telephone [facility] - STUDENT ACCOUNTS MANAGER [address] [facility] [address] [place] [address] Sulaiman Andrews MD [address] [facility] [address] [place] [address] Question; Follow-up Social History Tobacco Use Types [...] Recorded Patient Health Questionnaire-2 Score 0 12/17/2022 [facility] Occupat ional Health - Occupational Stress [...] in a residential (including now)? No 12/13/2022 Comments No Sex and Gender Information Value Date Recorded Sex Assigned at Not on file Legal Sex Female 8:37 PM CDT Gender Identity Not on file Sexual Orientation Not on file documented as of this encounter Functional Status * Is person deaf or have serious hearing difficulty? Answer Date of Assessment Author No 12/13/2022 3:45 AM CDT Arely Niño RN * Is person blind or have serious difficulty seeing? Answer Date of Assessment Author No 12/13/2022 3:45 AM CDT Arely Niño RN * Does person have serious difficulty walking/climbing stairs? Answer Date of Assessment Author No 12/13/2022 3:45 AM CDT Arely Niño RN * Does person have difficulty dressing/bathing? Answer Date of Assessment Author No 12/13/2022 3:45 AM CDT Arely Niño RN * Does person have difficulty doing errands alone? Answer Date of Assessment Author No 12/13/2022 3:45 AM CDT Arely Niño RN documented as of this encounter Mental Status * Does person have difficulty concentrating/remembering/making decisions? Answer Entry Date Author No 12/13/2022 3:45 AM CDT Arely Niño RN documented in this encounter Miscellaneous Notes * Telephone Encounter [...] tablets and is taking 2) Please contact # [phone] documented in this encounter Plan of Treatment Upcoming Encounters Date Type Department Care Team (Late st Contact Info) Description 09/02/2024 2:20 PM CDT Office Visit [facility] - Hematology/Oncology [address] [place] [address] Douglas Llanes MD [address] [facility] & [place] [address] documented as of this encounter Goals Goal [...] on filedocumented in this encounter Care Teams Grocery Checker Relationship Specialty Start Date End Date Miguel Langley DO [address] [address] PCP - General Internal Medicine 12/12/22 Chris Madrigal MD Hematology and Oncology 03/21/20 Rand Elkins LMSW Outpatient Computer Technologist Care Management 12/17/22 documented as of this encounter
--- OUTSIDE RECORDS SUMMARY | 2024-07-23 14:08 | XMS_ITS | Encounter Summary ---
Author Organization [facility] Address [address] [facility] [place] [address] Care Team Providers Care Engineering Technical Writer Name Role Phone Daysi Wetzel MD Primary Care Provider [phone] Chris Madrigal MD Unavailable [phone] Miguel Langley DO Primary Care Provider [phone] Rand Elkins [facility] Unavailable [phone] Encounter Details Date Type Department Care Team (Late st Contact Info) Description 08/21/2022 Lab Requisition [facility] - Pathology Lab [address] [place] [address] Srinivasan Marks MD [address] [address] Illness, unspecified Social History Tobacco [...] Description 09/02/2024 2:20 PM CDT Office Visit [facility] - Hematology/Oncology [address] [place] [phone] Douglas Llanes MD [address] [facility] OF HEMATOLOG[facility] & [place] [address] documented as of this encounter Goals Goal Patient Goal Type Associated Problems Recent Progress Patient-Stated? Author Medication Management General On track( 021 11:43 AM CDT) Sahra Herrera RN Note: Expected end date: Ongoing Interventions: [...] CDT) Case Report Surgical Pathology Report Case: [id number] Authorizing Provider: Srinivasan Marks MD Collected: 08/16/2022 10:51 AM Ordering Location: [facility] Pathology Lab Received: 08/21/2022 12:11 PM Pathologist: Denise Carroll MD Specimens: A) - Soft Tissue, cul-de-sac B) - Peritoneal Biopsy 08/21/2022 1:31 PM CDT [facility] PATHOLOGY LAB Final Diagnosis Cul-de-sac, biopsy ([id number], A; 08/16/2022): - Scanty low grade serous epithelium without invasion, associated with abundant psammoma bodies (see microscopic description) Peritoneum, biopsy ([id number], B; 08/16/2022): - Psammoma body and hemosiderin - Negative for epithelium 08/21/2022 1:31 PM CDT [facility] LAB Microscopic Description and Comment [...] help clarify this differential. 08/21/2022 1:31 PM [facility] LAB Clinical History 42 year old woman, status post hysterectomy and bilateral salpingo-oophorectomy (for unspecified reason), with long history of chronic pelvic pain and dyspareunia. She also has a history of endometriosis. Pelvic adhesions were noted on laparoscopy. 08/21/2022 1:31 PM [facility] LAB Materials Received Received are ten slide(s) labeled [id number] (A, 5 levels; B, 5 levels) along with a copy of the outside pathology report. [place] [address]. All original materials are returned to the referring institution, along with a copy of our final report. 08/21/2022 1:31 PM [facility] LAB Pathologist Location at [facility] 08/21/2022 1:31 PM [facility] LAB Disclaimer The performance characteristics of all immunohistochemical and indirect immunofluorescence stains (if any) cited in this report were determined by the Histopathology Laboratory of [facility]. Some of these tests were developed [...] the attending (teaching) pathologist. 08/21/2022 1:31 PM [facility] LAB Embedded Images 08/21/2022 1:31 PM [facility] LAB Pathology/Cytology PERITONEAL BIOPSY SPECIMEN / Unknown 08/16/2022 10:51 AM CDT 08/21/2022 12:11 PM CDT Miscellaneous samples (specimen) PERITONEAL BIOPSY SPECIMEN / Unknown 08/16/2022 10:51 AM CDT 08/21/2022 12:37 PM CDT us Srinivasan Marks MD LAB - PATHOLOGY/CYTOLOGY ORDERAB LES Final Result [facility] LAB [address] [place] [address], [facility] [phone] documented in this encounter Visit Diagnoses Diagnosis Illness, unspecified documented in this encounter Care Teams Engineering Technical Writer Relationship Specialty Start Date End Date Daysi Wetzel MD [address] [place] [address] PCP - General Family Medicine 12/24/18 12/11/22 Miguel Langley DO [address] [place], [place] [phone] PCP - General Internal Medicine 12/12/22 Chris Madrigal MD [address] [place] [address] Hematology and Oncology 03/21/20 Rand Elkins LMSW Outpatient Plastic Die Maker Apprentice Care Management 12/17/22 documented as of this encounter
--- OUTSIDE RECORDS SUMMARY | 2024-07-23 14:08 | XMS_ITS | Clinical Summary ---
Author Organization [facility] Address [facility] [place] [address] Care Team Providers Care Wood Router Name Role Phone Miguel Langley Primary Care Provider [phone] Allergies Active Allergy Reactions Criticality Noted Date [...] Physical 1981 DTaP, Tdap and Td Vaccines (6 - Tdap) 11/16/1993 11/15/1993, 10/22/1984, 10/22/1984, Additional history exists Hepatitis C 1996 Hepatitis B Vaccines (1 of 3 - 19+ 3-dose series) 1997 Mammogram Screening 2018 COVID-19 Vaccine ( season) 2023 03/04/2021 Meningococcal B Vaccine Aged Out No l onger eligible based on patient's age to complete this topic Meningococcal Vaccine Aged Out No geraldo juan diego eligible based on patient's age to complete this topic Pneumococcal Vaccine: Pediatrics (0 to 5 Years) and At-Risk Patients (6 to 49 Years) Aged Out No longer eligible based on patient's age to complete this topic RSV Immunizations Under 20 Months Aged Out No longer eligible based on patient's age to complete this topic [place] [place] [address] MEDICAID Care Teams Wood Router Relationship Specialty Start Date End Date Miguel Langley DO [address] [place] [address] PCP - General INTERNAL MEDICINE 08/08/21
--- OUTSIDE RECORDS SUMMARY | 2024-07-23 14:08 | XMS_ITS | Encounter Summary ---
Author Organization [facility] Address [address] [place] [address] Care Team Providers Care Control Specialist Name Role Phone Chris Madrigal MD Unavailable [phone] Miguel Langley DO Primary Care Provider [phone] Rand Elkins LMSW Unavailable [phone] Reason for Visit * Reason Onset Date Comments Question 12/27/2022 Returned Call 12/27/2022 Encounter Details Date Type Department Care Team (Late st Contact Info) Description 12/27/2022 Telephone [facility] - ASSOCIATE PROGRAM MANAGER [address] [facility] [address] [place] [address] Sulaiman Andrews MD [address] [facility] [address] [place] [address] Question; Returned Call Social History Tobacco Use [...] Patient Health Questionnaire-2 Score 0 12/17/2022 [facility] of Occupat ional Health - [...] place to sleep or slept in a fdc (including now)? No 12/13/2022 Comments No Sex [...] Miscellaneous Notes * Telephone Encounter - Daysi Wenistein RN - 12/27/2022 11:57 AM CDT Spoke with Cynthia from [facility] pathology department returning her call. She reports that all six sets of slides have already been reviewed by [facility] Pathology and they cannot send the slides to be reviewed by them again since Dr. Joanne Don is a part of [facility] Pathology. Told her we only had one report from [facility] of the 6 requested and she says she will fax the other five today. * Telephone Encounter - Sujey Hannah - 12/27/2022 9:30 AM CDT Cynthia form [facility] wanst to know Will slides be forwarded to the pathology dept ? (this can not happen) Please contact # [phone] documented in this encounter Plan of Treatment Upcoming Encounters Date Type Department Care Team (Late st Contact Info) Description 09/02/2024 2:20 PM CDT Office Visit [facility] - Hematology/Oncology [address] [place] [address] Douglas Llanes MD [address] [facility] OF HEMATOLOGY & [place] [address] documented as of this encounter Goals Goal [...] on filedocumented in this encounter Care Teams Control Specialist Relationship Specialty Start Date End Date Miguel Langley DO [address] [place] [address] PCP - General Internal Medicine 12/12/22 Chris Madrigal MD Hematology and Oncology 03/21/20 Rand Elkins LMSW Outpatient Nuclear Equipment Design Engineer Care Management 12/17/22 documented as of this encounter
--- OUTSIDE RECORDS SUMMARY | 2024-07-23 14:08 | XMS_ITS | Referral Summary ---
Author Organization [facility] Address [address] [place] [address] Care Team Providers Care Time Study Technician Name Role Phone Miguel Langley Primary Care Provider [phone] Encounters Date Type Department Care Team Description 07/07/2024 Results Follow-Up [facility] [address] [place] [address] Jessica Cross MD 06/28/2024 11:10 AM CDT Lab [facility] [address] [place] [address] Allergic rhinitis, unspecified seasonality, unspecified trigger 06/28/2024 10:00 AM CDT Office Visit [facility] [address] [place] [address] Jessica Cross MD Adverse effect of drug, initial encounter (Primary Dx); Allergic rhinitis, unspecified seasonality, unspecified trigger from Last 3 Months Allergies Active Allergy [...] fluticasone propionate (FLONASE) 50 mcg/actuation nasal spray [place] 2 sprays every day by intranasal route. 05/01/19 21 Active ondansetron ODT (ZOFRAN-ODT) 4 mg disintegrating tablet ondansetron 4 mg disintegrating tablet DISSOLVE 1 TABLET ON TONGUE FOUR TIMES DAILY Active pantoprazole DR (PROTONIX) 40 mg EC tablet Take 1 tablet (40 mg total) by mouth daily 07/09/19 20 Active valACYclovir (VALTREX) 500 mg tablet valacyclovir [...] mg total) by mouth 12/17/19 23 Active [id number] (Alive Women's Gummy Vitamin) 120 mcg- 37.5 [...] 03/12/2017 Assessment & Plan (03/12/2017 11:57 AM HULL INSPECTOR): Patient demonstrates history and my physical findings [...] CDT): This is being managed by her painter helper sign. Social History Tobacco Use Types Packs/Day Years [...] on file Legal Sex Female 9:03 AM HULL INSPECTOR Gender Identity Female 01/20/2024 3:06 PM CDT [...] 06/28/2024 9:56 AM CDT Plan of Treatment Not on file Procedures Procedure Name Priority Date/Time Associated Diagnosis Comments IMMATURE PLATELET FRACTION Routine 06/28/2024 11:50 AM CDT Allergic rhinitis, unspecified seasonality, unspecified trigger DIFFERENTIAL AUTO Routine 06/28/2024 11: 50 AM CDT Allergic rhinitis, unspecified seasonality, unspecified trigger ALLERGEN PIGWEED ROUGH (WEED) IGE Routine 06/28/2024 11:50 AM CDT Allergic rhinitis, unspecified seasonality, unspecified trigger ALLERGEN PLANTAIN FRENCH (WEED) IGE Routine 06/28/2024 11:50 AM CDT [...] rhinitis, unspecified seasonality, unspecified trigger ALLERGEN COCKROACH HUNGARIAN (INSECT) IGE Routine 06/28/2024 11:50 AM CDT [...] rhinitis, unspecified seasonality, unspecified trigger ALLERGEN SYCAMORE HUNGARIAN (TREE) IGE Routine 06/28/2024 11:50 AM CDT [...] Immature platelet fraction (06/28/2024 11:50 AM CDT) IPF 49.4(H) 1.6 - 10.1 % Blood 06/28/2024 11:5 0 AM CDT 06/28/2024 2:04 PM CDT Jessica Cross MD LAB BLOOD ORDERABLES Fin al Result Performing Organization Address [facility] de Phone Number [facility] [place] [address] * Allergen Rat mix (animal) IgE (06/28/2024 11:50 AM CDT) Pathologist [facility] Rat mix IgE <0.10 0.00 - 0.34 kUnits/L Blood 06/28/2024 11:5 0 AM CDT 06/28/2024 1:52 PM CDT Jessica Cross MD LAB BLOOD ORDERABLES Fin al Result Performing Organization Address [facility] Phone Number [facility] [place] [address] * Allergen Mouse mix (animal) IgE (06/28/2024 11:50 AM CDT) [facility] Mouse mix IgE <0.10 0.00 - 0.34 kUnits/L Blood 06/28/2024 11:5 0 AM CDT 06/28/2024 1:[address] [facility] Jessica Cross MD LAB BLOOD ORDERABLES Fin al Result Performing Organization Address [facility] [place] [address] * (ABNORMAL) Differential, auto (06/28/2024 11:50 AM CDT) Pathologist [facility] Neutrophil abs 3.9 1.5 - 6.5 K/cumm Imm gran abs 0.0 0.0 - 0.1 K/cumm [facility] Lymphocyte abs 3.7(H) 0.8 - 3.3 K/cumm [facility] Monocyte abs 0.4 0.2 - 0.8 K/cumm [facility] Eosinophil abs 0.2 0.0 - 0.5 K/cumm [facility] Basophil abs 0.0 0.0 - 0.1 K/cumm [facility] Neutrophil pct 48.1 % [facility] Comment: Interpretive Data Percent cell count reference ranges are not reported, since discordance with absolute values may lead to misinterpretation of CBC data. Current Interpretive Data was last revised on 2017. Imm gran pct 0.2 % [facility] Comment: Interpretive Data Percent cell count reference ranges are not reported, since discordance with absolute values may lead to misinterpretation of CBC data. Current Interpretive Data was last revised on 2017. Lymphocyte pct 44.9 % [facility] Comment: Interpretive Data Percent cell count reference ranges are not reported, since discordance with absolute values may lead to misinterpretation of CBC data. Current Interpretive Data was last revised on 2017. Monocyte pct 4.3 % [facility] Comment: Interpretive Data Percent cell count reference ranges are not reported, since discordance with absolute values may lead to misinterpretation of CBC data. Current Interpretive Data was last revised on 2017. Eosinophil pct 2.0 % [facility] Comment: Interpretive Data Percent cell count reference ranges are not reported, since discordance with absolute values may lead to misinterpretation of CBC data. Current Interpretive Data was last revised on 2017. Basophil pct 0.5 % [facility] Comment: Interpretive Data Percent cell count reference ranges are not reported, since discordance with absolute values may lead to misinterpretation of CBC data. Current Interpretive Data was last revised on 2017. Blood 06/28/2024 11:5 0 AM CDT 06/28/2024 1:51 PM CDT Jessica Cross MD LAB BLOOD ORDERABLES Fin al Result [facility] [address] [facility] Department [place] [address] * Allergen Penicillium chrysogenum (mold) IgE (06/28/2024 11:50 AM CDT) Penicillium chrysogenum IgE <0.10 0.00 - 0.34 kUnits/L Blood 06/28/2024 11:5 0 AM CDT 06/28/2024 1:52 PM CDT Jessica Cross MD LAB BLOOD ORDERABLES Fin al Result Performing Organization Address [facility] Co de Phone Number [facility] [place] [address] * Allergen Albany (tree) IgE (06/28/2024 11:50 AM CDT) [place] IgE <0.10 0.00 - 0.34 kUnits/L Blood 06/28/2024 11:5 0 AM CDT 06/28/2024 1:52 PM CDT Jessica Cross MD LAB BLOOD ORDERABLES Fin al Result Performing Organization Address [facility] Co de Phone Number [facility] Department [place] [address] * Allergen Mountain juniper (tree) IgE (06/28/2024 11:50 AM CDT) Mountain juniper IgE <0.10 0.00 - 0.34 kUnits/L Blood 06/28/2024 11:5 0 AM CDT 06/28/2024 1:52 PM CDT Jessica Cross MD LAB BLOOD ORDERABLES Fin al Result Performing Organization Address [facility] Co de Phone Number [facility] Department [place] [address] * (ABNORMAL) CBC with auto differential (06/28/2024 11:50 AM CDT) WBC 8.1 3.8 - 9.9 K/cumm Hgb 13.8 11.9 - 15.5 g/dL [facility] Hct 42.4 35.6 - 45.5 % [facility] Plt 45(L) 150 - 400 K/cumm [facility] Comment:No clot detected in sample.. Critical result called to and read back by WINDY GLYNN RN on 06 28 2024 at 1425 to Zeny Collier. MPV Not Measured 9.1 - 12.3 fL [facility] RBC 5.08 3.90 - 5.20 M/cumm [facility] MCV 83.5 81.3 - 96.4 fL [facility] MCH 27.2 27.1 - 33.3 pg [facility] MCHC 32.5 32.3 - 35.7 g/dL [facility] RDW CV 13.0 11.1 - 14.9 % [facility] RDW SD 39.8 35.7 - 48.1 fL [facility] NRBC abs 0.00 0.00 - 0.01 K/cumm [facility] Blood 06/28/2024 11:5 0 AM CDT 06/28/2024 1:51 PM CDT Jessica Cross MD LAB BLOOD ORDERABLES Fin al Result Performing Organization Address [facility] de Phone Number [facility] Department [place] [address] * Allergen Bermuda grass (grass) IgE (06/28/2024 11:50 AM CDT) [facility] B[place] grass IgE <0.10 0.00 - 0.34 kUnits/L Blood 06/28/2024 11:5 0 AM CDT 06/28/2024 1:52 PM CDT Jessica Cross MD LAB BLOOD ORDERABLES Fin al Result Performing Organization Address [facility] Co de Phone Number [facility] [place] [address] * Allergen Plantain kyrgyz (weed) IgE (06/28/2024 11:50 AM CDT) Plantain kyrgyz IgE <0.10 0.00 - 0.34 kUnits/L Blood 06/28/2024 11:5 0 AM CDT 06/28/2024 1:52 PM CDT Jessica Cross MD LAB BLOOD ORDERABLES [place] [address] * Allergen Elm (tree) IgE (06/28/2024 11:50 AM CDT) Elm IgE <0.10 0.00 - 0.34 kUnits/L Blood 06/28/2024 11:5 0 AM CDT 06/28/2024 1:52 PM CDT Jessica Cross MD LAB BLOOD ORDERABLES Fin al Result Performing Organization Address [facility] Co de Phone Number [facility] [place] [address] * Allergen Cladosporium herbarum (mold) IgE (06/28/2024 11:50 AM CDT) Cladosporium herbarum IgE <0.10 0.00 - 0.34 kUnits/L Blood 06/28/2024 11:5 0 AM CDT 06/28/2024 1:52 PM CDT Jessica Cross MD LAB BLOOD ORDERABLES Fin al Result [facility] Department [place] [address] * Allergen Birch common silver (tree) IgE (06/28/2024 11:50 AM CDT) Birch common silver IgE <0.10 0.00 - 0.34 kUnits/L Blood 06/28/2024 11:5 0 AM CDT 06/28/2024 1:52 PM CDT Jessica Cross MD LAB BLOOD ORDERABLES Fin al Result Performing Organization Address [facility] [place] [address] * Allergen Alternaria tenuis (mold) IgE (06/28/2024 11:50 AM CDT) Alternaria tenius IgE <0.10 0.00 - 0.34 kUnits/L Blood 06/28/2024 11:5 0 AM CDT 06/28/2024 1:52 PM CDT Jessica Cross MD LAB BLOOD ORDERABLES Fin al Result Performing Organization Address [facility] Co de Phone Number [facility] [place] [address] * Allergen Aspergillus fumigatus (mold) IgE (06/28/2024 11:50 AM CDT) Aspergillus fumigatus IgE <0.10 0.00 - 0.34 kUnits/L Blood 06/28/2024 11:5 0 AM CDT 06/28/2024 1:52 PM CDT Jessica Cross MD LAB BLOOD ORDERABLES Fin al Result Performing Organization Address [facility] Co de Phone Number [facility] [place] [address] * Allergen Dermatophagoides pteronyssinus (insect) IgE (06/28/2024 11:50 AM CDT) Dermatophyton pteronyssinus IgE <0.10 0.00 - 0.34 kUnits/L Blood 06/28/2024 11:5 0 AM CDT 06/28/2024 1:52 PM CDT Jessica Cross MD LAB BLOOD ORDERABLES Fin al Result Performing Organization Address [facility] Co de Phone Number [facility] [place] [address] * Allergen Dermatophagoides farniae (insect) IgE (06/28/2024 11:50 AM CDT) Dermatophyton farinae IgE <0.10 0.00 - 0.34 kUnits/L Blood 06/28/2024 11:5 0 AM CDT 06/28/2024 1:52 PM CDT Jessica Cross MD LAB BLOOD ORDERABLES Fin al Result Performing Organization Address [facility] de Phone Number [facility] [place] [address] * Allergen Epithelia/dander dog (animal) IgE (06/28/2024 11:50 AM CDT) Dog dander IgE <0.10 0.00 - 0.34 kUnits/L Blood 06/28/2024 11:5 0 AM CDT 06/28/2024 1:52 PM CDT Jessica Cross MD LAB BLOOD ORDERABLES Fin al Result Performing Organization Address [facility] Co de Phone Number [facility] Department [place] [address] * Allergen Cockroach greenlandic (insect) IgE (06/28/2024 11:50 AM CDT) Cockroach IgE <0.10 0.00 - 0.34 kUnits/L Blood 06/28/2024 11:5 0 AM CDT 06/28/2024 1:52 PM CDT Jessica Cross MD LAB BLOOD ORDERABLES Fin al Result Performing Organization Address [facility] [place] [address] * Allergen Epithelia/dander cat (animal) IgE (06/28/2024 11:50 AM CDT) Cat dander IgE <0.10 0.00 - 0.34 kUnits/L Blood 06/28/2024 11:5 0 AM CDT 06/28/2024 1:52 PM CDT Jessica Cross MD LAB BLOOD ORDERABLES Fin al Result Performing Organization Address [facility] Co de Phone Number [facility] [place] [address] * Allergen Ragweed short/common (weed) IgE (06/28/2024 11:50 AM CDT) Ragweed common IgE <0.10 0.00 - 0.34 kUnits/L Blood 06/28/2024 11:5 0 AM CDT 06/28/2024 1:52 PM CDT Jessica Cross MD LAB BLOOD ORDERABLES Fin al Result Performing Organization Address [facility] Co de Phone Number [facility] Department [place] [address] * Allergen Pigweed, rough (weed) IgE (06/28/2024 11:50 AM CDT) Pigweed rough IgE <0.10 0.00 - 0.34 kUnits/L Blood 06/28/2024 11:5 0 AM CDT 06/28/2024 1:52 PM CDT Jessica Cross MD LAB BLOOD ORDERABLES Fin al Result Performing Organization Address [facility] Co de Phone Number [facility] [place] [address] * Allergen Nettle (weed) IgE (06/28/2024 11:50 AM CDT) Nettle IgE <0.10 0.00 - 0.34 kUnits/L Blood 06/28/2024 11:5 0 AM CDT 06/28/2024 1:52 PM CDT Jessica Cross MD LAB BLOOD ORDERABLES Fin al Result Performing Organization Address [facility] de Phone Number [facility] [place] [address] * Allergen Rojas's quarter (weed) IgE (06/28/2024 11:50 AM CDT) Rojas's quarters IgE <0.10 0.00 - 0.34 kUnits/L Blood 06/28/2024 11:5 0 AM CDT 06/28/2024 1:52 PM CDT Jessica Cross MD LAB BLOOD ORDERABLES Fin al Result Performing Organization Address [facility] Co de Phone Number [facility] Department [place] [address] * Allergen Alexandru grass (grass) IgE (06/28/2024 11:50 AM CDT) Alexandru grass IgE <0.10 0.00 - 0.34 kUnits/L Blood 06/28/2024 11:5 0 AM CDT 06/28/2024 1:52 PM CDT Jessica Cross MD LAB BLOOD ORDERABLES Fin al Result Performing Organization Address [facility] Co de Phone Number [facility] Department [place] [address] * Allergen Raul grass (grass) IgE (06/28/2024 11:50 AM CDT) Raul grass IgE <0.10 0.00 - 0.34 kUnits/L Blood 06/28/2024 11:5 0 AM CDT 06/28/2024 1:52 PM CDT Jessica Cross MD LAB BLOOD ORDERABLES Fin al Result Performing Organization Address [facility] Co de Phone Number [facility] Department [place] [address] * Allergen Guernsey (tree) IgE (06/28/2024 11:50 AM CDT) Guernsey (tree) IgE <0.10 0.00 - 0.34 kUnits/L Blood 06/28/2024 11:5 0 AM CDT 06/28/2024 1:52 PM CDT Jessica Cross MD LAB BLOOD ORDERABLES Fin al Result Performing Organization Address [facility] Co de Phone Number [facility] Department [place] [address] * Allergen Sheffield greenlandic (tree) IgE (06/28/2024 11:50 AM CDT) Sheffield IgE <0.10 0.00 - 0.34 kUnits/L Blood 06/28/2024 11:5 0 AM CDT 06/28/2024 1:52 PM CDT Jessica Cross MD LAB BLOOD ORDERABLES Fin al Result Performing Organization Address [facility] Co de Phone Number [facility] Department [place] [address] * Allergen Maple/Box elder (tree) IgE (06/28/2024 11:50 AM CDT) Maple/box elder IgE <0.10 0.00 - 0.34 kUnits/L Blood 06/28/2024 11:5 0 AM CDT 06/28/2024 1:52 PM CDT Jessica Cross MD LAB BLOOD ORDERABLES Fin al Result Performing Organization Address [facility] Co de Phone Number [facility] [place] [address] * Allergen Granville red (tree) IgE (06/28/2024 11:50 AM CDT) Granville IgE <0.10 0.00 - 0.34 kUnits/L Blood 06/28/2024 11:5 0 AM CDT 06/28/2024 1:52 PM CDT Jessica Cross MD LAB BLOOD ORDERABLES Fin al Result Performing Organization Address [facility] Co de Phone Number [facility] [place] [address] * IgE (06/28/2024 11:50 AM CDT) IgE 4 <=100 IUnits/mL Blood 06/28/2024 11:5 0 AM CDT 06/28/2024 1:52 PM CDT us Jessica Cross MD LAB BLOOD ORDERABLES Fin al Result [facility] Department [place] [address] * Hepatitis panel, acute (07/09/2016 3:15 PM CDT) Hep A IgM Negative Negative [facility] Hep B core IgM Negative Negative [facility]) Hep C Ab Negative Negative [facility]) HepBsAg Negative Negative [facility]) Blood specimen (specimen) 07/09/2016 3:15 PM CDT 07/09/2016 5:52 PM CDT us Steven Iqbal MD LAB MICROBIOLOGY - GEN ERAL ORDERABLES Final Result [facility] ([place]) [address] [facility] Department [place] [address] from Last 3 Months or Most Recently Relevant to Health Maintenance Insurance [facility] Member Subscriber Plan / Payer ( fective 2015-Present) Name:Peggy Serrano Oscar Relation to Subscriber:Self Name:Peggy Serrano Payer ID:[id number] (NAIC) Type:MEDICAID RISK OTHER Address: [place] [id number] Care Teams Time Study Technician Relationship Specialty Start Date End Date Miguel Langley DO PCP - General Internal Medicine 07/03/22
== END 2024-07-23 14:03 | disposition home or self-care (01) ==
PROVIDERS: PCP Nurse Practitioner Family; Visit Provider Nurse Practitioner Family
DX: R05.9 Cough, unspecified (principal); R06.02 Shortness of breath
CPT/HCPCS: 71046

== ENCOUNTER 2024-10-06 12:34 | Outpatient (CLI) | payer OTHER, SELFPAY ==
--- OUTSIDE RECORDS SUMMARY | 2024-10-06 12:45 | XMS_ITS | Clinical Summary ---
Author Organization [facility] Address [address] [place] [address] Care Team Providers Care Chorus Master Name Role Phone Miguel Langley DO Primary Care Provider [phone] Allergies Active Allergy Reactions Criticality Noted Date [...] fluticasone propionate (FLONASE) 50 mcg/actuation nasal spray [place] 2 sprays every day by intranasal route. [...] mg total) by mouth 12/17/19 23 Active ofkewqyo-gkj-xkmcf acid-vqx793 (Alive Women's Gummy Vitamin) 120 mcg- 37.5 mg tablet,chewable Take by mouth daily Active nitrofurantoin monohydrate (MACROBID) 100 mg capsule Take 1 capsule (100 mg total) by mouth 2 (two) times a day 06/23/19 25 Active estradioL (ESTRACE) 1 mg tablet Take 1 tablet (1 mg total) by mouth daily 06/26/19 25 Active azelastine (ASTELIN) 137 mcg (0.1 %) nasal sprayIndications:A llergic rhinitis, unspecified seasonality, unspecified trigger Administer 2 sprays into each nostril 2 (two) times a day Use in each nostril as directed 30 mL 5 06/29/19 25 026 Active Active Problems Problem Noted Date Diagnosed Date Chronic ITP (idiopathic thrombocytopenia) 2023 Facial pain, atypical 07/17/2022 Chronic sinusitis 07/04/2022 Other acute recurrent sinusitis 03/12/2017 Assessment & Plan (03/12/2017 11:57 AM FRET SAW OPERATOR): Patient demonstrates history and my physical findings [...] CDT): This is being managed by her check writer salesperson. Encounters Date Type Department Care Team Description 07/07/2024 Results Follow-Up [facility] Allergy and Immunology [address] [place] [address] Jessica Cross MD Allergen Birch common silver (tree) IgE, Allergen Elm (tree) IgE, Allergen [place] red (tree) IgE, Additional followed-up results: 28 from Last 3 Months Surgical History Surgery [...] on file Legal Sex Female 9:03 AM FRET SAW OPERATOR Gender Identity Female 01/20/2024 3:06 PM CDT [...] 9:56 AM CDT Height 157.5 cm (5' 2) 06/28/2024 9:56 AM CDT Body Mass Index [...] ORDERABLES Final Result [facility] 1 [facility] Department [place] [address] from Last 3 Months or Most Recently Relevant to Health Maintenance Insurance [facility] Care Teams Chorus Master Relationship Specialty Start Date End Date Miguel Langley DO PCP - General Internal Medicine 07/03/22
--- OUTSIDE RECORDS SUMMARY | 2024-10-06 12:45 | XMS_ITS | Clinical Summary ---
Author Organization [facility] Address [address] [place] [address] Care Team Providers Care Ultrasound Technologist Name Role Phone Mello Kaba MD Primary Care Provider [phone] Allergies Active Allergy Reactions Criticality Noted Date [...] 2 mg by mouth daily. 0 Active wimysmhs-hle-qs lic acid-nys447 (Alive Women's Gummy Vitamin) 200 mcg- 37.5 [...] Encounters Date Type Department Care Team Description 09/14/2024 External Device Data STL ABSTRACTION Provider, Abstract 08/31/2024 External Device Data STL ABSTRACTION Provider, Abstract 08/19/2024 External Device Data STL ABSTRACTION Provider, Abstract 08/18/2024 External Device Data STL ABSTRACTION Provider, Abstract 08/17/2024 External Device Data STL ABSTRACTION Provider, Abstract 07/13/2024 External Device Data STL ABSTRACTION Provider, [...] Comments Blood Pressure 117/79 05/05/2024 2:37 PM SPONSORSHIP COORDINATOR Pulse 70 05/05/2024 2:37 PM SPONSORSHIP COORDINATOR Temperature 36.1 C (97 F) 05/05/2024 2:37 PM SPONSORSHIP COORDINATOR Respiratory Rate 18 05/05/2024 2:37 PM SPONSORSHIP COORDINATOR Oxygen Saturation 98% 05/05/2024 2:37 PM SPONSORSHIP COORDINATOR Inhaled Oxygen Concentration - - Weight 91.2 kg (201 lb) 05/05/2024 2:37 PM SPONSORSHIP COORDINATOR Height 157.5 cm (5' 2) 10/12/2021 8:27 AM CDT Body Mass Index 36.76 10/12/2021 8:27 AM CDT Plan of Treatment Health Maintenance [...] Q 5 years 2023 INFLUENZA VACCINE (#1) 2024 HPV VACCINES Aged Out No longer eligi ble based on patient's age to complete this topic Insurance [place] Care Teams Ultrasound Technologist Relationship Specialty Start Date End Date Mello Kaba MD PCP - General Family Practice 09/02/22
--- OUTSIDE RECORDS SUMMARY | 2024-10-06 12:45 | XMS_ITS | Encounter Summary ---
Author Organization [facility] Address [address] [place] [address] Care Team Providers Care Disaster Recovery Specialist Name Role Phone Chris Madrigal MD Unavailable [phone] Miguel Langley DO Primary Care Provider [phone] Rand Elkins LMSW Unavailable [phone] Reason for Visit * Reason Onset Date Comments Question 12/27/2022 Returned Call 12/27/2022 Encounter Details Date Type Department Care Team (Late st Contact Info) Description 12/27/2022 Telephone [facility] - VP RESEARCH [address] [facility] [address] [place] [address] Sulaiman Andrews MD [address] [facility] [address] [place] [address] Question; Returned Call Social History Tobacco Use [...] Recorded Patient Health Questionnaire-2 Score 0 12/17/2022 [facility] ional [facility] [...] place to sleep or slept in a retirement (including now)? No 12/13/2022 Comments No Sex [...] 11:57 AM CDT Spoke with Cynthia from [facility] pathology department returning her call. She reports that all six sets of slides have already been reviewed by [facility] Pathology and they cannot send the slides to be reviewed by them again since Dr. Joanne Don is a part of [facility] Pathology. Told her we only had one report from [facility] of the 6 requested and she says she will fax the other five today. * Telephone Encounter - Sujey Hannah - 12/27/2022 9:30 AM CDT Cynthia form [facility] wanst to know Will slides be forwarded to the pathology dept ? (this can not happen) Please contact # [phone] documented in this encounter Plan of Treatment Upcoming Encounters Date Type Department Care Team (Late st Contact Info) Description 10/28/2024 12:45 PM CDT Appointment [facility] [address] [facility] [facility] [address] [place] [address] 10/28/2024 1:20 PM CDT [facility]ology[facility]Oncology [address] [place] [address] Douglas Llanes MD [address] [facility] OF [facility] & [place] [address] documented as of this encounter Goals Goal [...] on filedocumented in this encounter Care Teams Disaster Recovery Specialist Relationship Specialty Start Date End Date Miguel Langley DO [address] [place] [address] PCP - General Internal Medicine 12/12/22 Chris Madrigal MD Hematology and Oncology 03/21/20 Rand Elkins LMSW Outpatient Coping Machine Assembler Care Management 12/17/22 documented as of this encounter
--- OUTSIDE RECORDS SUMMARY | 2024-10-06 12:45 | XMS_ITS | Clinical Summary ---
Author Organization [facility] Address [address] [place] [address] Care Team Providers Care Regional Company Truck Driver Name Role Phone Chris Madrigal MD Unavailable [phone] Miguel Langley DO Primary Care Provider [phone] Source Comments [facility],non-owned Affiliates and Associated Physician Practices is amultiple site organization consisting of ambulatory clinics and hospital sitesin [place], [place], [place] and [place]. This disclosure is being madepursuant to the Care Everywhere program and may not contain all information available regarding this patient. Last updated 17.[facility] Allergies Active Allergy Reactions Criticality Noted [...] PO) Take by mouth once daily Active estradiol (Estrace) 1 MG tabletIndicatio ns:Hypoestrogen ism Take 1 (one) tablet by mouth once daily 90 tablet 4 4 Active ondansetron (Zofran) 4 MG tablet Take 1 (one) tablet by mouth every 6 hours as needed Active valACYclovir (Valtrex) 500 MG tablet Take 1 (one) tablet by mouth 2 times daily Active albuterol HFA (Proventil; Ventolin; Proair) 108 (90 Base) MCG/ACT inhaler INHALE 2 PUFFS BY MOUTH EVERY 4 TO 6 HOURS NEEDED FOR SHORTNESS OF BREATH OR WHEEZING 4 Active fluticasone propionate (Flonase) 50 MCG/ACT nasal spray SHAKE LIQUID AND USE 2 SPRAYS IN EACH NOSTRIL DAILY 4 Active venlafaxine XR 24hr (Effexor XR) 37.5 MG capsule Take 1 (one) capsule by mouth once daily Active dexAMETHasone (Decadron) 4 MG tablet Take 10 (ten) tablets by mouth once daily for 4 days 40 tablet 5 Active celecoxib (CeleBREX) 100 MG capsule Take 1 (one) capsule by mouth 2 times daily as needed 60 capsule 5 Active Active Problems Problem Noted Date Diagnosed [...] Plan: This is being managed by her twister frame tender. Encounters Date Type Department Care Team Description 09/13/2024 Orders Only [facility] - Hematology/Oncolog y [address] [place] [id number] Douglas Llanes MD 09/02/2024 2:29 PM CDT - 09/02/2024 11:59 PM CDT Hospital Encounter [facility] [address] [facility]nd [place] [address] Discharge Disposition: Home or Self Care 09/02/2024 2:20 PM CDT Office Visit [facility] - Hematology/Oncolog y [address] [place] [address] Douglas Llanes MD Immune thrombocytopenia (HCC) (Primary Dx); High risk medications (not anticoagulants) long-term use 09/02/2024 Orders Only [facility] - Hematology/Oncolog y [address] [place] [address] Douglas Llanes MD 09/02/2024 Travel 08/27/2024 Telephone [facility] - NON DESTRUCTIVE TESTING SUPERVISOR [address] [facility] [address] [place] [address] Daysi Weinstein RN Follow-up 08/27/2024 Refill [facility] - NON DESTRUCTIVE TESTING SUPERVISOR [address] [place] [address] Sulaiman Andrews MD Refill Request 07/19/2024 Travel from Last 3 Months Immunizations [...] Date Smoking Tobacco: Never Smokeless Tobacco: Never Tobacco Cessation:Counseling Given: Not Answered Alcohol Use Standard Drinks/Week Comments Yes 0 (1 standard drink = 0.6 oz pur e alcohol) occ AUDIT-C Answer Date Recorded Q1: How often do you have a drink containing alcohol? Never 12/12/2022 Q2: How many drinks containi ng alcohol do you have on a typical day when you are drinking? Patient does not drink 3 Q3: How often do you have si x or more drinks on one occasion? Never 12/12/2022 Overall Financial Resource Strain (CARDIA) Answe r Date Recorded How hard is it for you to pa y for the very basics like food, housing, medical care, and heating? Not hard at all 12/13/2022 PHQ-2 Answer Date Recorded Patient Health Questionnaire-2 Score 0 12/17/2022 [facility] ional Health - [...] a group home (including now)? No 12/13/2022 Comments No Sex and Gender Information Value Date Recorded Sex Assigned at Not on file Legal Sex Female 8:37 PM CDT Gender Identity Not on file Sexual Orientation Not on file Last Filed Vital Signs Vital Sign Reading Time Taken Comments Blood Pressure 133/80 09/02/2024 2:40 PM CDT Pulse 70 09/02/2024 2:40 PM CDT Temperature 36.8 C (98.3 F) 09/02/2024 2:40 PM CDT Respiratory Rate 18 09/02/2024 2:40 PM CDT Oxygen Saturation 97% 09/02/2024 2:40 PM CDT Inhaled Oxygen Concentration - - Weight 91.9 kg (202 lb 8 oz) 09/02/2024 2:40 PM CDT Height 154.9 cm (5' 1) 04/14/2024 2:53 PM OB GYN PHYSICIAN ASSISTANT Body Mass Index 38.26 04/14/2024 2:53 PM OB GYN PHYSICIAN ASSISTANT Plan of Treatment Upcoming Encounters Date Type Department Care Team (Late st Contact Info) Description 10/28/2024 12:45 PM CDT Appointment [facility] [address] [facility]nd [place] [address] 10/28/2024 1:20 PM CDT Office Visit [facility] - Hematology/Oncology [address] [place] [address] Douglas Llanes MD [address] [facility] OF HEMATOLOGY [place] [address] Health Maintenance Due Date Last Done Comments COLOGUARD (AGES 45-75) - COLON CA SCREENING 1978 COLON MONITORING 1978 COLONOSCOPY - COLON CA SCREENING 1978 CT COLONOGRAPHY - COLON CA SCREENING 1978 Colorectal Cancer Screening 1978 FIT - COLON CA SCREENING 1978 FLEX SIG - COLON CA SCREENING 1978 LIPID TESTING 1978 MAMMOGRAM 1978 HIV SCREENING 1993 HEPATITIS C SCREENING 04/28/1996 HEPATITIS B VACCINE (1 of 3 - 19+ 3-dose series) 1997 PAP SMEAR 1999 DTAP/TDAP/TD VACCINES (7 - Td or Tdap) 11/16/2003 11/15/1993, 10/22/1984, 10/22/1984, Additional history exists COVID-19 VACCINE ( - season) 2023 03/04/2021 DEPRESSION SCREENING 03/31/2024 01/22/2023, 01/22/2023, 12/25/2022, Additional history exists INFLUENZA VACCINE (#1) 2024 SCREENING FOR DIABETES 10/18/2026 , 10/19/2023, 10/19/2023, Additional history exists ZOSTER VACCINE (1 of [...] Procedure Name Priority Date/Time Associated Diagnosis Comments PLATELET COUNT AUTO CITRATED BLOOD Routine 09/02/2024 2:31 PM CDT Immune thrombocytopenia (HCC) CBC W AUTO DIFFERENTIAL STAT 09/02/2024 2:31 PM CDT Immune thrombocytopenia (HCC) RENAL FUNCTION PANEL AM Draw 12/15/2022 8:46 AM CDT Post-operative state from Last 3 Months or Most Recently Relevant to Health Maintenance Results * (ABNORMAL) PLATELET COUNT AUTO CITRATED BLOOD (09/02/2024 2:31 PM CDT) [facility] Platelet Count Citrated 48(L) 150 - 420 x10E9/L 09/02/2024 4:01 PM CDT [facility] Blood BLOOD SPECIMEN / Unknown Lab Venipuncture / Unknown 09/02/2024 2:31 PM CDT 09/02/2024 2:36 PM CDT [facility] - 09/02/2024 4:01 PM CDT This test was developed and its performance characteristics determined by the clinical laboratories of [facility] and [facility]. It has not been cleared and approved by the US Food and Drug Administration. us Douglas Llanes MD LAB - HEMATOLOGY ORDERABLES Fi nal Result [facility] [address] [place] [address], [facility] [phone] * (ABNORMAL) CBC WITH DIFFERENTIAL (09/02/2024 2:31 PM CDT) WBC 8.4 4.0 - 10.7 x10E9/L 09/02/2024 3:10 PM CDT [facility] RBC Count 4.78 3.90 - 5.20 x10E12/L 09/02/2024 3:10 PM [facility] Hemoglobin 13.0 11.9 - 15.8 g/dL 09/02/2024 3:10 PM T [facility] Hematocrit 40.3 34.8 - 46.1 % 09/02/2024 3:10 PM [facility] MCV 84.3 80.0 - 98.0 fL 09/02/2024 3:10 PM CDT [facility] MCH 27.2 26.7 - 33.6 pg 09/02/2024 3:10 PM CDT [facility] MCHC 32.3 31.7 - 36.3 g/dL 09/02/2024 3:10 PM CDT [facility] RDW-CV 13.4 11.3 - 14.8 % 09/02/2024 3:10 PM T [facility] Platelet Count 51(L) 150 - 420 x10E9/L 09/02/2024 3:10 PM CDT [facility] Neutrophil % 48.1 41.0 - 74.0 % 09/02/2024 3:10 PM CDT [facility] Lymphocyte % 45.2 17.0 - 47.0 % 09/02/2024 3:10 PM CDT [facility] Monocyte % 4.5 3.0 - 11.0 % 09/02/2024 3:10 PM CDT [facility] Eosinophil % 1.4 0.0 - 7.0 % 09/02/2024 3:10 PM T [facility] Basophil % 0.6 0.0 - 1.6 % 09/02/2024 3:10 PM CDT [facility] Immature Granulocytes % 0.2 0.0 - 1.0 % 09/02/2024 3:10 PM CDT [facility] Neutrophil Absolute 4.04 1.60 - 7.50 x10E9/L 09/02/2024 3:10 PM T [facility] Lymphocyte Absolute 3.81 1.00 - 4.40 x10E9/L 09/02/2024 3:10 PM CDT [facility] Monocyte Absolute 0.38 0.15 - 1.00 x10E9/L 09/02/2024 3:10 PM T [facility] Eosinophil Absolute 0.12 0.00 - 0.60 x10E9/L 09/02/2024 3:10 PM CDT [facility] Basophil Absolute 0.05 0.00 - 0.13 x10E9/L 09/02/2024 3:10 PM [facility] Blood BLOOD SPECIMEN / Unknown Lab Venipuncture / Unknown 09/02/2024 2:31 PM CDT 09/02/2024 2:40 PM CDT Douglas Llanes MD LAB - HEMATOLOGY ORDERABLES Fi nal Result [facility] [address] [place] [address], [facility] [phone] * (ABNORMAL) RENAL FUNCTION PANEL (12/15/2022 8:46 AM CDT) [facility] Glucose 113(H) 70 - 105 mg/dL 12/15/2022 9:34 AM CDT [facility] Sodium 138 136 - 145 mmol/L 12/15/2022 9:34 AM CDT [facility] Potassium 3.9 3.5 - 5.1 mmol/L 12/15/2022 9:34 AM CDT [facility] Chloride 101 98 - 107 mmol/L 12/15/2022 9:34 AM CDT [facility] CO2 29 22 - 29 mmol/L 12/15/2022 9:34 AM CDT [facility] Calcium 8.5 8.4 - 10.4 mg/dL 12/15/2022 9:34 AM CDT [facility] Anion Gap 8 6 - 16 mmol/L 12/15/2022 9:34 AM CDT [facility] BUN 7 5.3 - 18.7 mg/dL 12/15/2022 9:34 AM CDT [facility] Creatinine 0.77 0.57 - 1.11 mg/dL 12/15/2022 9:34 AM CDT [facility] Albumin 3.0(L) 3.4 - 5.0 gm/dL 12/15/2022 9:34 AM CDT [facility] Phosphorus 2.2(L) 2.3 - 4.7 mg/dL 12/15/2022 9:34 AM CDT [facility] eGFR by CKD-EPI >90 >=90 mL/min/1.7 3 m2 12/15/2022 9:34 AM CDT [facility] Blood BLOOD SPECIMEN / Unknown Lab Venipuncture / Unknown 12/15/2022 8:46 AM CDT 12/15/2022 9:10 AM CDT Sulaiman Andrews MD LAB - CHEMISTRY ORDERABLES Fin al Result Performing Organization Address [facility]/State/[facility] Co de Phone Number [facility] [address] [place] [address] from Last 3 Months or Most Recently Relevant to Health Maintenance Insurance [facility] Care Teams Regional Company Truck Driver Relationship Specialty Start Date End Date Miguel Langley DO [address] [address] PCP - General Internal Medicine 12/12/22 Chris Madrigal MD Hematology and Oncology 03/21/20
--- OUTSIDE RECORDS SUMMARY | 2024-10-06 12:45 | XMS_ITS | Encounter Summary ---
Author Organization [facility] Address [address] [place] [address] Care Team Providers Care Slip Mixer Name Role Phone Daysi Wetzel MD Primary Care Provider [phone] Chris Madrigal MD Unavailable [phone] Miguel Langley DO Primary Care Provider [phone] Rand Elkins [facility] Unavailable [phone] Encounter Details Date Type Department Care Team (Late Contact Info) Description 02/12/2019 Telephone [facility] [address] [place] [address] Ashely Baker Social History Tobacco Use Types [...] Department Care Team (Late Contact Info) Description 10/28/2024 12:45 PM CDT Appointment [facility] [address] [facility]nd [place] [address] 10/28/2024 1:20 PM CDT Office Visit [facility] - Hematology/Oncology [address] [place] [address] Douglas Llanes MD [address] [facility] OF HEMATOLOGY [place] [address] documented as of this encounter Visit Diagnoses Not on filedocumented in this encounter Care Teams Slip Mixer Relationship Specialty Start Date End Date Daysi Wetzel MD [facility] [place] [address] PCP - General Family Medicine 12/24/18 12/11/22 Miguel Langley DO [address] [place], [place] [address] PCP - General Internal Medicine 12/12/22 Chris Madrigal MD [facility] [place] [address] Hematology and Oncology 03/21/20 Rand Elkins LMSW Outpatient Aadc Plans Staff Officer Care Management 12/17/22 documented as of this encounter
--- OUTSIDE RECORDS SUMMARY | 2024-10-06 12:45 | XMS_ITS | Referral Summary ---
Author Organization [facility] Address [address] [place] [address] Care Team Providers Care Recovery Assistant Name Role Phone Miguel Langley DO Primary Care Provider [phone] Encounters Date Type Department Care Team Description 07/07/2024 Results Follow-Up [facility] Allergy and Immunology [address] [facility] [address] [place] [address] Jessica Cross MD Allergen Birch common silver (tree) IgE, Allergen Elm (tree) IgE, Allergen Erin red (tree) IgE, Additional followed-up results: 28 from Last 3 Months Allergies Active Allergy [...] fluticasone propionate (FLONASE) 50 mcg/actuation nasal spray [place] 2 sprays every day by intranasal route. [...] month 9 tablet 5 09/14/19 23 Active albuterol HFA (PROVENTIL HFA,VENTOLIN HFA,PROAIR HFA) 90 mcg/actuation inhaler Inhale 1 puff every 4 (four) hours as needed 01/06/20 24 Active ferrous sulfate 325 mg (65 mg of elemental iron) tablet Take 1 tablet (325 mg total) by mouth 12/17/19 23 Active eyprrdie-dsb-rjoxi acid-vji541 (Alive Women's Gummy Vitamin) 120 mcg- 37.5 [...] 03/12/2017 Assessment & Plan (03/12/2017 11:57 AM INTERNAL GRINDER SET UP OPERATOR): Patient demonstrates history and my physical [...] CDT): This is being managed by her public aid eligibility assistant. Social History Tobacco Use Types Packs/Day Years [...] on file Legal Sex Female 9:03 AM INTERNAL GRINDER SET UP OPERATOR Gender Identity Female 01/20/2024 3:06 PM [...] ORDERABLES Final Result [facility] 1 [facility] Department [place] [address] from Last 3 Months or Most Recently Relevant to Health Maintenance Insurance [facility] [id number] [place] [phone] [place] [address] Care Teams Recovery Assistant Relationship Specialty Start Date End Date Miguel Langley DO PCP - General Internal Medicine 07/03/22
--- OUTSIDE RECORDS SUMMARY | 2024-10-06 12:45 | XMS_ITS | Encounter Summary ---
Author Organization [facility] Address [address] [facility] [place] [address] Care Team Providers Care Auctioneer Art Name Role Phone Daysi Wetzel MD Primary Care Provider [phone] Chris Madrigal MD Unavailable [phone] Miguel Langley DO Primary Care Provider [phone] Rand Elkins [facility] Unavailable [phone] Encounter Details Date Type Department Care Team (Late Contact Info) Description 08/21/2022 Lab Requisition [facility] - Pathology Lab [address] [place] [address] Srinivasan Marks MD [address] [address] Illness, unspecified Social History Tobacco [...] Upcoming Encounters Date Type Department Care Team ([facility] Contact Info) Description 10/28/2024 12:45 PM CDT Appointment [facility] [address] [facility], 2nd [place] [address] 10/28/2024 1:20 PM CDT Office Visit [facility] - Hematology/Oncology [address] [place] [phone] Douglsa Llanes MD [address] [facility] [place] [address] documented as of this encounter Goals Goal [...] CDT) Case Report Surgical Pathology Report Case: [id number] Authorizing Provider: Srinivasan Marks MD Collected: 08/16/2022 10:51 AM Ordering Location: [facility] Pathology Lab Received: 08/21/2022 12:11 PM Pathologist: Denise Carroll MD Specimens: A) - Soft Tissue, cul-de-sac B) - Peritoneal Biopsy 08/21/2022 1:31 PM CDT [facility] Final Diagnosis Cul-de-sac, biopsy ([id number], A; 08/16/2022): - Scanty low grade serous epithelium without invasion, associated with abundant psammoma bodies (see microscopic description) Peritoneum, biopsy ([id number], B; 08/16/2022): - Psammoma body and hemosiderin - Negative for epithelium 08/21/2022 1:31 PM CDT [facility] PATHOLOGY LAB at 1331 CDT Microscopic Description and Comment Microscopic examination substantiates [...] help clarify this differential. 08/21/2022 1:[address] [facility] PATHOLOGY LAB Clinical History 42 year old woman, status post hysterectomy and bilateral salpingo-oophorectomy (for unspecified reason), with long history of chronic pelvic pain and dyspareunia. She also has a history of endometriosis. Pelvic adhesions were noted on laparoscopy. 08/21/2022 1:[address] [facility] PATHOLOGY LAB Materials Received Received are ten slide(s) labeled [id number] (A, 5 levels; B, 5 levels) along with a copy of the outside pathology report. [place] [address]. All original materials are returned to the referring institution, along with a copy of our final report. 08/21/2022 1:[address] [facility] PATHOLOGY LAB Pathologist Location at [facility] 08/21/2022 1:[address] [facility] PATHOLOGY LAB Disclaimer The performance characteristics of all immunohistochemical and indirect immunofluorescence stains (if any) cited in this report were determined by the Histopathology Laboratory of [facility]. Some of these tests were developed by [...] the attending (teaching) pathologist. 08/21/2022 1:[address] [facility] PATHOLOGY LAB Embedded Images 08/21/2022 1:[address] [facility] PATHOLOGY LAB Pathology/Cytology PERITONEAL BIOPSY SPECIMEN / Unknown 08/16/2022 10:51 AM CDT 08/21/2022 12:11 PM CDT Miscellaneous samples (specimen) PERITONEAL BIOPSY SPECIMEN / Unknown 08/16/2022 10:51 AM CDT 08/21/2022 12:37 PM CDT Srinivasan Marks MD LAB - PATHOLOGY/CYTOLOGY ORDERAB LES Final Result Performing Organization Address City/State/[facility] Co ct Phone Number [facility] PATHOLOGY LAB [address] [phone] documented in this encounter Visit Diagnoses Diagnosis Illness, unspecified documented in this encounter Care Teams Auctioneer Art Relationship Specialty Start Date End Date Daysi Wetzel MD [address] [place] [phone] PCP - General Family Medicine 12/24/18 12/11/22 Miguel Langley DO [address] [address] PCP - General Internal Medicine 12/12/22 Chris Madrigal MD [address] [place] [phone] Hematology and Oncology 03/21/20 Rand Elkins LMSW Outpatient Life Insurance Agent Care Management 12/17/22 documented as of this encounter
--- OUTSIDE RECORDS SUMMARY | 2024-10-06 12:45 | XMS_ITS | Encounter Summary ---
Author Organization [facility] Address [address] [facility] [place] [address] Care Team Providers Care Maintenance Manager Name Role Phone Chris Madrigal MD Unavailable [phone] Miguel Langley DO Primary Care Provider [phone] Rand Elkins LMSW Unavailable [phone] Reason for Visit * Reason Onset Date Comments Question 12/18/2022 Follow-up 12/18/2022 Encounter Details Date Type Department Care Team (Late st Contact Info) Description 12/18/2022 Telephone [facility] - DIRECTOR OF RETAIL [address] [facility] [address] [place] [address] Sulaiman Andrews MD [address] [facility] [address] [place] [address] Question; Follow-up Social History Tobacco Use Types [...] Patient Health Questionnaire-2 Score 0 12/17/2022 [facility] Occupat ional Health - [...] place to sleep or slept in a skilled nursing (including now)? No 12/13/2022 Comments No Sex [...] and is taking 2) Please contact # [phone] documented in this encounter Plan of Treatment Upcoming Encounters Date Type Department Care Team (Late st Contact Info) Description 10/28/2024 12:45 PM CDT Appointment [facility] [address] [facility], 2nd [place] [address] 10/28/2024 1:20 PM CDT Office Visit [facility] - Hematology/Oncology [address] [place] [address] Douglas Llanes MD [address] [facility]EM[facility]OLOGY [place] [address] documented as of this encounter Goals Goal [...] on filedocumented in this encounter Care Teams Maintenance Manager Relationship Specialty Start Date End Date Miguel Langley DO [address] [facility] [address] [place] [address] PCP - General Internal Medicine 12/12/22 Chris Madrigal MD Hematology and Oncology 03/21/20 Rand Elkins LMSW Outpatient Access Services Librarian Care Management 12/17/22 documented as of this encounter
--- OUTSIDE RECORDS SUMMARY | 2024-10-06 12:45 | XMS_ITS | Clinical Summary ---
Author Organization [facility] Address [facility] [place] [address] Care Team Providers Care Boiler Cleaner Name Role Phone Miguel Langley Primary Care Provider [phone] Allergies Active Allergy Reactions Criticality Noted Date [...] 12:56 PM CDT Height 157.5 cm (5' 2) 10/19/2023 12:56 PM CDT Body Mass Index [...] patient's age to complete this topic [place] [address] [address] MEDICAID Care Teams Boiler Cleaner Relationship Specialty Start Date End Date Miguel Langley DO [address] [place] [address] PCP - General INTERNAL MEDICINE 08/08/21
--- OUTSIDE RECORDS SUMMARY | 2024-10-06 12:45 | XMS_ITS | Encounter Summary ---
Author Organization [facility] Address [address] [place] [address] Care Team Providers Care Analytics Intern Name Role Phone Daysi Wetzel MD Primary Care Provider [phone] Chris Madrigal MD Unavailable [phone] Miguel Langley DO Primary Care Provider [phone] Rand Elkins [facility] Unavailable [phone] Reason for Visit * Reason Onset Date Comments Nurse Only 11/26/2022 Surgery Scheduling 11/26/2022 Encounter Details Date Type Department Care Team (Late st Contact Info) Description 11/26/2022 Telephone [facility] - Centralized Scheduling [address] [place] [address] Sulaiman Andrews MD [address] [address] Nurse Only; Surgery Scheduling Social History Tobacco [...] 3:13 PM CDT Pt seen her other HEATER OPERATOR Dr.James Duran in [place], Dr. Andrews told her to call office after she sees him, pt is having surgery with Dr Andrews, not sure when documented in this encounter Plan of Treatment Upcoming Encounters Date Type Department Care Team (Late st Contact Info) Description 10/28/2024 12:45 PM CDT Appointment [facility] [address] [facility]nd [place] [address] 10/28/2024 1:20 PM CDT Office Visit [facility] - Hematology/Oncology [address] [place] [phone] Douglas Llanes MD [address] [facility] [place] [address] documented as of this encounter Goals Goal [...] on filedocumented in this encounter Care Teams Analytics Intern Relationship Specialty Start Date End Date Daysi Wetzel MD [address] [place] [phone] PCP - General Family Medicine 12/24/18 12/11/22 Miguel Langley DO [address] [place] [address] PCP - General Internal Medicine 12/12/22 Chris Madrigal MD [address] [place] [address] Hematology and Oncology 03/21/20 Rand Elkins LMSW Outpatient Rn Bone Marrow Transplant Care Management 12/17/22 documented as of this encounter
[2024-10-06 13:25] LABS: Hematocrit 42.3 % (37.0-47.0); Hemoglobin 13.5 g/dL (12.0-15.0)
[2024-10-06 15:08] LABS: Immature Platelet Fraction Pct 35.3 % (0.9-11.2); Platelet Count Result 66 k/mm3 (150-375)
== END 2024-10-06 12:35 | disposition home or self-care (01) ==
LOC: ANHSURGERY 12:42
PROVIDERS: Anesthesiology; PCP Nurse Practitioner Family; Visit Provider Obstetrics & Gynecology
DX: D64.9 Anemia, unspecified (principal); D69.3 Immune thrombocytopenic purpura; R10.2 Pelvic and perineal pain
CPT/HCPCS: 36415; 85014; 85018; 85049; 85055; 86850; 86900; 86901

== ENCOUNTER 2024-10-20 11:22 | Emergency (ER) | payer OTHER, SELFPAY ==
[2024-10-20 11:30] VITALS: BP 118/58; PULSE 62; RESP 16; TEMP 36.4; O2SAT 99
--- NOTE | 2024-10-20 11:34 | ED.GENADULT ---
HPI - General Adult General Chief complaint: Upper Respiratory Infection Stated complaint: Sinus/Headache Source: patient Mode of arrival: ambulatory Limitations: no limitations History of Present Illness HPI narrative: Pt is a 44 y/o female presenting with c/o ear pressure, sinus pressure. Sx began 1 week ago. 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 NO known exposure to COVID, FLU, STREP, PNA. No additional complaints. Related Data Home Medications ?Medication ?Instructions ?Recorded ?Confirmed ?Last Taken ?Type alprazolam 1 mg tablet (Xanax) 1 mg PO BID PRN Anxiety 02/14/19 10/11/24 09/26/24 History multivitamin (Daily Multi-Vitamin 1 tablet PO DAILY 04/24/21 10/11/24 09/28/24 History tablet) estradiol 1 mg tablet 1 mg PO HS 04/28/23 10/11/24 09/27/24 History venlafaxine 37.5 mg 37.5 mg PO HS 09/28/24 10/11/24 09/27/24 History capsule,extended release 24 hr celecoxib 100 mg capsule mg 10/20/24 Unknown History Allergies Allergy/AdvReac Type Severity Reaction Status Date / Time cephalexin AdvReac Severe Other Verified 10/20/24 11:39 clarithromycin AdvReac Severe Swelling Verified 10/20/24 11:39 of face/nausea hydrocodone AdvReac Severe Throat Verified 10/20/24 11:39 swelling/facial swelling/vomiting Review of Systems Review of Systems: CONSTITUTIONAL: Denies body aches, fever, chills, or sweats. EYES: Denies visual changes, redness, or discharge. ENT: Reports sinus pressure, ear pressure. Denies rhinorrhea sore throat CARDIOVASCULAR: Denies chest pain, palpitations, or edema. RESPIRATORY: Denies cough or dyspnea. GASTROINTESTINAL: Denies abdominal pain, nausea, vomiting, or diarrhea. GENITOURINARY: Denies dysuria or hematuria. SKIN: Denies rash, itching, or wounds. MUSCULOSKELETAL: Denies back pain, joint pain, or myalgia. NEUROLOGIC: Denies headache, numbness, tingling, or weakness. PSYCH: Denies depression or anxiety. All systems reviewed & are unremarkable except as noted in HPI and below PMFSH Past Medical History Medical History Idiopathic thrombocytopenic purpura (ITP) Abdominal bloating Epigastric pain Chronic diarrhea Family history of colon cancer in father Bright red blood per rectum Gallbladder anomaly Migraine Numbness Snoring Abdominal pain Painful joint Allergies Arthritis UTI (urinary tract infection) due to Enterococcus Urinary frequency Diarrhea History of dental problems Ear pain Vision changes Dizziness Chronic headaches Weight gain SIERRA (obstructive sleep apnea) History of anesthesia problem Crush injury of right foot GERD (gastroesophageal reflux disease) IBS (irritable bowel syndrome) Depression Back pain UTI (urinary tract infection) Endometriosis Sleep apnea Sinus problem Wears glasses Anemia Anxiety Surgical History Surgical History Hx of laparoscopy x2 Hx of breast reduction, elective History of cholecystectomy History of hysterectomy Family History Family History Father Alcoholism Cancer Diabetes mellitus Mother Depression Sibling Cancer Other Dementia Social History Social History Smoking packs per day: 0.5 Smoking cigarettes per day: 10.0 Years smoked: 2 Smoking pack-years: 1.00 Smoking status: Never smoker Tobacco type: cigarettes Second hand tobacco smoke exposure: No Smoking end date: 03/31/00 Additional smoking assessment comments: social as teenager-not since then Alcohol intake: current Alcohol use details: 4/MONTH Substance use: never Substance use type: marijuana Other substance usage details: two or more times a day Do You Feel Safe in your Home?: Yes Lack of Transportation: No Lack of Food: Never True Current Housing: I Do Not Have Housing Concerned About Future Housing: YES Difficulty Paying Gas/Electric Bills: Decline to Answer Difficulty Paying for Meds: No Currently Unemployed: No Education: Grade School Difficulty w/ Childcare or Family Care: No Living arrangements: with family Occupation/Education: occupation Additional occupation/education comments: employed Gender identity (if verbalized by the patient): Female Sexual Orientation (if Verbalized by the Patient): Straight or Heterosexual Spiritual care concerns: No Agree to blood products: Yes Exam Narrative: GENERAL: Well-appearing, well-nourished, and in no acute distress. HEAD: Normocephalic, atraumatic. EYES: EOMI. No redness or drainage. Conjunctivae normal. ENT: Mucous membranes pink and moist. Nares clear. No rhinorrhea. TMs normal bilaterally. Throat normal. Uvula midline. Esdras. frontal and maxillary Sinuses are tender without evidence of spread beyond sinus cavities. NECK: Normal AROM. Supple. No lymphadenopathy. CHEST: No respiratory distress. Clear to auscultation. HEART: Regular rate and rhythm. No murmur appreciated. Normal peripheral pulses MUSCULOSKELETAL: No bony tenderness. EXTREMITIES: Normal range of motion. No edema. SKIN: Warm, dry, no rash. Capillary refill normal. Normal skin turgor. NEURO: No focal deficits. Alert and oriented x3. Gait steady. PSYCH: Normal affect. No signs of depression or anxiety. Course Course Level of Care: Express Care Visit Vital Signs Vital signs: Vital Signs Temperature 97.6 F 10/20/24 11:30 Pulse Rate 62 10/20/24 11:30 Respiratory Rate 16 10/20/24 11:30 Blood Pressure 118/58 L 10/20/24 11:30 Pulse Oximetry 99 10/20/24 11:30 Oxygen Delivery Room Air 10/20/24 11:30 Temperature 97.6 F 10/20/24 11:30 Pulse Rate 62 10/20/24 11:30 Respiratory Rate 16 10/20/24 11:30 Blood Pressure 118/58 L 10/20/24 11:30 Pulse Oximetry 99 10/20/24 11:30 Oxygen Delivery Room Air 10/20/24 11:30 Medical Decision Making Vital Signs Vital Signs: Vital Signs Temperature 97.6 F 10/20/24 11:30 Pulse Rate 62 10/20/24 11:30 Respiratory Rate 16 10/20/24 11:30 Blood Pressure 118/58 L 10/20/24 11:30 Pulse Oximetry 99 10/20/24 11:30 Oxygen Delivery Room Air 10/20/24 11:30 Temperature 97.6 F 10/20/24 11:30 Pulse Rate 62 10/20/24 11:30 Respiratory Rate 16 10/20/24 11:30 Blood Pressure 118/58 L 10/20/24 11:30 Pulse Oximetry 99 10/20/24 11:30 Oxygen Delivery Room Air 10/20/24 11:30 Discharge Plan Discharge Clinical Impression: Sinusitis Qualifiers: Sinusitis location: maxillary Chronicity: acute Recurrence: not specified as recurrent Qualified Code(s): J01.00 - Acute maxillary sinusitis, unspecified Patient Disposition: Home Condition: Stable Instructions: Antibiotic Form, Sinusitis (ED) Additional Instructions: Go straight to ER should your symptoms become worse or should any new symptoms develop Patient Language: Latvian Prescriptions: New doxycycline hyclate 100 mg capsule 100 mg PO DAILY Qty: 14 0RF prednisone 20 mg tablet 60 mg PO DAILY 5 Days Qty: 15 0RF No Action estradiol 1 mg tablet 1 mg PO HS albuterol sulfate 90 mcg/actuation HFA aerosol inhaler 2 puff inhalation Q4-6H PRN (Reason: shortness of breath or wheezing) 30 Days Qty: 8.5 0RF celecoxib 100 mg capsule multivitamin [Daily Multi-Vitamin] Tablet 1 tablet PO DAILY cholestyramine (with sugar) [Questran] 4 gram powder 4 g PO BID Qty: 368.76 5RF Rx Instructions: administer w/meal; avoid other meds within 1hr before or 4-6hr after dose fluticasone propionate 50 mcg/actuation spray,suspension 2 spray intranasal DAILY Qty: 48 1RF Rx Instructions: administer into each nostril fluticasone propionate [Flonase Allergy Relief] 50 mcg/actuation spray,suspension 2 spray intranasal DAILY Qty: 16 1RF Rx Instructions: administer into each nostril benzonatate 100 mg capsule 100 mg PO TID PRN (Reason: cough) Qty: 20 0RF pseudoephedrine HCl [Sudafed 12 Hour] 120 mg tablet extended release 120 mg PO BID PRN (Reason: nasal congestion) Qty: 30 0RF alprazolam [Xanax] 1 mg Tablet 1 mg PO BID PRN (Reason: Anxiety) venlafaxine 37.5 mg capsule,extended release 24hr 37.5 mg PO HS Patient Comments: Says takes at HS omeprazole 40 mg capsule,delayed release(DR/EC) See Rx Instructions .ROUTE .COMPLEX Qty: 90 1RF Dose Instruction: TAKE 1 CAPSULE BY MOUTH TWICE DAILY Rx Instructions: TAKE 1 CAPSULE BY MOUTH TWICE DAILY Follow-up/Referrals: Ijeoma Payne APRN [Primary Care Provider] - Time of Disposition: 12:06
== END 2024-10-20 12:10 | disposition home or self-care (01) ==
PROVIDERS: Emergency Provider Registered Nurse; PCP Nurse Practitioner Family
DX: J01.00 Acute maxillary sinusitis, unspecified (principal); Z87.891 Personal history of nicotine dependence; K21.9 Gastro-esophageal reflux disease without esophagitis; N80.9 Endometriosis, unspecified; F41.9 Anxiety disorder, unspecified; F32.A Depression, unspecified
CPT/HCPCS: 99213; G0463

== ENCOUNTER 2024-10-28 00:13 | Day surgery (SDC) | payer OTHER, SELFPAY ==
[2024-09-28 14:46] VITALS: BMI 38.1
--- NOTE | 2024-09-28 15:16 | SUR.PREOP ---
Report to the Outpatient Waiting Room, entrance under the green pavilion located off [facility], at time __0800___ on date ___10/08/2024____. Planned Procedure Time: ____1000____.? Time changes happen often and if your time is changed the preop area will call you the afternoon before. - You and your visitor will be asked to self-screen and do not enter if you have any COVID symptoms. Please call surgeon if you need to reschedule. - A mask is optional within the hospital at this time. Patients may have clear liquids (water, carbonated beverages, clear teas, apple juice) until 3 hours prior to surgery with a maximum of 20 ounces. - No food from midnight until time of surgery and no smoking, or chewing tobacco (or any form of nicotine). No chewing gum, candy or mints. - Infants may have breast milk until 4 hours before surgery, infant formula 6 hours prior to surgery. - Children will be allowed to drink immediately following surgery.? If applicable, please bring a bottle or sippy cup to assist with drinking. Juice, water, soda, and popsicles are readily available.? For infants on formula, please bring formula the day of surgery.? Pacifiers are allowed. Take only the following medications with a SIP of water on the morning of surgery: N/A DO NOT STOP ANY OF YOUR OTHER PRESCRIPTION MEDICATIONS PRIOR TO SURGERY EXCEPT THE FOLLOWING Hold all vitamins and supplements for 3 days per anesthesiologist. Medications to discontinue per physician N/A Date to take last dose N/A Please no make-up, nail hebrew, hairspray, perfume, deodorant, or body powder the day of surgery.? No jewelry (including any body piercings) or valuables the day of surgery, leave them at home.? Please take a shower or bath the night before, or the morning of, surgery with an antibacterial soap.? Wear comfortable, loose fitting clothing.? Children are encouraged to wear pajamas. - Jewelry must be removed prior to entering the operating room.? Rings and piercings that are not removed may be cut off. - The hospital will not accept responsibility for valuables.? - Please leave all valuables, including medications, at home the day of surgery. If you are going home after surgery, a licensed truck driver rubbish collector must drive you home.? - NO public transportation without another adult if you receive anesthesia. - We recommend that an adult stay with you for 24 hours following discharge. - We also recommend that you do not drive, make important decision, drink alcoholic beverages, or take any drugs that were not prescribed by your health care provider for at least 24 hours after your discharge time. For Pediatric surgeries, we recommend two adults accompany the child home. Follow any additional instructions given to you from your surgeon. Telephone instructions given to Heather and asked if any additional questions and then verbalized understanding. Patient advised to call surgeon office or pre surgery nurse liaison [phone] if any additional questions.
--- NOTE | 2024-10-19 10:18 | SUR.PREOP ---
Report to the Outpatient Waiting Room, entrance under the green pavilion located off [facility], at time __[id number] on date [phone] . Planned Procedure Time: .? Time changes happen often and if your time is changed the preop area will call you the afternoon before. - You and your visitor will be asked to self-screen and do not enter if you have any COVID symptoms. Please call surgeon if you need to reschedule. - A mask is optional within the hospital at this time. Patients may have clear liquids (water, carbonated beverages, clear teas, apple juice) until 3 hours prior to surgery with a maximum of 20 ounces. - No food from midnight until time of surgery and no smoking, or chewing tobacco (or any form of nicotine). No chewing gum, candy or mints. - Infants may have breast milk until 4 hours before surgery, infant formula 6 hours prior to surgery. - Children will be allowed to drink immediately following surgery.? If applicable, please bring a bottle or sippy cup to assist with drinking. Juice, water, soda, and popsicles are readily available.? For infants on formula, please bring formula the day of surgery.? Pacifiers are allowed. Take only the following medications with a SIP of water on the morning of surgery: N/A DO NOT STOP ANY OF YOUR OTHER PRESCRIPTION MEDICATIONS PRIOR TO SURGERY EXCEPT THE FOLLOWING Hold all vitamins and supplements for 3 days per anesthesiologist. Medications to discontinue per physician N/A Date to take last dose N/A Please no make-up, nail dutch, hairspray, perfume, deodorant, or body powder the day of surgery.? No jewelry (including any body piercings) or valuables the day of surgery, leave them at home.? Please take a shower or bath the night before, or the morning of, surgery with an antibacterial soap.? Wear comfortable, loose fitting clothing.? Children are encouraged to wear pajamas. - Jewelry must be removed prior to entering the operating room.? Rings and piercings that are not removed may be cut off. - The hospital will not accept responsibility for valuables.? - Please leave all valuables, including medications, at home the day of surgery. If you are going home after surgery, a licensed taxi driver must drive you home.? - NO public transportation without another adult if you receive anesthesia. - We recommend that an adult stay with you for 24 hours following discharge. - We also recommend that you do not drive, make important decision, drink alcoholic beverages, or take any drugs that were not prescribed by your health care provider for at least 24 hours after your discharge time. For Pediatric surgeries, we recommend two adults accompany the child home. Follow any additional instructions given to you from your surgeon. Telephone instructions given to Heather and asked if any additional questions and then verbalized understanding. Patient advised to call surgeon office or pre surgery nurse liaison [phone] if any additional questions.
--- NOTE | 2024-10-27 06:46 | PM.IMHP ---
H&P: HPI History of Present Illness Date/Time: 10/27/24 06:46 Chief Complaint: Pelvic pain and left-sided ovarian cyst Narrative: This is a 44-year-old female admitted for laparoscopic LSO secondary to severe pelvic pain she has chronically low platelets but has been taking steroids got up over 50,000. Risks and benefits reviewed great detail. She had all questions answered and asked to proceed Review of Systems Review of Systems: CONSTITUTIONAL: Denies body aches, fever, chills, or sweats. EYES: Denies visual changes, redness, or discharge. ENT: Reports sinus pressure, ear pressure. Denies rhinorrhea sore throat CARDIOVASCULAR: Denies chest pain, palpitations, or edema. RESPIRATORY: Denies cough or dyspnea. GASTROINTESTINAL: Denies abdominal pain, nausea, vomiting, or diarrhea. GENITOURINARY: Denies dysuria or hematuria. SKIN: Denies rash, itching, or wounds. MUSCULOSKELETAL: Denies back pain, joint pain, or myalgia. NEUROLOGIC: Denies headache, numbness, tingling, or weakness. PSYCH: Denies depression or anxiety. All systems reviewed & are unremarkable except as noted in HPI and below PMFSH Past Medical History Medical History Idiopathic thrombocytopenic purpura (ITP) Abdominal bloating Epigastric pain Chronic diarrhea Family history of colon cancer in father Bright red blood per rectum Gallbladder anomaly Migraine Numbness Snoring Abdominal pain Painful joint Allergies Arthritis UTI (urinary tract infection) due to Enterococcus Urinary frequency Diarrhea History of dental problems Ear pain Vision changes Dizziness Chronic headaches Weight gain SIERRA (obstructive sleep apnea) History of anesthesia problem Crush injury of right foot GERD (gastroesophageal reflux disease) IBS (irritable bowel syndrome) Depression Back pain UTI (urinary tract infection) Endometriosis Sleep apnea Sinus problem Wears glasses Anemia Anxiety Surgical History Surgical History Hx of laparoscopy x2 Hx of breast reduction, elective History of cholecystectomy History of hysterectomy Family History Family History Father Alcoholism Cancer Diabetes mellitus Mother Depression Sibling Cancer Other Dementia Social History Social History Smoking packs per day: 0.5 Smoking cigarettes per day: 10.0 Years smoked: 2 Smoking pack-years: 1.00 Smoking status: Never smoker Tobacco type: cigarettes Second hand tobacco smoke exposure: No Smoking end date: 03/31/00 Additional smoking assessment comments: social as teenager-not since then Alcohol intake: current Alcohol use details: 4/MONTH Substance use: never Substance use type: marijuana Other substance usage details: two or more times a day Do You Feel Safe in your Home?: Yes Lack of Transportation: No Lack of Food: Never True Current Housing: I Do Not Have Housing Concerned About Future Housing: YES Difficulty Paying Gas/Electric Bills: Decline to Answer Difficulty Paying for Meds: No Currently Unemployed: No Education: Grade School Difficulty w/ Childcare or Family Care: No Living arrangements: with family Occupation/Education: occupation Additional occupation/education comments: employed Gender identity (if verbalized by the patient): Female Sexual Orientation (if Verbalized by the Patient): Straight or Heterosexual Spiritual care concerns: No Agree to blood products: Yes Meds Home Medications and Allergies Home Medications ?Medication ?Instructions ?Recorded ?Confirmed ?Type alprazolam 1 mg tablet (Xanax) 1 mg PO BID PRN Anxiety 02/14/19 10/11/24 History multivitamin (Daily Multi-Vitamin 1 tablet PO DAILY 04/24/21 10/11/24 History tablet) estradiol 1 mg tablet 1 mg PO HS 04/28/23 10/11/24 History albuterol sulfate 90 mcg/actuation 2 puff inhalation Q4-6H PRN 01/06/24 10/11/24 Rx aerosol inhaler shortness of breath or wheezing 30 days #8.5 grams omeprazole 40 mg capsule,delayed See Rx Instructions .Route 05/31/24 10/11/24 Rx release .COMPLEX #90 caps fluticasone propionate 50 2 spray intranasal DAILY #48 grams 07/13/24 10/11/24 Rx mcg/actuation nasal spray,suspension cholestyramine (with sugar) 4 gram 4 g PO BID #368.76 grams 08/03/24 10/11/24 Rx oral powder (Questran) venlafaxine 37.5 mg 37.5 mg PO HS 09/28/24 10/11/24 History capsule,extended release 24 hr benzonatate 100 mg capsule 100 mg PO TID PRN cough #20 caps 10/11/24 10/19/24 Rx fluticasone propionate 50 2 spray intranasal DAILY #16 mL 10/11/24 10/19/24 Rx mcg/actuation nasal spray,suspension (Flonase Allergy Relief) pseudoephedrine HCl 120 mg 120 mg PO BID PRN nasal congestion 10/11/24 10/19/24 Rx tablet,extended release (Sudafed #30 tabs 12 Hour) celecoxib 100 mg capsule mg 10/20/24 History doxycycline hyclate 100 mg capsule 100 mg PO DAILY #14 caps 10/20/24 Rx prednisone 20 mg tablet 60 mg (3 x 20 mg) PO DAILY 5 days 10/20/24 Rx #15 tabs Allergies Allergy/AdvReac Type Severity Reaction Status Date / Time cephalexin AdvReac Severe Other Verified 10/20/24 11:39 clarithromycin AdvReac Severe Swelling Verified 10/20/24 11:39 of face/nausea hydrocodone AdvReac Severe Throat Verified 10/20/24 11:39 swelling/facial swelling/vomiting Exam Const: General: cooperative, healthy appearing and comfortable Nutritional Appearance: average body habitus Orientation/consciousness: oriented to person, oriented to place and oriented to time Resp: Effort & Inspection: normal respiratory effort Cardio: Rate: regular rate Rhythm: regular rhythm Heart sounds: S1 normal heart sound present and S2 normal heart sound present GI: Inspection: normal to inspection : External Female Exam: normal external appearance Speculum Exam - Vagina: normal appearance of the vagina Speculum Exam - Cervix: Cervix absent Bimanual exam- vagina & uterus: uterus absent Bimanual Exam- Adnexa, other: Adnexal mass present on the left tender Assessment and Plan Assessment and plan (1) Pelvic pain: Code(s): R10.2 - Pelvic and perineal pain Status: Acute (2) Left ovarian cyst: Code(s): N83.202 - Unspecified ovarian cyst, left side Status: Acute Plan Proceed with laparoscopic left salpingo-oophorectomy
[2024-10-28] VITALS (13 sets, daily range): BP systolic 108–155; BP diastolic 58–90; PULSE 61–90; RESP 11–20; TEMP 35.9–37; O2SAT 94–100
--- OUTSIDE RECORDS SUMMARY | 2024-10-28 00:17 | XMS_ITS | Clinical Summary ---
Author Organization [facility] Address [address] [place] [address] Care Team Providers Care Primary Products Inspectors Name Role Phone Chris Madrigal MD Unavailable [phone] Miguel Langley DO Primary Care Provider [phone] Source Comments [facility],non-owned Affiliates and Associated Physician Practices is amultiple site organization consisting of ambulatory clinics and hospital sitesin [place], [place], [place] and [place]. This disclosure is being madepursuant to the Care Everywhere program and may not contain all information available regarding this patient. 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 Encounters Date Type Department Care Team Description 10/06/2024 Telephone [facility] - Hematology/Oncolog y [address] [place] [address] Faisal Julio RN Symptom Management 09/13/2024 Orders Only [facility] - Hematology/Oncolog y [address] [place] [address] Douglas Llanes MD 09/02/2024 2:29 PM CDT - 09/02/2024 11:59 PM CDT Hospital Encounter [facility] [address] [facility] [place] [address] Discharge Disposition: Home or Self Care 09/02/2024 2:20 PM CDT Office Visit [facility] - Hematology/Oncolog y [address] [place] [address] Douglas Llanes MD Immune thrombocytopenia (HCC) (Primary Dx); High risk medications (not anticoagulants) long-term use 09/02/2024 Orders Only [facility] - Hematology/Oncolog y [address] [place] [address] Douglas Llanes MD 09/02/2024 Travel 08/27/2024 Telephone [facility] - CYANIDE POT TENDER [address] [facility] [address] [place] [phone] Daysi Weinstein, RN Follow-up 08/27/2024 Refill [facility] - CYANIDE POT TENDER [address] [facility] [address] [place] [address] Sulamian Andrews MD Refill Request from Last 3 Months Immunizations Immunization Administration [...] Recorded Patient Health Questionnaire-2 Score 0 12/17/2022 [facility] - Occupational [...] in a halfway (including now)? 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 Body Mass Index 38.26 04/14/2024 2:53 PM ALLEY WORKER Plan of Treatment Health Maintenance Due Date [...] Additional history exists COVID-19 VACCINE (2 - 2023- season) 2023 03/04/2021 DEPRESSION SCREENING 03/31/2024 01/22/2023, [...] AUTO CITRATED BLOOD (09/02/2024 2:31 PM CDT) Platelet Count Citrated 48(L) 150 - 420 x10E9/L 09/02/2024 4:01 PM CDT [facility] Blood BLOOD SPECIMEN / Unknown Lab Venipuncture / Unknown 09/02/2024 2:31 PM CDT 09/02/2024 2:36 PM CDT Narrative [facility] - 09/02/2024 4:01 PM CDT This test was developed and its performance characteristics determined by the clinical laboratories of [facility] and [facility]. It has not been cleared and approved by the US Food and Drug Administration. Douglas Llanes MD LAB - HEMATOLOGY ORDERABLES Fi nal Result [facility] [address] [place] [address], [facility] [phone] * (ABNORMAL) CBC WITH DIFFERENTIAL (09/02/2024 2:31 PM CDT) WBC 8.4 4.0 - 10.7 x10E9/L 09/02/2024 3:10 PM CDT [facility] RBC Count 4.78 3.90 - 5.20 x10E12/L 09/02/2024 3:10 PM T [facility] Hemoglobin 13.0 11.9 - 15.8 g/dL 09/02/2024 3:10 PM [facility] Hematocrit 40.3 34.8 - 46.1 % 09/02/2024 3:10 PM [facility] MCV 84.3 80.0 - 98.0 fL 09/02/2024 3:10 PM T [facility] MCH 27.2 26.7 - 33.6 pg 09/02/2024 3:10 PM [facility] MCHC 32.3 31.7 - 36.3 g/dL 09/02/2024 3:10 PM [facility] RDW-CV 13.4 11.3 - 14.8 % 09/02/2024 3:10 PM [facility] Platelet Count 51(L) 150 - 420 x10E9/L 09/02/2024 3:10 PM [facility] Neutrophil % 48.1 41.0 - 74.0 % 09/02/2024 3:10 PM [facility] Lymphocyte % 45.2 17.0 - 47.0 % 09/02/2024 3:10 PM [facility] Monocyte % 4.5 3.0 - 11.0 % 09/02/2024 3:10 PM [facility] Eosinophil % 1.4 0.0 - 7.0 % 09/02/2024 3:10 PM [facility] Basophil % 0.6 0.0 - 1.6 % 09/02/2024 3:10 PM [facility] Immature Granulocytes % 0.2 0.0 - 1.0 % 09/02/2024 3:10 PM CDT [facility] Neutrophil Absolute 4.04 1.60 - 7.50 x10E9/L 09/02/2024 3:10 PM CDT [facility] Lymphocyte Absolute 3.81 1.00 - 4.40 x10E9/L 09/02/2024 3:10 PM CDT [facility] Monocyte Absolute 0.38 0.15 - 1.00 x10E9/L 09/02/2024 3:10 PM T [facility] Eosinophil Absolute 0.12 0.00 - 0.60 x10E9/L 09/02/2024 3:10 PM T [facility] Basophil Absolute 0.05 0.00 - 0.13 x10E9/L 09/02/2024 3:10 PM [facility] Blood BLOOD SPECIMEN / Unknown Lab Venipuncture / Unknown 09/02/2024 2:31 PM CDT 09/02/2024 2:40 PM CDT us Douglas Llanes MD LAB - HEMATOLOGY ORDERABLES Fi nal Result [facility] [address] [place] [address], [facility] [phone] * (ABNORMAL) RENAL FUNCTION PANEL (12/15/2022 8:46 AM CDT) Glucose 113(H) 70 - 105 mg/dL 12/15/2022 9:[address] [facility] Sodium 138 136 - 145 mmol/L 12/15/2022 9:[address] [facility] Potassium 3.9 3.5 - 5.1 mmol/L 12/15/2022 9:[address] [facility] Chloride 101 98 - 107 mmol/L 12/15/2022 9:[address] [facility] CO2 29 22 - 29 mmol/L 12/15/2022 9:[address] [facility] Calcium 8.5 8.4 - 10.4 [...] mL/min/1.7 3 m2 12/15/2022 9:[address] [facility] Blood BLOOD SPECIMEN / Unknown Lab Venipuncture / Unknown 12/15/2022 8:46 AM CDT 12/15/2022 9:10 AM CDT Sulaiman Andrews MD LAB - CHEMISTRY ORDERABLES Fin al Result [facility] [address] [place] [address] from Last 3 Months or Most Recently Relevant to Health Maintenance Insurance [facility] Care Teams Primary Products Inspectors Relationship Specialty Start Date End Date Miguel Langley DO [address] [id number] PCP - General Internal Medicine 12/12/22 Chris Madrigal MD Hematology and Oncology 03/21/20
--- OUTSIDE RECORDS SUMMARY | 2024-10-28 00:17 | XMS_ITS | Clinical Summary ---
[facility] Organization [facility] Address [address] [place] [address] Care Team Providers Care Manager Shop Name Role Phone Mello Kaba MD Primary Care Provider [phone] Allergies Active Allergy Reactions Criticality Noted Date [...] 2 mg by mouth daily. 0 Active ggjvxkjf-zjw-lk lic acid-sig597 (Alive Women's Gummy Vitamin) 200 mcg- 37.5 [...] Encounters Date Type Department Care Team Description 10/13/2024 External Device Data [facility] ABSTRACTION Provider, Abstract 10/12/2024 External Device Data [facility] ABSTRACTION Provider, Abstract 09/14/2024 External Device Data [facility] ABSTRACTION Provider, [...] Comments Blood Pressure 117/79 05/05/2024 2:37 PM PUMP TESTER Pulse 70 05/05/2024 2:37 PM PUMP TESTER Temperature 36.1 C (97 F) 05/05/2024 2:37 PM PUMP TESTER Respiratory Rate 18 05/05/2024 2:37 PM PUMP TESTER Oxygen Saturation 98% 05/05/2024 2:37 PM PUMP TESTER Inhaled Oxygen Concentration - - Weight 91.2 kg (201 lb) 05/05/2024 2:37 PM PUMP TESTER Height 157.5 cm (5' 2) 10/12/2021 8:27 [...] [place] Care Teams Manager Shop Relationship Specialty Start Date End Date Mello Kaba MD PCP - General Family Practice 09/02/22
--- OUTSIDE RECORDS SUMMARY | 2024-10-28 00:17 | XMS_ITS | Encounter Summary ---
Author Organization [facility] Address [address] [place] [address] Care Team Providers Care Aluminum Sheet Cutter Name Role Phone Chris Madrigal MD Unavailable [phone] Miguel Langley DO Primary Care Provider [phone] Rand Elkins LMSW Unavailable [phone] Reason for Visit * Reason Onset Date Comments Question 12/27/2022 Returned Call 12/27/2022 Encounter Details Date Type Department Care Team (Late st Contact Info) Description 12/27/2022 Telephone [facility] - SKIING TEACHER [address] [facility] [address] [place] [address] Sulaiman Andrews MD [address] [facility] [address] [place] [address] Question; Returned Call Social History Tobacco Use [...] Recorded Patient Health Questionnaire-2 Score 0 12/17/2022 [facility] - Occupational [...] in a penitentiary (including now)? No 12/13/2022 Comments No Sex [...] 11:57 AM CDT Spoke with Cynthia from [facility] pathology department returning her call. She reports that all six sets of slides have already been reviewed by [facility] Pathology and they cannot send the slides to be reviewed by them again since Dr. Joanne Don is a part of [facility] Pathology. Told her we only had one report from [facility] of the 6 requested and she says she will fax the other five today. * Telephone Encounter - Sujey Hannah - 12/27/2022 9:30 AM CDT Cynthia form [facility] wanst to know Will slides be forwarded to the pathology dept ? (this can not happen) Please contact # [phone] documented in this encounter Plan of Treatment [...] on filedocumented in this encounter Care Teams Aluminum Sheet Cutter Relationship Specialty Start Date End Date Miguel Langley DO [address] [place] [address] PCP - General Internal Medicine 12/12/22 Chris Madrigal MD Hematology and Oncology 03/21/20 Rand Elkins LMSW Outpatient Mutual Funds Agent Care Management 12/17/22 documented as of this encounter
--- OUTSIDE RECORDS SUMMARY | 2024-10-28 00:17 | XMS_ITS | Clinical Summary ---
Author Organization [facility] Address [facility] [place] [address] Care Team Providers Care Automobile Sales Consultant Name Role Phone Miguel Langley Primary Care Provider [phone] Allergies Active Allergy Reactions Criticality Noted Date [...] patient's age to complete this topic [place] [address] [address] MEDICAID Care Teams Automobile Sales Consultant Relationship Specialty Start Date End Date Miguel Langley DO [address] [place] [id number] PCP - General INTERNAL MEDICINE 08/08/21
--- OUTSIDE RECORDS SUMMARY | 2024-10-28 00:17 | XMS_ITS | Referral Summary ---
Author Organization [facility] Address [address] [place] [address] Care Team Providers Care Swimming Pool Plasterer Helper Name Role Phone Miguel Langley DO Primary Care Provider [phone] Allergies Active Allergy Reactions Criticality Noted Date [...] fluticasone propionate (FLONASE) 50 mcg/actuation nasal spray [place] 2 sprays every day by intranasal route. [...] mg total) by mouth 12/17/19 23 Active owbdkjmx-syk-letfl acid-och452 (Alive Women's Gummy Vitamin) 120 mcg- 37.5 [...] 03/12/2017 Assessment & Plan (03/12/2017 11:57 AM SATELLITE INSTALLATION TECHNICIAN): Patient demonstrates history and my physical findings [...] CDT): This is being managed by her lending consultant. Social History Tobacco Use Types Packs/Day Years [...] on file Legal Sex Female 9:03 AM SATELLITE INSTALLATION TECHNICIAN Gender Identity Female 01/20/2024 3:06 PM CDT [...] ORDERABLES Final Result [facility] [address] [facility] [place] [address] from Last 3 Months or Most Recently Relevant to Health Maintenance Insurance [facility] [id number] [place] [id number] [place] [address] Care Teams Swimming Pool Plasterer Helper Relationship Specialty Start Date End Date Miguel Langley DO PCP - General Internal Medicine 07/03/22
--- OUTSIDE RECORDS SUMMARY | 2024-10-28 00:17 | XMS_ITS | Encounter Summary ---
Author Organization [facility] Address [address] [place] [address] Care Team Providers Care Learning Developer Name Role Phone Daysi Wetzel MD Primary Care Provider [phone] Chris Madrigal MD Unavailable [phone] Miguel Langley DO Primary Care Provider [phone] Rand Elkins [facility] Unavailable [phone] Reason for Visit * Reason Onset Date Comments Nurse Only 11/26/2022 Surgery Scheduling 11/26/2022 Encounter Details Date Type Department Care Team (Late st Contact Info) Description 11/26/2022 Telephone [facility] - Centralized Scheduling [address] [place] [address] Sulaiman Andrews MD [address] [address] Nurse Only; Surgery Scheduling Social History Tobacco [...] 3:13 PM CDT Pt seen her other DATACAP DEVELOPER Dr.James Duran in [place], Dr. Andrews told her to call office [...] on filedocumented in this encounter Care Teams Learning Developer Relationship Specialty Start Date End Date Daysi Wetzel MD [address] [place] [phone] PCP - General Family Medicine 12/24/18 12/11/22 Miguel Langley DO [address] [place] [address] PCP - General Internal Medicine 12/12/22 Chris Madrigal MD [address] [place] [phone] Hematology and Oncology 03/21/20 Rand Elkins LMSW Outpatient Service Bar Cashier Care Management 12/17/22 documented as of this encounter
--- OUTSIDE RECORDS SUMMARY | 2024-10-28 00:17 | XMS_ITS | Clinical Summary ---
Author Organization [facility] Address [address] [place] [address] Care Team Providers Care Land Management Forester Name Role Phone Miguel Langley DO Primary Care Provider [phone] Allergies Active Allergy Reactions Criticality Noted Date [...] fluticasone propionate (FLONASE) 50 mcg/actuation nasal spray [place] 2 sprays every day by intranasal route. [...] mg total) by mouth 12/17/19 23 Active zmpiirgt-bvf-bibfl acid-xht988 (Alive Women's Gummy Vitamin) 120 mcg- 37.5 [...] 03/12/2017 Assessment & Plan (03/12/2017 11:57 AM ANODE REBUILDER): Patient demonstrates history and my physical findings [...] CDT): This is being managed by her top trimmer. Surgical History Surgery Date Site/Laterality Comments PARTIAL [...] on file Legal Sex Female 9:03 AM ANODE REBUILDER Gender Identity Female 01/20/2024 3:06 PM CDT [...] ( season) 2023 03/04/2021 Influenza Vaccine (#1) 2024 Hepatitis C Screening Completed 07/09/2016 HPV [...] Final Result [facility] 1 [facility] [place] [address] from Last 3 Months or Most Recently Relevant to Health Maintenance Insurance [facility] Care Teams Land Management Forester Relationship Specialty Start Date End Date Miguel Langley DO PCP - General Internal Medicine 07/03/22
--- OUTSIDE RECORDS SUMMARY | 2024-10-28 00:17 | XMS_ITS | Encounter Summary ---
Author Organization [facility] Address [address] [facility] [place] [address] Care Team Providers Care Chipper Operator Name Role Phone Daysi Wetzel MD Primary Care Provider [phone] Chris Madrigal MD Unavailable [phone] Miguel Langley DO Primary Care Provider [phone] Rand Elkins [facility] [place] Encounter Details Date Type Department Care Team (Late st Contact Info) Description 08/21/2022 Lab Requisition [facility] - Pathology Lab [address] [place] [address] Srinivasan Marks MD [address] [address] Illness, unspecified Social History Tobacco [...] CDT) Case Report Surgical Pathology Report Case: [id number] Authorizing Provider: Srinivasan Marks MD Collected: 08/16/2022 10:51 AM Ordering Location: [facility] Pathology Lab Received: 08/21/2022 12:11 PM Pathologist: Denise Carroll MD Specimens: A) - Soft Tissue, cul-de-sac B) - Peritoneal Biopsy 08/21/2022 1:31 PM CDT [facility] Final Diagnosis Cul-de-sac, biopsy ([id number], A; 08/16/2022): - Scanty low grade serous epithelium without invasion, associated with abundant psammoma bodies (see microscopic description) Peritoneum, biopsy ([id number], B; 08/16/2022): - Psammoma body and hemosiderin - Negative for epithelium 08/21/2022 1:31 PM CDT [facility] PATHOLOGY LAB at 1331 CDT Microscopic Description [...] noted on laparoscopy. 08/21/2022 1:31 PM CDT [facility] PATHOLOGY LAB Materials Received Received are ten slide(s) labeled [id number] (A, 5 levels; B, 5 levels) along with a copy of the outside pathology report. The materials originate from [address] [place] [address]. All original materials are returned to the referring institution, along with a copy of our final report. 08/21/2022 1:31 PM CDT [facility] PATH[facility]Y [facility] Pathologist Location at [facility] 08/21/2022 1:31 PM CDT [facility] PATHOLOGY LAB Disclaimer The performance characteristics of all immunohistochemical and indirect immunofluorescence stains (if any) cited in this report were determined by the Histopathology Laboratory of [facility]. Some of these tests were developed [...] (teaching) pathologist. 08/21/2022 1:31 PM CDT [facility] PATHOLOGY LAB Embedded Images 08/21/2022 1:31 PM CDT [facility] PATHOLOGY LAB Pathology/Cytology PERITONEAL BIOPSY SPECIMEN / Unknown 08/16/2022 10:51 AM CDT 08/21/2022 12:11 PM CDT Miscellaneous samples (specimen) PERITONEAL BIOPSY SPECIMEN / Unknown 08/16/2022 10:51 AM CDT 08/21/2022 12:37 PM CDT Srinivasan Marks MD LAB - PATHOLOGY/CYTOLOGY ORDERAB LES Final Result [facility] PATHOLOGY LAB [address] [place] [address], [facility] [phone] documented in this encounter Visit Diagnoses Diagnosis Illness, unspecified documented in this encounter Care Teams Chipper Operator Relationship Specialty Start Date End Date Daysi Wetzel MD [address] [place] [address] PCP - General Family Medicine 12/24/18 12/11/22 Miguel Langley DO [address] [place] [address] PCP - General Internal Medicine 12/12/22 Chris Madrigal MD [address] [place] [address] Hematology and Oncology 03/21/20 Rand Elkins LMSW Outpatient Bottoming Room Inspector Care Management 12/17/22 documented as of this encounter
--- OUTSIDE RECORDS SUMMARY | 2024-10-28 00:17 | XMS_ITS | Encounter Summary ---
Author Organization [facility] Address [address] [facility] [place] [address] Care Team Providers Care Chief Accountant Name Role Phone Daysi Wetzel MD Primary Care Provider [phone] Chris Madrigal MD Unavailable [phone] Miguel Langley DO Primary Care Provider [phone] [facility] Unavailable [phone] Encounter Details Date Type Department Care Team (Late st Contact Info) Description 02/12/2019 Telephone [facility] [address] [place] [address] Ashely Baker Social History Tobacco [...] on filedocumented in this encounter Care Teams Chief Accountant Relationship Specialty Start Date End Date Daysi Wetzel MD [address] [place] [address] PCP - General Family Medicine 12/24/18 12/11/22 Miguel Langley DO [address] [place] [address] PCP - General Internal Medicine 12/12/22 Chris Madrigal MD [address] [place] [address] Hematology and Oncology 03/21/20 Rand Elkins LMSW Outpatient Paper Cone Machine Tender Care Management 12/17/22 documented as of this encounter
--- OUTSIDE RECORDS SUMMARY | 2024-10-28 00:17 | XMS_ITS | Encounter Summary ---
Author Organization [facility] Address [address] [facility] [address] Care Team Providers Care Furnace Process Supervisor Name Role Phone Chris Madrigal MD Unavailable [phone] Miguel Langley DO Primary Care Provider [phone] Rand Elkins LMSW Unavailable [phone] Reason for Visit * Reason Onset Date Comments Question 12/18/2022 Follow-up 12/18/2022 Encounter Details Date Type Department Care Team (Late st Contact Info) Description 12/18/2022 Telephone [facility] - PRINTING PRESS MACHINIST [address] [facility] [address] [place] [address] Sulaiman Andrews MD [address] [facility] [address] [place] [address] Question; Follow-up Social History Tobacco Use Types [...] Recorded Patient Health Questionnaire-2 Score 0 12/17/2022 [facility] of Occupat ional Health - Occupational Stress [...] place to sleep or slept in a m[facility]p (including now)? No 12/13/2022 Comments No Sex [...] and is taking 2) Please contact # [phone] documented in this encounter Plan of Treatment [...] on filedocumented in this encounter Care Teams Furnace Process Supervisor Relationship Specialty Start Date End Date Miguel Langley DO [address] [place] [address] PCP - General Internal Medicine 12/12/22 Chris Madrigal MD Hematology and Oncology 03/21/20 Rand Elkins LMSW Outpatient Grinder Dresser Care Management 12/17/22 documented as of this encounter
--- NOTE | 2024-10-28 07:02 | WPDHPUPDATE1 ---
History and Physical Update Update Date/Time: 10/28/24 07:02 History and Physical has been reviewed, including an updated exam of the patient. There are NO changes in the patient's condition. Risks, benefits, and alternatives have been discussed and questions answered. Patient agrees to proceed with procedure.
--- NOTE | 2024-10-28 08:07 | WPDANESEPPF ---
Anes - Initial Pre Proc Eval Procedure: Operation Date: 10/28/24 09:45 Proposed Procedures p Laparoscopic Left Salpingo Oophorectomy, - New Ross MD Date/Time: 10/28/24 08:07 Surgeon: New Ross MD Pre Op Diagnosis: Left pelvic pain, nora Patient Data Age: 44 Gender: F Height: 1.55 m Weight: 91.6 kg Allergies Allergy/AdvReac Type Severity Reaction Status Date / Time cephalexin AdvReac Severe Other Verified 10/20/24 11:39 clarithromycin AdvReac Severe Swelling Verified 10/20/24 11:39 of face/nausea hydrocodone AdvReac Severe Throat Verified 10/20/24 11:39 swelling/facial swelling/vomiting Home Medications ?Medication ?Instructions ?Recorded ?Confirmed ?Type alprazolam 1 mg tablet (Xanax) 1 mg PO BID PRN Anxiety 02/14/19 10/11/24 History multivitamin (Daily Multi-Vitamin 1 tablet PO DAILY 04/24/21 10/11/24 History tablet) estradiol 1 mg tablet 1 mg PO HS 04/28/23 10/11/24 History albuterol sulfate 90 mcg/actuation 2 puff inhalation Q4-6H PRN 01/06/24 10/11/24 Rx aerosol inhaler shortness of breath or wheezing 30 days #8.5 grams omeprazole 40 mg capsule,delayed See Rx Instructions .Route 05/31/24 10/11/24 Rx release .COMPLEX #90 caps fluticasone propionate 50 2 spray intranasal DAILY #48 grams 07/13/24 10/11/24 Rx mcg/actuation nasal spray,suspension cholestyramine (with sugar) 4 gram 4 g PO BID #368.76 grams 08/03/24 10/11/24 Rx oral powder (Questran) venlafaxine 37.5 mg 37.5 mg PO HS 09/28/24 10/11/24 History capsule,extended release 24 hr benzonatate 100 mg capsule 100 mg PO TID PRN cough #20 caps 10/11/24 10/19/24 Rx fluticasone propionate 50 2 spray intranasal DAILY #16 mL 10/11/24 10/19/24 Rx mcg/actuation nasal spray,suspension (Flonase Allergy Relief) pseudoephedrine HCl 120 mg 120 mg PO BID PRN nasal congestion 10/11/24 10/19/24 Rx tablet,extended release (Sudafed #30 tabs 12 Hour) celecoxib 100 mg capsule mg 10/20/24 History doxycycline hyclate 100 mg capsule 100 mg PO DAILY #14 caps 10/20/24 Rx prednisone 20 mg tablet 60 mg (3 x 20 mg) PO DAILY 5 days 10/20/24 Rx #15 tabs Patient hx anesthesia problems: none Family hx anesthesia problems: none Results Review: All pre-operative results and documents have been reviewed as part of the pre-operative evaluation. [facility] Past Medical History Medical History Idiopathic thrombocytopenic purpura (ITP) Abdominal bloating Epigastric pain Chronic diarrhea Family history of colon cancer in father Bright red blood per rectum Gallbladder anomaly Migraine Numbness Snoring Abdominal pain Painful joint Allergies Arthritis UTI (urinary tract infection) due to Enterococcus Urinary frequency Diarrhea History of dental problems Ear pain Vision changes Dizziness Chronic headaches Weight gain SIERRA (obstructive sleep apnea) History of anesthesia problem Crush injury of right foot GERD (gastroesophageal reflux disease) IBS (irritable bowel syndrome) Depression Back pain UTI (urinary tract infection) Endometriosis Sleep apnea Sinus problem Wears glasses Anemia Anxiety Surgical History Surgical History Hx of laparoscopy x2 Hx of breast reduction, elective History of cholecystectomy History of hysterectomy Family History Family History Father Alcoholism Cancer Diabetes mellitus Mother Depression Sibling Cancer Other Dementia Social History Social History Smoking packs per day: 0.5 Smoking cigarettes per day: 10.0 Years smoked: 2 Smoking pack-years: 1.00 Smoking status: Never smoker Tobacco type: cigarettes Second hand tobacco smoke exposure: No Smoking end date: 03/31/00 Additional smoking assessment comments: social as teenager-not since then Alcohol intake: current Alcohol use details: 4/MONTH Substance use: never Substance use type: marijuana Other substance usage details: two or more times a day Do You Feel Safe in your Home?: Yes Lack of Transportation: No Lack of Food: Never True Current Housing: I Do Not Have Housing Concerned About Future Housing: YES Difficulty Paying Gas/Electric Bills: Decline to Answer Difficulty Paying for Meds: No Currently Unemployed: No Education: Grade School Difficulty w/ Childcare or Family Care: No Living arrangements: with family Occupation/Education: occupation Additional occupation/education comments: employed Gender identity (if verbalized by the patient): Female Sexual Orientation (if Verbalized by the Patient): Straight or Heterosexual Spiritual care concerns: No Agree to blood products: Yes Anes - Eval Final PreProcedure Day of Procedure 10/28/24 08:07 Patient weight: obese Heart: regular rate and rhythm Lungs: clear to auscultation Airway: Mallampati scale class III Neurological: alert and oriented Last oral intake: >/= 8 hours ASA classification: III Anesthetic plan: proceed Anesthesia type and monitoring: general ETT and standard monitoring Results Review: All pre-operative results and documents have been reviewed as part of the pre-operative evaluation. Informed Consent: The patient's anesthetic plan and its attendant risks and benefits were discussed with the patient/family/POA. Questions were solicited and answers provided to the satisfaction of the patient/family/POA.
[2024-10-28] MEDS: LACTATED RINGERS 1,000 ML 30 ML IV CONT ×2 (08:15→11:53)
[2024-10-28] MEDS: ACETAMINOPHEN 500 MG TABLET 1000 MG PO (08:40)
[2024-10-28] MEDS: SCOPOLAMINE 1 MG PATCH 1 PATCH TRANSDERM (08:40)
[2024-10-28] MEDS: KETOROLAC 15 MG/ML VIAL (*BKC) IV PUSH (08:40)
[2024-10-28 08:55] LABS: BEDSIDEPREGUCG Negative (Negative)
--- NOTE | 2024-10-28 10:42 | W.PM.PROC2 ---
Procedure Note - Detailed Date of Procedure 10/28/24 Pre-op Diagnosis Left pelvic pain, nora Post-op Diagnosis Other (Pelvic pain with pelvic adhesions) Procedure Performed Laparoscopy with lysis of adhesions Surgeon New Ross MD Anesthesia General Indications This is a 44-year-old female status post hysterectomy a admitted for laparoscopy and possible left salpingo-oophorectomy Findings Uterus ovaries and tubes were surgically absent. The colon was markedly adherent to the left lateral sidewall. No ovaries tubes or uterus were palpable or visualized. Description of Procedure Patient was prepped draped in the sterile placed dorsal position. Anesthesia weighted placed posterior sponge stick placed in the vagina weighted speculum removed. Bladder was emptied of clear urine the weighted speculum was removed. Gloves were changed. An infraumbilical incision made the Veress needle passed in the abdomen. Abdomen filled with CO2 gas [id number]. 5mm trocar advanced under direct visualization assuring injury. Patient placed in Trendelenburg and a suprapubic incision made. The 5mm trocar advanced under direct visualization assuring no injury. Her left lower quadrant incision made the 8mm trocar advanced under direct visualization assuring no injury. Marked amount of adhesions were seen from the colon which appeared quite swollen and indurated that was markedly attached to the left lateral sidewall. Using intermittent sharp dissection with separation using Endo Dima this was dissected away from the lateral vigorous irrigation undertaken until clear. Both ovaries and tubes and the uterus were surgically absent as had been reviewed previous with previous surgery and expected. [place] term was placed over the raw surface area after irrigation undertaken the instruments withdrawn the patient went recovery in satisfactory condition. Blood loss estimated cc. All sponge, needle, instrument counts were correct. There were no immediate complications Estimated Blood Loss 25 Drains No Packing No Pathology None sent Complications No immediate complications Condition Stable Disposition PACU
[2024-10-28] MEDS: fentaNYL CITRATE INJ (*CRX) 100 MCG/2 ML VIAL 25 MCG IV PUSH ×8 (11:17→12:03)
[2024-10-28] MEDS: ONDANSETRON INJ 4 MG/2 ML VIAL IV PUSH (11:19)
== END 2024-10-28 14:36 | disposition home or self-care (01) ==
PROVIDERS: PCP Nurse Practitioner Family; Visit Provider Obstetrics & Gynecology
PROC: (CPT 49320; principal; 2024-10-28 09:45)
DX: K66.0 Peritoneal adhesions (postprocedural) (postinfection) (principal); R10.2 Pelvic and perineal pain; Z90.710 Acquired absence of both cervix and uterus; Z90.722 Acquired absence of ovaries, bilateral; F12.90 Cannabis use, unspecified, uncomplicated; E66.9 Obesity, unspecified; Z68.38 Body mass index [BMI] 38.0-38.9, adult
CPT/HCPCS: 58660; 36415; 86850; 86900; 86901; A9270; J1100; J1200; J1885; J2003; J2250; J2405; J2704; J3010; J7030; J7120

== ENCOUNTER 2024-11-02 13:57 | Inpatient (IN) | payer OTHER, SELFPAY ==
[2024-11-02] VITALS (18 sets, daily range): BP systolic 120–145; BP diastolic 56–91; PULSE 78–105; RESP 10–21; TEMP 36.4–37.1; O2SAT 97–100; BMI 38.3
--- NOTE | ~2024-11-02 | CT_ITS ---
EXAMINATION: CT abdomen pelvis w con DATE: 11/04/2024 13:37 INDICATION: Colitis TECHNIQUE: Computed tomography (CT) of the abdomen and pelvis was performed without and with 100 mL O mnipaque-350 intravenous contrast. Automated exposure control and iterative reconstruction technique were employed. The dose-length product was 1249.50 mGy-cm. COMPARISON: 11/02/2024 and 09/08/2018 FINDINGS: Dependent atelectasis in bilateral lower lobes. Heart size normal. No pericardial or pleural effusion . Cholecystectomy clips the gallbladder fossa. Diffuse hepatic steatosis. Spleen, pancreas, bilateral adrenal glands and kidneys are normal. There is wall thickening in the ascending and transverse colo n consistent with colitis. There are some associated hyperemia to vasa recta. Normal mucosal enhancem ent seen along the affected segment of colon arguing against ischemia. No pneumatosis or free intrape rineal gas. Normal appendix. No bowel obstruction. Small amount of free fluid in the abdomen and pelv is of greater than simple fluid attenuation which given the history of recent laparoscopy and lysis o f adhesions most likely represents small amount of postoperative hemoperitoneum. There appears be a s entinel clot sign within the fluid in the deep left pelvis overlying the and right external iliac ves sels. No evident active contrast extravasation. Bladder is normal. The uterus and bilateral ovaries a re not identified and have likely been surgically resected. No abscess or free intraperineal gas. T here are some inflammatory stranding within the anterior abdominal fat likely along laparoscopy port tracts. Small fat-containing umbilical hernia. No pathologically enlarged abdominal or pelvic lymphad enopathy. Bones are unremarkable. IMPRESSION: 1. Persistent wall thickening and hyperemia of the vasa recta along the ascending transverse colon co nsistent with colitis most likely either infectious or inflammatory in etiology. 2. Small amount of hemoperitoneum in the pelvis and bilateral paracolic gutters likely related to rec ent surgery with lysis of adhesions. Reviewed, dictated and finalized at location A. IMPRESSION: 1. Persistent wall thickening and hyperemia of the vasa recta along the ascendi ng transverse colon consistent with colitis most likely either infectious or in flammatory in etiology. 2. Small amount of hemoperitoneum in the pelvis and bilateral paracolic gutters likely related to recent surgery with lysis of adhesions.
--- NOTE | ~2024-11-02 | CT_ITS ---
EXAMINATION: CT abdomen pelvis w con DATE: 11/02/2024 15:54 INDICATION: Postop. TECHNIQUE: Computed tomography (CT) of the abdomen and pelvis was performed with 100 cc Omnipaque 350 intravenous contrast. The dose-length product was 896.45 mGy-cm. Automated exposure control and iter ative reconstruction technique were employed. COMPARISON: CT dated 09/08/2018. FINDINGS: There is dependent atelectasis. Heart size normal. No significant pleural or pericardial ef fusion. Fatty infiltration of the liver. Status post cholecystectomy. The spleen, pancreas, adrenal g lands and kidneys are unremarkable. Status post cholecystectomy. There is diffuse abnormal thickening of the colon most severe in the right colon, consistent with colitis, most likely infectious or infl ammatory. No evidence for perforation or abscess. Small fat-containing umbilical hernia. Trace free f luid in the pelvis. IMPRESSION: 1. Diffuse abnormal thickening of the colon more severe in the right colon, compatible with colitis, most likely infectious or inflammatory. 2: Status post cholecystectomy. Reviewed, dictated and finalized at location A. IMPRESSION: 1. Diffuse abnormal thickening of the colon more severe in the right colon, com patible with colitis, most likely infectious or inflammatory. 2: Status post cholecystectomy.
--- OUTSIDE RECORDS SUMMARY | 2024-11-02 14:05 | XMS_ITS | Encounter Summary ---
Author Organization [facility] Address [address] [facility] [address] Care Team Providers Care Hockey Player Name Role Phone Daysi Wetzel MD Primary Care Provider [phone] Chris Madrigal MD Unavailable [phone] Miguel Langley DO Primary Care Provider [phone] Rand Elkins [facility] [place] Encounter Details Date Type Department Care Team (Late st Contact Info) Description 02/12/2019 Telephone [facility] [address] [place] [address] Ashely Baker Social History Tobacco [...] on filedocumented in this encounter Care Teams Hockey Player Relationship Specialty Start Date End Date Daysi Wetzel MD [address] [place] [address] PCP - General Family Medicine 12/24/18 12/11/22 Miguel Langley DO [address] [place] [address] PCP - General Internal Medicine 12/12/22 Chris Madrigal MD [address] [place] [address] Hematology and Oncology 03/21/20 Rand Elkins LMSW Outpatient Sales Representative Trainee Care Management 12/17/22 documented as of this encounter
--- OUTSIDE RECORDS SUMMARY | 2024-11-02 14:05 | XMS_ITS | Clinical Summary ---
Author Organization [facility] Address [facility] [place] [address] Care Team Providers Care Cable Cutter And Swager Name Role Phone Miguel Langley Primary Care Provider [phone] Allergies Active Allergy Reactions Criticality Noted Date [...] patient's age to complete this topic [place] [address] [place] [address] MEDICAID Care Teams Cable Cutter And Swager Relationship Specialty Start Date End Date Miguel Langley DO [address] [place] [address] PCP - General INTERNAL MEDICINE 08/08/21
--- OUTSIDE RECORDS SUMMARY | 2024-11-02 14:05 | XMS_ITS | Clinical Summary ---
Author Organization [facility] Address [address] [place] [address] Care Team Providers Care Analysis Consultant Name Role Phone Miguel Langley DO Primary Care Provider [phone] Allergies Active Allergy Reactions Criticality Noted Date [...] fluticasone propionate (FLONASE) 50 mcg/actuation nasal spray [place] 2 sprays every day by intranasal route. [...] mg total) by mouth 12/17/19 23 Active [id number]-[id number] [id number] (Alive Women's Gummy Vitamin) 120 mcg- 37.5 [...] 03/12/2017 Assessment & Plan (03/12/2017 11:57 AM OTOLARYNGOLOGY NURSE): Patient demonstrates history and my physical findings [...] CDT): This is being managed by her head operator sulfide. Surgical History Surgery Date Site/Laterality Comments PARTIAL [...] on file Legal Sex Female 9:03 AM OTOLARYNGOLOGY NURSE Gender Identity Female 01/20/2024 3:06 PM CDT [...] ORDERABLES Final Result [facility] 1 [facility] Department [place] [address] from Last 3 Months or Most Recently Relevant to Health Maintenance Insurance [facility] Care Teams Analysis Consultant Relationship Specialty Start Date End Date Miguel Langley DO PCP - General Internal Medicine 07/03/22
--- OUTSIDE RECORDS SUMMARY | 2024-11-02 14:05 | XMS_ITS | Encounter Summary ---
Author Organization [facility] Address [address] [facility] [place] [address] Care Team Providers Care Concrete Bucket Loader Name Role Phone Chris Madrigal MD Unavailable [phone] Miguel Langley DO Primary Care Provider [phone] Rand Elkins LMSW Unavailable [phone] Reason for Visit * Reason Onset Date Comments Question 12/18/2022 Follow-up 12/18/2022 Encounter Details Date Type Department Care Team (Late st Contact Info) Description 12/18/2022 Telephone [facility] - DIRECTOR OF ROTC [address] [facility] [address] [place] [address] Sulaiman Andrews MD [address] [facility] [address] [place] [address] Question; Follow-up Social History Tobacco Use Types [...] Recorded Patient Health Questionnaire-2 Score 0 12/17/2022 [facility] of Occupat ional Health - Occupational Stress [...] place to sleep or slept in a correction (including now)? No 12/13/2022 Comments No Sex [...] Assessment Author No 12/13/2022 3:45 AM CDT Arley Niño RN * Does person have difficulty [...] and is taking 2) Please contact # [phone] documented in this encounter Plan of Treatment [...] on filedocumented in this encounter Care Teams Concrete Bucket Loader Relationship Specialty Start Date End Date Miguel Langley DO [address] [place] [address] PCP - General Internal Medicine 12/12/22 Chris Madrigal MD Hematology and Oncology 03/21/20 Rand Elkins LMSW Outpatient Communications Project Manager Care Management 12/17/22 documented as of this encounter
--- OUTSIDE RECORDS SUMMARY | 2024-11-02 14:05 | XMS_ITS | Encounter Summary ---
Author Organization [facility] Address [address] [facility] [place] [address] Care Team Providers Care Masseur/Masseuse Name Role Phone Chris Madrigal MD Unavailable [phone] Miguel Langley DO Primary Care Provider [phone] Rand Elkins LMSW Unavailable [phone] Reason for Visit * Reason Onset Date Comments Question 12/27/2022 Returned Call 12/27/2022 Encounter Details Date Type Department Care Team (Late st Contact Info) Description 12/27/2022 Telephone [facility] - INTERNAL GRINDING MACHINE OPERATOR 10[address] [facility] [address] [place] [address] Sulaiman Andrews MD [address] [facility] [address] [place] [address] Question; Returned Call Social History Tobacco Use [...] Recorded Patient Health Questionnaire-2 Score 0 12/17/2022 [facility] of Occupat ional Health - Occupational [...] AM CDT Spoke with Cynthia from [facility] pathology department returning her call. She reports that all six sets of slides have already been reviewed by [facility] Pathology and they cannot send the slides to be reviewed by them again since Dr. Joanne Don is a part of [facility] Pathology. Told her we only had one report from [facility] of the 6 requested and she says she will fax the other five today. * Telephone Encounter - Sujey Hannah - 12/27/2022 9:30 AM CDT Cynthia form [facility] wanst to know Will slides be forwarded to the pathology dept ? (this can not happen) Please contact # [phone] documented in this encounter Plan of Treatment [...] on filedocumented in this encounter Care Teams Masseur/Masseuse Relationship Specialty Start Date End Date Miguel Langley DO [address] [place] [address] PCP - General Internal Medicine 12/12/22 Chris Madrigal MD Hematology and Oncology 03/21/20 Rand Elkins LMSW Outpatient Actuarial Director Care Management 12/17/22 documented as of this encounter
--- OUTSIDE RECORDS SUMMARY | 2024-11-02 14:05 | XMS_ITS | Encounter Summary ---
Author Organization [facility] Address [address] [place] [address] Care Team Providers Care Professor Of Art History Name Role Phone Daysi Wetzel MD Primary Care Provider [phone] Chris Madrigal MD Unavailable [phone] Miguel Langley DO Primary Care Provider [phone] Rand Elkins [facility] Unavailable [phone] Reason for Visit * Reason Onset Date Comments Nurse Only 11/26/2022 Surgery Scheduling 11/26/2022 Encounter Details Date Type Department Care Team (Late st Contact Info) Description 11/26/2022 Telephone [facility] - Centralized Scheduling [address] [place] [address] Sulaiman Andrews MD [address] [address] Nurse Only; Surgery Scheduling Social History Tobacco [...] 3:13 PM CDT Pt seen her other GRAIN SHOVELER Dr.James Duran in [place], Dr. Andrews told her to call office [...] on filedocumented in this encounter Care Teams Professor Of Art History Relationship Specialty Start Date End Date Daysi Wetzel MD [address] [place] [address] PCP - General Family Medicine 12/24/18 12/11/22 Miguel Langley DO [address] [place] [address] PCP - General Internal Medicine 12/12/22 Chris Madrigal MD [address] [place] [id number] Hematology and Oncology 03/21/20 Rand Elkins LMSW Outpatient Telegraph Plant Maintainer Care Management 12/17/22 documented as of this encounter
--- OUTSIDE RECORDS SUMMARY | 2024-11-02 14:05 | XMS_ITS | Referral Summary ---
Author Organization [facility] Address [address] [place] [address] Care Team Providers Care Transformer Assembly Supervisor Name Role Phone Miguel Langley DO Primary Care Provider [phone] Allergies Active Allergy Reactions Criticality Noted Date [...] fluticasone propionate (FLONASE) 50 mcg/actuation nasal spray [place] 2 sprays every day by intranasal route. [...] mg total) by mouth 12/17/19 23 Active xlvgkkno-smn-kgpbv acid-[id number] (Alive Women's Gummy Vitamin) 120 mcg- 37.5 [...] 03/12/2017 Assessment & Plan (03/12/2017 11:57 AM DIE STAMPING PRESS OPERATOR): Patient demonstrates history and my physical [...] CDT): This is being managed by her assembly loader. Social History Tobacco Use Types Packs/Day Years [...] on file Legal Sex Female 9:03 AM DIE STAMPING PRESS OPERATOR Gender Identity Female 01/20/2024 3:06 PM [...] ORDERABLES Final Result [facility] 1 [facility] [place] [address] from Last 3 Months or Most Recently Relevant to Health Maintenance Insurance [facility] [id number] [place] [id number] [place] [address] Care Teams Transformer Assembly Supervisor Relationship Specialty Start Date End Date Miguel Langley DO PCP - General Internal Medicine 07/03/22
--- OUTSIDE RECORDS SUMMARY | 2024-11-02 14:05 | XMS_ITS | Encounter Summary ---
Author Organization [facility] Address [address] [place] [address] Care Team Providers Care Home Builder Name Role Phone Daysi Wetzel MD Primary Care Provider [phone] Chris Madrigal MD Unavailable [phone] Miguel Langley DO Primary Care Provider [phone] Rand Elkins [facility] [phone] Encounter Details Date Type Department Care Team (Late st Contact Info) Description 08/21/2022 Lab Requisition [facility] - Pathology Lab [address] [place] [address] Srinivasan Marks MD [address] [address] Illness, unspecified Social History Tobacco [...] CDT) Case Report Surgical Pathology Report Case: [id number] Authorizing Provider: Srinivasan Marks MD Collected: 08/16/2022 10:51 AM Ordering Location: [facility] Pathology Lab Received: 08/21/2022 12:11 PM Pathologist: Denise Carroll MD Specimens: A) - Soft Tissue, cul-de-sac B) - Peritoneal Biopsy 08/21/2022 1:31 PM CDT [facility] Final Diagnosis Cul-de-sac, biopsy ([id number], A; 08/16/2022): - Scanty low grade serous epithelium without invasion, associated with abundant psammoma bodies (see microscopic description) Peritoneum, biopsy ([id number], B; 08/16/2022): - Psammoma body and hemosiderin [...] noted on laparoscopy. 08/21/2022 1:[address] [facility] Materials Received Received are ten slide(s) labeled [id number] (A, 5 levels; B, 5 levels) along with a copy of the outside pathology report. The materials originate from [address] [place] [address]. All original materials are returned to the referring institution, along with a copy of our final report. 08/21/2022 1:31 PM CDT [facility] Pathologist Location at [facility] 08/21/2022 1:31 PM CDT [facility] Disclaimer The performance characteristics of all immunohistochemical and indirect immunofluorescence stains (if any) cited in this report were determined by the Histopathology Laboratory of [facility]. Some of these tests were developed [...] attending (teaching) pathologist. 08/21/2022 1:[address] [facility] Embedded Images 08/21/2022 1:[address] [facility] Pathology/Cytology PERITONEAL BIOPSY SPECIMEN / Unknown 08/16/2022 10:51 AM CDT 08/21/2022 12:11 PM CDT Miscellaneous samples (specimen) PERITONEAL BIOPSY SPECIMEN / Unknown 08/16/2022 10:51 AM CDT 08/21/2022 12:37 PM CDT Srinivasan Marks MD LAB - PATHOLOGY/CYTOLOGY ORDERAB LES Final Result [facility] PATH[facility]Y LAB [address] [place] [address], [facility] [[email or web address]] [phone] documented in this encounter Visit Diagnoses Diagnosis Illness, unspecified documented in this encounter Care Teams Home Builder Relationship Specialty Start Date End Date Daysi Wetzel MD [address] [place] [address] PCP - General Family Medicine 12/24/18 12/11/22 Miguel Langley DO [address] [place] [address] PCP - General Internal Medicine 12/12/22 Chris Madrigal MD [address] [place] [address] Hematology and Oncology 03/21/20 Rand Elkins LMSW Outpatient Periodicals Clerk Care Management 12/17/22 documented as of this encounter
--- OUTSIDE RECORDS SUMMARY | 2024-11-02 14:05 | XMS_ITS | Clinical Summary ---
Author Organization [facility] Address [address] [address] Care Team Providers Care Emergency Response Officer Name Role Phone Mello Kaba MD Primary Care Provider [phone] Allergies Active Allergy Reactions Criticality Noted Date [...] 2 mg by mouth daily. 0 Active dyfpaxcw-fos-lj lic acid-ydo294 (Alive Women's Gummy Vitamin) 200 mcg- 37.5 [...] Comments Blood Pressure 117/79 05/05/2024 2:37 PM BARN AND PROPERTY MANAGER Pulse 70 05/05/2024 2:37 PM BARN AND PROPERTY MANAGER Temperature 36.1 C (97 F) 05/05/2024 2:37 PM BARN AND PROPERTY MANAGER Respiratory Rate 18 05/05/2024 2:37 PM BARN AND PROPERTY MANAGER Oxygen Saturation 98% 05/05/2024 2:37 PM BARN AND PROPERTY MANAGER Inhaled Oxygen Concentration - - Weight 91.2 kg (201 lb) 05/05/2024 2:37 PM BARN AND PROPERTY MANAGER Height 157.5 cm (5' 2) 10/12/2021 8:27 [...] [place] Care Teams Emergency Response Officer Relationship Specialty Start Date End Date Mello Kaba MD PCP - General Family Practice 09/02/22
--- OUTSIDE RECORDS SUMMARY | 2024-11-02 14:05 | XMS_ITS | Clinical Summary ---
Author Organization [facility] Address [address] [facility] [place] [address] Care Team Providers Care Barn Boss Name Role Phone Chris Madrigal MD Unavailable [phone] Miguel Langley DO Primary Care Provider [phone] [facility],non-owned Affiliates and Associated Physician Practices is amultiple site organization consisting of ambulatory clinics and hospital sitesin [place], [place], [place] and [place]. This disclosure is being madepursuant to the Care Everywhere program and may not contain all information available regarding this patient. Last updated 17.[facility] Allergies Active Allergy Reactions Criticality Noted Date [...] Plan: This is being managed by her extrusion die corrector. Encounters Date Type Department Care Team Description 10/06/2024 Telephone [facility] - Hematology/Oncolog y [address] [place] [address] Faisal Julio RN Symptom Management 09/13/2024 Orders Only [facility] - Hematology/Oncolog y [address] [place] [address] Douglas Llanes MD 09/02/2024 2:29 PM CDT - 09/02/2024 11:59 PM CDT Hospital Encounter [facility] [address] [facility]nd [place] [address] Discharge Disposition: Home or Self Care 09/02/2024 2:20 PM CDT Office Visit [facility] - Hematology/Oncolog y [address] [place] [address] Douglas Llanes MD Immune thrombocytopenia (HCC) (Primary Dx); High risk medications (not anticoagulants) long-term use 09/02/2024 Orders Only [facility] - Hematology/Oncolog y [address] [place] [address] Douglas Llanes MD 09/02/2024 Travel 08/27/2024 Telephone [facility] - SYSTEMS INTEGRATION ANALYST [address] [facility] [address] [place] [address] Daysi Weinstein, RN Follow-up 08/27/2024 Refill [facility] - SYSTEMS INTEGRATION ANALYST [address] [facility] [address] [place] [address] Sulaiman Andrews MD Refill Request from Last 3 [...] Recorded Patient Health Questionnaire-2 Score 0 12/17/2022 [facility] Occupat ional Health - Occupational Stress [...] 154.9 cm (5' 1) 04/14/2024 2:53 PM SAP ABAP PROGRAMMER Body Mass Index 38.26 04/14/2024 2:53 PM SAP ABAP PROGRAMMER Plan of Treatment Health Maintenance Due Date [...] - 420 x10E9/L 09/02/2024 4:01 PM CDT [facility] Blood BLOOD SPECIMEN / Unknown Lab Venipuncture / Unknown 09/02/2024 2:31 PM CDT 09/02/2024 2:36 PM CDT Narrative [facility] - 09/02/2024 4:01 PM CDT This test was developed and its performance characteristics determined by the clinical laboratories of [facility] and [facility]. It has not been cleared and approved by the US Food and Drug Administration. Douglas Llanes MD LAB - HEMATOLOGY ORDERABLES Fi nal Result [facility] [address] [place] [address], [facility] [phone] * (ABNORMAL) CBC WITH DIFFERENTIAL (09/02/2024 2:31 PM CDT) WBC 8.4 4.0 - 10.7 x10E9/L 09/02/2024 3:10 PM CDT [facility] RBC Count 4.78 3.90 - 5.20 x10E12/L 09/02/2024 3:10 PM T [facility] Hemoglobin 13.0 11.9 - 15.8 g/dL 09/02/2024 3:10 PM [facility] Hematocrit 40.3 34.8 - 46.1 % 09/02/2024 3:10 PM [facility] MCV 84.3 80.0 - 98.0 fL 09/02/2024 3:10 PM T [facility] MCH 27.2 26.7 - 33.6 pg 09/02/2024 3:10 PM [facility] MCHC 32.3 31.7 - 36.3 g/dL 09/02/2024 3:10 PM [facility] RDW-CV 13.4 11.3 - 14.8 % 09/02/2024 3:10 PM [facility] Platelet Count 51(L) 150 - 420 x10E9/L 09/02/2024 3:10 PM [facility] Neutrophil % 48.1 41.0 - 74.0 % 09/02/2024 3:10 PM [facility] Lymphocyte % 45.2 17.0 - 47.0 % 09/02/2024 3:10 PM [facility] Monocyte % 4.5 3.0 - 11.0 % 09/02/2024 3:10 PM [facility] Eosinophil % 1.4 0.0 - 7.0 % 09/02/2024 3:10 PM [facility] Basophil % 0.6 0.0 - 1.6 % 09/02/2024 3:10 PM [facility] Immature Granulocytes % 0.2 0.0 - 1.0 % 09/02/2024 3:10 PM CDT [facility] Neutrophil Absolute 4.04 1.60 - 7.50 x10E9/L 09/02/2024 3:10 PM CDT [facility] Lymphocyte Absolute 3.81 1.00 - 4.40 x10E9/L 09/02/2024 3:10 PM CDT [facility] Monocyte Absolute 0.38 0.15 - 1.00 x10E9/L 09/02/2024 3:10 PM T [facility] Eosinophil Absolute 0.12 0.00 - 0.60 x10E9/L 09/02/2024 3:10 PM T [facility] Basophil Absolute 0.05 0.00 - 0.13 x10E9/L 09/02/2024 3:10 PM [facility] Blood BLOOD SPECIMEN / Unknown Lab Venipuncture / Unknown 09/02/2024 2:31 PM CDT 09/02/2024 2:40 PM CDT us Douglas Llanes MD LAB - HEMATOLOGY ORDERABLES Fi nal Result [facility] [address] [place] [address], [facility] [phone] * (ABNORMAL) RENAL FUNCTION PANEL (12/15/2022 8:46 AM CDT) Glucose 113(H) 70 - 105 mg/dL 12/15/2022 9:34 AM CDT [facility] Sodium 138 136 - 145 mmol/L 12/15/2022 9:34 AM CDT [facility] Potassium 3.9 3.5 - 5.1 mmol/L 12/15/2022 9:34 AM CDT [facility] Chloride 101 98 - 107 mmol/L 12/15/2022 9:34 AM CDT [facility] CO2 29 22 - 29 mmol/L 12/15/2022 9:34 AM CDT [facility] Calcium 8.5 8.4 - 10.4 [...] mL/min/1.7 3 m2 12/15/2022 9:34 AM CDT [facility] Blood BLOOD SPECIMEN / Unknown Lab Venipuncture / Unknown 12/15/2022 8:46 AM CDT 12/15/2022 9:10 AM CDT Sulaiman Andrews MD LAB - CHEMISTRY ORDERABLES Fin al Result [facility] [address] [place] [address] from Last 3 Months or Most Recently Relevant to Health Maintenance Insurance [facility] Care Teams Barn Boss Relationship Specialty Start Date End Date Miguel Langley DO [address] [id number] PCP - General Internal Medicine 12/12/22 Chris Madrigal MD Hematology and Oncology 03/21/20
[2024-11-02] MEDS: SODIUM CHLORIDE 0.9% IV 1,000 ML 150 ML IV CONT (14:41)
[2024-11-02] MEDS: ONDANSETRON INJ 4 MG/2 ML VIAL IV PUSH (14:41)
[2024-11-02] MEDS: MORPHINE SULFATE (*CRX) 4 MG/ML INJ IV PUSH ×2 (14:42→17:12)
[2024-11-02 15:02] LABS: Hematocrit 35.4 % (37.0-47.0); Hemoglobin 11.1 g/dL (12.0-15.0); Immature Granulocyte Percent A 0.9 % (0-0.5); Immature Platelet Fraction Pct 31.5 % (0.9-11.2); Lymphocytes Absolute Auto 2.91 K/mm3 (0.9-3.2); Mean Corpuscular HGB Conc 31.4 g/dl (32-36); Mean Corpuscular Hemoglobin 27.5 pg (26-34); Mean Corpuscular Volume 87.8 fl (80-100); Nucleated Red Blood Cells Absolute Auto 0.050 K/mm3 (0.0-0.012); Nucleated Red Blood Cells Perc 0.4 % (0.0-0.2); Platelet Count Result 96 k/mm3 (150-375); Red Blood Count 4.03 M/mm3 (4.2-5.4); White Blood Count 13.4 K/mm3 (4.5-10.0)
--- OUTSIDE RECORDS SUMMARY | 2024-11-02 15:04 | XMS_ITS | Clinical Summary ---
Author Organization [facility] Address [facility] [place] [address] Care Team Providers Care Warehouse Driver Name Role Phone Miguel Langley Primary Care Provider [phone] Allergies Active Allergy Reactions Criticality Noted Date [...] patient's age to complete this topic Insurance [place] [address] [address] MEDICAID Care Teams Warehouse Driver Relationship Specialty Start Date End Date Miguel Langley DO [address] [place] [address] PCP - General INTERNAL MEDICINE 08/08/21
--- OUTSIDE RECORDS SUMMARY | 2024-11-02 15:04 | XMS_ITS | Clinical Summary ---
Author Organization [facility] Address [address] [address] Care Team Providers Care Ms Sql Server Developer Name Role Phone Mello Kaba MD Primary Care Provider [phone] Allergies Active Allergy Reactions Criticality Noted Date [...] 2 mg by mouth daily. 0 Active jnkvytjf-lyo-wq lic acid-mpm506 (Alive Women's Gummy Vitamin) 200 mcg- 37.5 [...] Comments Blood Pressure 117/79 05/05/2024 2:37 PM MID TEACHER Pulse 70 05/05/2024 2:37 PM MID TEACHER Temperature 36.1 C (97 F) 05/05/2024 2:37 PM MID TEACHER Respiratory Rate 18 05/05/2024 2:37 PM MID TEACHER Oxygen Saturation 98% 05/05/2024 2:37 PM MID TEACHER Inhaled Oxygen Concentration - - Weight 91.2 kg (201 lb) 05/05/2024 2:37 PM MID TEACHER Height 157.5 cm (5' 2) 10/12/2021 8:27 [...] [place] Care Teams Ms Sql Server Developer Relationship Specialty Start Date End Date Mello Kaba MD PCP - General Family Practice 09/02/22
--- OUTSIDE RECORDS SUMMARY | 2024-11-02 15:04 | XMS_ITS | Encounter Summary ---
Author Organization [facility] Address [address] [place] [address] Care Team Providers Care Chief Maintenance Supervisor Name Role Phone Chris Madrigal MD Unavailable [phone] Miguel Langley DO Primary Care Provider [phone] Rand Elkins LMSW Unavailable [phone] Reason for Visit * Reason Onset Date Comments Question 12/27/2022 Returned Call 12/27/2022 Encounter Details Date Type Department Care Team (Late st Contact Info) Description 12/27/2022 Telephone [facility] - LEARNING AND DEVELOPMENT CONSULTANT [address] [facility] [address] [place] [address] Sulaiman Andrews MD [address] [facility] [address] [place] [address] Question; Returned Call Social History Tobacco Use [...] Patient Health Questionnaire-2 Score 0 12/17/2022 [facility] of Occupat ional Health - [...] 11:57 AM CDT Spoke with Cynthia from [facility] pathology department returning her call. She reports that all six sets of slides have already been reviewed by [facility] Pathology and they cannot send the slides to be reviewed by them again since Dr. Joanne Don is a part of [facility] Pathology. Told her we only had one report from [facility] of the 6 requested and she says she will fax the other five today. * Telephone Encounter - Sujey Hannah - 12/27/2022 9:30 AM CDT Cynthia form [facility] wanst to know Will slides be forwarded to the pathology dept ? (this can not happen) Please contact # [phone] documented in this encounter Plan of Treatment [...] filedocumented in this encounter Care Teams Chief Maintenance Supervisor Relationship Specialty Start Date End Date Miguel Langley DO [address] [place] [address] PCP - General Internal Medicine 12/12/22 Chris Madrigal MD Hematology and Oncology 03/21/20 Rand Elkins LMSW Outpatient Supervisor Gelatin Plant Care Management 12/17/22 documented as of this encounter
--- OUTSIDE RECORDS SUMMARY | 2024-11-02 15:04 | XMS_ITS | Clinical Summary ---
Author Organization [facility] Address [address] [place] [address] Care Team Providers Care Elementary School Teacher Name Role Phone Miguel Langley DO Primary Care Provider [phone] Allergies Active Allergy Reactions Criticality Noted Date [...] fluticasone propionate (FLONASE) 50 mcg/actuation nasal spray [place] 2 sprays every day by intranasal route. [...] mg total) by mouth 12/17/19 23 Active netmwsqt-dhk-dgrmo acid-nee106 (Alive Women's Gummy Vitamin) 120 mcg- 37.5 [...] 03/12/2017 Assessment & Plan (03/12/2017 11:57 AM MOLD LOFT WORKER): Patient demonstrates history and my physical findings [...] CDT): This is being managed by her knitted cloth examiner. Surgical History Surgery Date Site/Laterality Comments PARTIAL [...] on file Legal Sex Female 9:03 AM MOLD LOFT WORKER Gender Identity Female 01/20/2024 3:06 PM CDT [...] ORDERABLES Final Result [facility] [address] [facility] [place] [address] from Last 3 Months or Most Recently Relevant to Health Maintenance Insurance [facility] Care Teams Elementary School Teacher Relationship Specialty Start Date End Date Miguel Langley DO PCP - General Internal Medicine 07/03/22
--- OUTSIDE RECORDS SUMMARY | 2024-11-02 15:04 | XMS_ITS | Clinical Summary ---
Author Organization [facility] Address [address] [place] [address] Care Team Providers Care Die Maker Electronic Name Role Phone Chris Madrigal MD Unavailable [phone] Miguel Langley DO Primary Care Provider [phone] Source Comments [facility],non-owned Affiliates and Associated Physician Practices is amultiple site organization consisting of ambulatory clinics and hospital sitesin [place], [place], [place] and [place]. This disclosure is being madepursuant to the Care Everywhere program and may not contain all information available regarding this patient. Last updated 17.[facility] Allergies Active Allergy Reactions Criticality Noted Date [...] Plan: This is being managed by her plastering supervisor. Encounters Date Type Department Care Team Description 10/06/2024 Telephone [facility] - Hematology/Oncolog y [address] [place] [address] Faisal Julio RN Symptom Management 09/13/2024 Orders Only [facility] - Hematology/Oncolog y [address] [place] [address] Douglas Llanes MD 09/02/2024 2:29 PM CDT - 09/02/2024 11:59 PM CDT Hospital Encounter [facility] CANCER CARE DRAWSTATION [address] [facility]nd [place] [address] Discharge Disposition: Home or Self Care 09/02/2024 2:20 PM CDT Office Visit [facility] - Hematology/Oncolog y [address] [place] [address] Douglas Llanes MD Immune thrombocytopenia (HCC) (Primary Dx); High risk medications (not anticoagulants) long-term use 09/02/2024 Orders Only [facility] - Hematology/Oncolog y [address] [place] [address] Douglas Llanes MD 09/02/2024 Travel 08/27/2024 Telephone [facility] - CHILDREN'S COUNSELOR [address] [facility] [address] [place] [address] Daysi Weinstein, RN Follow-up 08/27/2024 Refill [facility] - CHILDREN'S COUNSELOR [address] [facility] [address] [place] [address] Sulaiman Andrews MD Refill Request [...] Recorded Patient Health Questionnaire-2 Score 0 12/17/2022 [facility] of Occupat ional Health - Occupational [...] place to sleep or slept in a care home (including now)? No 12/13/2022 Comments No [...] 154.9 cm (5' 1) 04/14/2024 2:53 PM MACHINE STAKER Body Mass Index 38.26 04/14/2024 2:53 PM MACHINE STAKER Plan of Treatment Health Maintenance Due Date [...] - 420 x10E9/L 09/02/2024 4:01 PM CDT [facility] Blood BLOOD SPECIMEN / Unknown Lab Venipuncture / Unknown 09/02/2024 2:31 PM CDT 09/02/2024 2:36 PM CDT Narrative [facility] - 09/02/2024 4:01 PM CDT This test was developed and its performance characteristics determined by the clinical laboratories of [facility] and [facility]. It has not been cleared and approved by the US Food and Drug Administration. Douglas Llanes MD LAB - HEMATOLOGY ORDERABLES Fi nal Result [facility] [address] [place] [address], [facility] [phone] * (ABNORMAL) CBC WITH DIFFERENTIAL (09/02/2024 2:31 PM CDT) WBC 8.4 4.0 - 10.7 x10E9/L 09/02/2024 3:10 PM CDT [facility] RBC Count 4.78 3.90 - 5.20 x10E12/L 09/02/2024 3:10 PM T [facility] Hemoglobin 13.0 11.9 - 15.8 g/dL 09/02/2024 3:10 PM [facility] Hematocrit 40.3 34.8 - 46.1 % 09/02/2024 3:10 PM [facility] MCV 84.3 80.0 - 98.0 fL 09/02/2024 3:10 PM T [facility] MCH 27.2 26.7 - 33.6 pg 09/02/2024 3:10 PM [facility] MCHC 32.3 31.7 - 36.3 g/dL 09/02/2024 3:10 PM [facility] RDW-CV 13.4 11.3 - 14.8 % 09/02/2024 3:10 PM [facility] Platelet Count 51(L) 150 - 420 x10E9/L 09/02/2024 3:10 PM [facility] Neutrophil % 48.1 41.0 - 74.0 % 09/02/2024 3:10 PM [facility] Lymphocyte % 45.2 17.0 - 47.0 % 09/02/2024 3:10 PM [facility] Monocyte % 4.5 3.0 - 11.0 % 09/02/2024 3:10 PM [facility] Eosinophil % 1.4 0.0 - 7.0 % 09/02/2024 3:10 PM [facility] Basophil % 0.6 0.0 - 1.6 % 09/02/2024 3:10 PM [facility] Immature Granulocytes % 0.2 0.0 - 1.0 % 09/02/2024 3:10 PM CDT [facility] Neutrophil Absolute 4.04 1.60 - 7.50 x10E9/L 09/02/2024 3:10 PM CDT [facility] Lymphocyte Absolute 3.81 1.00 - 4.40 x10E9/L 09/02/2024 3:10 PM CDT [facility] Monocyte Absolute 0.38 0.15 - 1.00 x10E9/L 09/02/2024 3:10 PM T [facility] Eosinophil Absolute 0.12 0.00 - 0.60 x10E9/L 09/02/2024 3:10 PM T [facility] Basophil Absolute 0.05 0.00 - 0.13 x10E9/L 09/02/2024 3:10 PM [facility] Blood BLOOD SPECIMEN / Unknown Lab Venipuncture / Unknown 09/02/2024 2:31 PM CDT 09/02/2024 2:40 PM CDT us Douglas Llanes MD LAB - HEMATOLOGY ORDERABLES Fi nal Result [facility] [address] [place] [address], [facility] [phone] * (ABNORMAL) RENAL FUNCTION PANEL (12/15/2022 8:46 AM CDT) Glucose 113(H) 70 - 105 mg/dL 12/15/2022 9:34 AM CDT [facility] Sodium 138 136 - 145 mmol/L 12/15/2022 9:34 AM CDT [facility] Potassium 3.9 3.5 - 5.1 mmol/L 12/15/2022 9:34 AM CDT [facility] Chloride 101 98 - 107 mmol/L 12/15/2022 9:34 AM CDT [facility] CO2 29 22 - 29 mmol/L 12/15/2022 9:34 AM CDT [facility] Calcium 8.5 8.4 - 10.4 [...] mL/min/1.7 3 m2 12/15/2022 9:34 AM CDT [facility] Blood BLOOD SPECIMEN / Unknown Lab Venipuncture / Unknown 12/15/2022 8:46 AM CDT 12/15/2022 9:10 AM CDT Sulaiman Andrews MD LAB - CHEMISTRY ORDERABLES Fin al Result [facility] [address] [place] [address] from Last 3 Months or Most Recently Relevant to Health Maintenance Insurance [facility] Care Teams Die Maker Electronic Relationship Specialty Start Date End Date Miguel Langley DO [address] [id number] PCP - General Internal Medicine 12/12/22 Chris Madrigal MD Hematology and Oncology 03/21/20
--- OUTSIDE RECORDS SUMMARY | 2024-11-02 15:04 | XMS_ITS | Encounter Summary ---
Author Organization [facility] Address [address] [facility] [place] [address] Care Team Providers Care Glass Cut Off Supervisor Name Role Phone Daysi Wetzel MD Primary Care Provider [phone] Chris Madrigal MD Unavailable [phone] Miguel Langley DO Primary Care Provider [phone] Rand Elkins [facility] Unavailable [phone] Encounter Details Date Type Department Care Team (Late st Contact Info) Description 08/21/2022 Lab Requisition [facility] - Pathology Lab [address] [place] [address] Srinivasan Marks MD [address] [address] Illness, unspecified Social History Tobacco [...] CDT) Case Report Surgical Pathology Report Case: [id number] Authorizing Provider: Srinivasan Marks MD Collected: 08/16/2022 10:51 AM Ordering Location: [facility] Pathology Lab Received: 08/21/2022 12:11 PM Pathologist: Denise Carroll MD Specimens: A) - Soft Tissue, cul-de-sac B) - Peritoneal Biopsy 08/21/2022 1:31 PM CDT [facility] Final Diagnosis Cul-de-sac, biopsy ([id number], A; 08/16/2022): - Scanty low grade serous epithelium without invasion, associated with abundant psammoma bodies (see microscopic description) Peritoneum, biopsy ([id number], B; 08/16/2022): - Psammoma body and hemosiderin [...] on laparoscopy. 08/21/2022 1:31 PM CDT [facility] PATH[facility] LAB Materials Received Received are ten slide(s) labeled [id number] (A, 5 levels; B, 5 levels) along with a copy of the outside pathology report. The materials originate from [address] [place] [address]. All original materials are returned to the referring institution, along with a copy of our final report. 08/21/2022 1:31 PM CDT [facility] PATH[facility] Pathologist Location at [facility] 08/21/2022 1:31 PM CDT [facility] PATH[facility] Disclaimer The performance characteristics of all immunohistochemical and indirect immunofluorescence stains (if any) cited in this report were determined by the Histopathology Laboratory of [facility]. Some of these tests were developed [...] (teaching) pathologist. 08/21/2022 1:31 PM CDT [facility] PATH[facility] Embedded Images 08/21/2022 1:31 PM CDT [facility] Pathology/Cytology PERITONEAL BIOPSY SPECIMEN / Unknown 08/16/2022 10:51 AM CDT 08/21/2022 12:11 PM CDT Miscellaneous samples (specimen) PERITONEAL BIOPSY SPECIMEN / Unknown 08/16/2022 10:51 AM CDT 08/21/2022 12:37 PM CDT Srinivasan Marks MD LAB - PATHOLOGY/CYTOLOGY ORDERAB LES Final Result [facility] PATH[facility] LAB [address] [place] [address], [facility] [phone] documented in this encounter Visit Diagnoses Diagnosis Illness, unspecified documented in this encounter Care Teams Glass Cut Off Supervisor Relationship Specialty Start Date End Date Daysi Wetzel MD [address] [place] [address] PCP - General Family Medicine 12/24/18 12/11/22 Miguel Langley DO [address] [place] [address] PCP - General Internal Medicine 12/12/22 Chris Madrigal MD [address] [place] [address] Hematology and Oncology 03/21/20 Rand Elkins LMSW Outpatient Resin Mixer Care Management 12/17/22 documented as of this encounter
--- OUTSIDE RECORDS SUMMARY | 2024-11-02 15:04 | XMS_ITS | Referral Summary ---
Author Organization [facility] Address [address] [place] [address] Care Team Providers Care Tool Crib Supervisor Name Role Phone Miguel Langley DO Primary Care Provider [phone] Allergies Active Allergy Reactions Criticality Noted Date [...] fluticasone propionate (FLONASE) 50 mcg/actuation nasal spray [place] 2 sprays every day by intranasal route. [...] mg total) by mouth 12/17/19 23 Active igccvidc-fdf-pznkw [id number] (Alive Women's Gummy Vitamin) 120 mcg- 37.5 [...] 03/12/2017 Assessment & Plan (03/12/2017 11:57 AM INTERNATIONAL EDITORIAL PRODUCER): Patient demonstrates history and my physical findings [...] CDT): This is being managed by her solutions consultant. Social History Tobacco Use Types Packs/Day [...] on file Legal Sex Female 9:03 AM INTERNATIONAL EDITORIAL PRODUCER Gender Identity Female 01/20/2024 3:06 PM CDT [...] ORDERABLES Final Result [facility] [address] [facility] Department [place] [address] from Last 3 Months or Most Recently Relevant to Health Maintenance Insurance [facility] [id number] [place] [id number] [place] [address] Care Teams Tool Crib Supervisor Relationship Specialty Start Date End Date Miguel Langley DO PCP - General Internal Medicine 07/03/22
--- OUTSIDE RECORDS SUMMARY | 2024-11-02 15:04 | XMS_ITS | Encounter Summary ---
Author Organization [facility] Address [address] [address] Care Team Providers Care Paint Trimmer Pipe Bowls Name Role Phone Daysi Wetzel MD Primary Care Provider [phone] Chris Madrigal MD Unavailable [phone] Miguel Langley DO Primary Care Provider [phone] Rand Elkins [facility] Unavailable Encounter Details Date Type Department Care Team (Late st Contact Info) Description 02/12/2019 Telephone [facility] [address] [place] [address] Ashely Baker Social History Tobacco [...] on filedocumented in this encounter Care Teams Paint Trimmer Pipe Bowls Relationship Specialty Start Date End Date Daysi Wetzel MD [address] [place] [address] PCP - General Family Medicine 12/24/18 12/11/22 Miguel Langley DO [address] [place] [address] PCP - General Internal Medicine 12/12/22 Chris Madrigal MD [address] [place] [address] Hematology and Oncology 03/21/20 Rand Elkins LMSW Outpatient Onion Topper Care Management 12/17/22 documented as of this encounter
--- OUTSIDE RECORDS SUMMARY | 2024-11-02 15:04 | XMS_ITS | Encounter Summary ---
Author Organization [facility] Address [address] [place] [address] Care Team Providers Care Charge Master Specialist Name Role Phone Daysi Wetzel MD Primary Care Provider [phone] Chris Madrigal MD Unavailable [phone] Miguel Langley DO Primary Care Provider [phone] Rand Elkins [facility] Unavailable [phone] Reason for Visit * Reason Onset Date Comments Nurse Only 11/26/2022 Surgery Scheduling 11/26/2022 Encounter Details Date Type Department Care Team (Late st Contact Info) Description 11/26/2022 Telephone [facility] - Centralized Scheduling [address] [place] [address] Sulaiman Andrews MD [address] [address] Nurse Only; Surgery Scheduling Social History Tobacco [...] 3:13 PM CDT Pt seen her other THERMAL ENGINEER Dr.James Duran in [place], Dr. Andrews told her to call office [...] on filedocumented in this encounter Care Teams Charge Master Specialist Relationship Specialty Start Date End Date Daysi Wetzel MD [address] [place] [address] PCP - General Family Medicine 12/24/18 12/11/22 Miguel Langley DO [address] [place] [address] PCP - General Internal Medicine 12/12/22 Chris Madrigal MD [address] [place] [phone] Hematology and Oncology 03/21/20 Rand Elkins LMSW Outpatient Counseling Psychologist Care Management 12/17/22 documented as of this encounter
--- OUTSIDE RECORDS SUMMARY | 2024-11-02 15:04 | XMS_ITS | Encounter Summary ---
Author Organization [facility] Address [address] [facility] [place] [address] Care Team Providers Care Traffic Lieutenant Name Role Phone Chris Madrigal MD Unavailable [phone] Miguel Langley DO Primary Care Provider [phone] Rand Elkins LMSW Unavailable [phone] Reason for Visit * Reason Onset Date Comments Question 12/18/2022 Follow-up 12/18/2022 Encounter Details Date Type Department Care Team (Late st Contact Info) Description 12/18/2022 Telephone [facility] - SITE MEDICAL DIRECTOR [address] [facility] [address] [place] [address] Sulaiman Andrews MD [address] [facility] [address] [place] [address] Question; Follow-up Social History Tobacco Use Types [...] Recorded Patient Health Questionnaire-2 Score 0 12/17/2022 [facility] - Occupational [...] place to sleep or slept in a mcc (including now)? No 12/13/2022 Comments No Sex [...] and is taking 2) Please contact # [phone] documented in this encounter Plan of Treatment [...] on filedocumented in this encounter Care Teams Traffic Lieutenant Relationship Specialty Start Date End Date Miguel Langley DO [address] [place] [address] PCP - General Internal Medicine 12/12/22 Chris Madrigal MD Hematology and Oncology 03/21/20 Rand Elkins LMSW Outpatient Manager Of Care Care Management 12/17/22 documented as of this encounter
[2024-11-02 15:25] LABS: Alanine Aminotransferase 38 U/L (6-35); Albumin Level 4.5 g/dL (3.5-5.1); Alkaline Phosphatase 67 U/L (38-126); Anion Gap 9 mmol/L (4-12); Aspartate Amino Transferase 42 U/L (14-36); Bilirubin,Total 1.1 mg/dL (0.2-1.3); Blood Urea Nitrogen 10 mg/dL (7-17); Calcium 9.3 mg/dL (8.4-10.2); Carbon Dioxide 23 mmol/L (22-30); Chloride 101 mmol/L (98-107); Estimated CRCL calculation 71 ml/min; Estimated Glomerular Filt Rate > 60; Glucose 104 mg/dL (65-110); Potassium 3.9 mmol/L (3.4-5.0); Sodium 133 mmol/L (137-145); Total Protein 7.6 g/dL (6.3-8.2)
[2024-11-02 15:31] LABS: Schistocytes None Seen
[2024-11-02 16:20] LABS: Add Urine Microscopic? NO; Appearance Urine Clear (Clear); Glucose Urine UA Negative (Negative); Leukocyte Esterase Ur Negative LEU/UL (Negative); Nitrate Urine Negative (Negative); Specific Grav Ur 1.033 (1.001-1.035)
[2024-11-02 16:36] LABS: BEDSIDEPREGUCG Negative (Negative)
--- NOTE | 2024-11-02 17:12 | ED.GENADULT ---
HPI - General Adult General Chief complaint: Recheck/Abnormal Lab/Rx Stated complaint: post op problems Time Seen by Provider: 11/02/24 14:08 Source: patient Mode of arrival: ambulatory Limitations: no limitations History of Present Illness HPI narrative: 44-year-old status post with his laparoscopic left salpingo-oophorectomy the done on 10/28/2024 here with a complains of increased left-sided lower abdominal pain, nausea, vomiting and diarrhea. Patient states that she is unable to keep any fluids down feels dehydrated. No history of fever or chills. Patient also mentioned that her colon was inflamed and was started on oral antibiotic , she denies any blood or a black stool Related Data Home Medications ?Medication ?Instructions ?Recorded ?Confirmed ?Last Taken ?Type alprazolam 1 mg tablet (Xanax) 1 mg PO BID PRN Anxiety 02/14/19 10/28/24 10/27/24 History multivitamin (Daily Multi-Vitamin 1 tablet PO DAILY 04/24/21 10/11/24 09/28/24 History tablet) estradiol 1 mg tablet 1 mg PO HS 04/28/23 10/11/24 09/27/24 History venlafaxine 37.5 mg 37.5 mg PO HS 09/28/24 10/28/24 10/27/24 History capsule,extended release 24 hr celecoxib 100 mg capsule mg 10/20/24 10/27/24 History Allergies Allergy/AdvReac Type Severity Reaction Status Date / Time cephalexin AdvReac Severe Other Verified 11/02/24 14:42 clarithromycin AdvReac Severe Swelling Verified 11/02/24 14:42 of face/nausea hydrocodone AdvReac Severe Throat Verified 11/02/24 14:42 swelling/facial swelling/vomiting Review of Systems Review of Systems: All systems reviewed & are unremarkable except as noted in HPI and below Constitutional: Constitutional: Reports no additional constitutional complaints Eyes: Eyes: Reports no additional eye complaints ENT: Reports system reviewed and no additional complaints, except as documented Cardiovascular: Cardiovascular: Reports no additional cardiovascular complaints Respiratory: Respiratory: Reports no additional respiratory complaints Gastrointestinal: Gastrointestinal: Reports as per HPI Musculoskeletal: Musculoskeletal: Reports no additional musculoskeletal complaints PMFSH Past Medical History Medical History Idiopathic thrombocytopenic purpura (ITP) Abdominal bloating Epigastric pain Chronic diarrhea Family history of colon cancer in father Bright red blood per rectum Gallbladder anomaly Migraine Numbness Snoring Abdominal pain Painful joint Allergies Arthritis UTI (urinary tract infection) due to Enterococcus Urinary frequency Diarrhea History of dental problems Ear pain Vision changes Dizziness Chronic headaches Weight gain SIERRA (obstructive sleep apnea) History of anesthesia problem Crush injury of right foot GERD (gastroesophageal reflux disease) IBS (irritable bowel syndrome) Depression Back pain UTI (urinary tract infection) Endometriosis Sleep apnea Sinus problem Wears glasses Anemia Anxiety Surgical History Surgical History Hx of laparoscopy x2 Hx of breast reduction, elective History of cholecystectomy History of hysterectomy Family History Family History Father Alcoholism Cancer Diabetes mellitus Mother Depression Sibling Cancer Other Dementia Social History Social History Smoking packs per day: 0.5 Smoking cigarettes per day: 10.0 Years smoked: 2 Smoking pack-years: 1.00 Smoking status: Never smoker Tobacco type: cigarettes Second hand tobacco smoke exposure: No Smoking end date: 03/31/00 Additional smoking assessment comments: social as teenager-not since then Alcohol intake: current Alcohol use details: 4/MONTH Substance use: never Substance use type: marijuana Other substance usage details: two or more times a day Do You Feel Safe in your Home?: Yes Lack of Transportation: No Lack of Food: Never True Current Housing: I Do Not Have Housing Concerned About Future Housing: YES Difficulty Paying Gas/Electric Bills: Decline to Answer Difficulty Paying for Meds: No Currently Unemployed: No Education: Grade School Difficulty w/ Childcare or Family Care: No Living arrangements: with family Occupation/Education: occupation Additional occupation/education comments: employed Gender identity (if verbalized by the patient): Female Sexual Orientation (if Verbalized by the Patient): Straight or Heterosexual Spiritual care concerns: No Agree to blood products: Yes Exam Narrative: GENERAL: Well-appearing, well-nourished, and in no acute distress. HEAD: Normocephalic, atraumatic. EYES: PERRLA and EOMI. ENT: Nares clear, no rhinorrhea or epistaxis. Mucous membranes moist. NECK: Supple. CHEST: Clear to auscultation. No respiratory distress. HEART: Regular rate and rhythm. No murmur heard. Normal peripheral pulses. ABDOMEN: Soft, post operative changes on the lower abdomen tender on palpation , nondistended, normal active bowel sounds. EXTREMITIES: Normal range of motion. No edema. SKIN: Warm, dry, no rash. NEURO: No focal deficits. Alert and oriented x3. PSYCH: Normal mood and affect. Course Course Emergency Course: Pain has improved with IV morphine. Did inform her about her lab work, CT findings. Discussed with Dr. Carrillo recommended admission and agrees with plan with IV antibiotics . Vital Signs Vital signs: Vital Signs Temperature 36.4 C 11/02/24 13:58 Pulse Rate 102 H 11/02/24 13:58 Respiratory Rate 18 11/02/24 13:58 Blood Pressure 137/69 11/02/24 13:58 Pulse Oximetry 100 11/02/24 13:58 Temperature 37.1 C 11/02/24 15:23 Pulse Rate 88 11/02/24 16:14 Respiratory Rate 16 11/02/24 16:14 Blood Pressure 131/56 L 11/02/24 16:14 Pulse Oximetry 100 11/02/24 16:14 Oxygen Delivery Autopap 11/02/24 14:13 Medical Decision Making Medical Records Medical records reviewed: Yes I reviewed the external patient's medical records. Vital Signs Vital Signs: Vital Signs Temperature 36.4 C 11/02/24 13:58 Pulse Rate 102 H 11/02/24 13:58 Respiratory Rate 18 11/02/24 13:58 Blood Pressure 137/69 11/02/24 13:58 Pulse Oximetry 100 11/02/24 13:58 Temperature 37.1 C 11/02/24 15:23 Pulse Rate 88 11/02/24 16:14 Respiratory Rate 16 11/02/24 16:14 Blood Pressure 131/56 L 11/02/24 16:14 Pulse Oximetry 100 11/02/24 16:14 Oxygen Delivery Autopap 11/02/24 14:13 Lab Data Lab results reviewed: Yes I reviewed the patient's lab results. 11/02/24 14:52 11/02/24 14:52 Labs: Lab Results 11/02/24 11/02/24 11/02/24 Range/Units 14:52 16:07 16:34 WBC 13.4 H (4.5-10.0) K/mm3 RBC 4.03 L (4.2-5.4) M/mm3 Hgb 11.1 L (12.0-15.0) g/dL Hct 35.4 L (37.0-47.0) % MCV 87.8 (80-100) fl MCH 27.5 (26-34) pg MCHC 31.4 L (32-36) g/dl RDW 14.4 (11.5-14.5) % Plt Count 96 L (150-375) k/mm3 MPV Not Reportable Immature Gran % (Auto) 0.9 H (0-0.5) % Neut % (Auto) 69.2 (45.5-73.1) % Lymph % (Auto) 21.7 (18.3-44.2) % [place] % (Auto) 7.1 (2.6-8.5) % Eos % (Auto) 0.9 (0-4.4) % Baso % (Auto) 0.2 (0.2-1.2) % Lymph # (Auto) 2.91 (0.9-3.2) K/mm3 [place] # (Auto) 1.0 H (0.1-0.6) K/mm3 Eos # (Auto) 0.1 (0-0.3) K/mm3 Baso # (Auto) 0.0 (0.0-0.1) K/mm3 Abs Immat Gran (auto) 0.12 H (0.00-0.031) K/mm3 Absolute Neuts (auto) 9.3 H (1.3-6.7) K/mm3 Absolute Nucleated RBC 0.050 H (0.0-0.012) K/mm3 Band Neutrophils % Not Reportable Nucleated RBC % 0.4 H (0.0-0.2) % Platelet Estimate Adequate (Adequate) % Immature Plt Fraction 31.5 H (0.9-11.2) % Schistocytes None seen Sodium 133 L (137-145) mmol/L Potassium 3.9 (3.4-5.0) mmol/L Chloride 101 (98-107) mmol/L Carbon Dioxide 23 (22-30) mmol/L Anion Gap 9 (4-12) mmol/L BUN 10 (7-17) mg/dL Creatinine 0.89 (0.7-1.0) mg/dL Estim Creat Clear Calc 71 ml/min Estimated GFR > 60 (59 - ) Glucose 104 (65-110) mg/dL Lactic Acid 1.2 (0.7-2.0) mmol/L Calcium 9.3 (8.4-10.2) mg/dL Total Bilirubin 1.1 (0.2-1.3) mg/dL AST 42 H (14-36) U/L ALT 38 H (6-35) U/L Alkaline Phosphatase 67 (38-126) U/L Total Protein 7.6 (6.3-8.2) g/dL Albumin 4.5 (3.5-5.1) g/dL Urine Color Yellow (Yellow) Urine Appearance Clear (Clear) Urine pH 6.5 (5.0-9.0) Ur Specific [place] 1.033 (1.001-1.035) Urine Protein Negative (Negative) mg/dL Urine Glucose (UA) Negative (Negative) mg/dL Urine Ketones Trace H (Negative) mg/dL Ur Blood (Man) Negative (Negative) Urine Nitrate Negative (Negative) Urine Bilirubin Negative (Negative) Urine Urobilinogen 0.2 (<2.0) mg/dL Leukocyte Esterase Rfl Negative (Negative) LATONIA/UL POC Urine HCG, Qual Negative (Negative) Imaging Data Radiologist's impression: ITS Impressions Abdomen/Pelvis CT 11/02/24 16:40 IMPRESSION: 1. Diffuse abnormal thickening of the colon more severe in the right colon, compatible with colitis, most likely infectious or inflammatory. 2: Status post cholecystectomy. Discharge Plan Discharge Clinical Impression: Colitis Patient Disposition: Still a Patient Condition: Stable Patient Language: Surinamese Prescriptions: No Action estradiol 1 mg tablet 1 mg PO HS albuterol sulfate 90 mcg/actuation HFA aerosol inhaler 2 puff inhalation Q4-6H PRN (Reason: shortness of breath or wheezing) 30 Days Qty: 8.5 0RF celecoxib 100 mg capsule doxycycline hyclate 100 mg capsule 100 mg PO DAILY Qty: 14 0RF prednisone 20 mg tablet 60 mg PO DAILY 5 Days Qty: 15 0RF multivitamin [Daily Multi-Vitamin] Tablet 1 tablet PO DAILY cholestyramine (with sugar) [Questran] 4 gram powder 4 g PO BID Qty: 368.76 5RF Rx Instructions: administer w/meal; avoid other meds within 1hr before or 4-6hr after dose fluticasone propionate 50 mcg/actuation spray,suspension 2 spray intranasal DAILY Qty: 48 1RF Rx Instructions: administer into each nostril fluticasone propionate [Flonase Allergy Relief] 50 mcg/actuation spray,suspension 2 spray intranasal DAILY Qty: 16 1RF Rx Instructions: administer into each nostril benzonatate 100 mg capsule 100 mg PO TID PRN (Reason: cough) Qty: 20 0RF pseudoephedrine HCl [Sudafed 12 Hour] 120 mg tablet extended release 120 mg PO BID PRN (Reason: nasal congestion) Qty: 30 0RF alprazolam [Xanax] 1 mg Tablet 1 mg PO BID PRN (Reason: Anxiety) venlafaxine 37.5 mg capsule,extended release 24hr 37.5 mg PO HS Patient Comments: Says takes at HS oxycodone-acetaminophen [Endocet] 5-325 mg tablet 1 tablet PO Q6H PRN (Reason: pain) Qty: 20 0RF omeprazole 40 mg capsule,delayed release(DR/EC) See Rx Instructions .ROUTE .COMPLEX Qty: 90 1RF Dose Instruction: TAKE 1 CAPSULE BY MOUTH TWICE DAILY Rx Instructions: TAKE 1 CAPSULE BY MOUTH TWICE DAILY Follow-up/Referrals: Ijeoma Payne APRN [Primary Care Provider] - Time of Disposition: 17:19
[2024-11-02] MEDS: metroNIDAZOLE 500 MG/ISO 100ML 500 MG/100 ML BAG 100 MG IVPB (17:13)
[2024-11-02] MEDS: CIPROFLOXACIN 400 MG/D5W 200ML 200 ML 200 MG IVPB (18:04)
--- NOTE | 2024-11-02 18:19 | ADMGEN ---
This patient, Peggy Serrano, was admitted to Medical Room 257-. Patient/family oriented to hospital policies and general routines including ID bracelet, bed and alarms, visiting hours, pain management, procedures, bathroom and other care routines, personal items, smoking policy, room service/diet, and visiting hours. Information on how to activate the Rapid Response Team has been discussed. Patient/Family are encouraged to report perceived risks to care and to ask questions if they do not understand what they are told or what they should do.
[2024-11-02] MEDS: LACTATED RINGERS 1,000 ML 125 ML IV CONT (18:39)
--- NOTE | 2024-11-02 18:39 | P.HP_ITS ---
H&P: HPI History of Present Illness Date/Time: 11/02/24 18:39 Chief Complaint: Abdominal pain postoperative Narrative: This 44-year-old female status post salpingo-oophorectomy hysterectomy underwent laparoscopy last Armaan colitis was she had lysis of adhesions and went home. She clinically worsened over the weekend and today was seen with some watery diarrhea and dysphasia. She did note she possibly had an elevated temperature at home but was 987 and in the office. White count here is elevated at [address] that shows colitis worse on the right than the left so she is admitted for IV antibiotics IV hydration and support. Review of Systems Review of Systems: All systems reviewed & are unremarkable except as noted in HPI and below PMFSH Past Medical History Medical History (Updated 11/02/24 @ 18:43 by [place] MD) Colitis Idiopathic thrombocytopenic purpura (ITP) Abdominal bloating Epigastric pain Chronic diarrhea Family history of colon cancer in father Bright red blood per rectum Gallbladder anomaly Migraine Numbness Snoring Abdominal pain Painful joint Allergies Arthritis UTI (urinary tract infection) due to Enterococcus Urinary frequency Diarrhea History of dental problems Ear pain Vision changes Dizziness Chronic headaches Weight gain SIERRA (obstructive sleep apnea) History of anesthesia problem Crush injury of right foot GERD (gastroesophageal reflux disease) IBS (irritable bowel syndrome) Depression Back pain UTI (urinary tract infection) Endometriosis Sleep apnea Sinus problem Wears glasses Anemia Anxiety Surgical History Surgical History Hx of laparoscopy x2 Hx of breast reduction, elective History of cholecystectomy History of hysterectomy Family History Family History Father Alcoholism Cancer Diabetes mellitus Mother Depression Sibling Cancer Other Dementia Social History Social History Smoking packs per day: 0.5 Smoking cigarettes per day: 10.0 Years smoked: 2 Smoking pack-years: 1.00 Smoking status: Never smoker Second hand tobacco smoke exposure: No Alcohol intake: current Drinks per week: 1 Alcohol use details: 4/MONTH Substance use: current Substance use type: marijuana Do You Feel Safe in your Home?: Yes Lack of Transportation: No Lack of Food: Never True Current Housing: I Have Housing Concerned About Future Housing: No Difficulty Paying Gas/Electric Bills: No Difficulty Paying for Meds: No Currently Unemployed: No Education: Grade School Difficulty w/ Childcare or Family Care: No Living arrangements: with family Occupation/Education: occupation Additional occupation/education comments: employed Gender identity (if verbalized by the patient): Female Sexual Orientation (if Verbalized by the Patient): Straight or Heterosexual Spiritual care concerns: No Agree to blood products: Yes Meds Home Medications and Allergies Home Medications ?Medication ?Instructions ?Recorded ?Confirmed ?Type alprazolam 1 mg tablet (Xanax) 1 mg PO BID PRN Anxiety 02/14/19 11/02/24 History multivitamin (Daily Multi-Vitamin 1 tablet PO DAILY 04/24/21 11/02/24 History tablet) estradiol 1 mg tablet 1 mg PO HS 04/28/23 11/02/24 History albuterol sulfate 90 mcg/actuation 2 puff inhalation Q4-6H PRN 01/06/24 11/02/24 Rx aerosol inhaler shortness of breath or wheezing 30 days #8.5 grams omeprazole 40 mg capsule,delayed See Rx Instructions .Route 05/31/24 11/02/24 Rx release .COMPLEX #90 caps fluticasone propionate 50 2 spray intranasal DAILY #48 grams 07/13/24 11/02/24 Rx mcg/actuation nasal spray,suspension cholestyramine (with sugar) 4 gram 4 g PO BID #368.76 grams 08/03/24 11/02/24 Rx oral powder (Questran) venlafaxine 37.5 mg 37.5 mg PO HS 09/28/24 11/02/24 History capsule,extended release 24 hr fluticasone propionate 50 2 spray intranasal DAILY #16 mL 10/11/24 11/02/24 Rx mcg/actuation nasal spray,suspension (Flonase Allergy Relief) pseudoephedrine HCl 120 mg 120 mg PO BID PRN nasal congestion 10/11/24 11/02/24 Rx tablet,extended release (Sudafed #30 tabs 12 Hour) celecoxib 100 mg capsule mg 10/20/24 History oxycodone-acetaminophen 5 mg-325 1 tablet PO Q6H PRN pain #20 tabs 10/28/24 11/02/24 Rx mg tablet (Endocet) Allergies Allergy/AdvReac Type Severity Reaction Status Date / Time cephalexin AdvReac Severe Other Verified 11/02/24 18:36 clarithromycin AdvReac Severe Swelling Verified 11/02/24 18:36 of face/nausea hydrocodone AdvReac Severe Throat Verified 11/02/24 18:36 swelling/facial swelling/vomiting Vital Signs Vital Signs - 24 hr 11/02/24 13:58 11/02/24 14:13 11/02/24 14:15 Temperature 97.6 F 97.7 F Pulse Rate 102 H 101 H 103 H Respiratory Rate 18 14 16 Blood Pressure 137/69 138/79 145/91 H Pulse Oximetry 100 100 100 Oxygen Delivery Autopap 11/02/24 14:16 11/02/24 14:40 11/02/24 14:48 Temperature Pulse Rate 102 H 105 H 104 H Respiratory Rate 18 15 21 H Blood Pressure Pulse Oximetry 100 99 Oxygen Delivery 11/02/24 15:00 11/02/24 15:23 11/02/24 15:34 Temperature 98.7 F Pulse Rate 97 94 91 Respiratory Rate 14 17 16 Blood Pressure 123/73 Pulse Oximetry 97 98 99 Oxygen Delivery 11/02/24 16:04 11/02/24 16:14 11/02/24 16:15 Temperature Pulse Rate 91 88 90 Respiratory Rate 20 16 13 Blood Pressure 131/56 L Pulse Oximetry 100 100 100 Oxygen Delivery 11/02/24 16:16 11/02/24 16:30 11/02/24 16:31 Temperature Pulse Rate 91 89 92 Respiratory Rate 13 10 L 11 L Blood Pressure 131/56 L 131/81 Pulse Oximetry 100 99 100 Oxygen Delivery 11/02/24 16:48 11/02/24 17:57 Temperature Pulse Rate 91 78 Respiratory Rate 13 19 Blood Pressure 120/78 132/75 Pulse Oximetry 100 98 Oxygen Delivery Exam Const: General: cooperative, no acute distress and tired appearing Nutritional Appearance: overweight Orientation/consciousness: oriented to person, oriented to place and oriented to time Resp: Effort & Inspection: normal respiratory effort Cardio: Rate: regular rate Rhythm: regular rhythm Heart sounds: S1 normal heart sound present and S2 normal heart sound present GI: Inspection: normal to inspection, incision (Wounds are clean. Reaction from glue noted) and obesity GI Palp: Yes abdominal tenderness Auscultation: normal bowel sounds H&P: Results Labs Labs: Short CBC 11/02/24 Range/Units 14:52 WBC 13.4 H (4.5-10.0) K/mm3 Hgb 11.1 L (12.0-15.0) g/dL Hct 35.4 L (37.0-47.0) % Plt Count 96 L (150-375) k/mm3 BMP 11/02/24 14:52 Sodium 133 L Potassium 3.9 Chloride 101 Carbon Dioxide 23 BUN 10 Creatinine 0.89 Glucose 104 Calcium 9.3 Liver Function 11/02/24 Range/Units 14:52 Total Bilirubin 1.1 (0.2-1.3) mg/dL AST 42 H (14-36) U/L ALT 38 H (6-35) U/L Alkaline Phosphatase 67 (38-126) U/L Albumin 4.5 (3.5-5.1) g/dL Urine 11/02/24 Range/Units 16:07 Urine Color Yellow (Yellow) Urine Appearance Clear (Clear) Urine pH 6.5 (5.0-9.0) Ur Specific [place] 1.033 (1.001-1.035) Urine Protein Negative (Negative) mg/dL Urine Glucose (UA) Negative (Negative) mg/dL Assessment and Plan Assessment and plan (1) Dehydration: Code(s): E86.0 - Dehydration Status: Acute Plan Patient is placed on IV antibiotics and IV fluids. Recheck white count follow conservatively. Consider hospitalist consult if not better in the morning
[2024-11-02] MEDS: MORPHINE SULFATE (*CRX) 2 MG/ML INJ IV PUSH (20:32)
[2024-11-03] MEDS: metroNIDAZOLE 500 MG/ISO 100ML 500 MG/100 ML BAG 100 MG IVPB ×3 (00:17→16:51)
[2024-11-03] MEDS: MORPHINE SULFATE (*CRX) 2 MG/ML INJ IV PUSH ×5 (04:10→22:34)
[2024-11-03 04:28] VITALS: BP 122/68; PULSE 87; RESP 16; TEMP 36.8; O2SAT 98
[2024-11-03 05:07] LABS: Hematocrit 29.9 % (37.0-47.0); Hemoglobin 9.5 g/dL (12.0-15.0); Immature Granulocyte Percent A 0.8 % (0-0.5); Immature Platelet Fraction Pct 31.2 % (0.9-11.2); Lymphocytes Absolute Auto 2.63 K/mm3 (0.9-3.2); Mean Corpuscular HGB Conc 31.8 g/dl (32-36); Mean Corpuscular Hemoglobin 27.9 pg (26-34); Mean Corpuscular Volume 87.7 fl (80-100); Nucleated Red Blood Cells Absolute Auto 0.020 K/mm3 (0.0-0.012); Nucleated Red Blood Cells Perc 0.2 % (0.0-0.2); Platelet Count Result 83 k/mm3 (150-375); Red Blood Count 3.41 M/mm3 (4.2-5.4); White Blood Count 12.6 K/mm3 (4.5-10.0)
[2024-11-03] MEDS: LACTATED RINGERS 1,000 ML 125 ML IV CONT ×2 (05:29→16:50)
[2024-11-03 05:34] LABS: Anion Gap 6 mmol/L (4-12); Blood Urea Nitrogen 8 mg/dL (7-17); Calcium 8.4 mg/dL (8.4-10.2); Carbon Dioxide 24 mmol/L (22-30); Chloride 102 mmol/L (98-107); Estimated CRCL calculation 83 ml/min; Estimated Glomerular Filt Rate > 60; Glucose 109 mg/dL (65-110); Potassium 3.7 mmol/L (3.4-5.0); Sodium 132 mmol/L (137-145)
[2024-11-03 05:37] LABS: Anisocytosis 1+; Hypochromasia 1+; Microcytosis 1+ (NORMAL); Schistocytes None Seen
[2024-11-03] MEDS: CIPROFLOXACIN 400 MG/D5W 200ML 200 ML 200 MG IVPB ×2 (05:59→18:37)
--- OUTSIDE RECORDS SUMMARY | 2024-11-03 07:04 | XMS_ITS | Referral Summary ---
Author Organization [facility] Address [address] [place] [address] Care Team Providers Care Pathology Laboratory Technologist Name Role Phone Miguel Langley DO Primary Care Provider [phone] Allergies Active Allergy Reactions Criticality Noted Date [...] fluticasone propionate (FLONASE) 50 mcg/actuation nasal spray [place] 2 sprays every day by intranasal route. [...] mg total) by mouth 12/17/19 23 Active cnydazan-gcm-yqhmp acid-eiu424 (Alive Women's Gummy Vitamin) 120 mcg- 37.5 [...] 03/12/2017 Assessment & Plan (03/12/2017 11:57 AM SCALE EXPERT): Patient demonstrates history and my physical findings [...] CDT): This is being managed by her bisque ware dipper. Social History Tobacco Use Types Packs/Day Years [...] on file Legal Sex Female 9:03 AM SCALE EXPERT Gender Identity Female 01/20/2024 3:06 PM CDT [...] GEN ERAL ORDERABLES Final Result [facility] ([facility] 1 [facility] Department [place] [address] from Last 3 Months or Most Recently Relevant to Health Maintenance Insurance [facility] [id number] [place] [id number] [place] [address] Care Teams Pathology Laboratory Technologist Relationship Specialty Start Date End Date Miguel Langley DO PCP - General Internal Medicine 07/03/22
--- OUTSIDE RECORDS SUMMARY | 2024-11-03 07:04 | XMS_ITS | Clinical Summary ---
Author Organization [facility] Address [address] [place] [address] Care Team Providers Care Counter Clerk [employer] Name Role Phone Miguel Langley DO Primary Care Provider [phone] Allergies Active Allergy Reactions Criticality Noted Date [...] fluticasone propionate (FLONASE) 50 mcg/actuation nasal spray [place] 2 sprays every day by intranasal route. [...] mg total) by mouth 12/17/19 23 Active nktlzcfx-pbz-gynpo acid-klk877 (Alive Women's Gummy Vitamin) 120 mcg- 37.5 [...] 03/12/2017 Assessment & Plan (03/12/2017 11:57 AM COOK FROZEN DESSERT): Patient demonstrates history and my physical findings [...] CDT): This is being managed by her media monitor. Surgical History Surgery Date Site/Laterality Comments PARTIAL [...] on file Legal Sex Female 9:03 AM COOK FROZEN DESSERT Gender Identity Female 01/20/2024 3:06 PM CDT [...] ORDERABLES Final Result [facility] ([facility]) 1 [facility] Department [place] [address] from Last 3 Months or Most Recently Relevant to Health Maintenance Insurance [facility] Care Teams Counter Clerk [employer] Relationship Specialty Start Date End Date Miguel Langley DO PCP - General Internal Medicine 07/03/22
--- OUTSIDE RECORDS SUMMARY | 2024-11-03 07:04 | XMS_ITS | Encounter Summary ---
Author Organization [facility] Address [address] [place] [address] Care Team Providers Care Ladle Watcher Name Role Phone Daysi Wetzel MD Primary Care Provider [phone] Chris Madrigal MD Unavailable Miguel Langley DO Primary Care Provider [phone] Rand Elkins [facility] Unavailable Reason for Visit * Reason Onset Date Comments Nurse Only 11/26/2022 Surgery Scheduling 11/26/2022 Encounter Details Date Type Department Care Team (Late st Contact Info) Description 11/26/2022 Telephone [facility] - Centralized Scheduling [address] [place] [address] Sulaiman Andrews MD [address] [address] Nurse Only; Surgery Scheduling Social History Tobacco [...] 3:13 PM CDT Pt seen her other DATA PROCESSING SYSTEMS PROJECT PLANNER Dr.James Duran in [place], Dr. Andrews told [...] on filedocumented in this encounter Care Teams Ladle Watcher Relationship Specialty Start Date End Date Daysi Wetzel MD [address] [place] [phone] PCP - General Family Medicine 12/24/18 12/11/22 Miguel Langley DO [address] [place] [address] PCP - General Internal Medicine 12/12/22 Chris Madrigal MD [address] [place] [phone] Hematology and Oncology 03/21/20 Rand Elkins LMSW Outpatient Carpentry Teacher Care Management 12/17/22 documented as of this encounter
--- OUTSIDE RECORDS SUMMARY | 2024-11-03 07:04 | XMS_ITS | Clinical Summary ---
[facility] Address [address] [place] [address] Care Team Providers Care Executive Director Of Marketing Name Role Phone Mello Kaba MD Primary Care Provider [phone] Allergies Active Allergy Reactions Criticality Noted Date [...] 2 mg by mouth daily. 0 Active thufjcvm-vnt-eu lic acid-drk540 (Alive Women's Gummy Vitamin) 200 mcg- 37.5 [...] Encounters Date Type Department Care Team Description 11/02/2024 External Device Data [facility] ABSTRACTION Provider, Abstract 10/13/2024 External Device Data [facility]STRACTION Provider, [...] Comments Blood Pressure 117/79 05/05/2024 2:37 PM CAMPAIGN SPECIALIST Pulse 70 05/05/2024 2:37 PM CAMPAIGN SPECIALIST Temperature 36.1 C (97 F) 05/05/2024 2:37 PM CAMPAIGN SPECIALIST Respiratory Rate 18 05/05/2024 2:37 PM CAMPAIGN SPECIALIST Oxygen Saturation 98% 05/05/2024 2:37 PM CAMPAIGN SPECIALIST Inhaled Oxygen Concentration - - Weight 91.2 kg (201 lb) 05/05/2024 2:37 PM CAMPAIGN SPECIALIST Height 157.5 cm (5' 2) 10/12/2021 8:27 [...] this topic Insurance [place] Care Teams Executive Director Of Marketing Relationship Specialty Start Date End Date Mlelo Kaba MD PCP - General Family Practice 09/02/22
--- OUTSIDE RECORDS SUMMARY | 2024-11-03 07:04 | XMS_ITS | Clinical Summary ---
Author Organization [facility] Address [address] [place] [address] Care Team Providers Care Web Analyst Name Role Phone Chris Madrigal MD Unavailable [phone] Miguel Langley DO Primary Care Provider [phone] Source Comments [facility],non-owned Affiliates and Associated Physician Practices is amultiple site organization consisting of ambulatory clinics and hospital sitesin [place], [place], [place] and [place]. This disclosure is being madepursuant to the Care Everywhere program and may not contain all information available regarding this patient. Last updated 17.[facility] Allergies Active Allergy Reactions Criticality Noted [...] Plan: This is being managed by her optical goods worker. Encounters Date Type Department Care Team Description 10/06/2024 Telephone [facility] - Hematology/Oncolog y [address] [place] [address] Faisal Julio RN Symptom Management 09/13/2024 Orders Only [facility] - Hematology/Oncolog y [address] [place] [address] Douglas Llanes MD 09/02/2024 2:29 PM CDT - 09/02/2024 11:59 PM CDT Hospital Encounter [facility] [address] [facility] [place] [address] Discharge Disposition: Home or Self Care 09/02/2024 2:20 PM CDT Office Visit [facility] - Hematology/Oncolog y [address] [place] [address] Douglas Llanes MD Immune thrombocytopenia (HCC) (Primary Dx); High risk medications (not anticoagulants) long-term use 09/02/[address] [facility] - Hematology/Oncolog y [address] [place] [address] Douglas Llanes MD 09/02/2024 Travel 08/27/[address] [facility] - GUIDANCE SERVICES COORDINATOR [address] [facility] [address] [place] [phone] Daysi Weinstein, RN Follow-up 08/27/[address] [facility] - GUIDANCE SERVICES COORDINATOR [address] [facility] [address] [place] [address] Sulaiman Andrews MD Refill Request [...] Recorded Patient Health Questionnaire-2 Score 0 12/17/2022 [facility] - [...] place to sleep or slept in a jail (including now)? No 12/13/2022 Comments No Sex [...] 154.9 cm (5' 1) 04/14/2024 2:53 PM INSTRUCTOR HAIRSPRING Body Mass Index 38.26 04/14/2024 2:53 PM INSTRUCTOR HAIRSPRING Plan of Treatment Health Maintenance Due Date [...] - 420 x10E9/L 09/02/2024 4:01 PM CDT [facility] Blood BLOOD SPECIMEN / Unknown Lab Venipuncture / Unknown 09/02/2024 2:31 PM CDT 09/02/2024 2:36 PM CDT Narrative [facility] - 09/02/2024 4:01 PM CDT This test was developed and its performance characteristics determined by the clinical laboratories of [facility] and [facility]. It has not been cleared and approved by the [place] Food and Drug Administration. Douglas Llanes MD LAB - HEMATOLOGY ORDERABLES Fi nal Result [facility] [address] [place] [phone], [facility] [phone] * (ABNORMAL) CBC WITH DIFFERENTIAL (09/02/2024 2:31 PM CDT) WBC 8.4 4.0 - 10.7 x10E9/L 09/02/2024 3:10 PM CDT [facility] RBC Count 4.78 3.90 - 5.20 x10E12/L 09/02/2024 3:10 PM T [facility] Hemoglobin 13.0 11.9 - 15.8 g/dL 09/02/2024 3:10 PM [facility] Hematocrit 40.3 34.8 - 46.1 % 09/02/2024 3:10 PM [facility] MCV 84.3 80.0 - 98.0 fL 09/02/2024 3:10 PM T [facility] MCH 27.2 26.7 - 33.6 pg 09/02/2024 3:10 PM [facility] MCHC 32.3 31.7 - 36.3 g/dL 09/02/2024 3:10 PM [facility] RDW-CV 13.4 11.3 - 14.8 % 09/02/2024 3:10 PM [facility] Platelet Count 51(L) 150 - 420 x10E9/L 09/02/2024 3:10 PM [facility] Neutrophil % 48.1 41.0 - 74.0 % 09/02/2024 3:10 PM [facility] Lymphocyte % 45.2 17.0 - 47.0 % 09/02/2024 3:10 PM [facility] Monocyte % 4.5 3.0 - 11.0 % 09/02/2024 3:10 PM [facility] Eosinophil % 1.4 0.0 - 7.0 % 09/02/2024 3:10 PM [facility] Basophil % 0.6 0.0 - 1.6 % 09/02/2024 3:10 PM [facility] Immature Granulocytes % 0.2 0.0 - 1.0 % 09/02/2024 3:10 PM CDT [facility] Neutrophil Absolute 4.04 1.60 - 7.50 x10E9/L 09/02/2024 3:10 PM CDT [facility] Lymphocyte Absolute 3.81 1.00 - 4.40 x10E9/L 09/02/2024 3:10 PM CDT [facility] Monocyte Absolute 0.38 0.15 - 1.00 x10E9/L 09/02/2024 3:10 PM T [facility] Eosinophil Absolute 0.12 0.00 - 0.60 x10E9/L 09/02/2024 3:10 PM T [facility] Basophil Absolute 0.05 0.00 - 0.13 x10E9/L 09/02/2024 3:10 PM [facility] Blood BLOOD SPECIMEN / Unknown Lab Venipuncture / Unknown 09/02/2024 2:31 PM CDT 09/02/2024 2:40 PM CDT us Douglas Llanes MD LAB - HEMATOLOGY ORDERABLES Fi nal Result [facility] [address] [place] [phone], [facility] [phone] * (ABNORMAL) RENAL FUNCTION PANEL (12/15/2022 8:46 AM CDT) Glucose 113(H) 70 - 105 mg/dL 12/15/2022 9:34 AM CDT [facility] Sodium 138 136 - 145 mmol/L 12/15/2022 9:34 AM CDT [facility] Potassium 3.9 3.5 - 5.1 mmol/L 12/15/2022 9:34 AM CDT [facility] Chloride 101 98 - 107 mmol/L 12/15/2022 9:34 AM CDT [facility] CO2 29 22 - 29 mmol/L 12/15/2022 9:34 AM CDT [facility] Calcium 8.5 8.4 - 10.4 [...] 3 m2 12/15/2022 9:34 AM CDT [facility] Blood BLOOD SPECIMEN / Unknown Lab Venipuncture / Unknown 12/15/2022 8:46 AM CDT 12/15/2022 9:10 AM CDT Sulaiman Andrews MD LAB - CHEMISTRY ORDERABLES Fin al Result [facility] [address] [place] [address] from Last 3 Months or Most Recently Relevant to Health Maintenance Insurance [facility] Care Teams Web Analyst Relationship Specialty Start Date End Date Miguel Langley DO [address] [phone] PCP - General Internal Medicine 12/12/22 Chirs Madrigal MD Hematology and Oncology 03/21/20
--- OUTSIDE RECORDS SUMMARY | 2024-11-03 07:04 | XMS_ITS | Clinical Summary ---
Author Organization [facility] Address [facility] [place] [address] Care Team Providers Care Accounts Receivable Associate Name Role Phone Miguel Langley Primary Care Provider [phone] Allergies Active Allergy Reactions Criticality Noted Date [...] patient's age to complete this topic [place] [address] [place] [address] MEDICAID Care Teams Accounts Receivable Associate Relationship Specialty Start Date End Date Miguel Langley DO [address] [place] [id number] PCP - General INTERNAL MEDICINE 08/08/21
--- OUTSIDE RECORDS SUMMARY | 2024-11-03 07:04 | XMS_ITS | Encounter Summary ---
Author Organization [facility] Address [address] [place] [address] Care Team Providers Care Special Technical Operations Officer Name Role Phone Mello Kaba MD Primary Care Provider [phone] Encounter Details Date Type Department Care Team (Late st Contact Info) Description 11/02/2024 External Device Data ST[facility] ABSTRACTION [...] on filedocumented in this encounter Care Teams Special Technical Operations Officer Relationship Specialty Start Date End Date Mello Kaba MD PCP - General Family Practice 09/02/22 documented as of this encounter
--- OUTSIDE RECORDS SUMMARY | 2024-11-03 07:04 | XMS_ITS | Encounter Summary ---
Author Organization [facility] Address [address] [address] Care Team Providers Care Trolley Cleaner Name Role Phone Daysi Wetzel MD Primary Care Provider [phone] Chris Madrigal MD Unavailable [phone] Miguel Langley DO Primary Care Provider [phone] Rand Elkins [facility] Unavailable [phone] Encounter Details Date Type Department Care Team (Late st Contact Info) Description 02/12/2019 Telephone [facility] [address] [place] [address] Ashely Baker Social History Tobacco [...] on filedocumented in this encounter Care Teams Trolley Cleaner Relationship Specialty Start Date End Date Daysi Wetzel MD [address] [place] [address] PCP - General Family Medicine 12/24/18 12/11/22 Miguel Langley DO [address] [place] [address] PCP - General Internal Medicine 12/12/22 Chris Madrigal MD [address] [place] [address] Hematology and Oncology 03/21/20 Rand Elkins LMSW Outpatient Front Desk Admin Care Management 12/17/22 documented as of this encounter
--- OUTSIDE RECORDS SUMMARY | 2024-11-03 07:04 | XMS_ITS | Encounter Summary ---
Author Organization [facility] Address [address] [place] [address] Care Team Providers Care Manager Private Name Role Phone Daysi Wetzel MD Primary Care Provider [phone] Chris Madrigal MD Unavailable [phone] Miguel Langley DO Primary Care Provider [phone] Rand Elkins [facility] Unavailable Encounter Details Date Type Department Care Team (Late st Contact Info) Description 08/21/2022 Lab Requisition [facility] - Pathology Lab [address] [place] [address] Srinivasan Marks MD [address] [address] Illness, unspecified Social History Tobacco [...] CDT) Case Report Surgical Pathology Report Case: [id number] Authorizing Provider: Srinivasan Marks MD Collected: 08/16/2022 10:51 AM Ordering Location: [facility] Pathology Lab Received: 08/21/2022 12:11 PM Pathologist: Denise Carroll MD Specimens: A) - Soft Tissue, cul-de-sac B) - Peritoneal Biopsy 08/21/2022 1:31 PM CDT [facility] Final Diagnosis Cul-de-sac, biopsy ([id number], A; 08/16/2022): - 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 08/21/2022 1:31 PM CDT [facility] Materials Received Received are ten slide(s) labeled [id number] (A, 5 levels; B, 5 levels) along with a copy of the outside pathology report. The materials originate from [address] [place] [address]. All original materials are returned to the referring institution, along with a copy of our final report. 08/21/2022 1:31 PM CDT [facility] Pathologist Location at [facility] 08/21/2022 1:31 PM CDT [facility] Disclaimer The performance characteristics of all immunohistochemical and indirect immunofluorescence stains (if any) cited in this report were determined by the Histopathology Laboratory of [facility]. Some of these tests were [...] attending (teaching) pathologist. 08/21/2022 1:31 PM CDT [facility] Embedded Images 08/21/2022 1:31 PM CDT [facility] Pathology/Cytology PERITONEAL BIOPSY SPECIMEN / Unknown 08/16/2022 10:51 AM CDT 08/21/2022 12:11 PM CDT Miscellaneous samples (specimen) PERITONEAL BIOPSY SPECIMEN / Unknown 08/16/2022 10:51 AM CDT 08/21/2022 12:37 PM CDT Srinivasan Marks MD LAB - PATHOLOGY/CYTOLOGY ORDERAB LES Final Result [facility] PATH[facility] LAB [address] [place] [address], [facility] [phone] documented in this encounter Visit Diagnoses Diagnosis Illness, unspecified documented in this encounter Care Teams Manager Private Relationship Specialty Start Date End Date Daysi Wetzel MD [address] [place] [address] PCP - General Family Medicine 12/24/18 12/11/22 Miguel Langley DO [address] [place] [address] PCP - General Internal Medicine 12/12/22 Chris Madrigal MD [address] [place] [address] Hematology and Oncology 03/21/20 Rand Elkins LMSW Outpatient Theatre Instructor Care Management 12/17/22 documented as of this encounter
--- OUTSIDE RECORDS SUMMARY | 2024-11-03 07:04 | XMS_ITS | Encounter Summary ---
Author Organization [facility] Address [address] [facility] [place] [address] Care Team Providers Care Behavioral Modification Assistant Name Role Phone Chris Madrigal MD Unavailable [phone] Miguel Langley DO Primary Care Provider [phone] Rand Elkins LMSW Unavailable [phone] Reason for Visit * Reason Onset Date Comments Question 12/18/2022 Follow-up 12/18/2022 Encounter Details Date Type Department Care Team (Late st Contact Info) Description 12/18/2022 Telephone [facility] - WAFER PRODUCTION LEAD WORKER [address] [facility] [address] [place] [address] Sulaiman Andrews MD [address] [facility] [address] [place] [address] Question; Follow-up Social History Tobacco Use Types [...] Recorded Patient Health Questionnaire-2 Score 0 12/17/2022 [facility] - Occupational [...] a long term (including now)? No 12/13/2022 Comments No Sex [...] and is taking 2) Please contact # [phone] documented in this encounter Plan of Treatment [...] on filedocumented in this encounter Care Teams Behavioral Modification Assistant Relationship Specialty Start Date End Date Miguel Langley DO [address] [place] [address] PCP - General Internal Medicine 12/12/22 Chris Madrigal MD Hematology and Oncology 03/21/20 Rand Elkins LMSW Outpatient Assembler Product Care Management 12/17/22 documented as of this encounter
--- OUTSIDE RECORDS SUMMARY | 2024-11-03 07:04 | XMS_ITS | Encounter Summary ---
Author Organization [facility] Address [address] [facility] [place] [address] Care Team Providers Care Propeller Engineer Name Role Phone Chris Madrigal MD Unavailable [phone] Miguel Langley DO Primary Care Provider [phone] Rand Elkins LMSW Unavailable [phone] Reason for Visit * Reason Onset Date Comments Question 12/27/2022 Returned Call 12/27/2022 Encounter Details Date Type Department Care Team (Late st Contact Info) Description 12/27/2022 Telephone [facility] - GENERAL SUPERVISOR [address] [facility] [address] [place] [address] Sulaiman Andrews MD [address] [facility] [address] [place] [address] Question; Returned Call Social History Tobacco Use [...] Recorded Patient Health Questionnaire-2 Score 0 12/17/2022 [facility]at [facility] - Occupational [...] in a usp (including now)? No 12/13/2022 Comments No Sex [...] 11:57 AM CDT Spoke with Cynthia from [facility] pathology department returning her call. She reports that all six sets of slides have already been reviewed by [facility]ology and they cannot send the slides to be reviewed by them again since Dr. Joanne Don is a part of [facility] Pathology. Told her we only had one report from [facility] of the 6 requested and she says she will fax the other five today. * Telephone Encounter - Sujey Hannah - 12/27/2022 9:30 AM CDT Cynthia form [facility] wanst to know Will slides be forwarded to the pathology dept ? (this can not happen) Please contact # [phone] documented in this encounter Plan of Treatment [...] on filedocumented in this encounter Care Teams Propeller Engineer Relationship Specialty Start Date End Date Miguel Langley DO [address] [place] [address] PCP - General Internal Medicine 12/12/22 Chris Madrigal MD Hematology and Oncology 03/21/20 Rand Elkins LMSW Outpatient Pocket And Pulley Machine Operator Care Management 12/17/22 documented as of this encounter
--- NOTE | 2024-11-03 07:24 | PM.GYNPNOP ---
HEADING MACHINE OPERATOR - A/P Assessment and plan (1) Dehydration: Code(s): E86.0 - Dehydration Status: Acute Plan Continue IV antibiotics fluids. Try clear liquids today. Repeat CBC in the a.m. Time Spent With Patient Time: Total time spent is greater than 50% in coordination of care (as documented) at patient's floor/unit and/or counseling patient: Time with patient: 15 - 25 minutes HEADING MACHINE OPERATOR- PN:Subj Post-Op Subjective Date/time seen: 11/03/24 07:24 Subjective: patient reports feeling better and pain is well controlled Review of Systems Review of Systems: All systems reviewed & are unremarkable except as noted in HPI and below Exam Const: General: cooperative, healthy appearing and comfortable Nutritional Appearance: overweight Orientation/consciousness: oriented to person, oriented to place and oriented to time HENMT: Head: normal to inspection Resp: Effort & Inspection: normal respiratory effort Cardio: Rate: regular rate Rhythm: regular rhythm Heart sounds: S1 normal heart sound present and S2 normal heart sound present GI: Inspection: normal to inspection and incision (Wounds are clean dry and intact) GI Palp: Yes abdominal tenderness (Tenderness is decreased) HEADING MACHINE OPERATOR - PN: Obj Data Vital Signs Vital Signs: Vital Signs - 24 hr 11/02/24 13:58 11/02/24 14:13 11/02/24 14:15 Temperature 97.6 F 97.7 F Pulse Rate 102 H 101 H 103 H Respiratory Rate 18 14 16 Blood Pressure 137/69 138/79 145/91 H Pulse Oximetry 100 100 100 Oxygen Delivery Autopap 11/02/24 14:16 11/02/24 14:40 11/02/24 14:48 Temperature Pulse Rate 102 H 105 H 104 H Respiratory Rate 18 15 21 H Blood Pressure Pulse Oximetry 100 99 Oxygen Delivery 11/02/24 15:00 11/02/24 15:23 11/02/24 15:34 Temperature 98.7 F Pulse Rate 97 94 91 Respiratory Rate 14 17 16 Blood Pressure 123/73 Pulse Oximetry 97 98 99 Oxygen Delivery 11/02/24 16:04 11/02/24 16:14 11/02/24 16:15 Temperature Pulse Rate 91 88 90 Respiratory Rate 20 16 13 Blood Pressure 131/56 L Pulse Oximetry 100 100 100 Oxygen Delivery 11/02/24 16:16 11/02/24 16:30 11/02/24 16:31 Temperature Pulse Rate 91 89 92 Respiratory Rate 13 10 L 11 L Blood Pressure 131/56 L 131/81 Pulse Oximetry 100 99 100 Oxygen Delivery 11/02/24 16:48 11/02/24 17:57 11/02/24 19:43 Temperature 97.7 F Pulse Rate 91 78 98 Respiratory Rate 13 19 16 Blood Pressure 120/78 132/75 131/76 Pulse Oximetry 100 98 100 Oxygen Delivery 11/02/24 20:00 11/03/24 04:28 Temperature 98.2 F Pulse Rate 87 Respiratory Rate 16 Blood Pressure 122/68 Pulse Oximetry 98 Oxygen Delivery Autopap Intake/Output Intake/Output: Intake & Output 10/31/24 11/01/24 11/02/24 11/03/24 23:59 23:59 23:59 23:59 Intake Total 687.5 1000 Balance 687.5 1000 Meds/Results Medications: Active Medications Generic Name Dose Route Start Last Admin Trade Name Freq PRN Reason Stop Dose Admin Lactated Ringer's 1,000 mls @ 125 mls/hr 11/02/24 17:35 11/03/24 05:29 Lr - Lactated Ringers Iv IV CONT 125 mls/hr .Q8H MIGUEL Administration Ciprofloxacin/Dextrose 200 mls @ 200 mls/hr 11/03/24 06:00 11/03/24 05:59 Cipro 400 Mg/D5w 200 Ml IVPB 200 mls/hr Q12H MIGUEL Administration Metronidazole 500 mg in 100 mls @ 100 mls/hr 11/03/24 00:00 11/03/24 00:17 Flagyl 500 Mg/Iso Soln 100 Ml IVPB 100 mls/hr Q8H MIGUEL Administration Morphine Sulfate 2 mg 11/02/24 17:30 11/03/24 04:10 Morphine Sulfate (*Crx) 2 Mg/Ml Inj IV PUSH 2 mg Q2H PRN Administration Pain Rated 7-10 Ondansetron HCl 4 mg 11/02/24 17:30 Ondansetron Inj 4 Mg/2 Ml Vial IV PUSH Q4H PRN Nausea Radiology Results: ITS Impressions Abdomen/Pelvis CT 11/02/24 16:40 IMPRESSION: 1. Diffuse abnormal thickening of the colon more severe in the right colon, compatible with colitis, most likely infectious or inflammatory. 2: Status post cholecystectomy. Labs 11/03/24 04:30 11/03/24 04:30 Labs: Laboratory Results - last 24 hr 11/02/24 11/02/24 11/02/24 14:52 16:07 16:34 WBC 13.4 H RBC 4.03 L Hgb 11.1 L Hct 35.4 L MCV 87.8 MCH 27.5 MCHC 31.4 L RDW 14.4 Plt Count 96 L MPV Not Reportable Immature Gran % (Auto) 0.9 H Neut % (Auto) 69.2 Lymph % (Auto) 21.7 O'Brien % (Auto) 7.1 Eos % (Auto) 0.9 Baso % (Auto) 0.2 Lymph # (Auto) 2.91 O'Brien # (Auto) 1.0 H Eos # (Auto) 0.1 Baso # (Auto) 0.0 Abs Immat Gran (auto) 0.12 H Absolute Neuts (auto) 9.3 H Absolute Nucleated RBC 0.050 H Band Neutrophils % Not Reportable Nucleated RBC % 0.4 H Platelet Estimate Adequate % Immature Plt Fraction 31.5 H Hypochromasia Anisocytosis Microcytosis Schistocytes None seen Sodium 133 L Potassium 3.9 Chloride 101 Carbon Dioxide 23 Anion Gap 9 BUN 10 Creatinine 0.89 Estim Creat Clear Calc 71 Estimated GFR > 60 Glucose 104 Lactic Acid 1.2 Calcium 9.3 Total Bilirubin 1.1 AST 42 H ALT 38 H Alkaline Phosphatase 67 Total Protein 7.6 Albumin 4.5 Urine Color Yellow Urine Appearance Clear Urine pH 6.5 Ur Specific [place] 1.033 Urine Protein Negative Urine Glucose (UA) Negative Urine Ketones Trace H Ur Blood (Man) Negative Urine Nitrate Negative Urine Bilirubin Negative Urine Urobilinogen 0.2 Leukocyte Esterase Rfl Negative POC Urine HCG, Qual Negative 11/03/24 04:30 WBC 12.6 H RBC 3.41 L Hgb 9.5 L Hct 29.9 L MCV 87.7 MCH 27.9 MCHC 31.8 L RDW 14.6 H Plt Count 83 L MPV TNP Immature Gran % (Auto) 0.8 H Neut % (Auto) 70.0 Lymph % (Auto) 20.8 O'Brien % (Auto) 7.3 Eos % (Auto) 0.9 Baso % (Auto) 0.2 Lymph # (Auto) 2.63 O'Brien # (Auto) 0.9 H Eos # (Auto) 0.1 Baso # (Auto) 0.0 Abs Immat Gran (auto) 0.10 H Absolute Neuts (auto) 8.8 H Absolute Nucleated RBC 0.020 H Band Neutrophils % Not Reportable Nucleated RBC % 0.2 Platelet Estimate Decreased % Immature Plt Fraction 31.2 H Hypochromasia 1+ Anisocytosis 1+ Microcytosis 1+ Schistocytes None seen Sodium 132 L Potassium 3.7 Chloride 102 Carbon Dioxide 24 Anion Gap 6 BUN 8 Creatinine 0.76 Estim Creat Clear Calc 83 Estimated GFR > 60 Glucose 109 Lactic Acid Calcium 8.4 Total Bilirubin AST ALT Alkaline Phosphatase Total Protein Albumin Urine Color Urine Appearance Urine pH Ur Specific [place] Urine Protein Urine Glucose (UA) Urine Ketones Ur Blood (Man) Urine Nitrate Urine Bilirubin Urine Urobilinogen Leukocyte Esterase Rfl POC Urine HCG, Qual
[2024-11-03 09:52] VITALS: O2SAT 96
[2024-11-03 14:00] VITALS: BP 120/65; PULSE 94; RESP 17; TEMP 36.4; O2SAT 98
[2024-11-03] MEDS: FAMOTIDINE 20 MG/2 ML VIAL IV PUSH (19:00)
[2024-11-03 21:00] VITALS: BP 136/62; PULSE 92; RESP 18; TEMP 36.7; O2SAT 97
[2024-11-04] MEDS: LACTATED RINGERS 1,000 ML 125 ML IV CONT ×2 (04:56→15:37)
[2024-11-04] MEDS: MORPHINE SULFATE (*CRX) 2 MG/ML INJ IV PUSH ×5 (05:02→20:22)
[2024-11-04 05:20] VITALS: BP 120/63; PULSE 86; RESP 18; TEMP 36.8; O2SAT 98
[2024-11-04] MEDS: CIPROFLOXACIN 400 MG/D5W 200ML 200 ML 200 MG IVPB ×2 (05:26→17:01)
[2024-11-04 05:30] LABS: Hematocrit 31.4 % (37.0-47.0); Hemoglobin 9.7 g/dL (12.0-15.0); Immature Granulocyte Percent A 1.5 % (0-0.5); Immature Platelet Fraction Pct 25.9 % (0.9-11.2); Lymphocytes Absolute Auto 2.84 K/mm3 (0.9-3.2); Mean Corpuscular HGB Conc 30.9 g/dl (32-36); Mean Corpuscular Hemoglobin 27.9 pg (26-34); Mean Corpuscular Volume 90.2 fl (80-100); Nucleated Red Blood Cells Absolute Auto 0.030 K/mm3 (0.0-0.012); Nucleated Red Blood Cells Perc 0.3 % (0.0-0.2); Platelet Count Result 98 k/mm3 (150-375); Red Blood Count 3.48 M/mm3 (4.2-5.4); White Blood Count 11.4 K/mm3 (4.5-10.0)
--- NOTE | 2024-11-04 06:26 | P.PNOB_ITS ---
LEAD MASON TENDER - A/P Assessment and plan (1) Colitis: Code(s): K52.9 - Noninfective gastroenteritis and colitis, unspecified Status: Acute Plan White count is improved however she still complains of abdominal tenderness and decreased appetite. She has passed some watery stool. Will recheck CT scan and get hospitalist consult Time Spent With Patient Time: Total time spent is greater than 50% in coordination of care (as documented) at patient's floor/unit and/or counseling patient: Time with patient: 15 - 25 minutes LEAD MASON TENDER- PN:Subj Post-Op Subjective Date/time seen: 11/04/24 06:26 Subjective: other (Patient reports not much improvement) Review of Systems 2 Review of Systems: All systems reviewed & are unremarkable except as noted in HPI and below Exam 2 Const: General: cooperative, healthy appearing and comfortable Nutritional Appearance: overweight Orientation/consciousness: oriented to person, oriented to place and oriented to time Resp: Effort & Inspection: normal respiratory effort Cardio: Rate: regular rate Rhythm: regular rhythm Heart sounds: S1 normal heart sound present and S2 normal heart sound present GI: Inspection: incision (Wounds are clean dry and intact) GI Palp: Yes abdominal tenderness Auscultation: Hypoactive bowel sounds present LEAD MASON TENDER - PN: Obj Data Vital Signs Vital Signs: Vital Signs - 24 hr 11/03/24 08:00 11/03/24 09:52 11/03/24 14:00 Temperature 97.6 F Pulse Rate 94 Respiratory Rate 17 Blood Pressure 120/65 Pulse Oximetry 96 98 Oxygen Delivery Room Air Room Air 11/03/24 20:40 11/03/24 21:00 11/04/24 05:20 Temperature 98.1 F 98.3 F Pulse Rate 92 86 Respiratory Rate 18 18 Blood Pressure 136/62 120/63 Pulse Oximetry 97 98 Oxygen Delivery Room Air Intake/Output Intake/Output: Intake & Output 11/01/24 11/02/24 11/03/24 11/04/24 23:59 23:59 23:59 23:59 Intake Total 687.5 2955 1100 Balance 687.5 2955 1100 Meds/Results Medications: Active Medications Generic Name Dose Route Start Last Admin Trade Name Freq PRN Reason Stop Dose Admin Famotidine 20 mg 11/04/24 09:00 Famotidine 20 Mg/2 Ml Vial IV PUSH DAILY MIGUEL Lactated Ringer's 1,000 mls @ 125 mls/hr 11/02/24 17:35 11/04/24 04:56 Lr - Lactated Ringers Iv IV CONT 125 mls/hr .Q8H MIGUEL Administration Ciprofloxacin/Dextrose 200 mls @ 200 mls/hr 11/03/24 06:00 11/04/24 05:26 Cipro 400 Mg/D5w 200 Ml IVPB 200 mls/hr Q12H MIGUEL Administration Metronidazole 500 mg in 100 mls @ 100 mls/hr 11/03/24 00:00 11/04/24 01:00 Flagyl 500 Mg/Iso Soln 100 Ml IVPB Infused Q8H MIGUEL Infusion Morphine Sulfate 2 mg 11/02/24 17:30 11/04/24 05:02 Morphine Sulfate (*Crx) 2 Mg/Ml Inj IV PUSH 2 mg Q2H PRN Administration Pain Rated 7-10 Ondansetron HCl 4 mg 11/02/24 17:30 Ondansetron Inj 4 Mg/2 Ml Vial IV PUSH Q4H PRN Nausea Radiology Results: ITS Impressions Abdomen/Pelvis CT 11/02/24 16:40 IMPRESSION: 1. Diffuse abnormal thickening of the colon more severe in the right colon, compatible with colitis, most likely infectious or inflammatory. 2: Status post cholecystectomy. Labs 11/04/24 05:16 11/03/24 04:30 Labs: Laboratory Results - last 24 hr 11/04/24 05:16 WBC 11.4 H RBC 3.48 L Hgb 9.7 L Hct 31.4 L MCV 90.2 MCH 27.9 MCHC 30.9 L RDW 14.7 H Plt Count 98 L MPV 15.0 H Immature Gran % (Auto) 1.5 H Neut % (Auto) 64.2 Lymph % (Auto) 25.0 [facility] % (Auto) 6.9 Eos % (Auto) 2.1 Baso % (Auto) 0.3 Lymph # (Auto) 2.84 [facility] # (Auto) 0.8 H Eos # (Auto) 0.2 Baso # (Auto) 0.0 Abs Immat Gran (auto) 0.17 H Absolute Neuts (auto) 7.3 H Absolute Nucleated RBC 0.030 H Nucleated RBC % 0.3 H % Immature Plt Fraction 25.9 H
[2024-11-04] MEDS: ONDANSETRON INJ 4 MG/2 ML VIAL IV PUSH ×3 (06:59→17:01)
[2024-11-04] MEDS: metroNIDAZOLE 500 MG/ISO 100ML 500 MG/100 ML BAG 100 MG IVPB ×3 (07:37→15:26)
[2024-11-04] MEDS: FAMOTIDINE 20 MG/2 ML VIAL IV PUSH (08:29)
--- NOTE | 2024-11-04 13:13 | P.CONIM_ITS ---
Assessment and Plan Assessment and plan (1) Colitis: Code(s): K52.9 - Noninfective gastroenteritis and colitis, unspecified Status: Acute Assessment and Plan: With leukocytosis and fever Isolation for possible C diff Stool sample pending IV Flagyl and Cipro Patient may need GI consult if stool sample is negative and symptoms do not improve (2) Dehydration: Code(s): E86.0 - Dehydration Status: Acute Assessment and Plan: Continue IV fluids Diet as tolerate HPI Date of Consult Consult date: 11/04/24 Requesting Physician: [place] MD Primary Care Provider: Ijeoma Payne APRN Consult Narrative Reason for consult: colitis Narrative: Peggy Serrano is a 44 year old female post with his laparoscopic left salpingo-oophorectomy the done on 10/28/2024, presents back to the hospital on 11/02/2024 with a complains of increased left-sided lower abdominal pain, nausea, vomiting and diarrhea. Patient states that the complaint started about 24 hours after surgery, and have been going on for about a week. She states that she was not getting any better so she presented back to the hospital. The hospitalist team has been asked to consult for colitis. Patient was started on ciprofloxacin and Flagyl. Patient's lab work shows leukocytosis at 11.4, anemia at 9.7, CT abdomen pelvis show persistent wall thickening and hyperemia of the vasa recta along the ascending transverse colon consistent with colitis most likely either infectious or inflammatory in etiology. Stool sample pending. Review of Systems 2 Review of Systems: 12 systems were reviewed and are negativ e except for as per HPI. [facility] Past Medical History Medical History (Updated 11/02/24 @ 18:43 by [place] MD) Colitis Idiopathic thrombocytopenic purpura (ITP) Abdominal bloating Epigastric pain Chronic diarrhea Family history of colon cancer in father Bright red blood per rectum Gallbladder anomaly Migraine Numbness Snoring Abdominal pain Painful joint Allergies Arthritis UTI (urinary tract infection) due to Enterococcus Urinary frequency Diarrhea History of dental problems Ear pain Vision changes Dizziness Chronic headaches Weight gain SIERRA (obstructive sleep apnea) History of anesthesia problem Crush injury of right foot GERD (gastroesophageal reflux disease) IBS (irritable bowel syndrome) Depression Back pain UTI (urinary tract infection) Endometriosis Sleep apnea Sinus problem Wears glasses Anemia Anxiety Surgical History Surgical History Hx of laparoscopy x2 Hx of breast reduction, elective History of cholecystectomy History of hysterectomy Family History Family History Father Alcoholism Cancer Diabetes mellitus Mother Depression Sibling Cancer Other Dementia Social History Social History Smoking packs per day: 0.5 Smoking cigarettes per day: 10.0 Years smoked: 2 Smoking pack-years: 1.00 Smoking status: Never smoker Second hand tobacco smoke exposure: No Alcohol intake: current Drinks per week: 1 Alcohol use details: 4/MONTH Substance use: current Substance use type: marijuana Do You Feel Safe in your Home?: Yes Lack of Transportation: No Lack of Food: Never True Current Housing: I Have Housing Concerned About Future Housing: No Difficulty Paying Gas/Electric Bills: No Difficulty Paying for Meds: No Currently Unemployed: No Education: Grade School Difficulty w/ Childcare or Family Care: No Living arrangements: with family Occupation/Education: occupation Additional occupation/education comments: employed Gender identity (if verbalized by the patient): Female Sexual Orientation (if Verbalized by the Patient): Straight or Heterosexual Spiritual care concerns: No Agree to blood products: Yes Meds Home Medications and Allergies Home Medications ?Medication ?Instructions ?Recorded ?Confirmed ?Type alprazolam 1 mg tablet (Xanax) 1 mg PO BID PRN Anxiety 02/14/19 11/02/24 History multivitamin (Daily Multi-Vitamin 1 tablet PO DAILY 04/24/21 11/02/24 History tablet) estradiol 1 mg tablet 1 mg PO HS 04/28/23 11/02/24 History albuterol sulfate 90 mcg/actuation 2 puff inhalation Q4-6H PRN 01/06/24 11/02/24 Rx aerosol inhaler shortness of breath or wheezing 30 days #8.5 grams omeprazole 40 mg capsule,delayed See Rx Instructions .Route 05/31/24 11/02/24 Rx release .COMPLEX #90 caps fluticasone propionate 50 2 spray intranasal DAILY #48 grams 07/13/24 11/02/24 Rx mcg/actuation nasal spray,suspension cholestyramine (with sugar) 4 gram 4 g PO BID #368.76 grams 08/03/24 11/02/24 Rx oral powder (Questran) venlafaxine 37.5 mg 37.5 mg PO HS 09/28/24 11/02/24 History capsule,extended release 24 hr fluticasone propionate 50 2 spray intranasal DAILY #16 mL 10/11/24 11/02/24 Rx mcg/actuation nasal spray,suspension (Flonase Allergy Relief) pseudoephedrine HCl 120 mg 120 mg PO BID PRN nasal congestion 10/11/24 11/02/24 Rx tablet,extended release (Sudafed #30 tabs 12 Hour) celecoxib 100 mg capsule mg 10/20/24 History oxycodone-acetaminophen 5 mg-325 1 tablet PO Q6H PRN pain #20 tabs 10/28/24 11/02/24 Rx mg tablet (Endocet) Allergies Allergy/AdvReac Type Severity Reaction Status Date / Time cephalexin AdvReac Severe Other Verified 11/02/24 18:36 clarithromycin AdvReac Severe Swelling Verified 11/02/24 18:36 of face/nausea hydrocodone AdvReac Severe Throat Verified 11/02/24 18:36 swelling/facial swelling/vomiting Vital Signs Vital Signs - 24 hr 11/03/24 14:00 11/03/24 20:40 11/03/24 21:00 Temperature 97.6 F 98.1 F Pulse Rate 94 92 Respiratory Rate 17 18 Blood Pressure 120/65 136/62 Pulse Oximetry 98 97 Oxygen Delivery Room Air 11/04/24 05:20 Temperature 98.3 F Pulse Rate 86 Respiratory Rate 18 Blood Pressure 120/63 Pulse Oximetry 98 Oxygen Delivery Exam 2 Narrative: General: well appearing, appears stated age. HEENT: normocephalic, atraumatic. Mucous membranes moist. EOMI, PERRLA, bilateral sclera anicteric, no conjunctival injection. Neck supple without JVD, lymphadenopathy, or bruit. Respiratory: clear to ascultation bilaterally. No rales/rhonic/wheezes. Cardiovascular: Regular rate and rhythm, normal S1-S2 upon ascultation. No murmurs, rubs, or clicks. PMI is nondisplaced, capillary refill less than 3 second. Abdomen: Soft, round, no pulsatile masses, nondistended and nontender. No rebound, no guarding. No CVA tenderness, no hepatosplenomegaly. Bowel sounds present to all four quadrants. No high pitch or tinkling sounds, resonant to percussion. Extremities: No cyanosis, clubbing, or edema present. Pulses are palpable 2/2. Active ROM to all four extremities. Neuro: Alert and orientated x 4. PERRLA. Cranial nerves 2-12 intact without focal deficit. Skin: Warm, dry, and intact, without rash, erythema, or lesion. Psych: pleasant, cooperative, normal speech, normal affect, no hallucinations, no dysarthia Results Labs 11/04/24 05:16 11/03/24 04:30 Labs: Short CBC 11/04/24 Range/Units 05:16 WBC 11.4 H (4.5-10.0) K/mm3 Hgb 9.7 L (12.0-15.0) g/dL Hct 31.4 L (37.0-47.0) % Plt Count 98 L (150-375) k/mm3 Quality VTE Prophylaxis VTE prophylaxis: mechanical ordered Hospitalist [facility] Advance Care Plan I have confirmed that the patient's Advanced Care Plan is present, code status is documented, or surrogate decision maker is listed in patient medical record.: Yes Medication Reconciliation I have utilized all available resources to obtain, update and review the patients current medications (includes all prescriptions, OTC, herbals, cannabis, and nutritional supplements).: Yes
[2024-11-04 14:00] VITALS: BP 127/62; PULSE 87; RESP 16; TEMP 36.8; O2SAT 100
[2024-11-04 19:44] VITALS: BP 133/60; PULSE 84; RESP 17; TEMP 36.8; O2SAT 96
[2024-11-04] MEDS: VENLAFAXINE HCL XR 37.5 MG CAP PO (20:19)
[2024-11-04 20:20] VITALS: PULSE 84; RESP 17; O2SAT 96
[2024-11-05] MEDS: metroNIDAZOLE 500 MG/ISO 100ML 500 MG/100 ML BAG 100 MG IVPB (00:13)
[2024-11-05] MEDS: MORPHINE SULFATE (*CRX) 2 MG/ML INJ IV PUSH (00:13)
[2024-11-05] MEDS: LACTATED RINGERS 1,000 ML 125 ML IV CONT (01:42)
[2024-11-05 04:50] VITALS: BP 129/59; PULSE 79; RESP 16; TEMP 36.9; O2SAT 98
[2024-11-05] MEDS: CIPROFLOXACIN 400 MG/D5W 200ML 200 ML 200 MG IVPB (05:08)
[2024-11-05 05:10] LABS: Hematocrit 29.7 % (37.0-47.0); Hemoglobin 9.2 g/dL (12.0-15.0); Immature Granulocyte Percent A 1.9 % (0-0.5); Immature Platelet Fraction Pct 23.4 % (0.9-11.2); Lymphocytes Absolute Auto 2.61 K/mm3 (0.9-3.2); Mean Corpuscular HGB Conc 31.0 g/dl (32-36); Mean Corpuscular Hemoglobin 27.4 pg (26-34); Mean Corpuscular Volume 88.4 fl (80-100); Nucleated Red Blood Cells Absolute Auto 0.040 K/mm3 (0.0-0.012); Nucleated Red Blood Cells Perc 0.4 % (0.0-0.2); Platelet Count Result 118 k/mm3 (150-375); Red Blood Count 3.36 M/mm3 (4.2-5.4); White Blood Count 9.3 K/mm3 (4.5-10.0)
[2024-11-05 05:21] LABS: Anion Gap 6 mmol/L (4-12); Blood Urea Nitrogen 4 mg/dL (7-17); Calcium 8.6 mg/dL (8.4-10.2); Carbon Dioxide 26 mmol/L (22-30); Chloride 105 mmol/L (98-107); Estimated CRCL calculation 82 ml/min; Estimated Glomerular Filt Rate > 60; Glucose 108 mg/dL (65-110); Potassium 3.6 mmol/L (3.4-5.0); Sodium 137 mmol/L (137-145)
--- NOTE | 2024-11-05 06:57 | P.PNIM_ITS ---
Progress Note: A&P Assessment and Plan (1) Colitis: Code(s): K52.9 - Noninfective gastroenteritis and colitis, unspecified Status: Acute Assessment and Plan: CT abdomen/pelvis 11/02: Diffuse abnormal thickening of the colon more severe in the right colon, compatible with colitis, most likely infectious or inflammatory. CT abdomen/pelvis 11/04: Persistent wall thickening and hyperemia of the vasa recta along the ascending transverse colon consistent with colitis most likely either infectious or inflammatory in etiology. Small amount of hemoperitoneum in the pelvis and bilateral paracolic gutters likely related to recent surgery with lysis of adhesions. Gentle IV fluid resuscitation Antibiotics: Flagyl and Cipro 11/03, transitioned to orals on 11/05 Stool culture pending C dif negative Diet: Regular Monitor vital signs, I&Os, track stool output, watch for bloody stools, neuro status and patient is a fall risk Monitor serum electrolytes and CBC Continues to have several episodes of diarrhea today. Denies nausea/vomiting and tolerating a diet. Time Spent With Patient Time with patient: 25 - 35 minutes Subjective Date/time seen: 11/05/24 06:57 Interval history: 44 year old female status post with his laparoscopic salpingo-oophorectomy hysterectomy on 10/28/2024, presents back to the hospital on 11/02/2024 with a complains diarrhea and dysphagia. Continues to have several episodes of diarrhea today. Denies any associated nausea/vomiting or abdominal and is tolerating a diet. She has no other complaints denying chest pain, palpitations, and shortness of breath. Review of Systems Review of Systems: All systems reviewed & are unremarkable except as noted in HPI and below Exam Narrative: AF HR 79 RR 16 Spo2 98 BP 129/59 General: female in no acute respiratory distress who is nontoxic appearing, sitting up in bed. HEENT: Normocephalic. Atraumatic. Extraocular movement intact. Sclera clear and anicteric. No facial asymmetry. Chest: Lungs are clear to auscultation bilaterally. No wheezes or crackles. CV: Heart was regular rate and rhythm. Abd: Abdomen was soft. Nontender. Nondistended. Positive bowel sounds. Well healing laparoscopic wounds with bruising surrounding each but no erythema, drainage, warmth. Ext: No clubbing, cyanosis, or edema. DP pulses bilaterally. Neuro: Patient is alert and oriented x4. Speech is clear. Objective Data Vital Signs Vital Signs: Vital Signs - 24 hr 11/04/24 14:00 11/04/24 19:44 11/04/24 20:20 Temperature 98.3 F 98.2 F Pulse Rate 87 84 84 Respiratory Rate 16 17 17 Blood Pressure 127/62 133/60 Pulse Oximetry 100 96 96 Oxygen Delivery Room Air 11/05/24 04:50 Temperature 98.4 F Pulse Rate 79 Respiratory Rate 16 Blood Pressure 129/59 L Pulse Oximetry 98 Oxygen Delivery Intake/Output Intake/Output: Intake & Output 11/02/24 11/03/24 11/04/24 11/05/24 23:59 23:59 23:59 23:59 Intake Total 687.5 2955 3060 1120 Balance 687.5 2955 3060 1120 Meds/Results Medications: Active Medications Generic Name Dose Route Start Last Admin Trade Name Freq PRN Reason Stop Dose Admin Acetaminophen 650 mg 11/04/24 13:23 Acetaminophen 325 Mg Tablet PO Q4H PRN Mild Pain (1-3) or Fever Hydrocodone Bitart/Acetaminophen 1 tab 11/04/24 13:23 Hydrocodone/Acetaminophen (*Crx) 5-325 Mg Tablet PO Q4H PRN Moderate Pain (4-6) Albuterol 2 puff 11/04/24 13:22 Albuterol Sulfate (*Sp) Aerosol 1 Puff INHALATION Q4-6H PRN shortness of breath or wheezing Alprazolam 1 mg 11/04/24 13:22 Alprazolam (*Crx) 0.5 Mg Tablet PO BID PRN Anxiety Estradiol 1 mg 11/04/24 21:00 11/04/24 21:41 Estradiol 1 Mg Tablet PO 1 mg HS MIGUEL Administration Famotidine 20 mg 11/04/24 09:00 11/04/24 08:29 Famotidine 20 Mg/2 Ml Vial IV PUSH 20 mg DAILY MIGUEL Administration Lactated Ringer's 1,000 mls @ 125 mls/hr 11/02/24 17:35 11/05/24 01:42 Lr - Lactated Ringers Iv IV CONT 125 mls/hr .Q8H MIGUEL Administration Ciprofloxacin/Dextrose 200 mls @ 200 mls/hr 11/03/24 06:00 11/05/24 05:08 Cipro 400 Mg/D5w 200 Ml IVPB 200 mls/hr Q12H MIGUEL Administration Metronidazole 500 mg in 100 mls @ 100 mls/hr 11/03/24 00:00 11/05/24 00:13 Flagyl 500 Mg/Iso Soln 100 Ml IVPB 100 mls/hr Q8H MIGUEL Administration Morphine Sulfate 2 mg 11/02/24 17:30 11/05/24 00:13 Morphine Sulfate (*Crx) 2 Mg/Ml Inj IV PUSH 2 mg Q2H PRN Administration Pain Rated 7-10 Ondansetron HCl 4 mg 11/02/24 17:30 11/04/24 17:01 Ondansetron Inj 4 Mg/2 Ml Vial IV PUSH 4 mg Q4H PRN Administration Nausea Venlafaxine HCl 37.5 mg 11/04/24 21:00 11/04/24 20:19 Venlafaxine Hcl Xr 37.5 Mg Cap PO 37.5 mg HS MIGUEL Administration Radiology Results: ITS Impressions Abdomen/Pelvis CT 11/04/24 14:09 IMPRESSION: 1. Persistent wall thickening and hyperemia of the vasa recta along the ascending transverse colon consistent with colitis most likely either infectious or inflammatory in etiology. 2. Small amount of hemoperitoneum in the pelvis and bilateral paracolic gutters likely related to recent surgery with lysis of adhesions. Labs Labs: Laboratory Results - last 24 hr 11/05/24 04:45 WBC 9.3 RBC 3.36 L Hgb 9.2 L Hct 29.7 L MCV 88.4 MCH 27.4 MCHC 31.0 L RDW 14.5 Plt Count 118 L MPV 13.9 H Immature Gran % (Auto) 1.9 H Neut % (Auto) 60.4 Lymph % (Auto) 28.1 [place] % (Auto) 6.8 Eos % (Auto) 2.5 Baso % (Auto) 0.3 Lymph # (Auto) 2.61 [place] # (Auto) 0.6 Eos # (Auto) 0.2 Baso # (Auto) 0.0 Abs Immat Gran (auto) 0.18 H Absolute Neuts (auto) 5.6 Absolute Nucleated RBC 0.040 H Nucleated RBC % 0.4 H % Immature Plt Fraction 23.4 H Sodium 137 Potassium 3.6 Chloride 105 Carbon Dioxide 26 Anion Gap 6 BUN 4 L Creatinine 0.77 Estim Creat Clear Calc 82 Estimated GFR > 60 Glucose 108 Calcium 8.6 Quality VTE Prophylaxis VTE prophylaxis: mechanical ordered
--- NOTE | 2024-11-05 07:11 | PM.GYNPNOP ---
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 and plan (1) Colitis: Code(s): K52.9 - Noninfective gastroenteritis and colitis, unspecified Status: Acute (2) Dehydration: Code(s): E86.0 - Dehydration Status: Acute Plan await results of C diff testing continue antibiotics this patient is improving with normal white count Time Spent With Patient Time: Total time spent is greater than 50% in coordination of care (as documented) at patient's floor/unit and/or counseling patient: Time with patient: 15 - 25 minutes [employer]ING BENCH WORKER- PN:Tammi Post-Op Subjective Date/time seen: 11/05/24 07:11 Interval history: Patient seems to be turned she was able to eat pass gas. White count is normal this morning she is feeling markedly better. Appreciate hospitalist suggestions and C diff toxin results Review of Systems Review of Systems: All systems reviewed & are unremarkable except as noted in HPI and below Exam Const: General: cooperative, healthy appearing and comfortable Nutritional Appearance: overweight Orientation/consciousness: oriented to person, oriented to place and oriented to time Resp: Effort & Inspection: normal respiratory effort Cardio: Rate: regular rate Rhythm: regular rhythm Heart sounds: S1 normal heart sound present and S2 normal heart sound present GI: Inspection: normal to inspection and incision ( wounds remain clean and dry) GI Palp: Yes abdominal tenderness ( markedly less tenderness) B[employer]ING BENCH WORKER - PN: Obj Data Vital Signs Vital Signs: Vital Signs - 24 hr 11/04/24 14:00 11/04/24 19:44 11/04/24 20:20 Temperature 98.3 F 98.2 F Pulse Rate 87 84 84 Respiratory Rate 16 17 17 Blood Pressure 127/62 133/60 Pulse Oximetry 100 96 96 Oxygen Delivery Room Air 11/05/24 04:50 Temperature 98.4 F Pulse Rate 79 Respiratory Rate 16 Blood Pressure 129/59 L Pulse Oximetry 98 Oxygen Delivery Intake/Output Intake/Output: Intake & Output 11/02/24 11/03/24 11/04/24 11/05/24 23:59 23:59 23:59 23:59 Intake Total 687.5 2955 3060 1120 Balance 687.5 2955 3060 1120 Meds/Results Medications: Active Medications Generic Name Dose Route Start Last Admin Trade Name Freq PRN Reason Stop Dose Admin Acetaminophen 650 mg 11/04/24 13:23 Acetaminophen 325 Mg Tablet PO Q4H PRN Mild Pain (1-3) or Fever Hydrocodone Bitart/Acetaminophen 1 tab 11/04/24 13:23 Hydrocodone/Acetaminophen (*Crx) 5-325 Mg Tablet PO Q4H PRN Moderate Pain (4-6) Albuterol 2 puff 11/04/24 13:22 Albuterol Sulfate (*Sp) Aerosol 1 Puff INHALATION Q4-6H PRN shortness of breath or wheezing Alprazolam 1 mg 11/04/24 13:22 Alprazolam (*Crx) 0.5 Mg Tablet PO BID PRN Anxiety Estradiol 1 mg 11/04/24 21:00 11/04/24 21:41 Estradiol 1 Mg Tablet PO 1 mg HS MIGUEL Administration Famotidine 20 mg 11/04/24 09:00 11/04/24 08:29 Famotidine 20 Mg/2 Ml Vial IV PUSH 20 mg DAILY MIGUEL Administration Lactated Ringer's 1,000 mls @ 100 mls/hr 11/02/24 17:35 11/05/24 01:42 Lr - Lactated Ringers Iv IV CONT 125 mls/hr .Q10H MIGUEL Administration Ciprofloxacin/Dextrose 200 mls @ 200 mls/hr 11/03/24 06:00 11/05/24 05:08 Cipro 400 Mg/D5w 200 Ml IVPB 200 mls/hr Q12H MIGUEL Administration Metronidazole 500 mg in 100 mls @ 100 mls/hr 11/03/24 00:00 11/05/24 00:13 Flagyl 500 Mg/Iso Soln 100 Ml IVPB 100 mls/hr Q8H MIGUEL Administration Morphine Sulfate 2 mg 11/02/24 17:30 11/05/24 00:13 Morphine Sulfate (*Crx) 2 Mg/Ml Inj IV PUSH 2 mg Q2H PRN Administration Pain Rated 7-10 Ondansetron HCl 4 mg 11/02/24 17:30 11/04/24 17:01 Ondansetron Inj 4 Mg/2 Ml Vial IV PUSH 4 mg Q4H PRN Administration Nausea Venlafaxine HCl 37.5 mg 11/04/24 21:00 11/04/24 20:19 Venlafaxine Hcl Xr 37.5 Mg Cap PO 37.5 mg HS MIGUEL Administration Radiology Results: ITS Impressions Abdomen/Pelvis CT 11/04/24 14:09 IMPRESSION: 1. Persistent wall thickening and hyperemia of the vasa recta along the ascending transverse colon consistent with colitis most likely either infectious or inflammatory in etiology. 2. Small amount of hemoperitoneum in the pelvis and bilateral paracolic gutters likely related to recent surgery with lysis of adhesions. Labs 11/05/24 04:45 11/05/24 04:45 Labs: Laboratory Results - last 24 hr 11/05/24 04:45 WBC 9.3 RBC 3.36 L Hgb 9.2 L Hct 29.7 L MCV 88.4 MCH 27.4 MCHC 31.0 L RDW 14.5 Plt Count 118 L MPV 13.9 H Immature Gran % (Auto) 1.9 H Neut % (Auto) 60.4 Lymph % (Auto) 28.1 [place] % (Auto) 6.8 Eos % (Auto) 2.5 Baso % (Auto) 0.3 Lymph # (Auto) 2.61 [place] # (Auto) 0.6 Eos # (Auto) 0.2 Baso # (Auto) 0.0 Abs Immat Gran (auto) 0.18 H Absolute Neuts (auto) 5.6 Absolute Nucleated RBC 0.040 H Nucleated RBC % 0.4 H % Immature Plt Fraction 23.4 H Sodium 137 Potassium 3.6 Chloride 105 Carbon Dioxide 26 Anion Gap 6 BUN 4 L Creatinine 0.77 Estim Creat Clear Calc 82 Estimated GFR > 60 Glucose 108 Calcium 8.6
[2024-11-05] MEDS: FAMOTIDINE 20 MG/2 ML VIAL IV PUSH (08:58)
[2024-11-05] MEDS: HYDROcodone/acetaminophen (*CRX) 5-325 MG TABLET 1 TAB PO ×3 (08:59→20:15)
[2024-11-05 11:50] LABS: Toxigenic C. Diff NEGATIVE (NEGATIVE)
[2024-11-05 14:00] VITALS: BP 108/50; PULSE 77; RESP 16; TEMP 36.3; O2SAT 100
[2024-11-05] MEDS: CIPROFLOXACIN 500 MG TAB PO (18:11)
[2024-11-05 20:10] VITALS: PULSE 82; RESP 16; O2SAT 98
[2024-11-05] MEDS: VENLAFAXINE HCL XR 37.5 MG CAP PO (20:16)
[2024-11-05] MEDS: FAMOTIDINE 20 MG TABLET PO (20:16)
[2024-11-05 21:19] VITALS: BP 125/75; PULSE 82; RESP 16; TEMP 36.8; O2SAT 98
[2024-11-05 21:51] VITALS: O2SAT 98
[2024-11-06 04:44] VITALS: BP 123/58; PULSE 73; RESP 16; TEMP 36.5; O2SAT 99
[2024-11-06 05:18] LABS: Hematocrit 32.1 % (37.0-47.0); Hemoglobin 9.8 g/dL (12.0-15.0); Immature Platelet Fraction Pct 23.2 % (0.9-11.2); Mean Corpuscular HGB Conc 30.5 g/dl (32-36); Mean Corpuscular Hemoglobin 27.6 pg (26-34); Mean Corpuscular Volume 90.4 fl (80-100); Platelet Count Result 129 k/mm3 (150-375); Red Blood Count 3.55 M/mm3 (4.2-5.4); White Blood Count 9.1 K/mm3 (4.5-10.0)
[2024-11-06 05:23] LABS: Alanine Aminotransferase 22 U/L (6-35); Albumin Level 3.9 g/dL (3.5-5.1); Alkaline Phosphatase 50 U/L (38-126); Anion Gap 7 mmol/L (4-12); Aspartate Amino Transferase 37 U/L (14-36); Bilirubin,Total 1.1 mg/dL (0.2-1.3); Blood Urea Nitrogen 4 mg/dL (7-17); Calcium 8.7 mg/dL (8.4-10.2); Carbon Dioxide 24 mmol/L (22-30); Chloride 105 mmol/L (98-107); Estimated CRCL calculation 85 ml/min; Estimated Glomerular Filt Rate > 60; Glucose 118 mg/dL (65-110); Potassium 3.5 mmol/L (3.4-5.0); Sodium 136 mmol/L (137-145); Total Protein 6.6 g/dL (6.3-8.2)
--- NOTE | 2024-11-06 06:47 | P.PNOB_ITS ---
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 Plan to dc today per hospitalist on po antibiotics. Time Spent With Patient Time: Total time spent is greater than 50% in coordination of care (as documented) at patient's floor/unit and/or counseling patient: Time with patient: less than 15 minutes FURNITURE BUILDER- PN:Subj Post-Op Subjective Date/time seen: 11/06/24 06:47 Interval history: Patient feeling better this am. Minimal pain. Tolerating some po intake. Exam 2 Const: General: comfortable and no acute distress Resp: Effort & Inspection: normal respiratory effort GI: Inspection: abdominal wall ecchymosis GI Palp: No abdominal tenderness, Yes Soft to palpation and No Guarding due to palpation present (GI) FURNITURE BUILDER - PN: Obj Data Vital Signs Vital Signs: Vital Signs - 24 hr 11/05/24 14:00 11/05/24 20:10 11/05/24 21:19 Temperature 97.3 F L 98.3 F Pulse Rate 77 82 82 Respiratory Rate 16 16 16 Blood Pressure 108/50 L 125/75 Pulse Oximetry 100 98 98 Oxygen Delivery Room Air 11/05/24 21:51 11/06/24 04:44 Temperature 97.7 F Pulse Rate 73 Respiratory Rate 16 Blood Pressure 123/58 L Pulse Oximetry 98 99 Oxygen Delivery Room Air Intake/Output Intake/Output: Intake & Output 11/03/24 11/04/24 11/05/24 11/06/24 23:59 23:59 23:59 23:59 Intake Total 2955 3060 1600 600 Balance 2955 3060 1600 600 Meds/Results Medications: Active Medications Generic Name Dose Route Start Last Admin Trade Name Freq PRN Reason Stop Dose Admin Acetaminophen 650 mg 11/04/24 13:23 Acetaminophen 325 Mg Tablet PO Q4H PRN Mild Pain (1-3) or Fever Hydrocodone Bitart/Acetaminophen 1 tab 11/04/24 13:23 11/05/24 20:15 Hydrocodone/Acetaminophen (*Crx) 5-325 Mg Tablet PO 1 tab Q4H PRN Administration Moderate Pain (4-6) Albuterol 2 puff 11/04/24 13:22 Albuterol Sulfate (*Sp) Aerosol 1 Puff INHALATION Q4-6H PRN shortness of breath or wheezing Alprazolam 1 mg 11/04/24 13:22 Alprazolam (*Crx) 0.5 Mg Tablet PO BID PRN Anxiety Ciprofloxacin 500 mg 11/05/24 19:00 11/05/24 18:11 Ciprofloxacin 500 Mg Tab PO 500 mg Q12HR MIGUEL Administration Estradiol 1 mg 11/04/24 21:00 11/05/24 20:16 Estradiol 1 Mg Tablet PO 1 mg HS MIGUEL Administration Famotidine 20 mg 11/05/24 21:00 11/05/24 20:16 Famotidine 20 Mg Tablet PO 20 mg Q12HR MIGUEL Administration Metronidazole 500 mg 11/05/24 09:00 11/06/24 05:53 Metronidazole 500 Mg Tablet PO 500 mg Q8HR MIGUEL Administration Morphine Sulfate 2 mg 11/02/24 17:30 11/05/24 00:13 Morphine Sulfate (*Crx) 2 Mg/Ml Inj IV PUSH 2 mg Q2H PRN Administration Pain Rated 7-10 Ondansetron HCl 4 mg 11/02/24 17:30 11/04/24 17:01 Ondansetron Inj 4 Mg/2 Ml Vial IV PUSH 4 mg Q4H PRN Administration Nausea Venlafaxine HCl 37.5 mg 11/04/24 21:00 11/05/24 20:16 Venlafaxine Hcl Xr 37.5 Mg Cap PO 37.5 mg HS MIGUEL Administration Radiology Results: ITS Impressions Abdomen/Pelvis CT 11/04/24 14:09 IMPRESSION: 1. Persistent wall thickening and hyperemia of the vasa recta along the ascending transverse colon consistent with colitis most likely either infectious or inflammatory in etiology. 2. Small amount of hemoperitoneum in the pelvis and bilateral paracolic gutters likely related to recent surgery with lysis of adhesions. Labs 11/06/24 04:37 11/06/24 04:37 Labs: Laboratory Results - last 24 hr 11/05/24 11/06/24 10:11 04:37 WBC 9.1 RBC 3.55 L Hgb 9.8 L Hct 32.1 L MCV 90.4 MCH 27.6 MCHC 30.5 L RDW 14.6 H Plt Count 129 L MPV 14.5 H % Immature Plt Fraction 23.2 H Sodium 136 L Potassium 3.5 Chloride 105 Carbon Dioxide 24 Anion Gap 7 BUN 4 L Creatinine 0.74 Estim Creat Clear Calc 85 Estimated GFR > 60 Glucose 118 H Calcium 8.7 Total Bilirubin 1.1 AST 37 H ALT 22 Alkaline Phosphatase 50 Total Protein 6.6 Albumin 3.9 C. difficile (PCR) Negative
--- NOTE | 2024-11-06 07:17 | P.PNIM_ITS ---
Progress Note: A&P Assessment and Plan (1) Colitis: Code(s): K52.9 - Noninfective gastroenteritis and colitis, unspecified Status: Acute Assessment and Plan: CT abdomen/pelvis 11/02: Diffuse abnormal thickening of the colon more severe in the right colon, compatible with colitis, most likely infectious or inflammatory. CT abdomen/pelvis 11/04: Persistent wall thickening and hyperemia of the vasa recta along the ascending transverse colon consistent with colitis most likely either infectious or inflammatory in etiology. Small amount of hemoperitoneum in the pelvis and bilateral paracolic gutters likely related to recent surgery with lysis of adhesions. Gentle IV fluid resuscitation Antibiotics: Flagyl and Cipro 11/03, transitioned to orals on 11/05. Stool culture pending C dif negative Diet: Regular Monitor vital signs, I&Os, track stool output, watch for bloody stools, neuro status and patient is a fall risk Monitor serum electrolytes and CBC Patient denies nausea/vomiting and abdominal pain. Tolerating diet. One episode of loose stool this am. Discussed staying adequately hydrated upon discharge. Recommend discharging on current regimen of cipro and flagyl for a total of 5 days. Antibiotics sent to patients pharmacy. Time Spent With Patient Time with patient: 15 - 25 minutes Subjective Date/time seen: 11/06/24 07:17 Interval history: 44 year old female status post with his laparoscopic salpingo-oophorectomy hysterectomy on 10/28/2024, presents back to the hospital on 11/02/2024 with a complains diarrhea and dysphagia. Patient is pleasant sitting up comfortably in bed eating breakfast. She states that she is feeling much better. She is tolerating her diet denying nausea/vomiting and abdominal pain. She did have 1 small episode of loose stools this morning. She has no other complaints denying chest pain, shortness a breath, palpitations. Patient states she feels ready for discharge at this. Discussed with patient that she needs to stay adequately hydrated especially while having diarrhea. She states understanding. Review of Systems Review of Systems: All systems reviewed & are unremarkable except as noted in HPI and below Exam Narrative: AF HR 73 RR 16 SpO2 99 BP 123/58 General: female in no acute respiratory distress who is nontoxic appearing, sitting up in bed eating breakfast. HEENT: Normocephalic. Atraumatic. Extraocular movement intact. Sclera clear and anicteric. No facial asymmetry. Chest: Lungs are clear to auscultation bilaterally. No wheezes or crackles. CV: Heart was regular rate and rhythm. Abd: Abdomen was soft. Nontender. Nondistended. Positive bowel sounds. Well healing laparoscopic wounds with bruising surrounding each but no erythema, drainage, warmth. Ext: No clubbing, cyanosis, or edema. DP pulses bilaterally. Neuro: Patient is alert and oriented x4. Speech is clear. Objective Data Vital Signs Vital Signs: Vital Signs - 24 hr 11/05/24 14:00 11/05/24 20:10 11/05/24 21:19 Temperature 97.3 F L 98.3 F Pulse Rate 77 82 82 Respiratory Rate 16 16 16 Blood Pressure 108/50 L 125/75 Pulse Oximetry 100 98 98 Oxygen Delivery Room Air 11/05/24 21:51 11/06/24 04:44 Temperature 97.7 F Pulse Rate 73 Respiratory Rate 16 Blood Pressure 123/58 L Pulse Oximetry 98 99 Oxygen Delivery Room Air Intake/Output Intake/Output: Intake & Output 11/03/24 11/04/24 11/05/24 11/06/24 23:59 23:59 23:59 23:59 Intake Total 2955 3060 1600 600 Balance 2955 3060 1600 600 Meds/Results Medications: Active Medications Generic Name Dose Route Start Last Admin Trade Name Freq PRN Reason Stop Dose Admin Acetaminophen 650 mg 11/04/24 13:23 Acetaminophen 325 Mg Tablet PO Q4H PRN Mild Pain (1-3) or Fever Hydrocodone Bitart/Acetaminophen 1 tab 11/04/24 13:23 11/05/24 20:15 Hydrocodone/Acetaminophen (*Crx) 5-325 Mg Tablet PO 1 tab Q4H PRN Administration Moderate Pain (4-6) Albuterol 2 puff 11/04/24 13:22 Albuterol Sulfate (*Sp) Aerosol 1 Puff INHALATION Q4-6H PRN shortness of breath or wheezing Alprazolam 1 mg 11/04/24 13:22 Alprazolam (*Crx) 0.5 Mg Tablet PO BID PRN Anxiety Ciprofloxacin 500 mg 11/05/24 19:00 11/05/24 18:11 Ciprofloxacin 500 Mg Tab PO 500 mg Q12HR MIGUEL Administration Estradiol 1 mg 11/04/24 21:00 11/05/24 20:16 Estradiol 1 Mg Tablet PO 1 mg HS MIGUEL Administration Famotidine 20 mg 11/05/24 21:00 11/05/24 20:16 Famotidine 20 Mg Tablet PO 20 mg Q12HR MIGUEL Administration Metronidazole 500 mg 11/05/24 09:00 11/06/24 05:53 Metronidazole 500 Mg Tablet PO 500 mg Q8HR MIGUEL Administration Morphine Sulfate 2 mg 11/02/24 17:30 11/05/24 00:13 Morphine Sulfate (*Crx) 2 Mg/Ml Inj IV PUSH 2 mg Q2H PRN Administration Pain Rated 7-10 Ondansetron HCl 4 mg 11/02/24 17:30 11/04/24 17:01 Ondansetron Inj 4 Mg/2 Ml Vial IV PUSH 4 mg Q4H PRN Administration Nausea Venlafaxine HCl 37.5 mg 11/04/24 21:00 11/05/24 20:16 Venlafaxine Hcl Xr 37.5 Mg Cap PO 37.5 mg HS MIGUEL Administration Radiology Results: ITS Impressions Abdomen/Pelvis CT 11/04/24 14:09 IMPRESSION: 1. Persistent wall thickening and hyperemia of the vasa recta along the ascending transverse colon consistent with colitis most likely either infectious or inflammatory in etiology. 2. Small amount of hemoperitoneum in the pelvis and bilateral paracolic gutters likely related to recent surgery with lysis of adhesions. Labs Labs: Laboratory Results - last 24 hr 11/05/24 11/06/24 10:11 04:37 WBC 9.1 RBC 3.55 L Hgb 9.8 L Hct 32.1 L MCV 90.4 MCH 27.6 MCHC 30.5 L RDW 14.6 H Plt Count 129 L MPV 14.5 H % Immature Plt Fraction 23.2 H Sodium 136 L Potassium 3.5 Chloride 105 Carbon Dioxide 24 Anion Gap 7 BUN 4 L Creatinine 0.74 Estim Creat Clear Calc 85 Estimated GFR > 60 Glucose 118 H Calcium 8.7 Total Bilirubin 1.1 AST 37 H ALT 22 Alkaline Phosphatase 50 Total Protein 6.6 Albumin 3.9 C. difficile (PCR) Negative Quality VTE Prophylaxis VTE prophylaxis: mechanical ordered
[2024-11-06] MEDS: HYDROcodone/acetaminophen (*CRX) 5-325 MG TABLET 1 TAB PO (08:57)
[2024-11-06] MEDS: FAMOTIDINE 20 MG TABLET PO (08:57)
[2024-11-06] MEDS: CIPROFLOXACIN 500 MG TAB PO (08:57)
--- NOTE | 2024-11-11 16:28 | P.DS_ITS ---
DS: Admitting Diagnosis Discharge Date 11/06/24 Admitting Diagnosis Colitis DS: Discharge Diagnosis Discharge Diagnosis (1) Colitis: Code(s): K52.9 - Noninfective gastroenteritis and colitis, unspecified Status: Acute DS: Summary Hospital Course Reason for hospitalization: Patient was admitted postoperatively with pelvic pain she had undergone laparoscopy with lysis of adhesions and colon inflammation was noted at the time. She had worsened over the weekend and was admitted with an elevated white count and suspected colitis Hospital Course: Patient received 2 days of IV antibiotics and markedly improved. She was eating regular diet, passing gas, voiding without difficulty and generally without complaints Time Spent with Patient Time attestation: Total time spent providing and/or coordinating discharge services: Exam Narrative: AF HR 73 RR 16 SpO2 99 BP 123/58 General: female in no acute respiratory distress who is nontoxic appearing, sitting up in bed eating breakfast. HEENT: Normocephalic. Atraumatic. Extraocular movement intact. Sclera clear and anicteric. No facial asymmetry. Chest: Lungs are clear to auscultation bilaterally. No wheezes or crackles. CV: Heart was regular rate and rhythm. Abd: Abdomen was soft. Nontender. Nondistended. Positive bowel sounds. Well healing laparoscopic wounds with bruising surrounding each but no erythema, drainage, warmth. Ext: No clubbing, cyanosis, or edema. DP pulses bilaterally. Neuro: Patient is alert and oriented x4. Speech is clear. Discharge Plan Discharge Attending physician on discharge: Britni Ruiz Consulting providers: Brittani Maguire; Keisha Simmons; Ariel Nuno; Yair Lee Discharging Clinician: Britni Ruiz Anticipated Discharge Date/Time: 11/06/24 08:14 Patient Disposition: Home Activity: as tolerated Diet: as tolerated and low fat Discharge Instructions: Discharge disposition: Patient admitted to the hospital for abdominal pain concerning for colitis on imaging Take medications as prescribed even if feeling better Flagyl and ciprofloxacin, course to be completed tonight Attached is information on these medications Eat well balanced meals Keep hydrated Keep active Keep an eye on your stool, should your stool be black, dark purple or tarry, you should come back to the hospital Take caution while standing, rising, or moving Change positions slowly taking a break between each position change If you standing feel dizzy sit back down and take a break Encouraged to continue with yearly vaccinations Return to the emergency department if he developed sudden shortness of breath, chest pain, nausea, vomiting, upset stomach or intractable diarrhea Return to the emergency department if you develop fever greater than 100.5 Follow-up with the primary care physician within 1-2 weeks Thank you for [facility] for your healthcare needs Patient Instructions: Antibiotic Form, Ciprofloxacin (By mouth), Metronidazole (By mouth) Patient Language: Spanish Stand Alone Forms: General Discharge Information Follow-up/Referrals: New Velazquez MD [Physician] - Call for Appointment Ijeoma Payne APRN [Primary Care Provider] - 1 Week Discharge Medications: New metronidazole 500 mg Tablet 500 mg PO Q8HR Qty: 2 0RF ciprofloxacin HCl 500 mg Tablet 500 mg PO Q12HR Qty: 2 0RF Continued estradiol 1 mg tablet 1 mg PO HS albuterol sulfate 90 mcg/actuation HFA aerosol inhaler 2 puff inhalation Q4-6H PRN (Reason: shortness of breath or wheezing) 30 Days Qty: 8.5 0RF multivitamin [Daily Multi-Vitamin] Tablet 1 tablet PO DAILY fluticasone propionate [Flonase Allergy Relief] 50 mcg/actuation spray,suspension 2 spray intranasal DAILY Qty: 16 1RF Rx Instructions: administer into each nostril pseudoephedrine HCl [Sudafed 12 Hour] 120 mg tablet extended release 120 mg PO BID PRN (Reason: nasal congestion) Qty: 30 0RF alprazolam [Xanax] 1 mg Tablet 1 mg PO BID PRN (Reason: Anxiety) venlafaxine 37.5 mg capsule,extended release 24hr 37.5 mg PO HS Patient Comments: Says takes at HS oxycodone-acetaminophen [Endocet] 5-325 mg tablet 1 tablet PO Q6H PRN (Reason: pain) Qty: 20 0RF omeprazole 40 mg capsule,delayed release(DR/EC) See Rx Instructions .ROUTE .COMPLEX Qty: 90 1RF Dose Instruction: TAKE 1 CAPSULE BY MOUTH TWICE DAILY Rx Instructions: TAKE 1 CAPSULE BY MOUTH TWICE DAILY Held celecoxib 100 mg capsule Hold Instructions: Resume on 11/29/24. Follow up with PCP. cholestyramine (with sugar) [Questran] 4 gram powder 4 g PO BID Qty: 368.76 5RF Hold Instructions: Resume on 11/29/24. hold until pcp follow up Rx Instructions: administer w/meal; avoid other meds within 1hr before or 4-6hr after dose fluticasone propionate 50 mcg/actuation spray,suspension 2 spray intranasal DAILY Qty: 48 1RF Hold Instructions: Resume on 11/29/24. hold until pcp follow up Rx Instructions: administer into each nostril Date of admission: 11/04/24 10:28 Primary Care Provider: Ijeoma Payne Admitting Provider: New Velazquez Attending physician on admission: Britni Ruiz Condition: Stable
== END 2024-11-06 09:35 | disposition home or self-care (01) | DRG 249 ==
LOC: ANHED 17:20 → ANH2MED 11-03 07:05
PROVIDERS: Nurse Practitioner Gerontology; Student in an Organized Health Care Education/Training Program; Admitting Provider Obstetrics & Gynecology; Emergency Provider Family Medicine; PCP Nurse Practitioner Family; Visit Provider Obstetrics & Gynecology Gynecology
DX: E86.0 Dehydration (principal); K52.9 Noninfective gastroenteritis and colitis, unspecified; K21.9 Gastro-esophageal reflux disease without esophagitis; G89.18 Other acute postprocedural pain; Z90.49 Acquired absence of other specified parts of digestive tract; Z90.710 Acquired absence of both cervix and uterus
CPT/HCPCS: 36415; 74177; 80048; 80053; 81003; 81025; 83605; 85025; 85027; 85055; 87045; 87046; 87427; 87493; 96374; 96375; 96376; 99285; A9270; G0378; G0379; J0744; J1836; J2270; J2405; J7030; J7120; Q9967

== ENCOUNTER 2025-01-06 00:06 | Day surgery (SDC) | payer OTHER, SELFPAY ==
[2024-12-28 11:00] VITALS: BMI 37.8
[2025-01-06 12:26] VITALS: BP 139/87; PULSE 77; RESP 18; TEMP 36.3; O2SAT 100
--- NOTE | 2025-01-06 12:29 | SUR.PREOP ---
Patient complaining of nausea and has been vomiting all morning. Orders received for pepcid IV push 20mg once and zofran 40mgIV push once per Dr. Araujo.
[2025-01-06] MEDS: LACTATED RINGERS 1,000 ML 150 ML IV CONT (13:03)
[2025-01-06] MEDS: ONDANSETRON INJ 4 MG/2 ML VIAL IV PUSH (13:04)
[2025-01-06] MEDS: FAMOTIDINE 20 MG/2 ML VIAL IV PUSH (13:04)
--- NOTE | 2025-01-06 13:32 | WPDANESEPPF ---
Anes - Initial Pre Proc Eval Procedure: Operation Date: 01/06/25 13:30 Proposed Procedures p Diagnostic Colonoscopy - Dalton Harden MD Date/Time: 01/06/25 13:32 Surgeon: Dalton Harden MD Pre Op Diagnosis: Noninfective gastroenteritis and colitis, unspecif Patient Data Age: 44 Gender: F Height: 1.55 m Weight: 88.8 kg Last Vital Signs Temp 97.4 F L 01/06/25 12:26 Pulse 77 01/06/25 12:26 Resp 18 01/06/25 12:26 BP 139/87 01/06/25 12:26 Pulse Ox 100 01/06/25 12:26 O2 Del Method Room Air 01/06/25 12:26 Allergies Allergy/AdvReac Type Severity Reaction Status Date / Time clarithromycin Allergy Severe Swelling Verified 01/06/25 12:23 of face/nausea hydrocodone Allergy Severe Throat Verified 01/06/25 12:23 swelling/facial swelling/vomiting cephalexin AdvReac Severe Other Verified 01/06/25 12:23 Home Medications ?Medication ?Instructions ?Recorded ?Confirmed ?Type alprazolam 1 mg tablet (Xanax) 1 mg PO BID PRN Anxiety 02/14/19 01/06/25 History multivitamin (Daily Multi-Vitamin 1 tablet PO DAILY 04/24/21 01/06/25 History tablet) estradiol 1 mg tablet 1 mg PO HS 04/28/23 01/06/25 History albuterol sulfate 90 mcg/actuation 2 puff inhalation Q4-6H PRN 01/06/24 01/06/25 Rx aerosol inhaler shortness of breath or wheezing 30 days #8.5 grams omeprazole 40 mg capsule,delayed See Rx Instructions .Route 11/15/24 01/06/25 Rx release .COMPLEX #90 caps venlafaxine 75 mg capsule,extended 75 mg PO DAILY #90 caps 11/15/24 01/06/25 Rx release 24 hr fluticasone propionate 50 2 spray intranasal DAILY #48 mL 12/08/24 01/06/25 Rx mcg/actuation nasal spray,suspension (Flonase Allergy Relief) pseudoephedrine HCl 120 mg 120 mg PO Q12H PRN nasal 12/08/24 01/06/25 Rx tablet,extended release (12 Hour congestion #20 tabs Decongestant ER) Patient hx anesthesia problems: none Family hx anesthesia problems: none Results Review: All pre-operative results and documents have been reviewed as part of the pre-operative evaluation. [facility] Past Medical History Medical History Colitis Idiopathic thrombocytopenic purpura (ITP) Abdominal bloating Epigastric pain Chronic diarrhea Family history of colon cancer in father Bright red blood per rectum Gallbladder anomaly Migraine Numbness Snoring Abdominal pain Painful joint Allergies Arthritis UTI (urinary tract infection) due to Enterococcus Urinary frequency Diarrhea History of dental problems Ear pain Vision changes Dizziness Chronic headaches Weight gain SIRERA (obstructive sleep apnea) History of anesthesia problem Crush injury of right foot GERD (gastroesophageal reflux disease) IBS (irritable bowel syndrome) Depression Back pain UTI (urinary tract infection) Endometriosis Sleep apnea Sinus problem Wears glasses Anemia Anxiety Surgical History Surgical History Hx of laparoscopy x2 Hx of breast reduction, elective History of cholecystectomy History of hysterectomy Family History Family History Father Alcoholism Cancer Diabetes mellitus Mother Depression Sibling Cancer Other Dementia Social History Social History Smoking packs per day: 0.5 Smoking cigarettes per day: 10.0 Years smoked: 2 Smoking pack-years: 1.00 Smoking status: Never smoker Second hand tobacco smoke exposure: No Alcohol intake: current Drinks per week: 1 Alcohol use details: 4/MONTH Substance use: current Substance use type: marijuana Do You Feel Safe in your Home?: Yes Lack of Transportation: No Lack of Food: Never True Current Housing: I Have Housing Concerned About Future Housing: No Difficulty Paying Gas/Electric Bills: No Difficulty Paying for Meds: No Currently Unemployed: No Education: Grade School Difficulty w/ Childcare or Family Care: No Living arrangements: with family Occupation/Education: occupation Additional occupation/education comments: employed Gender identity (if verbalized by the patient): Female Sexual Orientation (if Verbalized by the Patient): Straight or Heterosexual Spiritual care concerns: No Agree to blood products: Yes Anes - Eval Final PreProcedure Day of Procedure 01/06/25 13:32 Patient weight: obese Lungs: normal air movement Airway: Mallampati scale class II Neurological: alert and oriented Last oral intake: >/= 8 hours ASA classification: III Emergent: no Anesthetic plan: proceed Anesthesia type and monitoring: general GIVS and standard monitoring Results Review: All pre-operative results and documents have been reviewed as part of the pre-operative evaluation. BMI 37, occ smoker, hx of colitis, now for colonoscopy. Informed Consent: The patient's anesthetic plan and its attendant risks and benefits were discussed with the patient/family/POA. Questions were solicited and answers provided to the satisfaction of the patient/family/POA.
--- NOTE | 2025-01-06 13:41 | PM.HPGS ---
History of Present Illness History of Present Illness Consent: Risks, benefits, and alternatives have been discussed and questions answered. Patient agrees to proceed with procedure. Chief complaint: Noninfective gastroenteritis and colitis, unspecif Narrative: Peggy Serrano is a 44 year old female history of colitis 10/2024, no diarrhea but still some nausea, father had colon cancer, her last colonoscopy 4 years ago Review of Systems Review of Systems: All systems reviewed & are unremarkable except as noted in HPI and below PMFSH Past Medical History Medical History (Updated 01/06/25 @ 13:42 by Dalton Harden MD) History of colitis Colitis Idiopathic thrombocytopenic purpura (ITP) Abdominal bloating Epigastric pain Chronic diarrhea Family history of colon cancer in father Bright red blood per rectum Gallbladder anomaly Migraine Numbness Snoring Abdominal pain Painful joint Allergies Arthritis UTI (urinary tract infection) due to Enterococcus Urinary frequency Diarrhea History of dental problems Ear pain Vision changes Dizziness Chronic headaches Weight gain SIERRA (obstructive sleep apnea) History of anesthesia problem Crush injury of right foot GERD (gastroesophageal reflux disease) IBS (irritable bowel syndrome) Depression Back pain UTI (urinary tract infection) Endometriosis Sleep apnea Sinus problem Wears glasses Anemia Anxiety Surgical History Surgical History Hx of laparoscopy x2 Hx of breast reduction, elective History of cholecystectomy History of hysterectomy Family History Family History Father Alcoholism Cancer Diabetes mellitus Mother Depression Sibling Cancer Other Dementia Social History Social History Smoking packs per day: 0.5 Smoking cigarettes per day: 10.0 Years smoked: 2 Smoking pack-years: 1.00 Smoking status: Never smoker Second hand tobacco smoke exposure: No Alcohol intake: current Drinks per week: 1 Alcohol use details: 4/MONTH Substance use: current Substance use type: marijuana Do You Feel Safe in your Home?: Yes Lack of Transportation: No Lack of Food: Never True Current Housing: I Have Housing Concerned About Future Housing: No Difficulty Paying Gas/Electric Bills: No Difficulty Paying for Meds: No Currently Unemployed: No Education: Grade School Difficulty w/ Childcare or Family Care: No Living arrangements: with family Occupation/Education: occupation Additional occupation/education comments: employed Gender identity (if verbalized by the patient): Female Sexual Orientation (if Verbalized by the Patient): Straight or Heterosexual Spiritual care concerns: No Agree to blood products: Yes Meds Home Medications and Allergies Home Medications ?Medication ?Instructions ?Recorded ?Confirmed ?Type alprazolam 1 mg tablet (Xanax) 1 mg PO BID PRN Anxiety 02/14/19 01/06/25 History multivitamin (Daily Multi-Vitamin 1 tablet PO DAILY 04/24/21 01/06/25 History tablet) estradiol 1 mg tablet 1 mg PO HS 04/28/23 01/06/25 History albuterol sulfate 90 mcg/actuation 2 puff inhalation Q4-6H PRN 01/06/24 01/06/25 Rx aerosol inhaler shortness of breath or wheezing 30 days #8.5 grams omeprazole 40 mg capsule,delayed See Rx Instructions .Route 11/15/24 01/06/25 Rx release .COMPLEX #90 caps venlafaxine 75 mg capsule,extended 75 mg PO DAILY #90 caps 11/15/24 01/06/25 Rx release 24 hr fluticasone propionate 50 2 spray intranasal DAILY #48 mL 12/08/24 01/06/25 Rx mcg/actuation nasal spray,suspension (Flonase Allergy Relief) pseudoephedrine HCl 120 mg 120 mg PO Q12H PRN nasal 12/08/24 01/06/25 Rx tablet,extended release (12 Hour congestion #20 tabs Decongestant ER) Allergies Allergy/AdvReac Type Severity Reaction Status Date / Time clarithromycin Allergy Severe Swelling Verified 01/06/25 12:23 of face/nausea hydrocodone Allergy Severe Throat Verified 01/06/25 12:23 swelling/facial swelling/vomiting cephalexin AdvReac Severe Other Verified 01/06/25 12:23 Vital Signs Vital Signs - 24 hr 01/06/25 12:26 Temperature 97.4 F L Pulse Rate 77 Respiratory Rate 18 Blood Pressure 139/87 Pulse Oximetry 100 Oxygen Delivery Room Air Exam Const: General: comfortable and no acute distress HENMT: Face/Nose/Sinus: Normal nares present Eyes: General: appearance normal, both eyes and all related structures Resp: Auscultation: clear to auscultation bilaterally Cardio: Rate: regular rate Rhythm: regular rhythm GI: Inspection: non-distended GI Palp: Yes Soft to palpation Skin: General skin exam: normal color Extrem: General: normal to inspection Psych: Mental Status: mental status grossly normal Assessment and Plan Assessment and plan (1) History of colitis: Code(s): Z87.19 - Personal history of other diseases of the digestive system Status: Acute Assessment and Plan: colonoscopy (2) Family history of colon cancer in father: Code(s): Z80.0 - Family history of malignant neoplasm of digestive organs Status: Acute
--- NOTE | 2025-01-06 13:57 | S_PTH ---
PATIENT: Peggy Serrano LOC: [facility]#:[id number] AGE/SX: 44/F ROOM: RE01/06/[address]: Dalton Harden MD : 1980 BED: DIS: 01/06/2025 SPEC #: [id number] RECD: 01/07/25 07:12 STATUS: MARIE REWade #: [id number] EZEKIEL: 01/06/25 13:[address]: Dalton Harden DEPT: [facility] Surgical RECD BY: Kylie Dinero ENTERED: 01/07/25 07:12 SP TYPE: Surgical OTHR DR: Ijeoma Payne APRN Tissues: A - Colon Biopsy Procedures: Hematoxylin and Eosin Stain Gross and Microscopic Level 4
[2025-01-06 14:00] VITALS: BP 108/65; PULSE 75; RESP 25; O2SAT 100
[2025-01-06 14:10] VITALS: BP 117/66; PULSE 62; RESP 22; O2SAT 100
[2025-01-06 14:20] VITALS: BP 125/66; PULSE 63; RESP 22; O2SAT 100
== END 2025-01-06 14:30 | disposition home or self-care (01) ==
PROVIDERS: PCP Nurse Practitioner Family; Referring Provider Nurse Practitioner Family; Visit Provider Internal Medicine Gastroenterology
PROC: 0DJD8ZZ Inspection of Lower Intestinal Tract, Via Natural or Artificial Opening Endoscopic (ICD-10-PCS; CPT 45378; principal; 2025-01-06 13:30)
DX: K58.9 Irritable bowel syndrome, unspecified (principal); K21.9 Gastro-esophageal reflux disease without esophagitis; F32.A Depression, unspecified; D64.9 Anemia, unspecified; F41.9 Anxiety disorder, unspecified; R35.0 Frequency of micturition; G47.33 Obstructive sleep apnea (adult) (pediatric); N80.9 Endometriosis, unspecified; D69.3 Immune thrombocytopenic purpura; Q44.1 Other congenital malformations of gallbladder; R51.9 Headache, unspecified; F12.90 Cannabis use, unspecified, uncomplicated; E66.9 Obesity, unspecified; Z68.37 Body mass index [BMI] 37.0-37.9, adult; Z79.51 Long term (current) use of inhaled steroids; Z98.890 Other specified postprocedural states; Z90.49 Acquired absence of other specified parts of digestive tract; Z87.19 Personal history of other diseases of the digestive system; Z80.0 Family history of malignant neoplasm of digestive organs
CPT/HCPCS: 45380; 88305; J2003; J2405; J2704; J7120

== ENCOUNTER 2025-01-25 07:34 | Outpatient (CLI) | payer OTHER, SELFPAY ==
--- NOTE | ~2025-01-25 | NM_ITS ---
EXAM: NM gastric emptying study DATE: 01/25/2025 12:51 INDICATION: Abdominal distention (gaseous). TECHNIQUE: A gastric emptying study was performed using the methodology of Marco GOODMAN, et al. J Nucl Med 2007; 48:568-572. The patient was given a meal consisting of 2 scrambled eggs labeled with 1 mCi Tc-99m sulfur colloid, 2 slices of toast, two packages of jam, and approximately 120 mL of water. Si multaneous anterior and posterior 1-min images of the abdomen were obtained with the patient supine at multiple time points over a total period of 4 hours. The geometric mean of anterior and posterior views was determined, and the percentage retention was calculated for each time point. COMPARISON: CT 11/04/24 FINDINGS: Gastric retention of the radiotracer-labeled meal was 69%, 40%, and 6% at the 1-hour, 2-hour, and 4-hour time points, respectively. With this technique, apparent rapid gastric emptying is suggested by <30% gastric retention at 1 hour. Delayed gastric emptying is defined by gastric retention of >90% at 1 hour, >60% retention at 2 hours, or >10% retention at 4 hours. IMPRESSION: 1. Normal gastric emptying. Reviewed, dictated and finalized at location E. IMPRESSION: 1. Normal gastric emptying.
== END 2025-01-25 07:35 | disposition home or self-care (01) ==
PROVIDERS: PCP Nurse Practitioner Family; Visit Provider Nurse Practitioner Family
DX: K21.9 Gastro-esophageal reflux disease without esophagitis (principal); R68.81 Early satiety
CPT/HCPCS: 78264; A9541

== ENCOUNTER 2025-02-15 11:44 | Emergency (ER) | payer OTHER, SELFPAY ==
--- NOTE | ~2025-02-15 | CT_ITS ---
EXAMINATION: CT brain wo con DATE: 02/15/2025 15:13 INDICATION: Headache TECHNIQUE: Computed tomography (CT) of the head was performed without intravenous contrast. The dose-length product was 605.33 mGy-cm. COMPARISON: None FINDINGS: No intracranial mass effect or hemorrhage. No large acute ischemic event. However structures appear intact. IMPRESSION: No gross intracranial mass effect or hemorrhage. For persisting or worsening headaches, correlation with nonemergent brain MRI recommended for optimal evaluation. Reviewed, dictated and finalized at location A. LE MACHINE OPERATOR IMPRESSION: No gross intracranial mass effect or hemorrhage. For persisting or worsening headaches, correlation with nonemergent brain MRI recommended for opt imal evaluation.
[2025-02-15 11:46] VITALS: BP 144/88; PULSE 80; RESP 18; TEMP 36.6; O2SAT 100
[2025-02-15 12:25] VITALS: BP 147/88; PULSE 83; RESP 14; O2SAT 97
[2025-02-15 12:30] VITALS: BP 147/88; PULSE 83; RESP 14; O2SAT 97
--- NOTE | 2025-02-15 14:45 | ED.GENADULT ---
HPI - General Adult General Chief complaint: Headache Stated complaint: headache x 1.5 week, dizziness, palpitations Time Seen by Provider: 02/15/25 12:59 History of Present Illness HPI narrative: 44-year-old female presented to the emergency department for evaluation for headache that is been ongoing for the last 1.5 weeks. Patient states headache started approximately 1.5 weeks ago in the course of the last week she has had increased left-sided sinus pressure left ear pain is had onset of dizziness that sounds vertiginous as she describes it. States that worsened with head movement and is slightly improved when closing her eyes. Related Data Home Medications ?Medication ?Instructions ?Recorded ?Confirmed ?Last Taken ?Type alprazolam 1 mg tablet (Xanax) 1 mg PO BID PRN Anxiety 02/14/19 01/14/25 01/05/25 History multivitamin (Daily Multi-Vitamin 1 tablet PO DAILY 04/24/21 01/14/25 01/05/25 History tablet) estradiol 1 mg tablet 1 mg PO HS 04/28/23 01/14/25 01/05/25 History Allergies Allergy/AdvReac Type Severity Reaction Status Date / Time clarithromycin Allergy Severe Swelling Verified 02/15/25 12:30 of face/nausea hydrocodone Allergy Severe Throat Verified 02/15/25 12:30 swelling/facial swelling/vomiting cephalexin AdvReac Severe Other Verified 02/15/25 12:30 Review of Systems Review of Systems: All systems reviewed & are unremarkable except as noted in HPI and below PMFSH Past Medical History Medical History (Updated 02/15/25 @ 16:04 by Michael Collier MD) Early satiety Nausea History of colitis Colitis Idiopathic thrombocytopenic purpura (ITP) Abdominal bloating Epigastric pain Chronic diarrhea Family history of colon cancer in father Bright red blood per rectum Gallbladder anomaly Migraine Numbness Snoring Abdominal pain Painful joint Allergies Arthritis UTI (urinary tract infection) due to Enterococcus Urinary frequency Diarrhea History of dental problems Ear pain Vision changes Dizziness Chronic headaches Weight gain SIERRA (obstructive sleep apnea) History of anesthesia problem Crush injury of right foot GERD (gastroesophageal reflux disease) IBS (irritable bowel syndrome) Depression Back pain UTI (urinary tract infection) Endometriosis Sleep apnea Sinus problem Wears glasses Anemia Anxiety Surgical History Surgical History Hx of laparoscopy x2 Hx of breast reduction, elective History of cholecystectomy History of hysterectomy Family History Family History Father Alcoholism Cancer Diabetes mellitus Mother Depression Sibling Cancer Other Dementia Social History Social History Smoking packs per day: 0.5 Smoking cigarettes per day: 10.0 Years smoked: 2 Smoking pack-years: 1.00 Smoking status: Never smoker Second hand tobacco smoke exposure: No Alcohol intake: current Drinks per week: 1 Alcohol use details: 4/MONTH Substance use: current Substance use type: marijuana Do You Feel Safe in your Home?: Yes Lack of Transportation: No Lack of Food: Never True Current Housing: I Have Housing Concerned About Future Housing: No Difficulty Paying Gas/Electric Bills: No Difficulty Paying for Meds: No Currently Unemployed: No Education: Grade School Difficulty w/ Childcare or Family Care: No Living arrangements: with family Occupation/Education: occupation Additional occupation/education comments: employed Gender identity (if verbalized by the patient): Female Sexual Orientation (if Verbalized by the Patient): Straight or Heterosexual Spiritual care concerns: No Agree to blood products: Yes Exam Narrative: APPEARANCE: Uncomfortable from the vertigo HEAD: normocephalic, atraumatic. EYES: PERRLA/EOMI, conjunctivae clear. NOSE: Normal no drainage EARS:TMS clear with good light reflex. THROAT: Pharynx clear, no exudate. NECK: Supple. No adenopathy, no masses. RESPIRATORY: Airway patent, respirations nonlabored. Clear to auscultation bilaterally, no rales, rhonchi, wheezing. CARDIOVASCULAR: Regular rate and rhythm without murmurs rubs or gallops. ABDOMINAL: Soft, nontender, nondistended, normal bowel sounds MUSCULOSKELETAL: Moves all extremities. Strength/ROM intact, No edema, No calf tenderness. NEURO: Alert. Cranial nerves II through XII intact. Good gait. Good coordination SKIN: Warm, dry. Normal Color Course Vital Signs Vital signs: Vital Signs Temperature 97.9 F 02/15/25 11:46 Pulse Rate 80 02/15/25 11:46 Respiratory Rate 18 02/15/25 11:46 Blood Pressure 144/88 H 02/15/25 11:46 Pulse Oximetry 100 02/15/25 11:46 Oxygen Delivery Room Air 02/15/25 11:46 Temperature 97.9 F 02/15/25 11:46 Pulse Rate 74 02/15/25 16:46 Respiratory Rate 19 02/15/25 16:46 Blood Pressure 147/87 H 02/15/25 16:46 Pulse Oximetry 100 02/15/25 16:46 Oxygen Delivery Room Air 02/15/25 12:25 Medical Decision Making MDM Narrative Medical decision making narrative: 44-year-old female presents emergency department for evaluation for sinus pressure left ear pain and vertigo symptoms. Head CT was negative for acute finding. Patient was treated with 1 L of lactated Ringer's, Compazine, Benadryl and meclizine. On re-evaluation patient reports he feels significantly improved. Patient was able to ambulate without issues. Do suspect patient as having vertigo from sinusitis versus in her your infection. Patient will be treated with anti-inflammatories along with p.r.n. meclizine. Patient was updated the results of the workup and plan for treatment. All questions concerns were addressed. Patient was well-appearing at time of discharge. Differential Diagnosis Differential Diagnosis: Vertigo, sinusitis, otitis media, dehydration, migraine Vital Signs Vital Signs: Vital Signs Temperature 97.9 F 02/15/25 11:46 Pulse Rate 80 02/15/25 11:46 Respiratory Rate 18 02/15/25 11:46 Blood Pressure 144/88 H 02/15/25 11:46 Pulse Oximetry 100 02/15/25 11:46 Oxygen Delivery Room Air 02/15/25 11:46 Temperature 97.9 F 02/15/25 11:46 Pulse Rate 74 02/15/25 16:46 Respiratory Rate 19 02/15/25 16:46 Blood Pressure 147/87 H 02/15/25 16:46 Pulse Oximetry 100 02/15/25 16:46 Oxygen Delivery Room Air 02/15/25 12:25 Lab Data Lab results reviewed: Yes I reviewed the patient's lab results. Imaging Data Radiologist's impression: Impressions Head CT 02/15/25 15:15 IMPRESSION: No gross intracranial mass effect or hemorrhage. For persisting or worsening headaches, correlation with nonemergent brain MRI recommended for optimal evaluation. Discharge Plan Discharge Clinical Impression: Sinus pressure, Vertigo Patient Disposition: Home Condition: Stable Instructions: Antibiotic Form, Vertigo (DC) Additional Instructions: naproxen as directed. meclizine as directed for vertigo symptoms. Have close follow-up with your primary care physician. If you have any worsening symptoms please call or return to the emergency department. Patient Language: Maori Prescriptions: New meclizine 25 mg tablet 25 mg PO BID PRN (Reason: dizziness) 7 Days Qty: 14 0RF naproxen [Naprosyn] 500 mg tablet 500 mg PO BID 7 Days Qty: 14 0RF No Action estradiol 1 mg tablet 1 mg PO HS albuterol sulfate 90 mcg/actuation HFA aerosol inhaler 2 puff inhalation Q4-6H PRN (Reason: shortness of breath or wheezing) 30 Days Qty: 8.5 0RF omeprazole 40 mg capsule,delayed release(DR/EC) See Rx Instructions .ROUTE .COMPLEX Qty: 90 1RF Dose Instruction: TAKE 1 CAPSULE BY MOUTH TWICE DAILY Rx Instructions: TAKE 1 CAPSULE BY MOUTH TWICE DAILY venlafaxine 75 mg capsule,extended release 24hr 75 mg PO DAILY Qty: 90 1RF pseudoephedrine HCl [12 Hour Decongestant] 120 mg tablet extended release 120 mg PO Q12H PRN (Reason: nasal congestion) Qty: 20 0RF fluticasone propionate [Flonase Allergy Relief] 50 mcg/actuation spray,suspension 2 spray intranasal DAILY Qty: 48 1RF Rx Instructions: administer into each nostril vonoprazan 10 mg tablet 10 mg tablet 0RF Voquezna 10 mg tablet 10 mg PO DAILY 30 Days Qty: 30 5RF multivitamin [Daily Multi-Vitamin] Tablet 1 tablet PO DAILY alprazolam [Xanax] 1 mg Tablet 1 mg PO BID PRN (Reason: Anxiety) Follow-up/Referrals: Ijeoma Payne APRN [Primary Care Provider, Internal Medicine]
[2025-02-15] MEDS: LACTATED RINGERS 1,000 ML 999 ML IV CONT (15:18)
[2025-02-15] MEDS: PROCHLORPERAZINE EDISYLATE 10 MG/2 ML VIAL IV PUSH (15:22)
[2025-02-15] MEDS: MECLIZINE HCL 25 MG TABLET PO (15:22)
[2025-02-15] MEDS: KETOROLAC 30 MG/ML VIAL (*BKC) IV PUSH (15:32)
[2025-02-15 16:46] VITALS: BP 147/87; PULSE 74; RESP 19; O2SAT 100
--- OUTSIDE RECORDS SUMMARY | 2025-02-16 03:36 | XMS_ITS | Clinical Summary ---
Author Organization [facility] Address [address] [place] [address] Care Team Providers Care Oyster Fisherman Name Role Phone Miguel Langley DO Primary Care Provider [phone] Allergies Active Allergy Reactions Criticality Noted Date [...] fluticasone propionate (FLONASE) 50 mcg/actuation nasal spray Wellpinit 2 sprays every day by intranasal route. [...] mg total) by mouth 12/17/19 23 Active intvoigy-wzr-[id number] [id number] (Alive Women's Gummy Vitamin) 120 mcg- 37.5 [...] 03/12/2017 Assessment & Plan (03/12/2017 11:57 AM LABORATORY INSPECTOR): Patient demonstrates history and my physical [...] CDT): This is being managed by her contact agent. Surgical History Surgery Date Site/Laterality Comments PARTIAL [...] on file Legal Sex Female 9:03 AM LABORATORY INSPECTOR Gender Identity Female 01/20/2024 3:06 PM [...] Screening-Mammogram 07/05/2021 07/05/2020 Covid-19 Vaccine ( season) 2024 03/04/2021 Influenza Vaccine (#1) 2024 Hepatitis C [...] ORDERABLES Final Result [facility] ([facility] [address] [facility] [place] [address] from Last 3 Months or Most Recently Relevant to Health Maintenance Insurance [facility] Care Teams Oyster Fisherman Relationship Specialty Start Date End Date Miguel Langley DO PCP - General Internal Medicine 07/03/22
--- OUTSIDE RECORDS SUMMARY | 2025-02-16 03:36 | XMS_ITS | Clinical Summary ---
[facility] Address [address] [place] [address] Care Team Providers Care Park Naturalist Name Role Phone Mello Kaba MD Primary Care Provider [phone] Allergies Active Allergy Reactions Criticality Noted Date [...] 2 mg by mouth daily. 0 Active udnomuzp-zbn-[id number] lic [id number] (Alive Women's Gummy Vitamin) 200 mcg- 37.5 [...] Encounters Date Type Department Care Team Description 01/18/2025 External Device Data [facility] Provider, Abstract 12/14/2024 External Device Data [facility] Provider, Abstract [...] Comments Blood Pressure 117/79 05/05/2024 2:37 PM AGENT TELEGRAPHER Pulse 70 05/05/2024 2:37 PM AGENT TELEGRAPHER Temperature 36.1 C (97 F) 05/05/2024 2:37 PM AGENT TELEGRAPHER Respiratory Rate 18 05/05/2024 2:37 PM AGENT TELEGRAPHER Oxygen Saturation 98% 05/05/2024 2:37 PM AGENT TELEGRAPHER Inhaled Oxygen Concentration - - Weight 91.2 kg (201 lb) 05/05/2024 2:37 PM AGENT TELEGRAPHER Height 157.5 cm (5' 2) 10/12/2021 8:27 [...] [place] Care Teams Park Naturalist Relationship Specialty Start Date End Date Mello Kaba MD PCP - General Family Practice 09/02/22
== END 2025-02-15 16:47 | disposition home or self-care (01) ==
LOC: ANHED 16:10
PROVIDERS: Emergency Provider Emergency Medicine; PCP Nurse Practitioner Family
DX: R42 Dizziness and giddiness (principal); J34.89 Other specified disorders of nose and nasal sinuses; M19.90 Unspecified osteoarthritis, unspecified site; Z87.440 Personal history of urinary (tract) infections; G47.30 Sleep apnea, unspecified; F41.9 Anxiety disorder, unspecified; D64.9 Anemia, unspecified
CPT/HCPCS: 70450; 96361; 96374; 96375; 99284; A9270; J0780; J1200; J1885; J7120